=== PATIENT | male | born 1960 | race Caucasian/White ===

== ENCOUNTER 2016-07-25 11:41 | Emergency (ER) | payer SELFPAY ==
[~2016-07-25] VITALS: Ht 167.6 cm; Wt 59.0 kg
[~2016-07-25 11:41] MED LIST: DOXY100T PO; SULF-154 PO
[2016-07-25 11:43] VITALS: BP 149/82; PULSE 90; RESP 20; TEMP 97.6; O2SAT 98
== END 2016-07-25 12:20 | disposition left against medical advice (07) ==
LOC: NED 11:41
DX: R68.89 Other general symptoms and signs (principal)
CPT/HCPCS: 99281

== ENCOUNTER 2016-09-24 07:39 | Emergency (ER) | payer SELFPAY ==
[~2016-09-24] VITALS: Ht 170.2 cm; Wt 59.0 kg
[2016-09-24 07:41] VITALS: BP 160/96; PULSE 106; RESP 20; TEMP 98; O2SAT 98
--- NOTE | 2016-09-24 07:53 | PD ---
HPI . Left index finger infection and right index finger wound Chief Complaint: Skin Problem Time Seen by Provider: 07:53 Travel History International Travel<30 days: No Contact w/Intl Traveler<30days: No Traveled to known affect area: No History of Present Illness HPI 56-year-old male with no known medical history other than tobaccoism here with complaints of left index finger possible infection/spider bite as well as a right index finger possible spider bite that is normal wound healing. Patient says that he decided to come to the emergency department because he had a temperature of 99 last night. The area on the left index finger is full of blood and he didn't know what to do. He is not certain if he was bitten by an insect or if he sustained some sort of injury. He is up-to-date on his tetanus shot. He still has range of motion in both bilateral hands without any significant difficulty. PFSH Past Medical History Hx Anticoagulant Therapy: No Autoimmune Disease: No Cancer: No Cardiovascular Problems: No Chemotherapy: No COPD: Yes Cerebrovascular Accident: No Diabetes: No Diminished Hearing: No Endocrine: No Genitourinary: No Immune Disorder: No Musculoskeletal: Yes (Bursitis) Neurologic: No Psychiatric: No Reproductive: No Respiratory: No Thyroid Disease: No Past Surgical History Pacemaker: No Social History Alcohol Use: Yes (4 BEERS A DAY) Tobacco Use: Yes (1 PPD) Substance Use: No Allergies-Medications (Allergen,Severity, Reaction): Coded Allergies: *MDRO Multi-Drug Resistant Organism (Verified Allergy, Unknown, 07/25/16) MRSA Reported Meds & Prescriptions Reported Meds & Active Scripts Active Bactrim DS (Sulfamethoxazole-Trimethoprim) 800-160 Mg Tab 1 Tab PO BID Review of Systems General / Constitutional: No: Fever Eyes: No: Visual changes HENT: No: Headaches Cardiovascular: No: Chest Pain or Discomfort Respiratory: No: Shortness of Breath Gastrointestinal: No: Abdominal Pain Genitourinary: No: Dysuria Musculoskeletal: No: Pain Skin: Positive Other (left index finger hematoma/ right index finger healing wound), No Rash Neurologic: No: Weakness Psychiatric: No: Depression Endocrine: No: Polydipsia Hematologic/Lymphatic: No: Easy Bruising Physical Exam Narrative GENERAL: AAO x 3, no acute distress, Well-nourished, well-developed patient. SKIN: Warm and dry. No visible rashes or bruising. Right index finger with a 2 cm healing wound. There is no surrounding erythema, edema or purulence. Left index finger at the PIP joint with a 1.4 cm hematoma and surrounding erythema. HEAD: Normocephalic and atraumatic. EYES: No scleral icterus. No injection or drainage. EOM intact, PERRLA ENT: No nasal drainage noted. Mucous membranes pink. Airway patent. NECK: Supple, trachea midline. No JVD. CARDIOVASCULAR: Regular rate and rhythm without murmurs, gallops, or rubs. RESPIRATORY: Diminished breath sounds bilaterally No accessory muscle use. No rhonchi or rales. GASTROINTESTINAL: Visual inspection normal EXTREMITIES: No cyanosis or edema. Full range of motion bilateral hands. Digits move normally bilateral hands. BACK: Nontender without obvious deformity. No CVA tenderness. PSYCH: AAO x 3, normal affect. Data Data Last Documented VS Vital Signs Date Time Temp Pulse Resp B/P Pulse Ox O2 Delivery O2 Flow Rate FiO2 09/24/16 08:07 85 09/24/16 07:41 98.0 20 160/96 98 Room Air MDM Medical Decision Making Medical Screen Exam Complete: Yes Emergency Medical Condition: Yes Medical Record Reviewed: Yes Differential Diagnosis Left index trigger hematoma, left index finger cellulitis, right index finger wound, less likely paronychia, less likely abscess Narrative Course 56-year-old male here with a left index finger hematoma and a right index finger wound. He is not certain of the exact mechanism of injury. This left index finger does not look fractured. I discussed drainage of the hematoma and patient was in agreement. A large bore needle was used to make a small hole and blood was released from the hematoma. Patient tolerated without incident. There is some slight erythema of this finger as well, therefore I will go ahead and treat with Bactrim to cover MRSA. I've advised him to come in in 2 days for recheck. We discussed the signs of worsening infection and when to return earlier. In regards to the right index finger: it is not infected. this is a slow healing wound likely related to tobaccoism and the fact that the patient has not provided any care or protection to the area. I discussed this with him. He will try to keep area protected to allow proper healing. Patient verbalized understanding of instructions, questions were answered, and thanked me for their care. I advised them if their condition worsens, please return to the nearest emergency room for further care. Procedures Procedure Narrative hematoma drainage: left index finger PIP dorsum area cleaned with betadine 18 gauge needle used to make a small hole (patient: no lidocaine due to recurrent use of needles vs. one needle stick to drain) 0.5 cc blood drained from the hematoma. Instant relief for patient afterwards area cleaned and dressing applied Diagnosis Primary Impression: Traumatic hematoma of finger Qualified Code: S60.00XA - Traumatic hematoma of finger, initial encounter Additional Impression: Cellulitis Qualified Code: L03.012 - Cellulitis of finger of left hand Patient Instructions: General Instructions Additional Instructions: [place] for worsening signs of infection which include fever, increased redness , increased warmth, purulent drainage, increased swelling or streaking. If any of these develop, please go to the nearest emergency room. Please return to emergency department if your symptoms return or worsen. Follow up with your primary care provider. Take medications as prescribed. Return to the emergency department in 2 days for recheck of this left index finger. Try to clean your fingers with soap and water at least twice daily. Keep area clean and change dressings at least twice daily. Use topical Neosporin on both areas of each finger. Med/Other Pt SpecificInfo: Prescription(s) given Scripts Sulfamethoxazole-Trimethoprim (Bactrim DS)800-160 Mg Tab1 Tab PO BID #20 TAB Prov:Debbie Rodríguez DO 09/24/16 Disposition: 01 DISCHARGE HOME Condition: Stable Heather Marx September 24, 2016 07:53
[2016-09-24] MEDS ORDERED: BACT800T5 PO (08:05)
== END 2016-09-24 08:05 | disposition home or self-care (01) ==
LOC: NEPK 07:39
DX: S60.022A Contusion of left index finger without damage to nail, initial encounter (principal); L03.012 Cellulitis of left finger; X58.XXXA Exposure to other specified factors, initial encounter
CPT/HCPCS: 10140

== ENCOUNTER 2016-09-26 00:08 | Emergency (ER) | payer SELFPAY ==
[~2016-09-26] VITALS: Ht 170.2 cm; Wt 59.1 kg
[~2016-09-26 00:08] MED LIST changes: +BACT800T5 PO; -DOXY100T PO; -SULF-154 PO
[2016-09-26 00:10] VITALS: BP 127/86; PULSE 104; RESP 16; TEMP 98.6; O2SAT 98
== END 2016-09-26 02:22 | disposition left against medical advice (07) ==
LOC: NED 00:08
DX: R68.89 Other general symptoms and signs (principal)
CPT/HCPCS: 99281

== ENCOUNTER 2016-09-26 09:51 | Inpatient (IN) | payer OTHER ==
[~2016-09-26] VITALS: Ht 170.2 cm; Wt 60.0 kg
--- NOTE | 2016-09-26 10:53 | PD ---
HPI Chief Complaint: Laceration/Skin Injury Time Seen by Provider: 10:35 Travel History International Travel<30 days: No Contact w/Intl Traveler<30days: No Traveled to known affect area: No History of Present Illness HPI 56-year-old male with no past medical history presents to the emergency department for recheck of 2 abscesses on his left and right hand. He reports that he was possibly bitten by a spider while trimming bushes 2 days ago. He was seen and evaluated in the emergency department on 09/24/16 started on Bactrim and discharged home. He reports since then he has developed fever, chills, increased swelling and red streaking up the arm. PFSH Past Medical History Medical History: Denies Significant Hx Hx Anticoagulant Therapy: No Musculoskeletal: Yes (Bursitis) Respiratory: No Thyroid Disease: No Past Surgical History Pacemaker: No Other Surgery: No (FINGER) Social History Alcohol Use: Yes (every other day) Tobacco Use: Yes (1 PPD) Substance Use: No Allergies-Medications (Allergen,Severity, Reaction): Coded Allergies: *MDRO Multi-Drug Resistant Organism (Verified Adverse Reaction, Unknown, ) MRSA Reported Meds & Prescriptions Reported Meds & Active Scripts Active Bactrim DS (Sulfamethoxazole-Trimethoprim) 800-160 Mg Tab 1 Tab PO BID Review of Systems Except as stated in HPI: all other systems reviewed are Neg General / Constitutional: Positive: Fever, Chills Skin: Positive Other (abscess lL 2nd digit, abcess R thumd, Lymphangitis R arm) Physical Exam Narrative 56-year-old male presents to the emergency department for reevaluation of 2 abscesses on his left and right hand. He reports symptoms are worsening despite being on Bactrim for the last 2 days. Patient is transferred to medical pod. Data Data Last Documented VS Vital Signs Date Time Temp Pulse Resp B/P Pulse Ox O2 Delivery O2 Flow Rate FiO2 09/26/16 11:30 98.4 89 17 118/72 97 Room Air Orders Complete Blood Count With Diff (09/26/16 11:00) Basic Metabolic Panel (Bmp) (09/26/16 11:00) Blood Culture (09/26/16 11:00) Wound Culture And Gram Stain (09/26/16 11:00) Westergren Sedimentation Rate (09/26/16 11:08) C-Reactive Protein (Crp) (09/26/16 11:08) Vancomycin Inj (Vancomycin Inj) (09/26/16 11:15) Cefepime Inj (Maxipime Inj) (09/26/16 11:15) Finger ([id number]) (09/26/16 11:15) Finger ([id number]) (09/26/16 11:15) Admit Order (Ed Use Only) (09/26/16 12:18) Labs Laboratory Tests Test 09/26/16 11:10 White Blood Count 10.4 TH/MM3 Red Blood Count 4.59 MIL/MM3 Hemoglobin 15.0 GM/DL Hematocrit 44.0 % Mean Corpuscular Volume 95.9 FL Mean Corpuscular Hemoglobin 32.7 PG Mean Corpuscular Hemoglobin 34.1 % Concent Red Cell Distribution Width 13.9 % Platelet Count 278 TH/MM3 Mean Platelet Volume 8.0 FL Neutrophils (%) (Auto) 77.0 % Lymphocytes (%) (Auto) 9.7 % Monocytes (%) (Auto) 12.3 % Eosinophils (%) (Auto) 0.5 % Basophils (%) (Auto) 0.5 % Neutrophils # (Auto) 8.0 TH/MM3 Lymphocytes # (Auto) 1.0 TH/MM3 Monocytes # (Auto) 1.3 TH/MM3 Eosinophils # (Auto) 0.0 TH/MM3 Basophils # (Auto) 0.1 TH/MM3 CBC Comment DIFF FINAL Differential Comment Erythrocyte Sedimentation Rate 6 mm/hr Sodium Level 132 MEQ/L Potassium Level 3.7 MEQ/L Chloride Level 99 MEQ/L Carbon Dioxide Level 25.4 MEQ/L Anion Gap 8 MEQ/L Blood Urea Nitrogen 9 MG/DL Creatinine 0.78 MG/DL Estimat Glomerular Filtration 102 ML/MIN Rate Random Glucose 102 MG/DL Calcium Level 9.2 MG/DL C-Reactive Protein 7.04 MG/DL [facility] Medical Decision Making Medical Screen Exam Complete: Yes Emergency Medical Condition: Yes Medical Record Reviewed: Yes Differential Diagnosis Abscess, synovitis, infectious tenosynovitis Narrative Course 56-year-old male who presents to the emergency department for reevaluation of 2 abscesses on left and right hand. He reports worsening symptoms despite being on oral antibiotics for the last 2 days. He is moved to the [facility] at this time. Liz Morales September 26, 2016 10:53
--- NOTE | 2016-09-26 11:00 | PD ---
HPI Chief Complaint: Laceration/Skin Injury Travel History International Travel<30 days: No Contact w/Intl Traveler<30days: No Traveled to known affect area: No PFSH Past Medical History Medical History: Denies Significant Hx Hx Anticoagulant Therapy: No Musculoskeletal: Yes (Bursitis) Respiratory: No Thyroid Disease: No Past Surgical History Pacemaker: No Other Surgery: No (FINGER) Social History Alcohol Use: Yes (every other day) Tobacco Use: Yes (1 PPD) Substance Use: No Allergies-Medications (Allergen,Severity, Reaction): Coded Allergies: *MDRO Multi-Drug Resistant Organism (Verified Allergy, Unknown, 07/25/16) MRSA Reported Meds & Prescriptions Reported Meds & Active Scripts Active Bactrim DS (Sulfamethoxazole-Trimethoprim) 800-160 Mg Tab 1 Tab PO BID Physical Exam Narrative GENERAL: Well-nourished well-appearing white male SKIN: Focused assessment: Large fluctuant abscess over the dorsal aspect of the left second digit. Abscess to the palmar aspect of right thumb. Erythema spreading from the site thumb up the right forearm. HEAD: Atraumatic. Normocephalic. EYES: Pupils equal and round. No scleral icterus. No injection or drainage. ENT: No nasal bleeding or discharge. Mucous membranes pink and moist. NECK: Trachea midline. No JVD. CARDIOVASCULAR: Regular rate and rhythm. RESPIRATORY: No accessory muscle use. Clear to auscultation. Breath sounds equal bilaterally. GASTROINTESTINAL: Abdomen soft, non-tender, nondistended. Hepatic and splenic margins not palpable. MUSCULOSKELETAL:Left 2nd digit: Moderate amount of swelling and erythema. Area of fluctuance over the dorsal aspect, held in slight flexion, decreased range of motion due to pain. Right thumb: Area of fluctuance on the palmar aspect. NEUROLOGICAL: Awake and alert. No obvious cranial nerve deficits. Motor grossly within normal limits. Five out of 5 muscle strength in the arms and legs. Normal speech. PSYCHIATRIC: Appropriate mood and affect; insight and judgment normal. MDM Medical Decision Making Medical Screen Exam Complete: Yes Emergency Medical Condition: Yes Differential Diagnosis Abscess versus cellulitis versus lymphangitis versus infectious tenosynovitis Liz Morales September 26, 2016 10:59
[2016-09-26] MEDS ORDERED: VANCOMYCIN INJ 1,000 MG in SODIUM CHLOR 0.9% 250 ML INJ 250 ML IV ONE (11:15)
[2016-09-26] MEDS ORDERED: CEFEPIME INJ 2,000 MG in SODIUM CHLORIDE 0.9% INJ 100 ML IV STA (11:15)
--- NOTE | 2016-09-26 11:15 | PD ---
HPI Chief Complaint: Laceration/Skin Injury Time Seen by Provider: 11:10 Travel History International Travel<30 days: No Contact w/Intl Traveler<30days: No Traveled to known affect area: No History of Present Illness HPI 56-year-old male presents to the emergency department for evaluation of left hand second finger swelling and pain as well as swelling and pain in the right hand thumb. The patient was initially seen by fast track provider and then transferred to a medical pod where I accepted care of the patient. The patient states that 4 days ago he noticed he had some swelling and pain to the dorsal aspect of his left hand second finger and the volar aspect of his right hand first finger. 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 He states that he was seen in our emergency department 2 days ago and had a needle aspiration of the left hand second finger and was placed on Bactrim. States that he has been taking the Bactrim as prescribed over the last 2 days but has had worsening of his swelling, redness and pain. He states that he now has a red streak extending up his right arm. He says that he can move his fingers but only a small amount. Denies any fever, chills , nausea, vomiting, numbness or tingling, weakness. Denies any medical conditions. Last tetanus vaccination 2 years ago. No other complaints. PFSH Past Medical History Medical History: Denies Significant Hx Hx Anticoagulant Therapy: No Cardiovascular Problems: No COPD: Yes Diminished Hearing: No Musculoskeletal: Yes (Bursitis) Respiratory: Yes Thyroid Disease: No Tetanus Vaccination: < 5 Years Influenza Vaccination: Yes Past Surgical History Pacemaker: No Other Surgery: Yes (FINGER) Social History Alcohol Use: Yes (every other day) Tobacco Use: Yes (1 PPD) Substance Use: No Allergies-Medications (Allergen,Severity, Reaction): Coded Allergies: *MDRO Multi-Drug Resistant Organism (Verified Adverse Reaction, Unknown, ) MRSA Reported Meds & Prescriptions Reported Meds & Active Scripts Active Bactrim DS (Sulfamethoxazole-Trimethoprim) 800-160 Mg Tab 1 Tab PO BID Review of Systems Except as stated in HPI: all other systems reviewed are Neg Physical Exam Narrative GENERAL: Well-nourished and well-developed pleasant patient in no acute distress who is nontoxic appearing. SKIN: Warm and dry. HEAD: Normocephalic and atraumatic. EYES: No injection, drainage, or hyphema noted. PERRLA. EOMI. ENT: No nasal drainage noted. Oropharynx is clear. NECK: Supple and the trachea is midline. CARDIOVASCULAR: Regular rate and rhythm. RESPIRATORY: Breath sounds are equal bilaterally with no accessory muscle use, wheezing, rhonchi, or crackles. GASTROINTESTINAL: Abdomen is soft, non-tender, and nondistended. EXTREMITY: Right hand with mild swelling and erythema of the volar distal aspect with erythema and warmth extending in a red streak down the volar forearm. Range of motion of the right hand thumb is mostly intact, slightly decreased. There is an abscess overlying the left hand second finger PIP dorsal aspect with tenderness to palpation. There is no tenderness along the flexor tendon, he does have decreased range of motion in the PIP joint. Full range of motion in all other joints. Normal opposition of thumb. Distal extremity neurovascularly intact with intact two point discrimination. MUSCULOSKELETAL: No obvious deformities, swelling, cyanosis, or ecchymosis is present throughout the upper and lower extremities. Patient has full range of motion without any signs of neurovascular compromise. NEUROLOGICAL: Awake, alert, and oriented. Normal speech and gait. Cranial nerves are grossly intact. Data Data Last Documented VS Vital Signs Date Time Temp Pulse Resp B/P Pulse Ox O2 Delivery O2 Flow Rate FiO2 09/26/16 11:30 98.4 89 17 118/72 97 Room Air Orders Complete Blood Count With Diff (09/26/16 11:00) Basic Metabolic Panel (Bmp) (09/26/16 11:00) Blood Culture (09/26/16 11:00) Wound Culture And Gram Stain (09/26/16 11:00) Westergren Sedimentation Rate (09/26/16 11:08) C-Reactive Protein (Crp) (09/26/16 11:08) Vancomycin Inj (Vancomycin Inj) (09/26/16 11:15) Cefepime Inj (Maxipime Inj) (09/26/16 11:15) Finger ([id number]) (09/26/16 11:15) Finger ([id number]) (09/26/16 11:15) Admit Order (Ed Use Only) (09/26/16 12:18) Labs Laboratory Tests Test 09/26/16 11:10 White Blood Count 10.4 TH/MM3 Red Blood Count 4.59 MIL/MM3 Hemoglobin 15.0 GM/DL Hematocrit 44.0 % Mean Corpuscular Volume 95.9 FL Mean Corpuscular Hemoglobin 32.7 PG Mean Corpuscular Hemoglobin 34.1 % Concent Red Cell Distribution Width 13.9 % Platelet Count 278 TH/MM3 Mean Platelet Volume 8.0 FL Neutrophils (%) (Auto) 77.0 % Lymphocytes (%) (Auto) 9.7 % Monocytes (%) (Auto) 12.3 % Eosinophils (%) (Auto) 0.5 % Basophils (%) (Auto) 0.5 % Neutrophils # (Auto) 8.0 TH/MM3 Lymphocytes # (Auto) 1.0 TH/MM3 Monocytes # (Auto) 1.3 TH/MM3 Eosinophils # (Auto) 0.0 TH/MM3 Basophils # (Auto) 0.1 TH/MM3 CBC Comment DIFF FINAL Differential Comment Erythrocyte Sedimentation Rate 6 mm/hr Sodium Level 132 MEQ/L Potassium Level 3.7 MEQ/L Chloride Level 99 MEQ/L Carbon Dioxide Level 25.4 MEQ/L Anion Gap 8 MEQ/L Blood Urea Nitrogen 9 MG/DL Creatinine 0.78 MG/DL Estimat Glomerular Filtration 102 ML/MIN Rate Random Glucose 102 MG/DL Calcium Level 9.2 MG/DL C-Reactive Protein 7.04 MG/DL MDM Medical Decision Making Medical Screen Exam Complete: Yes Emergency Medical Condition: Yes Differential Diagnosis Abscess versus failed outpatient therapy versus cellulitis versus foreign body retention versus flexor tenosynovitis less likely Narrative Course 56-year-old male presents to the emergency department for evaluation of redness , pain and swelling of left hand second finger and right hand first finger for 4 days. He's been on antibiotics for the last 2 days with worsening of symptoms. He does have lymphangitis extending from the right hand thumb to the right forearm. He has an abscess over the left second finger. He had a needle aspiration 2 days ago however no wound culture was obtained at that time. We will aspirate again today and send wound culture. The patient does have failed outpatient therapy and will require admission for IV antibiotics and hand surgery consult. I discussed the case with my attending physician Dr. Pyle who also evaluated the patient and we agree that there is no evidence of flexor tenosynovitis and no emergent surgical intervention at this time therefore hand surgery consultation can be ordered routinely. Labs have been ordered and are pending, patient is administered IV vancomycin and cefepime. CBC is unremarkable. Sedimentation rate is unremarkable. BMP shows slightly decreased sodium of 132. CRP is elevated at 7.04. X-ray imaging of [id number] left hand second finger are unremarkable for any acute abnormalities. The patient will be admitted to the resident service for IV antibiotics for failed outpatient therapy. Procedures Procedure Narrative After the risks and benefits were discussed the following procedure was performed: INCISION AND DRAINAGE OF ABSCESS: The area was prepped and was sterilely draped. An 18-gauge needle was used to puncture the area of the abscess. Purulence was expelled. Cultures were obtained. The abscess was drained an irrigated with normal saline. Patient tolerated well. Physician Communication Physician Communication I spoke with Dr. Lo resident who agrees to admit the patient to their service. Diagnosis Primary Impression: Cellulitis with lymphangitis Additional Impression: Abscess of finger of left hand Admitting Information Admitting Physician Requests: Admit Shanna Pisano September 26, 2016 11:14
[2016-09-26 11:30] VITALS: BP 118/72; PULSE 89; RESP 17; TEMP 98.4; O2SAT 97
[2016-09-26 11:35] LABS: BASOPHIL # 0.1 TH/MM3 (0-0.2); BASOPHIL % 0.5 % (0.0-2.0); EOSINOPHIL % 0.5 % (0.0-4.0); HEMO FLAGS DIFF FINAL; LYMPH % 9.7 % (9.0-44.0); MEAN CELL VOLUME 95.9 FL (80.0-100.0); MEAN CORPUSCULAR HEMOGLOBIN 32.7 PG (27.0-34.0); MEAN CORPUSCULAR HGB CONC 34.1 % (32.0-36.0); MONO % 12.3 % (0.0-8.0); PLATELET COUNT 278 TH/MM3 (150-450); RED BLOOD COUNT 4.59 MIL/MM3 (4.50-5.90); RED CELL DISTRIBUTION WIDTH 13.9 % (11.6-17.2); WHITE BLOOD COUNT 10.4 TH/MM3 (4.0-11.0)
--- NOTE | 2016-09-26 11:44 | PD ---
Data Data Last Documented VS Vital Signs Date Time Temp Pulse Resp B/P Pulse Ox O2 Delivery O2 Flow Rate FiO2 09/26/16 11:30 98.4 89 17 118/72 97 Room Air Orders Complete Blood Count With Diff (09/26/16 11:00) Basic Metabolic Panel (Bmp) (09/26/16 11:00) Blood Culture (09/26/16 11:00) Wound Culture And Gram Stain (09/26/16 11:00) Westergren Sedimentation Rate (09/26/16 11:08) C-Reactive Protein (Crp) (09/26/16 11:08) Vancomycin Inj (Vancomycin Inj) (09/26/16 11:15) Cefepime Inj (Maxipime Inj) (09/26/16 11:15) Finger ([id number]) (09/26/16 11:15) Finger ([id number]) (09/26/16 11:15) Labs Laboratory Tests Test 09/26/16 11:10 White Blood Count 10.4 TH/MM3 Red Blood Count 4.59 MIL/MM3 Hemoglobin 15.0 GM/DL Hematocrit 44.0 % Mean Corpuscular Volume 95.9 FL Mean Corpuscular Hemoglobin 32.7 PG Mean Corpuscular Hemoglobin 34.1 % Concent Red Cell Distribution Width 13.9 % Platelet Count 278 TH/MM3 Mean Platelet Volume 8.0 FL Neutrophils (%) (Auto) 77.0 % Lymphocytes (%) (Auto) 9.7 % Monocytes (%) (Auto) 12.3 % Eosinophils (%) (Auto) 0.5 % Basophils (%) (Auto) 0.5 % Neutrophils # (Auto) 8.0 TH/MM3 Lymphocytes # (Auto) 1.0 TH/MM3 Monocytes # (Auto) 1.3 TH/MM3 Eosinophils # (Auto) 0.0 TH/MM3 Basophils # (Auto) 0.1 TH/MM3 CBC Comment DIFF FINAL Differential Comment MDM Supervised Visit with MYRIAM: Yes Narrative Course The history, exam, and medical decision-making in the associated mid-level provider note were completed with my assistance. I reviewed and agree with the findings presented. I attest that I had a [id number] encounter with the patient on the same day, and personally performed and documented my assessment and findings in the medical record. *My assessment and Findings: 56-year-old man, bilateral hand infections with some areas of abscess and drainage, and some streaking erythema up the right arm, status post several days of Bactrim now without any improvement, and actually worsening of the lymphangitis. He is a couple areas of fluctuant blisters but don't see anything that looks like it requires surgical drainage. I don't think that he has flexor tenosynovitis. He'll need admission for IV antibiotics. Rafael Pyle MD September 26, 2016 11:44
[2016-09-26 11:48] LABS: BICARBONATE 25.4 MEQ/L (21.0-32.0); POTASSIUM 3.7 MEQ/L (3.5-5.1)
--- NOTE | 2016-09-26 12:35 | RADRPT ---
EXAM DATE/TIME: 09/26/2016 11:48 [facility] COMPARISON: No previous studies available for comparison. INDICATIONS : Bruising and swelling to hand from insect bite. MEDICAL HISTORY : None. SURGICAL HISTORY : None. ENCOUNTER: Initial ACUITY: 4 - 6 days PAIN SCORE: 10/10 LOCATION: Left 2nd Digit FINDINGS: Examination of the first digit of the right hand demonstrates no evidence of fracture or dislocation. Mild degenerative changes are noted in the phalangeal joint and first metacarpal phalangeal joint wi th sclerosis and slight spurring. No radiopaque foreign bodies are seen. The soft tissues are intact . CONCLUSION: 1. No radiopaque foreign body. 2. Mild osteoarthritic change. Rehan Gary MD on September 26, 2016 at 12:33 Board Certified Radiologist. This report was verified electronically.
--- NOTE | 2016-09-26 12:35 | HHI.HP ---
HPI Service Family Medicine Primary Care Physician No Primary Care Physician Admission Diagnosis Right Thumb Cellulitis w/ Lymphangitis, Left 2nd Finger Abscess Diagnoses: International Travel<30 Days: No Contact w/Intl Traveler<30days: No Known Affected Area: No History of Present Illness This is a 56-year-old male with past medical history is significant for alcohol abuse and skin abscesses. He says that he was doing some yard work and trimming the hedges and only some weeds without his gloves when he noticed some irritation on his hands bilaterally. This was on Monday09/23/16 the next day on Monday he noticed some erythema of both his index finger on the left hand and thumb on the right hand. He went to the ED to be evaluated and was started on Bactrim. Even while on the Bactrim his hands continue to worsen and today 09/26/16 he decided to return to the ED to be further evaluated. He also reported worsening pain in his index finger and thumb, and the next finger was no longer bending appropriately. By time he was evaluated he was status post I& D and said that his index finger felt a lot better and he was able to bend it with less pain and further. Some pus was collected and sent for cultures. Of note 2 years ago he had similar symptoms in his right middle finger that required surgery by hand surgeons. He denies any history of MRSA Last tetanus vaccination 2 years ago. (Naga Lo MD R2) Review of Systems Constitutional: COMPLAINS OF: Fever, Chills, Change in appetite (decreased), DENIES: Fatigue, Weight gain, Weight loss Endocrine: DENIES: Polyuria Eyes: DENIES: Blurred vision, Vision loss, Double Vision Ears, nose, mouth, throat: DENIES: Nasal discharge, Throat pain, Hoarseness, Sinus Pain Respiratory: COMPLAINS OF: Cough (smokers cough), DENIES: Wheezing, Sputum production, Shortness of breath Cardiovascular: DENIES: Chest pain, Lower Extremity Edema Gastrointestinal: COMPLAINS OF: Nausea, Vomiting, DENIES: Abdominal pain, Bloody stools, Constipation, Diarrhea Genitourinary: DENIES: Urinary incontinence, Dysuria Musculoskeletal: COMPLAINS OF: Joint pain, Muscle aches, Stiffness, Joint Swelling, DENIES: Back pain, Neck pain Integumentary: COMPLAINS OF: Rash (cellulitis) Hematologic/lymphatic: DENIES: Bruising Immunologic/allergic: DENIES: Eczema Neurologic: DENIES: Abnormal gait, Headache, Seizures, Tremor, Poor Balance Psychiatric: DENIES: Anxiety, Depression (Naga Lo MD R2) Past Family Social History Past Medical History Cellulitis Sepsis Past Surgical History Surgery to finger due to infection in 2014 Reported Medications Reported Meds & Active Scripts Active Bactrim DS (Sulfamethoxazole-Trimethoprim) 800-160 Mg Tab 1 Tab PO BID (Naga Lo MD R2) Allergies: Coded Allergies: *MDRO Multi-Drug Resistant Organism (Verified Adverse Reaction, Unknown, ) MRSA Family History Parkinson Disease Social History Live in [place] in a house with his Girlfriend No Pets Peña and yard work Smoke a pack a day Drink 4 pack of beer every couple days, 20 went through Delirium tremens none since Denies illicit drugs (Naga Lo MD R2) Physical Exam Vital Signs Vital Signs Date Time Temp Pulse Resp B/P Pulse Ox O2 Delivery O2 Flow Rate FiO2 09/26/16 11:30 98.4 89 17 118/72 97 Room Air Physical Exam GENERAL: Well-nourished and well-developed pleasant patient in no apparent distress SKIN: Warm and dry. HEAD: Normocephalic and atraumatic. EYES: No injection, drainage, or hyphema noted. PERRLA. EOMI. ENT: No nasal drainage noted. Oropharynx is clear. NECK: Supple and the trachea is midline. CARDIOVASCULAR: Regular rate and rhythm. RESPIRATORY: Breath sounds are equal bilaterally with no accessory muscle use, wheezing, rhonchi, or crackles. GASTROINTESTINAL: Abdomen is soft, non-tender, and nondistended. EXTREMITY: Right hand with mild swelling and erythema of the volar distal aspect with erythema and warmth extending in a red streak down the volar forearm. Range of motion of the right hand thumb is mostly intact, slightly decreased. There is an abscess overlying the left hand second finger PIP dorsal aspect with tenderness to palpation. There is no tenderness along the flexor tendon, he does have decreased range of motion in the PIP joint. Full range of motion in all other joints. Normal opposition of thumb. Distal extremity neurovascularly intact with intact two point discrimination. MUSCULOSKELETAL: No obvious deformities, swelling, cyanosis, or ecchymosis is present throughout the upper and lower extremities. Patient has full range of motion without any signs of neurovascular compromise. NEUROLOGICAL: Awake, alert, and oriented. Normal speech and gait. Cranial nerves are grossly intact. Laboratory Laboratory Tests Test 09/26/16 11:10 White Blood Count 10.4 Red Blood Count 4.59 Hemoglobin 15.0 Hematocrit 44.0 Mean Corpuscular Volume 95.9 Mean Corpuscular Hemoglobin 32.7 Mean Corpuscular Hemoglobin 34.1 Concent Red Cell Distribution Width 13.9 Platelet Count 278 Mean Platelet Volume 8.0 Neutrophils (%) (Auto) 77.0 Lymphocytes (%) (Auto) 9.7 Monocytes (%) (Auto) 12.3 Eosinophils (%) (Auto) 0.5 Basophils (%) (Auto) 0.5 Neutrophils # (Auto) 8.0 Lymphocytes # (Auto) 1.0 Monocytes # (Auto) 1.3 Eosinophils # (Auto) 0.0 Basophils # (Auto) 0.1 CBC Comment DIFF FINAL Differential Comment Erythrocyte Sedimentation Rate 6 Sodium Level 132 Potassium Level 3.7 Chloride Level 99 Carbon Dioxide Level 25.4 Anion Gap 8 Blood Urea Nitrogen 9 Creatinine 0.78 Estimat Glomerular Filtration 102 Rate Random Glucose 102 Calcium Level 9.2 C-Reactive Protein 7.04 Date/Time Procedure Status Source Growth 09/26/16 11:15 Aerobic Blood Culture Received Blood Peripheral Pending 09/26/16 11:15 Anaerobic Blood Culture Received Blood Peripheral Pending (Naga Lo MD R2) Result Diagram: 09/26/16 1110 09/26/16 1110 Imaging Last Impressions Finger X-Ray 09/26/16 1115 Signed Impressions: Service Date/Time: Monday, September 26, 2016 11:48 - CONCLUSION: 1. No radiopaque foreign body. 2. Mild osteoarthritic change. Rehan Gary MD (Naga Lo MD R2) Assessment and Plan Assessment and Plan This is a 56-year-old male with past medical history is significant for alcohol abuse and skin abscesses. Being admitted for cellulitis that has failed outpatient treatment Code Status Full Code Discussed Condition With WDW: Dr. Min (Naga Lo MD R2) Attending Attestation THIS CASE WAS DISCUSSED WITH THE RESIDENT PHYSICIANS. I HAVE REVIEWED THE RECORD AND AGREE WITH THE ABOVE NOTE AND PLAN OF CARE WAS DISCUSSED. I HAVE AUTHORIZED THE ORDER FOR ADMISSION TO AN IN-PATIENT STATUS. (Warner Min MD) Problem List: (1) Abscess of finger of left hand Status: Acute Plan: Abscess of the left finger, cellulitis of the left index finger and right thumb. Status post I&D of the abscess of the index finger. White blood cell count is 10.4. Wound cultures obtained, blood cultures obtained. * Admitted to inpatient * Consulted hand surgery, recommendations appreciated * Regular diet nothing by mouth at midnight in case surgery * Vancomycin with pharmacy consult * [place] 5/325 by mouth every 4 hours when necessary pain scale 15 * [place] 10/325 by mouth every 4 hours when necessary pain scale 6-10 * CBC, BMP ordered for the a.m. * Blood cultures pending * Wound cultures pending (2) Cellulitis with lymphangitis Status: Acute Plan: See plan above (3) Chronic alcoholism Status: Chronic Plan: Patient reports drinking large amounts of alcohol quite frequently. Last time he had delirium tremens was when he was 20. * Placed on CIWA * By mouth rally pack (4) Nutrition, metabolism, and development symptoms Status: Acute Plan: Diet: Regular diet nothing by mouth after midnight in case of possible surgery Fluids taking in PO Vitals every [address] accordingly Out of bed ad tarik. DVT prophylaxis with heparin and SCDs CODE STATUS: Full code Disposition: Pending resolution of cellulitis and Hand surgery recommendations (Naga Lo MD R2) Physician Certification 2 Midnight Certification Type: Admission for Inpatient Services Order for Inpatient Services The services are ordered in accordance with Medicare regulations or non- Medicare payer requirements, as applicable. In the case of services not specified as inpatient-only, they are appropriately provided as inpatient services in accordance with the 2-midnight benchmark. Estimated LOS (days): 3 days is the estimated time the patient will need to remain in the hospital, assuming treatment plan goals are met and no additional complications. Post-Hospital Plan: Home (Naga Lo MD R2) Naga Lo MD R2 September 26, 2016 12:35 Warner Min MD September 27, 2016 17:53
[2016-09-26] MEDS ORDERED: ACETAMINOPHEN 500 MG CPLT PO PRN (13:00)
[2016-09-26] MEDS ORDERED: Vancomycin Consult Pharmacy 1 EA OTHER SCH (13:00)
[2016-09-26] MEDS ORDERED: ACETAMINOPHEN/HYDROcodone 325 MG/5 MG TAB PO PRN (13:00)
[2016-09-26] MEDS ORDERED: SODIUM CHLORIDE 0.9% FLUSH 10 ML FLUSH IV FLUSH PRN ×2 (13:00→14:15)
[2016-09-26] MEDS: ACETAMINOPHEN/HYDROcodone 325 MG/7.5 MG TAB PO PRN ×2 (13:48→20:53)
[2016-09-26 13:49] VITALS: BP 120/76; PULSE 77; RESP 17; TEMP 98.2; O2SAT 98
[2016-09-26] MEDS: HEPARIN SODIUM - SQ 10,000 UNITS/ML VIAL SQ SCH ×2 (13:49→20:52)
[2016-09-26] MEDS ORDERED: LORazepam 1 MG TAB PO PRN (14:15)
[2016-09-26] MEDS ORDERED: cloNIDine HCL 0.1 MG TAB PO PRN (14:15)
[2016-09-26] MEDS ORDERED: FLUMAZENIL 0.5 MG/5 ML VIAL IV PUSH PRN (14:15)
[2016-09-26] MEDS ORDERED: LIDOCAINE HCL 2% 20 ML VIAL INFIL ONE (14:15)
[2016-09-26] MEDS ORDERED: LORazepam 2 MG TAB PO PRN (14:15)
[2016-09-26] MEDS ORDERED: LORazepam 2 MG/ML VIAL IV PUSH PRN ×4 (14:15)
[2016-09-26] MEDS ORDERED: LIDOCAINE HCL 2% 50 ML VIAL ONE (14:18)
--- NOTE | 2016-09-26 15:02 | RADRPT ---
EXAM DATE/TIME: 09/26/2016 11:48 [facility] COMPARISON: No previous studies available for comparison. INDICATIONS : Bit by insects at PIP joint MEDICAL HISTORY : None. SURGICAL HISTORY : None. ENCOUNTER: Initial ACUITY: 4 - 6 days PAIN SCORE: 5/10 LOCATION: Left FINDINGS: AP, lateral and oblique views of the left second digit were obtained and demonstrate soft tissue swel ling over the proximal interphalangeal joint with no radiopaque foreign body. There are no underlying bony abnormalities. There is mild osteopenia. CONCLUSION: Soft tissue swelling with no radiopaque foreign body or bony abnormality. Rehan Gary MD on September 26, 2016 at 15:00 Board Certified Radiologist. This report was verified electronically.
--- NOTE | 2016-09-26 19:04 | MB ---
cc: ANA HOOKER MD DATE OF CONSULTATION 09/26/2016 REASON FOR CONSULTATION Multiple finger / thumb abscesses both hands. HISTORY OF THE PRESENT ILLNESS The patient is a 56-year-old right-hand dominant male presented to the ED with complaints of worsening pain, swelling involving the right thumb, the right middle finger, left thumb and left index finger. The patient had drainage of abscess from the dorsal aspect of the left index finger by the ER. Several ccs of purulent material was drained with a needle. Hand surgery was consulted for the same. The patient states 4-5 days ago he was working cleaning up yard and had insect bites involving to both hands. He noticed pain and swelling and redness in multiple fingers. He was seen in the ED and he was put on p.o. Bactrim. He presented to the ED with worsening symptoms and complaints of constant throbbing pain. He also complains of streaking redness proximally involving the right upper extremity. Denies any tingling or numbness. PAST MEDICAL AND SURGICAL HISTORY His past medical-surgical history was noted nonsignificant. PHYSICAL EXAMINATION GENERAL: The patient is alert, oriented x3. EXTREMITIES: Examination of right hand reveals an abscess over the radial aspect of the thumb pulp region. There is evidence of fluctuation. There is also evidence of surrounding swelling and erythema. Tenderness noted over the region. No evidence of compartment syndrome of the pulp noted. No purulent drainage noted. Range of motion of thumb is painful and limited. He also has a small abscess over the volar aspect of the middle phalanx region of the middle finger which measures a few mm in diameter. The thumb abscess measures about 1.5-2.0 cm in a longitudinal fashion. There is also evidence of streaking erythema extending proximally from the base of the thumb to the elbow region. He has intact sensation over the thumb pulp. He has full range of motion involving the fingers. 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 Examination of left hand reveals necrotic skin over the dorsal aspect of the PIP joint. There is evidence of accumulation of purulent material underneath the skin despite drainage with the needle. There is also a pustule-like lesion involving the thumb pulp on the radial aspect. The surrounding erythema extends from the DIP joint of the base of the index finger on the dorsal aspect. It also extends along the site of the PIP joint onto the volar aspect. No tenderness noted over the flexor tendon sheath. Range of motion of the index finger is painful and limited. He has intact sensation distally. IMAGING X-rays were reviewed shows evidence of soft tissue swelling around the left index finger PIP joint region. No evidence of radiopaque foreign body. LABORATORY DATA Lab work was reviewed. He has a white count of 10.7 and shift of 75%. ASSESSMENT A 56-year-old male with multiple finger abscesses worse involving the right thumb pulp and the left index dorsal aspect. PLAN The plan will be to do incision and drainage at the bedside. Incision and drainage of the right thumb pulp abscess and left index finger abscess on the dorsal aspect was carried out. This will be dictated in separate op note. A dry dressing was applied. The patient is getting admitted for IV antibiotics. We will keep the patient n.p.o. after breakfast and if there is no improvement in symptoms we will proceed for formal incision and drainage in a surgical setting. We will continue with IV antibiotics. Ana Hooker MD SE/MAHAD /3:27 PM /6:44 PM JOHN
[2016-09-26 20:00] VITALS: BP 119/69; PULSE 79; RESP 18; TEMP 100.7; O2SAT 98
[2016-09-26] MEDS: SODIUM CHLORIDE 0.9% FLUSH 10 ML FLUSH IV FLUSH SCH (20:50)
[2016-09-26] MEDS: REMOVE OLD PATCH T-DERMAL SCH (20:50)
[2016-09-26] MEDS ORDERED: SODIUM CHLORIDE 0.9% FLUSH 10 ML FLUSH IV FLUSH SCH (21:00)
[2016-09-26] MEDS: VANCOMYCIN INJ 1,000 MG in SODIUM CHLOR 0.9% 250 ML INJ 250 ML IV SCH (23:01)
[2016-09-27] VITALS: BP 117/68; PULSE 79; RESP 18; TEMP 99; O2SAT 96
[2016-09-27] MEDS ORDERED: POVIDONE IODINE 5% (ANTISEPSIS KIT) 4 APPLICATIONS EACH NARE PRN (02:00)
[2016-09-27] MEDS ORDERED: LACTATED RINGER'S 1000 ML IV PRN (02:00)
[2016-09-27] MEDS ORDERED: SODIUM CHLORID 0.9% 500 ML IV PRN (02:00)
[2016-09-27] MEDS ORDERED: METOPROLOL TARTRATE 25 MG TAB PO PRN (02:00)
[2016-09-27] MEDS ORDERED: CHLORHEXIDINE GLUCONATE 2 % 1 PACK (2 CLOTHS) TOPICAL PRN (02:00)
[2016-09-27] MEDS: ACETAMINOPHEN/HYDROcodone 325 MG/7.5 MG TAB PO PRN ×4 (04:49→20:36)
[2016-09-27] MEDS: HEPARIN SODIUM - SQ 10,000 UNITS/ML VIAL SQ SCH ×3 (04:52→20:34)
[2016-09-27 06:57] LABS: AUTOMATED NEUTROPHIL # 6.4 TH/MM3 (1.8-7.7); BASOPHIL % 0.3 % (0.0-2.0); EOSINOPHIL % 0.6 % (0.0-4.0); HEMATOCRIT 39.4 % (39.0-51.0); HEMO FLAGS DIFF FINAL; LYMPH % 12.6 % (9.0-44.0); LYMPHOCYTE # 1.1 TH/MM3 (1.0-4.8); MEAN CELL VOLUME 97.4 FL (80.0-100.0); MEAN CORPUSCULAR HEMOGLOBIN 32.1 PG (27.0-34.0); MONO % 14.5 % (0.0-8.0); PLATELET COUNT 235 TH/MM3 (150-450); RED BLOOD COUNT 4.05 MIL/MM3 (4.50-5.90); RED CELL DISTRIBUTION WIDTH 13.7 % (11.6-17.2); WHITE BLOOD COUNT 8.8 TH/MM3 (4.0-11.0)
[2016-09-27 07:44] LABS: BICARBONATE 25.2 MEQ/L (21.0-32.0); POTASSIUM 4.1 MEQ/L (3.5-5.1)
[2016-09-27 08:00] VITALS: BP 109/65; PULSE 77; RESP 17; TEMP 97.6; O2SAT 97
[2016-09-27] MEDS: MULTIVITAMINS/MINERALS THERAPEUTIC TAB PO SCH (08:27)
[2016-09-27] MEDS: FOLIC ACID 1 MG TAB PO SCH (08:27)
[2016-09-27] MEDS: SODIUM CHLORIDE 0.9% FLUSH 10 ML FLUSH IV FLUSH SCH ×2 (08:27→20:33)
[2016-09-27] MEDS: THIAMINE HCL 100 MG TAB PO SCH (08:27)
[2016-09-27] MEDS: NICOTINE 21 MG/24 HR PATCH T-DERMAL SCH (08:27)
--- NOTE | 2016-09-27 09:13 | HHI.FPPN ---
Subjective Remarks FM Attending Note: Patient seen and examined. S: Chart and all resident physician notes reviewed. In summary this is a 56 year old male who was admitted with an admission diagnosis of Right Thumb Cellulitis W/Lymphangitis,L/2ND Finger. This patient was working in his yard last week and sustained some minor irritation of his hands/fungers. Her developed pain and redness for which he was seen in the ER for outpatient treatment. Symptoms worsened with increased redness and lymphangitis. He has been admitted for IV antibiotics. He has been seen by hand surgery with bed- side I&D performed abscess. This AM notes that the pain is much less. No further lymphangitis. Objective Vitals Vital Signs Date Time Temp Pulse Resp B/P Pulse Ox O2 Delivery O2 Flow Rate FiO2 09/27/16 08:00 97.6 77 17 109/65 97 09/27/16 00:00 99.0 79 18 117/68 96 09/26/16 20:00 100.7 79 18 119/69 98 09/26/16 15:00 18 09/26/16 13:49 98.2 77 17 120/76 98 Room Air 09/26/16 11:30 98.4 89 17 118/72 97 Room Air I/O 09/26/16 09/26/16 09/26/16 09/27/16 09/27/16 09/27/16 06:59 14:59 22:59 06:59 14:59 22:59 Intake Total 480 ml Balance 480 ml Intake Oral 480 ml # Voids 2 3 Result Diagram: 09/27/16 0529 09/27/16 0529 Other Results Item Value Date Time C-Reactive Protein 7.04 MG/DL H 09/26/16 1110 Imaging Last 48 hours Impressions Finger X-Ray 09/26/16 1115 Signed Impressions: Service Date/Time: Monday, September 26, 2016 11:48 - CONCLUSION: 1. No radiopaque foreign body. 2. Mild osteoarthritic change. Rehan Gary MD Finger X-Ray 09/26/16 1115 Signed Impressions: Service Date/Time: Monday, September 26, 2016 11:48 - CONCLUSION: Soft tissue swelling with no radiopaque foreign body or bony abnormality. Rehan Gary MD Objective Remarks O. CONSTITUTIONAL/GEN: normally nourished, in NAD. EYES: conjunctiva normal, PERRLA, EOMI. ENT: Mouth and pharynx normal. LUNGS: clear A-P, respiratory effort is normal. CARDIOVASCULAR: RR without murmur or gallop. No significant edema. GI/ABD: soft without masses, without organomegaly. NEURO: No focal deficits. SKIN: color normal, no rashes noted. Wounds on both hands are bandaged this AM. No lymphangitis apparent. HEME/LYMPH: no bruising, petechia or significant adenopathy MUSC: back is normal in appearance. Extremities are normal in appearance. PSYCH/MENTAL STATUS: Alert and oriented x 3. A/P Assessment and Plan This is a 56-year-old male with past medical history is significant for alcohol abuse and skin abscesses. Being admitted for cellulitis that has failed outpatient treatment Problem List: (1) Abscess of finger of left hand Status: Acute Plan: Abscess of the left finger, cellulitis of the left index finger and right thumb. Status post I&D of the abscess of the index finger. White blood cell count is 10.4. Wound cultures obtained, blood cultures obtained. * Admitted to inpatient * Consulted hand surgery, recommendations appreciated * Regular diet nothing by mouth at midnight in case surgery * Vancomycin with pharmacy consult * [place] 5/325 by mouth every 4 hours when necessary pain scale 15 * [place] 10/325 by mouth every 4 hours when necessary pain scale 6-10 * CBC, BMP ordered for the a.m. * Blood cultures pending * Wound cultures pending 09/27/16 Awaiting re-evaluation by hand surgery regarding need for further treatment. Continue antibiotics. (2) Cellulitis with lymphangitis Status: Acute Plan: See plan above (3) Chronic alcoholism Status: Chronic Plan: Patient reports drinking large amounts of alcohol quite frequently. Last time he had delirium tremens was when he was 20. * Placed on CIWA * By mouth rally pack (4) Nutrition, metabolism, and development symptoms Status: Acute Plan: Diet: Regular diet nothing by mouth after midnight in case of possible surgery Fluids taking in PO Vitals every [address] accordingly Out of bed ad tarik. DVT prophylaxis with heparin and SCDs CODE STATUS: Full code Disposition: Pending resolution of cellulitis and Hand surgery recommendations Warner Min MD September 27, 2016 09:13
[2016-09-27] MEDS ORDERED: PHARMACY ORDERED LAB ONE (10:45)
[2016-09-27] MEDS: VANCOMYCIN INJ 1,000 MG in SODIUM CHLOR 0.9% 250 ML INJ 250 ML IV SCH (11:08)
--- NOTE | 2016-09-27 11:28 | MR ---
cc: ANA HOOKER MD DATE 09/26/2016 PREOPERATIVE DIAGNOSIS Abscess right thumb and abscess left index finger dorsum POSTOPERATIVE DIAGNOSIS Abscess right thumb pulp region and pustules involving the right middle finger and left thumb and abscess over the dorsal aspect of the left index finger. PROCEDURE Incision and drainage multiple abscesses both hands. SURGEON Dr. Hooker NOTE This was a bedside procedure. ANESTHESIA About 5 cc of local anesthesia containing 2% lidocaine as a digital block. INDICATIONS The patient is a 56-year-old male who presented to the ED with complaints of multiple finger abscess. He had drainage of the abscess over the left index finger with a syringe and a needle. The patient was started on p.o. antibiotics last week. He presented to the ED today with worsening symptoms. On examination, he had a fluctuant mass over the radial aspect of the pulp of the right thumb and reaccumulation of purulent material over the dorsal aspect of the left index finger. The patient also had multiple pustules one over the right middle finger, one over the left thumb region. The patient was consented for incision and drainage. She was explained the risks and benefits of the procedure. PROCEDURE The right hand was thoroughly prepped and draped. About 5 cc of local anesthesia containing 2% lidocaine was injected as a digital block. Incision was carried out over the radial aspect of the pulp of the thumb measuring about 1 cm. Drainage of purulent material was carried out. The patient already had culture sensitivity done from the left index finger, hence no cultures were sent. A thorough wash was given with normal saline mixed with hydrogen peroxide. The necrotic skin was debrided and bacitracin dressing was applied. The pustule over the right middle finger middle phalanx region on the volar aspect was also opened up and a bead of pus was drained. Attention was then directed to the left hand. The left hand was thoroughly prepped and draped. Incision was made over the dorsal aspect of the index finger PIP joint. Necrotic skin was excised. Purulent material was drained from the region. A thorough wash was given using normal saline with hydrogen peroxide. A dry dressing was applied. There was a pustule over the left thumb region which was drained and a bead of pus was drained. The patient tolerated the procedure well. We will follow her up tomorrow after IV antibiotics and we will continue IV antibiotics and admission. MD IVAN Guillaume /3:32 PM /11:21 AM [facility]
[2016-09-27 12:00] VITALS: BP 114/65; PULSE 68; RESP 18; TEMP 97.4; O2SAT 97
[2016-09-27] MEDS ORDERED: PROPOFOL 200 MG/20 ML AMP IV ONE (12:00)
[2016-09-27] MEDS ORDERED: ceFAZolin 2 GM/50 ML BAG IV ONE (12:00)
[2016-09-27] MEDS ORDERED: NEOMYCIN/POLYMYXIN 1 ML G.U. IRRIGANT IRRIGATION ONE (12:00)
[2016-09-27] MEDS ORDERED: ONDANSETRON HCL 4 MG/2 ML VIAL IV PUSH ONE (12:00)
[2016-09-27] MEDS ORDERED: PHENYLEPH/NS 1000 MCG/10 ML SYR IV ONE (12:00)
[2016-09-27] MEDS ORDERED: BUPIVACAINE HCL PF 0.5% 30 ML VIAL ONE (15:26)
[2016-09-27] MEDS ORDERED: LIDOCAINE HCL 2% 50 ML VIAL ONE (15:26)
[2016-09-27] MEDS ORDERED: MUPIROCIN 2% OINT 22 GM TUBE ONE (15:27)
[2016-09-27 16:00] VITALS: BP 128/63; PULSE 80; RESP 18; TEMP 96.8; O2SAT 99
[2016-09-27] MEDS ORDERED: RESP: ALBUTEROL 2.5 MG/3 ML NEB (PRN) ONE (17:17)
--- NOTE | 2016-09-27 17:25 | PD.OP ---
Operative Report Preoperative Diagnosis: (1) Abscess of right thumb (2) Abscess of left index finger Postoperative Diagnosis: (1) Abscess of right thumb (2) Abscess of left index finger Procedure: incision and drainage right thumb excisional debridement left index finger Anesthesia: general Surgeon: Randal Rodriguez Weaving Machine Operator(s): minerva Operation and Findings: abscess right thumb necrotic skin and subcutaneous tissue left index finger Randal Rodriguez MD September 27, 2016 17:25
[2016-09-27] MEDS ORDERED: *RESP: ALBUTEROL 2.5 MG/3 ML NEB (PRN) PERIprocedural Use ONLY NEB ONE (17:30)
[2016-09-27] MEDS ORDERED: MIDAZOLAM HCL 2 MG/2 ML VIAL ONE (17:39)
[2016-09-27] MEDS ORDERED: DO NOT ADM ANY ANTICOAGULANT DRUGS PRN (19:00)
[2016-09-27 20:00] VITALS: BP 99/57; PULSE 82; RESP 16; TEMP 96.3; O2SAT 97
[2016-09-27] MEDS: REMOVE OLD PATCH T-DERMAL SCH (20:34)
[2016-09-27 20:35] VITALS: O2SAT 96
--- NOTE | 2016-09-27 22:02 | MP ---
cc: ANA HOOKER DATE OF SURGERY September 27, 2016 PREOPERATIVE DIAGNOSIS Abscess right thumb and abscess left index finger. POSTOPERATIVE DIAGNOSIS Abscess right thumb and necrotic skin and subcutaneous tissue left index finger. PROCEDURE Incision and drainage right thumb abscess and excisional debridement of skin and subcutaneous tissue left index finger. SURGEON Dr. Asad Hooker ANESTHESIA General ESTIMATED BLOOD LOSS Minimal TOURNIQUET TIME On the right side was 10 minutes. No tourniquet was used on the left side. SPECIMEN Swab for culture sensitivity from the right thumb and tissue from the left index finger for pathology. The patient was sent to recovery in stable condition. INDICATIONS The patient is a 56-year-old male who presented to the ED with complaint of multiple finger abscesses. He underwent incision and drainage of right thumb abscess and left index finger. Yesterday he was noticed to have worsening symptoms with increased erythema and swelling around today and was consented for incision and drainage of right thumb and left index finger. The patient was explained risk and benefits of the procedure. The patient was brought to the operating room under general anesthesia. The right and left upper extremity were thoroughly prepped and draped. Intraoperative findings on the right thumb included erythema and swelling over the pulp region with separation of the skin from the subcutaneous tissue with abscess within the region, swelling and redness of the pulp region. After limb elevation, tourniquet was inflated to 250 mmHg. The incision was opened up on the radial aspect of the thumb pulp. The pulp was exposed and no evidence of purulent material was noted except for serosanguineous fluid within the pulp. The skin and subcutaneous tissue were debrided. Incision was then made from the pulp region extending across the IP joint to the proximal phalanx region. Purulence was encountered. Swab was sent for culture sensitivity. Debridement of necrotic skin was debrided. Thorough wash was given with normal saline mixed with hydrogen peroxide and irrigant. Tourniquet was deflated. Total tourniquet time was 10 minutes on the right side. He had good distal circulation of the pulp. Xeroform, bacitracin and dry dressing was applied. Attention was then directed to the left hand. Index finger had an incision with necrotic skin and subcutaneous tissues. Intraoperative findings included necrotic tissue over the dorsal aspect of the PIP joint extending both proximally and distally over the middle and proximal phalanx region with surrounding swelling and erythema. Excisional debridement of the skin was carried out using a curette. Soft tissue was curetted. The necrotic tissue material was sent for pathology. My other differential diagnosis based on the intraoperative findings include pyoderma gangrenosum. Thorough wash was given with normal saline mixed with irrigant. Xeroform bacitracin dressing applied and dry dressing was applied. No tourniquet was used on the left side. He had good distal circulation at the end of the procedure. The patient was reconsulted, sent to recovery room in stable condition. We will continue with IV antibiotics and follow up cultures. As discussed in my intraoperative notes, my other differential diagnosis was pyoderma gangrenosum and if there is worsening of symptoms we will start the patient on steroids. Ana Hooker MD SE/ /5:29 PM /9:51 PM JOHN
[2016-09-28] VITALS: BP 103/61; PULSE 80; RESP 17; TEMP 96.8; O2SAT 97
[2016-09-28] MEDS: ACETAMINOPHEN/HYDROcodone 325 MG/7.5 MG TAB PO PRN ×4 (00:01→21:28)
[2016-09-28] MEDS: VANCOMYCIN INJ 1,250 MG in SODIUM CHLOR 0.9% 250 ML INJ 250 ML IV SCH ×3 (00:01→23:26)
[2016-09-28 05:25] LABS: HEMATOCRIT 37.4 % (39.0-51.0); MEAN CELL VOLUME 97.3 FL (80.0-100.0); MEAN CORPUSCULAR HEMOGLOBIN 32.8 PG (27.0-34.0); MEAN CORPUSCULAR HGB CONC 33.7 % (32.0-36.0); PLATELET COUNT 260 TH/MM3 (150-450); RED BLOOD COUNT 3.84 MIL/MM3 (4.50-5.90); RED CELL DISTRIBUTION WIDTH 13.5 % (11.6-17.2); REVIEW FLAG FINAL; WHITE BLOOD COUNT 8.7 TH/MM3 (4.0-11.0)
[2016-09-28 05:56] LABS: BICARBONATE 30.9 MEQ/L (21.0-32.0); POTASSIUM 4.6 MEQ/L (3.5-5.1)
[2016-09-28] MEDS: HEPARIN SODIUM - SQ 10,000 UNITS/ML VIAL SQ SCH ×3 (06:00→21:30)
[2016-09-28 08:00] VITALS: BP 107/71; PULSE 66; RESP 14; TEMP 96.1; O2SAT 96
[2016-09-28] MEDS: NICOTINE 21 MG/24 HR PATCH T-DERMAL SCH ×2 (08:29→09:00)
[2016-09-28] MEDS: THIAMINE HCL 100 MG TAB PO SCH (08:29)
[2016-09-28] MEDS: FOLIC ACID 1 MG TAB PO SCH (08:29)
[2016-09-28] MEDS: SODIUM CHLORIDE 0.9% FLUSH 10 ML FLUSH IV FLUSH SCH ×2 (08:29→21:00)
[2016-09-28] MEDS: MULTIVITAMINS/MINERALS THERAPEUTIC TAB PO SCH (08:29)
--- NOTE | 2016-09-28 08:31 | HHI.FPPN ---
Subjective Remarks Patient seen and examined this morning. Afebrile vital signs stable. Patient understands that he is waiting for final recommendations from hand surgery. He reports that his finger and thumb both are feeling great. He said he slept through the night without any pain. He thinks he can move them better today however they're still wrapped and he hasn't been able to test this. Bandages are clean dry and intact, they are new symptoms did not remove waiting for surgery to do so. Patient reports that the lymphangitis has improved is no longer noticing any on his arm. He says he is doing well without smoking and he hasn't been using his nicotine patch. He is hopeful that he may be able to quit smoking when he leaves. Endorses: Mild stiffness of index finger left hand and thumb on right Denies: Fever, chills, nausea, vomiting, shortness of breath, chest pain, headache, abdominal pain, calf pain (Naga Lo MD R2) Objective Vitals Vital Signs Date Time Temp Pulse Resp B/P Pulse Ox O2 Delivery O2 Flow Rate FiO2 09/28/16 08:00 96.1 66 14 107/71 96 09/28/16 00:00 96.8 80 17 103/61 97 09/27/16 20:35 96 21 09/27/16 20:00 96.3 82 16 99/57 97 09/27/16 18:15 97.6 70 14 120/59 100 Nasal Cannula 2 09/27/16 18:00 77 14 115/58 100 Nasal Cannula 2 09/27/16 17:45 75 14 129/70 100 Nasal Cannula 2 09/27/16 17:30 97.6 76 14 123/74 98 Nasal Cannula 4 09/27/16 16:00 96.8 80 18 128/63 99 09/27/16 12:00 97.4 68 18 114/65 97 I/O 09/27/16 09/27/16 09/27/16 09/28/16 09/28/16 09/28/16 07:00 15:00 23:00 07:00 15:00 23:00 Intake Total 193 ml 800 ml 480 ml 0 ml Output Total 5 ml Balance 193 ml 795 ml 480 ml 0 ml Intake Oral 0 ml 450 ml 480 ml IV Total 193 ml 0 ml Other 350 ml Output Estimated Blood Loss 5 ml # Voids 3 3 2 2 # Bowel Movements 0 (Naga Lo MD R2) Result Diagram: 09/28/16 0434 09/28/16 0434 Imaging Last Impressions Finger X-Ray 09/26/16 1115 Signed Impressions: Service Date/Time: Monday, September 26, 2016 11:48 - CONCLUSION: 1. No radiopaque foreign body. 2. Mild osteoarthritic change. Rehan Gary MD Objective Remarks O. CONSTITUTIONAL/GEN: normally nourished, in NAD. EYES: conjunctiva normal, PERRLA, EOMI. ENT: Mouth and pharynx normal. LUNGS: clear A-P, respiratory effort is normal. CARDIOVASCULAR: RR without murmur or gallop. No significant edema. GI/ABD: soft without masses, without organomegaly. NEURO: No focal deficits. SKIN: color normal, no rashes noted. Wounds on both hands are bandaged this AM. No lymphangitis apparent. HEME/LYMPH: no bruising, petechia or significant adenopathy MUSC: back is normal in appearance. Extremities are normal in appearance. PSYCH/MENTAL STATUS: Alert and oriented x 3. Procedures Status post I&D on both index finger and thumb by hand surgery on 09/27/16 Medications and IVs Current Medications Medications (Trade) Dose Ordered Sig/Brent Route Start Time Stop Time Status Last Admin (NS Flush) 2 ml BID IV FLUSH 09/26/16 21:00 09/27/16 20:33 Sodium Chloride 2 ml 2 ml UNSCH PRN IV FLUSH 09/26/16 13:00 09/28/16 00:02 (Vancomycin Consult Pharmacy) 0 ml @ 0 mls/hr UNSCH OTHER 09/26/16 13:00 (Tylenol) 500 mg Q4H PRN PO 09/26/16 13:00 ([place] 5-325 Mg) 1 tab Q4H PRN PO 09/26/16 13:00 ([place] 7.5-325 Mg) 1 tab Q4H PRN PO 09/26/16 13:00 09/28/16 00:01 (Heparin Inj) 5,000 units Q8HR SQ 09/26/16 14:00 09/26/16 13:49 (Habitrol 21 Mg Patch.24 Hr) 1 patch DAILY T-DERMAL 09/27/16 09:00 Miscellaneous Information 1 HS T-DERMAL 09/26/16 21:00 (Folate) 1 mg DAILY PO 09/27/16 09:00 10/02/16 08:59 09/27/16 08:27 (Vitamin B1) 100 mg DAILY PO 09/27/16 09:00 09/27/16 08:27 (Theragran M Tab) 1 tab DAILY PO 09/27/16 09:00 10/02/16 08:59 09/27/16 08:27 (Catapres) 0.1 mg Q6H PRN PO 09/26/16 14:15 (Romazicon Inj) 0.2 mg Q1M PRN IV PUSH 09/26/16 14:15 (Ativan) 1 mg Q4H PRN PO 09/26/16 14:15 (Ativan Inj) 1 mg Q4H PRN IV PUSH 09/26/16 14:15 (Ativan) 2 mg Q2H PRN PO 09/26/16 14:15 (Ativan Inj) 2 mg Q2H PRN IV PUSH 09/26/16 14:15 (Ativan Inj) 2 mg Q1H PRN IV PUSH 09/26/16 14:15 Lorazepam 2 mg 2 mg Q15M PRN IV PUSH 09/26/16 14:15 Lactated Ringer's 1,000 ml @ 30 mls/hr Q24H PRN IV 09/27/16 02:00 09/30/16 01:59 Sodium Chloride 500 ml @ 30 mls/hr [id number] PRN IV 09/27/16 02:00 09/30/16 01:59 (Vancomycin Inj/ NS 250 ml Inj) 262.5 ml @ 250 mls/hr Q12H IV 09/27/16 23:00 09/28/16 00:01 Miscellaneous Information SPECIFIC LAB TO BE DRAWN:VANCOMYCIN TROUGH DATE TO... ONCE ONCE .XX 09/29/16 10:45 09/29/16 10:46 Miscellaneous Information ALL NURSING DEPARTME... UNSCH PRN .XX 09/27/16 19:00 09/28/16 18:59 (Naga Lo MD R2) A/P Assessment and Plan This is a 56-year-old male with past medical history is significant for alcohol abuse and skin abscesses. Being admitted for cellulitis, abscess, and lymphangitis that has failed outpatient treatment wdw: Dr. Min Discharge Planning Pending recommendations from hand surgery (Naga Lo MD R2) Attending Attestation Case reviewed and discussed with the resident team. Agree with plan of care as discussed with me and documented in the resident note. (Warner Min MD) Problem List: (1) Abscess of finger of left hand Status: Acute Plan: Status post I&D by hand surgery on 09/27/16 for both index finger and thumb. White blood cell count is 8.7. Wound cultures obtained, blood cultures obtained. * Admitted to inpatient * Consulted hand surgery, recommendations appreciated * Vancomycin with pharmacy consult * [place] 5/325 by mouth every 4 hours when necessary pain scale 15 * [place] 10/325 by mouth every 4 hours when necessary pain scale 6-10 * CBC, BMP ordered for the a.m. * Blood cultures no growth to date 1 * Wound cultures group A beta strep (2) Cellulitis with lymphangitis Status: Acute Plan: See plan above (3) Chronic alcoholism Status: Chronic Plan: Patient reports drinking large amounts of alcohol quite frequently. Last time he had delirium tremens was when he was 20. * Placed on CIWA * By mouth rally pack (4) Nutrition, metabolism, and development symptoms Status: Acute Plan: Diet: Regular diet Fluids taking in PO Vitals every [address] accordingly Out of bed ad tarik. DVT prophylaxis with heparin and SCDs CODE STATUS: Full code Disposition: Pending Hand surgery recommendations (Naga Lo MD R2) Naga Lo MD R2 September 28, 2016 08:31 Warner Min MD September 28, 2016 15:02
[2016-09-28 12:00] VITALS: BP 113/59; PULSE 62; RESP 16; TEMP 96.4; O2SAT 99
[2016-09-28 14:02] VITALS: O2SAT 98
[2016-09-28 16:00] VITALS: BP 136/62; PULSE 71; RESP 14; TEMP 96.7; O2SAT 97
--- NOTE | 2016-09-28 17:13 | HHI.PR ---
Subjective Remarks complains of mild pain no fever no numbness Objective Vital Signs Date Time Temp Pulse Resp B/P Pulse Ox O2 Delivery O2 Flow Rate FiO2 09/28/16 16:00 96.7 71 14 136/62 97 09/28/16 14:02 98 21 09/28/16 13:25 09/28/16 12:00 96.4 62 16 113/59 99 09/28/16 09:40 09/28/16 08:00 96.1 66 14 107/71 96 09/28/16 00:00 96.8 80 17 103/61 97 09/27/16 20:35 96 21 09/27/16 20:00 96.3 82 16 99/57 97 09/27/16 18:15 97.6 70 14 120/59 100 Nasal Cannula 2 09/27/16 18:00 77 14 115/58 100 Nasal Cannula 2 09/27/16 17:45 75 14 129/70 100 Nasal Cannula 2 09/27/16 17:30 97.6 76 14 123/74 98 Nasal Cannula 4 I/O 09/27/16 09/27/16 09/27/16 09/28/16 09/28/16 09/28/16 07:00 15:00 23:00 07:00 15:00 23:00 Intake Total 193 ml 800 ml 480 ml 1000 ml Output Total 5 ml Balance 193 ml 795 ml 480 ml 1000 ml Intake Oral 0 ml 450 ml 480 ml 1000 ml IV Total 193 ml 0 ml Other 350 ml Output Estimated Blood Loss 5 ml # Voids 3 3 2 2 4 # Bowel Movements 0 1 right thumb: wound over the radial aspect of the thumb mild surrounding erythema looks healthy no streaking lymphangitis left index finger: wound over the PIP joint region necrotic tissue noted over the region no drainage range of motion is limited and painful cultures; group B strep Result Diagram: 09/28/16 0434 09/28/16 0434 Assessment and Plan Assessment and Plan 56 year old male s/p incision/drainage and debridement right thumb and left index finger Plan: packing removed and dressing changed has necrotic tissue over the PIP joint left index finger, may need additional debridement, will plan regarding the same after clinical reassessment tomorrow. continue with antibiotics based on cultures range of motion exercises hand surgery will follow. Randal Rodriguez MD September 28, 2016 17:13
[2016-09-28 20:00] VITALS: BP 113/61; PULSE 68; RESP 17; TEMP 96.8; O2SAT 97
[2016-09-28] MEDS: REMOVE OLD PATCH T-DERMAL SCH (21:00)
[2016-09-29] VITALS: BP 141/78; PULSE 67; RESP 17; TEMP 96.2; O2SAT 96
[2016-09-29 05:54] LABS: HEMATOCRIT 37.5 % (39.0-51.0); MEAN CELL VOLUME 97.7 FL (80.0-100.0); MEAN CORPUSCULAR HEMOGLOBIN 32.5 PG (27.0-34.0); MEAN CORPUSCULAR HGB CONC 33.2 % (32.0-36.0); PLATELET COUNT 267 TH/MM3 (150-450); RED BLOOD COUNT 3.84 MIL/MM3 (4.50-5.90); RED CELL DISTRIBUTION WIDTH 13.9 % (11.6-17.2); REVIEW FLAG FINAL; WHITE BLOOD COUNT 7.4 TH/MM3 (4.0-11.0)
[2016-09-29] MEDS: HEPARIN SODIUM - SQ 10,000 UNITS/ML VIAL SQ SCH ×2 (06:00→14:00)
[2016-09-29 06:06] LABS: BICARBONATE 29.3 MEQ/L (21.0-32.0); POTASSIUM 4.1 MEQ/L (3.5-5.1)
[2016-09-29] MEDS: FOLIC ACID 1 MG TAB PO SCH (07:50)
[2016-09-29] MEDS: THIAMINE HCL 100 MG TAB PO SCH (07:50)
[2016-09-29] MEDS: SODIUM CHLORIDE 0.9% FLUSH 10 ML FLUSH IV FLUSH SCH ×2 (07:50→21:00)
[2016-09-29] MEDS: MULTIVITAMINS/MINERALS THERAPEUTIC TAB PO SCH (07:50)
[2016-09-29] MEDS: NICOTINE 21 MG/24 HR PATCH T-DERMAL SCH (07:51)
[2016-09-29 08:00] VITALS: BP 137/75; PULSE 64; RESP 16; TEMP 95.9; O2SAT 97
--- NOTE | 2016-09-29 08:30 | HHI.FPPN ---
Subjective Remarks Patient was sitting up in bed this morning, very cheerful. He denied any major complaints, no chest pain, shortness of breath, nausea, vomiting, diarrhea. He does not have pain in his fingers. The only thing he mentioned that he is that he feels constipated and would like something to help him go. She would like to go home but he was told by the hand surgeon that he needs further debridement on his fingers which will be performed tomorrow. (EkoStacia MD R1) Objective Vitals Vital Signs Date Time Temp Pulse Resp B/P Pulse Ox O2 Delivery O2 Flow Rate FiO2 09/29/16 08:00 95.9 64 16 137/75 97 09/29/16 00:00 96.2 67 17 141/78 96 09/28/16 20:00 96.8 68 17 113/61 97 09/28/16 18:30 21 09/28/16 17:14 09/28/16 16:00 96.7 71 14 136/62 97 09/28/16 14:02 98 21 09/28/16 13:25 09/28/16 12:00 96.4 62 16 113/59 99 09/28/16 09:40 I/O 09/28/16 09/28/16 09/28/16 09/29/16 09/29/16 09/29/16 07:00 15:00 23:00 07:00 15:00 23:00 Intake Total 480 ml 1000 ml 480 ml 730 ml Balance 480 ml 1000 ml 480 ml 730 ml Intake Oral 480 ml 1000 ml 480 ml 480 ml IV Total 0 ml 0 ml 250 ml # Voids 2 4 3 2 # Bowel Movements 1 (Stacia Taylor MD R1) Result Diagram: 09/29/161 09/29/16 0441 Objective Remarks O. CONSTITUTIONAL/GEN: normally nourished, in NAD. EYES: conjunctiva normal, PERRLA, EOMI. ENT: Mouth and pharynx normal. LUNGS: clear A-P, respiratory effort is normal. CARDIOVASCULAR: RR without murmur or gallop. No significant edema. GI/ABD: Tight but without masses, without organomegaly. NEURO: No focal deficits. SKIN: color normal, no rashes noted. Wounds on both hands are bandaged this AM. No lymphangitis apparent. HEME/LYMPH: no bruising, petechia or significant adenopathy MUSC: back is normal in appearance. Extremities are normal in appearance. PSYCH/MENTAL STATUS: Alert and oriented x 3. Procedures Status post I&D on both index finger and thumb by hand surgery on 09/27/16 (Stacia Taylor MD R1) A/P Assessment and Plan This is a 56-year-old male with past medical history is significant for alcohol abuse and skin abscesses. He was admitted for cellulitis, abscess, and lymphangitis that failed outpatient treatment. Surgery was consulted and managed the patient with bedside and debridement in the OR. He is currently being treated with vancomycin IV. Wound culture collected on 09/26 grew group A beta strep, sensitivities pending. wdw: Dr. Min Discharge Planning Pending recommendations from hand surgery (Stacia Taylor MD R1) Attending Attestation Case reviewed and discussed with the resident team. Agree with plan of care as discussed with me and documented in the resident note. (Warner Min MD) Problem List: (1) Abscess of finger of left hand Status: Acute Plan: Status post I&D by hand surgery on 09/27/16 for both index finger and thumb. White blood cell count is 8.7. Wound cultures obtained, blood cultures obtained. * Admitted to inpatient * Hand surgery on board * Vancomycin with pharmacy consult * [place] 5/325 by mouth every 4 hours when necessary pain scale 15 * [place] 10/325 by mouth every 4 hours when necessary pain scale 6-10 * Miracle-Colace and milk of magnesia when necessary constipation * Blood cultures no growth to date 2 * Wound cultures group A beta strep, sensitivities pending (2) Cellulitis with lymphangitis Status: Acute Plan: See plan above (3) Chronic alcoholism Status: Chronic Plan: Patient reports drinking large amounts of alcohol quite frequently. Last time he had delirium tremens was when he was 20. * Placed on CIWA - discontinued, patient did not require any Ativan during this admission * By mouth rally pack (4) Nutrition, metabolism, and development symptoms Status: Acute Plan: Diet: Regular diet Fluids taking in PO Vitals every [address] accordingly Out of bed ad tarik. DVT prophylaxis with heparin and SCDs CODE STATUS: Full code Disposition: Pending Hand surgery recommendations (Stacia Taylor MD R1) Stacia Taylor MD R1 September 29, 2016 08:30 Warner Min MD September 29, 2016 14:09
[2016-09-29] MEDS: DOCUSATE SODIUM 50 MG/SENNA 8.6 MG TAB PO SCH ×2 (09:45→21:00)
[2016-09-29] MEDS ORDERED: MAGNESIUM HYDROXIDE SUSP 30 ML CUP PO PRN (09:45)
[2016-09-29 09:50] VITALS: O2SAT 97
[2016-09-29] MEDS: VANCOMYCIN INJ 1,250 MG in SODIUM CHLOR 0.9% 250 ML INJ 250 ML IV SCH ×2 (10:31→22:55)
[2016-09-29] MEDS ORDERED: PHARMACY ORDERED LAB ONE (10:45)
[2016-09-29 12:00] VITALS: BP 144/84; PULSE 79; RESP 18; TEMP 97.3; O2SAT 96
--- NOTE | 2016-09-29 15:40 | HHI.PR ---
Subjective Remarks complains of no pain no fever no numbness Objective Vital Signs Date Time Temp Pulse Resp B/P Pulse Ox O2 Delivery O2 Flow Rate FiO2 09/29/16 12:00 97.3 79 18 144/84 96 09/29/16 09:50 97 21 09/29/16 08:00 95.9 64 16 137/75 97 09/29/16 00:00 96.2 67 17 141/78 96 09/28/16 20:00 96.8 68 17 113/61 97 09/28/16 18:30 21 09/28/16 17:14 09/28/16 16:00 96.7 71 14 136/62 97 I/O 09/28/16 09/28/16 09/28/16 09/29/16 09/29/16 09/29/16 07:00 15:00 23:00 07:00 15:00 23:00 Intake Total 480 ml 1000 ml 480 ml 730 ml 255 ml Balance 480 ml 1000 ml 480 ml 730 ml 255 ml Intake Oral 480 ml 1000 ml 480 ml 480 ml IV Total 0 ml 0 ml 250 ml 255 ml # Voids 2 4 3 2 # Bowel Movements 1 left index finger: necrotic tissue over the PIP joint region range of motion of PIP joint is limited and painful no drainage right thumb: wound granulating well no signs of infection Result Diagram: 09/29/16 0441 09/29/16 044 Assessment and Plan Assessment and Plan 56 year old male s/p incision/drainage and debridement right thumb and left index finger Plan: Dressing changed has necrotic tissue over the PIP joint left index finger will need additional debridement, will plan on excisional debridement left index finger on 09/30/16 npo from midnight tonight continue with antibiotics based on cultures range of motion exercises Randal Rodriguez MD September 29, 2016 15:40
[2016-09-29 16:00] VITALS: BP 128/76; PULSE 68; RESP 14; TEMP 97.8; O2SAT 98
[2016-09-29 20:00] VITALS: BP 158/81; PULSE 81; RESP 17; TEMP 96.9; O2SAT 98
[2016-09-29] MEDS: REMOVE OLD PATCH T-DERMAL SCH (21:00)
[2016-09-29] MEDS ORDERED: POVIDONE IODINE 5% (ANTISEPSIS KIT) 4 APPLICATIONS EACH NARE PRN (22:00)
[2016-09-29] MEDS ORDERED: CHLORHEXIDINE GLUCONATE 2 % 1 PACK (2 CLOTHS) TOPICAL PRN (22:00)
[2016-09-29] MEDS ORDERED: SODIUM CHLORID 0.9% 500 ML IV PRN (22:00)
[2016-09-29] MEDS ORDERED: LACTATED RINGER'S 1000 ML IV PRN (22:00)
[2016-09-30] VITALS: BP 137/78; PULSE 72; RESP 17; TEMP 96.6; O2SAT 96
[2016-09-30 04:47] LABS: HEMATOCRIT 41.3 % (39.0-51.0); MEAN CELL VOLUME 97.1 FL (80.0-100.0); MEAN CORPUSCULAR HEMOGLOBIN 32.1 PG (27.0-34.0); MEAN CORPUSCULAR HGB CONC 33.1 % (32.0-36.0); PLATELET COUNT 334 TH/MM3 (150-450); RED BLOOD COUNT 4.25 MIL/MM3 (4.50-5.90); RED CELL DISTRIBUTION WIDTH 13.8 % (11.6-17.2); REVIEW FLAG FINAL; WHITE BLOOD COUNT 7.9 TH/MM3 (4.0-11.0)
[2016-09-30 05:07] LABS: BICARBONATE 33.1 MEQ/L (21.0-32.0); POTASSIUM 4.7 MEQ/L (3.5-5.1)
--- NOTE | 2016-09-30 07:23 | HHI.FPPN ---
Subjective Remarks Patient was awake and sitting up in bed this morning. He denied any complaints. He had a bowel movement yesterday and no longer has abdominal discomfort. Patient has no chest pain or shortness of breath, no nausea/vomiting/diarrhea/ abdominal pain. He is looking forward to the procedure this morning. He has been walking up and down the halls (Stacia Taylor MD R1) Objective Vitals Vital Signs Date Time Temp Pulse Resp B/P Pulse Ox O2 Delivery O2 Flow Rate FiO2 09/30/16 00:00 96.6 72 17 137/78 96 09/29/16 20:00 96.9 81 17 158/81 98 09/29/16 16:00 97.8 68 14 128/76 98 09/29/16 12:00 97.3 79 18 144/84 96 09/29/16 09:50 97 21 09/29/16 08:00 95.9 64 16 137/75 97 I/O 09/29/16 09/29/16 09/29/16 09/30/16 09/30/16 09/30/16 07:00 15:00 23:00 07:00 15:00 23:00 Intake Total 730 ml 1055 ml 480 ml 0 ml Balance 730 ml 1055 ml 480 ml 0 ml Intake Oral 480 ml 800 ml 480 ml 0 ml IV Total 250 ml 255 ml # Voids 2 4 5 2 # Bowel Movements 1 (Stacia Taylor MD R1) Result Diagram: 09/30/1643209/30/16 043 Objective Remarks O. CONSTITUTIONAL/GEN: normally nourished, in NAD, pleasant EYES: conjunctiva normal, PERRLA, EOMI. ENT: Mouth and pharynx normal LUNGS: Clear to auscultation bilaterally, no increased work of breathing CARDIOVASCULAR: RR without murmur or gallop. No significant edema. GI/ABD: Soft, nondistended, nontender NEURO: No focal deficits. SKIN: color normal, no rashes noted. Wounds on both hands are bandaged this AM. No lymphangitis apparent. Sensation intact. Able to wiggle all fingers of both hands HEME/LYMPH: no bruising, petechia or significant adenopathy MUSC: back is normal in appearance. Extremities are normal in appearance. PSYCH/MENTAL STATUS: Alert and oriented x 3. Procedures Status post I&D on both index finger and thumb by hand surgery on 09/27/16 (Stacia Taylor MD R1) A/P Assessment and Plan This is a 56-year-old male with past medical history significant for alcohol abuse and skin abscesses. He was admitted for cellulitis, abscess, and lymphangitis that failed outpatient treatment. Surgery was consulted and managed the patient with both bedside and OR debridement. He is currently being treated with vancomycin IV. Wound culture collected on 09/26 grew group A beta strep, sensitivities pending. wdw: Dr. Min Discharge Planning Pending recommendations from hand surgery, hopefully in the next 1-2 days (Stacia Taylor MD R1) Attending Attestation Case reviewed and discussed with the resident team. Agree with plan of care as discussed with me and documented in the resident note. (Warner Min MD) Problem List: (1) Abscess of finger of left hand Status: Acute Plan: Status post I&D by hand surgery on 09/27/16 for both index finger and thumb. * Hand surgery on board - plan for further debridement in the OR today 09/30 * Vancomycin with pharmacy consult * [place] 5/325 by mouth every 4 hours when necessary pain scale 15 * [place] 10/325 by mouth every 4 hours when necessary pain scale 6-10 * Miracle-Colace and milk of magnesia when necessary constipation * Blood cultures no growth to date 3 * Wound cultures group A beta strep, sensitivities pending (2) Cellulitis with lymphangitis Status: Acute Plan: See plan above (3) Chronic alcoholism Status: Chronic Plan: Patient reports drinking large amounts of alcohol quite frequently. Last time he had delirium tremens was when he was 20. * Placed on CIWA - discontinued, patient did not require any Ativan during this admission * By mouth rally pack (4) Nutrition, metabolism, and development symptoms Status: Acute Plan: Diet: Regular diet Oral fluids only Vitals every [address] accordingly Out of bed ad tarik. DVT prophylaxis with heparin and SCDs CODE STATUS: Full code Disposition: Pending Hand surgery recommendations. Hopefully in the next 1-2 days (Stacia Taylor MD R1) Stacia Taylor MD September 30, 2016 07:23 Warner Min MD September 30, 2016 10:09
[2016-09-30 08:00] VITALS: BP 150/85; PULSE 73; RESP 20; TEMP 97.6; O2SAT 98
[2016-09-30] MEDS: DOCUSATE SODIUM 50 MG/SENNA 8.6 MG TAB PO SCH ×2 (09:00→20:56)
[2016-09-30] MEDS: FOLIC ACID 1 MG TAB PO SCH (09:00)
[2016-09-30] MEDS: NICOTINE 21 MG/24 HR PATCH T-DERMAL SCH (09:00)
[2016-09-30] MEDS: MULTIVITAMINS/MINERALS THERAPEUTIC TAB PO SCH (09:00)
[2016-09-30] MEDS: THIAMINE HCL 100 MG TAB PO SCH (09:00)
[2016-09-30] MEDS: SODIUM CHLORIDE 0.9% FLUSH 10 ML FLUSH IV FLUSH SCH ×2 (09:42→20:56)
[2016-09-30 12:00] VITALS: BP 147/91; PULSE 83; RESP 19; TEMP 96.9; O2SAT 97
[2016-09-30] MEDS ORDERED: PROPOFOL 200 MG/20 ML AMP IV ONE (12:00)
[2016-09-30] MEDS ORDERED: NEOMYCIN/POLYMYXIN 1 ML G.U. IRRIGANT IRRIGATION ONE (12:00)
[2016-09-30] MEDS: VANCOMYCIN INJ 1,250 MG in SODIUM CHLOR 0.9% 250 ML INJ 250 ML IV SCH ×2 (12:00→22:58)
[2016-09-30] MEDS ORDERED: ONDANSETRON HCL 4 MG/2 ML VIAL IV PUSH ONE (12:00)
[2016-09-30] MEDS ORDERED: BUPIVACAINE HCL PF 0.5% 30 ML VIAL ONE (13:53)
[2016-09-30] MEDS ORDERED: LIDOCAINE HCL 2% 50 ML VIAL ONE (13:54)
[2016-09-30] MEDS ORDERED: BACITRACIN TOP OINT 15 GM TUBE ONE (14:29)
[2016-09-30] MEDS ORDERED: DO NOT ADM ANY ANTICOAGULANT DRUGS PRN (14:48)
--- NOTE | 2016-09-30 14:50 | PD.OP ---
Operative Report Preoperative Diagnosis: (1) Abscess of left index finger Postoperative Diagnosis: (1) Abscess of left index finger Procedure: excisional debridement left index finger Anesthesia: general Surgeon: Randal Rodriguez Gear Lapping Machine Operator(s): minerva Operation and Findings: necrotic skin and subcutaneous tissue over the PIP joint left index finger Randal Rodriguez MD September 30, 2016 14:50
--- NOTE | 2016-09-30 15:11 | MP ---
cc: RANDAL HOOKER MD DATE OF SURGERY: 09/30/2016. PREOPERATIVE DIAGNOSIS: Abscess / infection left index finger. POSTOPERATIVE DIAGNOSIS: Abscess / infection left index finger. OPERATIVE PROCEDURE PERFORMED: Excisional debridement, skin and subcutaneous tissue, left index finger. SURGEON: Randal Hooker M.D. ANESTHESIA: General. ESTIMATED BLOOD LOSS: Minimal. TOURNIQUET TIME: No tourniquet was used. SPECIMEN: Discarded. DISPOSITION: To post-anesthesia care unit stable. INDICATIONS FOR THE PROCEDURE: The patient is a 56-year-old male admitted with abscess over the left index finger, right thumb and multiple fingers. The patient underwent incision and drainage and excisional debridement for the same. He was brought in today for necrotic tissue over the PIP joint region for excisional debridement. The patient was explained the risks and benefits of the procedure. DESCRIPTION OF THE PROCEDURE IN DETAIL: The patient was brought to the operating room. Under general anesthesia, the left upper extremity was thoroughly prepped and draped. Intraoperative findings included necrotic tissue over the dorsolateral aspect of the PIP joint involving the skin and the subcutaneous tissue, mainly the dermis and subcutaneous tissue. He also has the devitalized tissue over the dorsal aspect of middle phalanx and proximal phalanx region. Excisional debridement of the necrotic tissue and devitalized tissue was carried out using sharp and blunt dissection. Thorough wash was given using normal saline mixed with irrigant and hydrogen peroxide. After excisional debridement, the wound bed looked healthy. About 5 mL of local anesthesia was injected as a digital block containing a mixture of 2% lidocaine and 0.5 % Marcaine. Xeroform and bacitracin dressing applied. Finger dressing was applied which was held in place by a Edwige. The patient had good distal circulation at the end of the procedure. He was recovered and sent to the recovery room in stable condition. We will change the dressing tomorrow and plan for discharge on p.o. antibiotics. Randal Hooker MD SE/SAMMY /2:55 PM /3:00 PM [facility]
[2016-09-30 16:00] VITALS: BP 141/78; PULSE 74; RESP 20; TEMP 96.9; O2SAT 97
[2016-09-30 20:00] VITALS: BP 123/74; PULSE 81; RESP 17; TEMP 96.3; O2SAT 98
[2016-09-30] MEDS: REMOVE OLD PATCH T-DERMAL SCH (20:56)
[2016-10-01] VITALS: BP 112/55; PULSE 76; RESP 17; TEMP 97.2; O2SAT 98
[2016-10-01 03:00] VITALS: O2SAT 98
[2016-10-01 05:26] LABS: HEMATOCRIT 38.5 % (39.0-51.0); MEAN CELL VOLUME 96.2 FL (80.0-100.0); MEAN CORPUSCULAR HEMOGLOBIN 33.2 PG (27.0-34.0); MEAN CORPUSCULAR HGB CONC 34.5 % (32.0-36.0); PLATELET COUNT 376 TH/MM3 (150-450); RED CELL DISTRIBUTION WIDTH 13.5 % (11.6-17.2); REVIEW FLAG FINAL; WHITE BLOOD COUNT 6.8 TH/MM3 (4.0-11.0)
[2016-10-01 05:40] LABS: BICARBONATE 30.5 MEQ/L (21.0-32.0)
--- NOTE | 2016-10-01 06:12 | HHI.DCPOC ---
Discharge Care Plan Diagnosis: (1) Cellulitis with lymphangitis (2) Abscess of right thumb (3) Abscess of left index finger (4) Traumatic hematoma of finger Goals to Promote Your Health * To prevent worsening of your condition and complications * To maintain your health at the optimal level Directions to Meet Your Goals Take your medications as prescribed Follow your dietary instruction Follow activity as directed Keep your appointments as scheduled Take your immunizations and boosters as scheduled If your symptoms worsen call your PCP, if no PCP go to Urgent Care Center or Emergency Room Smoking is Dangerous to Your Health. Avoid second hand smoke Call the 24-hour hour crisis hotline for domestic abuse at Stacia Taylor MD R1 October 01, 2016 06:12
--- NOTE | 2016-10-01 07:51 | HHI.FPPN ---
Subjective Remarks Patient is doing well this morning. He denies any complaints. He does not have any pain in his fingers and is able to move them normally. He denies chest pain or shortness of breath, N/C/D, abdominal pain. He is looking forward to going home today. (Stacia Taylor MD R1) Objective Vitals Vital Signs Date Time Temp Pulse Resp B/P Pulse Ox O2 Delivery O2 Flow Rate FiO2 10/01/16 03:00 98 21 10/01/16 00:00 97.2 76 17 112/55 98 09/30/16 20:00 96.3 81 17 123/74 98 09/30/16 16:00 96.9 74 20 141/78 97 09/30/16 15:15 98.0 79 16 129/80 98 Room Air 09/30/16 15:00 79 16 125/73 98 Room Air 09/30/16 14:48 98.0 71 16 111/64 99 Nasal Cannula 2 09/30/16 12:00 96.9 83 19 147/91 97 09/30/16 08:00 97.6 73 20 150/85 98 I/O 09/30/16 09/30/16 09/30/16 10/01/16 10/01/16 10/01/16 07:00 15:00 23:00 07:00 15:00 23:00 Intake Total 0 ml 928 ml 440 ml 240 ml Output Total 355 ml Balance 0 ml 573 ml 440 ml 240 ml Intake Oral 0 ml 0 ml 240 ml 240 ml IV Total 228 ml 200 ml Other 700 ml Output Urine Total 350 ml Estimated Blood Loss 5 ml # Voids 2 2 3 # Bowel Movements 0 (Stacia Taylor MD R1) Result Diagram: 10/01/168 10/01/16437 Objective Remarks O. CONSTITUTIONAL/GEN: normally nourished, in NAD, very pleasant EYES: conjunctiva normal, PERRLA, EOMI. ENT: Mouth and pharynx normal LUNGS: Clear to auscultation bilaterally, no increased work of breathing CARDIOVASCULAR: RR without murmur or gallop. No significant edema. GI/ABD: Soft, nondistended, nontender NEURO: No focal deficits. SKIN: color normal, no rashes noted. Wounds on both hands are bandaged this AM. No lymphangitis apparent. Sensation intact. Able to wiggle all fingers of both hands, normal sensation HEME/LYMPH: no bruising, petechia or significant adenopathy MUSC: back is normal in appearance. Extremities are normal in appearance. PSYCH/MENTAL STATUS: Alert and oriented x 3. Procedures Status post I&D on both index finger and thumb by hand surgery on 09/27/16 (Stacia Taylor MD R1) A/P Assessment and Plan This is a 56-year-old male with past medical history significant for alcohol abuse and skin abscesses. He was admitted for cellulitis, abscess, and lymphangitis that failed outpatient treatment. Surgery was consulted and managed the patient with both bedside and OR debridement. He was treated with vancomycin IV. Wound culture collected on 09/26 grew group A beta strep sensitive to Bactrim and Augmentin. He will be discharged home to continue a 7- day course of Bactrim. Discussed with Dr. Min Discharge Planning Pending recommendations from hand surgery, most likely today (Stacia Taylor MD R1) Attending Attestation Case reviewed and discussed with the resident team. Agree with plan of care as discussed with me and documented in the resident note. (Warner Min MD) Problem List: (1) Abscess of finger of left hand Status: Acute Plan: Status post I&D by hand surgery on 09/27/16 for both index finger and thumb. * Hand surgery on board - S/P debridement in the OR on 09/30 * Senior Vancomycin IV with pharmacy consult * [place] 5/325 by mouth every 4 hours when necessary pain scale 15 * [place] 10/325 by mouth every 4 hours when necessary pain scale 6-10 * Miracle-Colace and milk of magnesia when necessary constipation * Blood cultures no growth to date in final report * Wound cultures group A beta strep sensitive to Bactrim and Augmentin * Plan is to discharge home on Bactrim - patient confirmed that he has 16 tablets of Bactrim remaining at home. Considering that he has been treated with vancomycin IV and multiple debridements have been performed, we consider it safe to discharge him with Bactrim now that the source of infection has been physically removed. (2) Cellulitis with lymphangitis Status: Acute Plan: See plan above (3) Nutrition, metabolism, and development symptoms Status: Acute Plan: Diet: Regular diet Oral fluids only Vitals every [address] accordingly Out of bed ad tarik. DVT prophylaxis with heparin and SCDs (Stacia Taylor MD R1) Stacia Taylor MD R1 October 01, 2016 07:51 Warner Min MD October 01, 2016 14:14
[2016-10-01 08:00] VITALS: BP 100/59; PULSE 71; RESP 17; TEMP 96.5; O2SAT 95
[2016-10-01] MEDS: NICOTINE 21 MG/24 HR PATCH T-DERMAL SCH (09:00)
[2016-10-01] MEDS: FOLIC ACID 1 MG TAB PO SCH (09:43)
[2016-10-01] MEDS: MULTIVITAMINS/MINERALS THERAPEUTIC TAB PO SCH (09:43)
[2016-10-01] MEDS: THIAMINE HCL 100 MG TAB PO SCH (09:43)
[2016-10-01] MEDS: DOCUSATE SODIUM 50 MG/SENNA 8.6 MG TAB PO SCH (09:43)
[2016-10-01] MEDS: SODIUM CHLORIDE 0.9% FLUSH 10 ML FLUSH IV FLUSH SCH (09:44)
[2016-10-01] MEDS: VANCOMYCIN INJ 1,250 MG in SODIUM CHLOR 0.9% 250 ML INJ 250 ML IV SCH (11:13)
[2016-10-01 12:00] VITALS: BP 132/73; PULSE 70; RESP 17; TEMP 96.3; O2SAT 98
--- NOTE | 2016-10-01 12:50 | HHI.PR ---
Subjective Remarks complains of no pain no fever no numbness s/p multiple debridements Objective Vital Signs Date Time Temp Pulse Resp B/P Pulse Ox O2 Delivery O2 Flow Rate FiO2 10/01/16 12:00 96.3 70 17 132/73 98 10/01/16 08:00 96.5 71 17 100/59 95 10/01/16 03:00 98 21 10/01/16 00:00 97.2 76 17 112/55 98 09/30/16 20:00 96.3 81 17 123/74 98 09/30/16 16:00 96.9 74 20 141/78 97 09/30/16 15:15 98.0 79 16 129/80 98 Room Air 09/30/16 15:00 79 16 125/73 98 Room Air 09/30/16 14:48 98.0 71 16 111/64 99 Nasal Cannula 2 I/O 09/30/16 09/30/16 09/30/16 10/01/16 10/01/16 10/01/16 07:00 15:00 23:00 07:00 15:00 23:00 Intake Total 0 ml 928 ml 440 ml 240 ml Output Total 355 ml Balance 0 ml 573 ml 440 ml 240 ml Intake Oral 0 ml 0 ml 240 ml 240 ml IV Total 228 ml 200 ml Other 700 ml Output Urine Total 350 ml Estimated Blood Loss 5 ml # Voids 2 2 3 # Bowel Movements 0 left index finger: healthy granulation limited range of motion no signs of infection right thumb: healthy granulation tissue range of motion is full and painless Result Diagram: 10/01/16 0438 10/01/16 0438 Assessment and Plan Assessment and Plan 56 year old male s/p incision/drainage and debridement right thumb and left index finger Plan: Dressing changed with bacitracin and adaptic cleared for discharge from hand surgery with po antibiotics follow up in office in one week time. Randal Rodriguez MD October 01, 2016 12:50
--- NOTE | 2016-10-01 12:59 | HHI.DS ---
Discharge Summary Admission Date September 26, 2016 at 12:21 Discharge Date: October 01, 2016 Admitting Diagnosis Right Thumb Cellulitis w/ Lymphangitis, Left 2nd Finger Abscess (1) Abscess of finger of left hand Diagnosis: Principal (2) Cellulitis with lymphangitis Diagnosis: [facility] Hand surgery - Dr. Rodriguez Procedures Status post I&D on both index finger and thumb by hand surgery on 09/27/16 Brief History This is a 56-year-old male with past medical history is significant for alcohol abuse and skin abscesses. He says that he was doing some yard work and trimming the hedges and only some weeds without his gloves when he noticed some irritation on his hands bilaterally. This was on Monday09/23/16 the next day on Monday he noticed some erythema of both his index finger on the left hand and thumb on the right hand. He went to the ED to be evaluated and was started on Bactrim. Even while on the Bactrim his hands continue to worsen and today 09/26/16 he decided to return to the ED to be further evaluated. He also reported worsening pain in his index finger and thumb, and the next finger was no longer bending appropriately. By time he was evaluated he was status post I& D and said that his index finger felt a lot better and he was able to bend it with less pain and further. Some pus was collected and sent for cultures. Of note 2 years ago he had similar symptoms in his right middle finger that required surgery by hand surgeons. He denies any history of MRSA Last tetanus vaccination 2 years ago. CBC/BMP: 10/01/16 0438 10/01/16 0438 Significant Findings Laboratory Tests Test 09/29/16 09/29/16 09/30/16 10/01/16 04:41 10:20 04:33 04:38 Red Blood Count 3.84 MIL/MM3 4.25 MIL/MM3 4.00 MIL/MM3 (4.50-5.90) (4.50-5.90) (4.50-5.90) Hemoglobin 12.5 GM/DL (13.0-17.0) Hematocrit 37.5 % 38.5 % (39.0-51.0) (39.0-51.0) Vancomycin Level Trough 13.5 MCG/ML (5.0-10.0) Carbon Dioxide Level 33.1 MEQ/L (21.0-32.0) Calcium Level 8.4 MG/DL (8.5-10.1) PE at Discharge O. CONSTITUTIONAL/GEN: normally nourished, in NAD, very pleasant EYES: conjunctiva normal, PERRLA, EOMI. ENT: Mouth and pharynx normal LUNGS: Clear to auscultation bilaterally, no increased work of breathing CARDIOVASCULAR: RR without murmur or gallop. No significant edema. GI/ABD: Soft, nondistended, nontender NEURO: No focal deficits. SKIN: color normal, no rashes noted. Wounds on both hands are bandaged this AM. No lymphangitis apparent. Sensation intact. Able to wiggle all fingers of both hands, normal sensation HEME/LYMPH: no bruising, petechia or significant adenopathy MUSC: back is normal in appearance. Extremities are normal in appearance. PSYCH/MENTAL STATUS: Alert and oriented x 3. Hospital Course 56-year-old male with past medical history significant for alcohol abuse and skin abscesses. He was admitted for cellulitis, abscess, and lymphangitis that failed outpatient treatment. Surgery was consulted and managed the patient with both bedside and OR debridement. He was treated with vancomycin IV. Wound culture collected on 09/26 grew group A beta strep sensitive to Bactrim and Augmentin. He was discharged home and will continue a 7 -day course of Bactrim. Patient has 16 tablets remaining at home Pt Condition on Discharge: Stable Discharge Disposition: Discharge Home Discharge Instructions DIET: Follow Instructions for: As Tolerated, No Restrictions Activities you can perform: Regular-No Restrictions, Weight Bearing as Mila Follow up Referrals: Hand Surgery with Randal Rodriguez MD PCP Follow-up - 1 Week Continued Medications: Sulfamethoxazole-Trimethoprim (Bactrim DS) 800-160 Mg Tab 1 TAB PO BID Infection #20 TAB Stacia Taylor MD R1 October 01, 2016 12:59
== END 2016-10-01 14:01 | disposition home or self-care (01) | DRG 581 ==
LOC: NEPD 09:51 → NEDA 12:21 → N07B 15:05
PROVIDERS: ADMIT Family Medicine; ATTEND Family Medicine
PROC: 0H9GXZX Drainage of Left Hand Skin, External Approach, Diagnostic (ICD-10-PCS; 2016-09-26)
PROC: 0H9GXZX Drainage of Left Hand Skin, External Approach, Diagnostic (ICD-10-PCS; 2016-09-26)
PROC: 0H9FXZX Drainage of Right Hand Skin, External Approach, Diagnostic (ICD-10-PCS; 2016-09-26)
PROC: 0JBJ0ZZ Excision of Right Hand Subcutaneous Tissue and Fascia, Open Approach (ICD-10-PCS; 2016-09-27)
PROC: 0JBK0ZZ Excision of Left Hand Subcutaneous Tissue and Fascia, Open Approach (ICD-10-PCS; principal; 2016-09-27 16:25)
PROC: 0JBK0ZZ Excision of Left Hand Subcutaneous Tissue and Fascia, Open Approach (ICD-10-PCS; 2016-09-30)
DX: L02.512 Cutaneous abscess of left hand (principal); J44.9 Chronic obstructive pulmonary disease, unspecified; F17.210 Nicotine dependence, cigarettes, uncomplicated; L03.011 Cellulitis of right finger; F10.20 Alcohol dependence, uncomplicated; K59.00 Constipation, unspecified
CPT/HCPCS: 10060; 10080; 73140; 80048; 80202; 82948; 85025; 85027; 85652; 86140; 87015; 87040; 87070; 87102; 87116; 87205; 87206; 88305; 96365; 96368; 96372; J0690; J0692; J1644; J2250; J2370; J2405; J3010; J3370; J7050; J7613

== ENCOUNTER 2016-10-27 07:55 | Emergency (ER) | payer OTHER ==
[~2016-10-27] VITALS: Ht 170.2 cm; Wt 62.0 kg
[2016-10-27 07:57] VITALS: BP 141/90; PULSE 91; RESP 14; TEMP 97.6; O2SAT 99
--- NOTE | 2016-10-27 08:20 | PD ---
HPI Chief Complaint: Skin Problem Time Seen by Provider: 08:09 Travel History International Travel<30 days: No Contact w/Intl Traveler<30days: No Traveled to known affect area: No History of Present Illness HPI PER PT NO REGULAR DOC VISITS, LAST TIME HE SAW A DOCTOR WAS FOR HAND REPAIR ABOUT 3 WEEKS AGO....RETURNS TODAY C/O 2 MONTH HISTORY OF RIGHT SIDED NECK LUMP WHICH OVER LAST 2 WEEKS HAS BEEN INCREASING IN SIZE, PAINLESS, NO REDNESS, PFSH Past Medical History Hx Anticoagulant Therapy: No Autoimmune Disease: No Cancer: No Cardiovascular Problems: No Chemotherapy: No COPD: Yes Diminished Hearing: No Endocrine: No Gastrointestinal Disorders: No Genitourinary: No Immune Disorder: No Implanted Vascular Access Dvce: No Musculoskeletal: No Neurologic: No Psychiatric: No Reproductive: No Respiratory: No (SOB at times) Radiation Therapy: No Thyroid Disease: No Past Surgical History Pacemaker: No Other Surgery: Yes (left 2nd finger sx) Social History Alcohol Use: Yes (every other day) Tobacco Use: Yes (1 PPD) Substance Use: Yes (marijuana 1 month ago) Allergies-Medications (Allergen,Severity, Reaction): Coded Allergies: *MDRO Multi-Drug Resistant Organism (Verified Adverse Reaction, Unknown, ) MRSA Reported Meds & Prescriptions Reported Meds & Active Scripts Active Review of Systems Except as stated in HPI: all other systems reviewed are Neg HENT: Positive: Masses (RT SIDED NECK MASS) Physical Exam Narrative GENERAL: SKIN: Warm and dry. HEAD: Atraumatic. Normocephalic. EYES: Pupils equal and round. No scleral icterus. No injection or drainage. ENT: No nasal bleeding or discharge. Mucous membranes pink and moist. HAS A 6X3CM OVAL FIRM, NONERYTHEMATOUS, NONTENDER, NO STREAKING MASS, NONFLUCTUANT NECK: Trachea midline. No JVD. CARDIOVASCULAR: Regular rate and rhythm. RESPIRATORY: No accessory muscle use. Clear to auscultation. Breath sounds equal bilaterally. GASTROINTESTINAL: Abdomen soft, non-tender, nondistended. Hepatic and splenic margins not palpable. MUSCULOSKELETAL: Extremities without clubbing, cyanosis, or edema. No obvious deformities. NEUROLOGICAL: Awake and alert. No obvious cranial nerve deficits. Motor grossly within normal limits. Five out of 5 muscle strength in the arms and legs. Normal speech. PSYCHIATRIC: Appropriate mood and affect; insight and judgment normal. Data Data Last Documented VS Vital Signs Date Time Temp Pulse Resp B/P Pulse Ox O2 Delivery O2 Flow Rate FiO2 10/27/16 11:39 79 16 133/80 100 10/27/16 07:57 97.6 Orders Complete Blood Count With Diff (10/27/16 08:13) Comprehensive Metabolic Panel (10/27/16 08:13) Prothrombin Time / Inr (Pt) (10/27/16 08:13) Act Partial Throm Time (Ptt) (10/27/16 08:13) Ct Soft Tiss Neck W Iv Cont (10/27/16 ) Iohexol 350 Inj (Omnipaque 350 Inj) (10/27/16 10:05) Case Management Consult (10/27/16 ) Invasive Rad Dept Consult (10/27/16 ) Chest, Pa & Lat (10/27/16 ) Place In Observation (10/27/16 ) Vital Signs (Adult) Q4H (10/27/16 10:58) Activity Oob With Assistance (10/27/16 10:58) Bedside Glucose ANTONINA.AC&HS (10/27/16 10:58) Drain Tile Press Operator / Telemetry .CONTINUOUS (10/27/16 10:58) Intake + Output ANTONINA.QSHIFT (10/27/16 10:58) Diet Npo (10/27/16 Lunch) Sodium Chlor 0.9% 1000 Ml Inj (Ns 1000 M (10/27/16 10:58) Sodium Chloride 0.9% Flush (Ns Flush) (10/27/16 11:00) Sodium Chloride 0.9% Flush (Ns Flush) (10/27/16 21:00) Acetaminophen (Tylenol) (10/27/16 11:00) Ondansetron Inj (Zofran Inj) (10/27/16 11:00) Basic Metabolic Panel (Bmp) (10/28/16 06:00) Resp Oxygen Koby C Titrat 1-4 L (10/27/16 ) Case Management Consult (10/27/16 10:58) Scd Bilateral/Knee High ANTONINA.BID (10/27/16 10:58) Acetaminophen (Tylenol) (10/27/16 11:00) Acetamin-Hydrocod 325-5 Mg ([place] 5-325 (10/27/16 11:00) Acetamin-Hydrocod 325-7.5 Mg ([place] 7.5 (10/27/16 11:00) Morphine Inj (Morphine Inj) (10/27/16 11:00) Naloxone Inj (Narcan Inj) (10/27/16 11:00) Docusate Sodium-Senna (Miracle-Colace) (10/27/16 21:00) Magnesium Hydroxide Liq (Milk Of Magnesi (10/27/16 11:00) Lactulose Liq (Lactulose Liq) (10/27/16 11:00) Neuro Checks Q4H (10/27/16 10:58) Alcohol Withdrawal Asmt-Ciwa Q4HX18 (10/27/16 10:58) ^ Seizure Precautions (10/27/16 10:58) Folic Acid (Folate) (10/28/16 09:00) Thiamine (Vit B1) (Vitamin B1) (10/28/16 09:00) Multivitamins-Minerals Therap (Theragran (10/28/16 09:00) Flumazenil Inj (Romazicon Inj) (10/27/16 11:00) Lorazepam (Ativan) (10/27/16 11:00) Lorazepam Inj (Ativan Inj) (10/27/16 11:00) Lorazepam (Ativan) (10/27/16 11:00) Lorazepam Inj (Ativan Inj) (10/27/16 11:00) Lorazepam Inj (Ativan Inj) (10/27/16 11:00) Lorazepam Inj (Ativan Inj) (10/27/16 11:00) Haloperidol Inj (Haldol Inj) (10/27/16 11:00) Nicotine 21 Mg Patch.24 Hr (Habitrol 21 (10/27/16 11:00) Remove Old Patch (10/27/16 11:00) Albuterol Neb (Albuterol Neb) (10/27/16 11:45) Us Guided Lymph Node Biopsy (10/27/16 ) Instruction (10/27/16 12:15) Labs Laboratory Tests Test 10/27/16 08:10 White Blood Count 7.8 TH/MM3 Red Blood Count 4.40 MIL/MM3 Hemoglobin 14.5 GM/DL Hematocrit 42.3 % Mean Corpuscular Volume 96.3 FL Mean Corpuscular Hemoglobin 32.9 PG Mean Corpuscular Hemoglobin 34.2 % Concent Red Cell Distribution Width 14.0 % Platelet Count 222 TH/MM3 Mean Platelet Volume 7.7 FL Neutrophils (%) (Auto) 65.9 % Lymphocytes (%) (Auto) 22.3 % Monocytes (%) (Auto) 8.5 % Eosinophils (%) (Auto) 2.8 % Basophils (%) (Auto) 0.5 % Neutrophils # (Auto) 5.2 TH/MM3 Lymphocytes # (Auto) 1.8 TH/MM3 Monocytes # (Auto) 0.7 TH/MM3 Eosinophils # (Auto) 0.2 TH/MM3 Basophils # (Auto) 0.0 TH/MM3 CBC Comment DIFF FINAL Differential Comment Prothrombin Time 10.4 SEC Prothromb Time International 0.9 RATIO Ratio Activated Partial 28.0 SEC Thromboplast Time Sodium Level 138 MEQ/L Potassium Level 3.8 MEQ/L Chloride Level 104 MEQ/L Carbon Dioxide Level 28.7 MEQ/L Anion Gap 5 MEQ/L Blood Urea Nitrogen 11 MG/DL Creatinine 0.69 MG/DL Estimat Glomerular Filtration 118 ML/MIN Rate Random Glucose 78 MG/DL Calcium Level 9.2 MG/DL Total Bilirubin 0.7 MG/DL Aspartate Amino Transf 23 U/L (AST/SGOT) Alanine Aminotransferase 22 U/L (ALT/SGPT) Alkaline Phosphatase 70 U/L Total Protein 7.6 GM/DL Albumin 3.5 GM/DL [facility] Medical Decision Making Medical Screen Exam Complete: Yes Emergency Medical Condition: Yes Medical Record Reviewed: Yes Differential Diagnosis LAD VS TUMOR VS ABSCESS Narrative Course HIGHLY SUSPICIOUS OF MALIGNANCY WILL PERFORM NECK CT WITH CONTRAST FOR FURTHER CHARACTERIZATION, WILL OBTAIN ROUTINE LABS WELL. Physician Communication Physician Communication D/W DR ONEIL WHO DECLINED ADMISSION BUT ALONG WITH CASE MANAGEMENT ARRANGED FOR OUTPT BIOPSY TO OCCUR, RESULTS TO [facility]...DELAY IN TIMING WAS DUE TO CASE MANAGEMENT COORDINATING WITH DR ONEIL, RADIOLOGIST, FOOD PROCESSING CHEMIST AND UNFORTUNATELY MISSCOMMUNICATION WITH NURSE...CASE IS NOW SETTLED AND PATIENT MADE APPOINTMENT IN ED PRIOR TO LEAVING Diagnosis Primary Impression: Mass of right side of neck Disposition: DISCHARGE HOME Condition: Stable Jacob Monahan MD Oct 27, 2016 08:20
[2016-10-27 09:01] LABS: AUTOMATED NEUTROPHIL # 5.2 TH/MM3 (1.8-7.7); BASOPHIL % 0.5 % (0.0-2.0); EOSINOPHIL # 0.2 TH/MM3 (0-0.4); EOSINOPHIL % 2.8 % (0.0-4.0); HEMATOCRIT 42.3 % (39.0-51.0); HEMO FLAGS DIFF FINAL; LYMPH % 22.3 % (9.0-44.0); LYMPHOCYTE # 1.8 TH/MM3 (1.0-4.8); MEAN CELL VOLUME 96.3 FL (80.0-100.0); MEAN CORPUSCULAR HEMOGLOBIN 32.9 PG (27.0-34.0); MEAN CORPUSCULAR HGB CONC 34.2 % (32.0-36.0); MONO % 8.5 % (0.0-8.0); NEUT % 65.9 % (16.0-70.0); PLATELET COUNT 222 TH/MM3 (150-450); WHITE BLOOD COUNT 7.8 TH/MM3 (4.0-11.0)
[2016-10-27 09:10] LABS: INTERNATIONAL NORMALIZED RATIO 0.9 RATIO; PROTHROMBIN TIME - PATIENT 10.4 SEC (9.8-11.6)
[2016-10-27 09:28] LABS: ALKALINE PHOSPHATASE 70 U/L (45-117); TOTAL BILIRUBIN ADULT 0.7 MG/DL (0.2-1.0)
[2016-10-27 09:38] LABS: ALT (GPT) 22 U/L (12-78); ANION GAP 5 MEQ/L (5-15); AST (GOT) 23 U/L (15-37); BICARBONATE 28.7 MEQ/L (21.0-32.0); BLOOD UREA NITROGEN 11 MG/DL (7-18); CHLORIDE 104 MEQ/L (98-107); GLOMERULAR FILTRATION RATE 118 ML/MIN (>89); POTASSIUM 3.8 MEQ/L (3.5-5.1); SODIUM (NA) 138 MEQ/L (136-145)
[2016-10-27] MEDS ORDERED: IOHEXOL 350 MG/ML 10 ML VIAL (for RAD DIAG) IV ONE (10:05)
--- NOTE | 2016-10-27 10:30 | RADRPT ---
EXAM DATE/TIME: 10/27/2016 09:51 [facility] COMPARISON: No previous studies available for comparison. INDICATIONS : Hard lump on the right side of neck for two months. IV CONTRAST: 70 cc Omnipaque 350 (iohexol) IV RADIATION DOSE: 13.55 CTDIvol (mGy) MEDICAL HISTORY : Chronic obstructive pulmonary disease. SURGICAL HISTORY : None. ENCOUNTER: Initial ACUITY: 2 months PAIN SCALE: 0/10 LOCATION: Right neck TECHNIQUE: Volumetric scanning of the neck was performed. Using automated exposure control and adjustment of th e mA and/or kV according to patient size, radiation dose was kept as low as reasonably achievable to obtain optimal diagnostic quality images. FINDINGS: The palpable lump on the right side correlates with a 2.6 x 1.5 cm soft tissue mass in the side of th e right sternocleidomastoid muscle at the level of the 3-4 with a central low attenuation area, proba kandice a necrotic lymph node. This would be amenable to ultrasound-guided or CT-guided biopsy. There is an additional smaller necrotic appearing lymph node in the right retromandibular region at the level of C2-3 measuring about 1.2 cm. Questionable mucosal thickening in the right posterior oropharynx. Di rect visualization recommended. There is a densely calcified plaque on the medial aspect of the right carotid bifurcation resulting i n a suspected approximately 40% stenosis. Minimal plaque at the left carotid bifurcation. No adenopathy in the left neck. No acute bony abnormalities. Visualized paranasal sinuses are clear. Lung apices demonstrate emphysema with biapical parenchymal and pleural opacity that probably represe nts scarring. CONCLUSION: 1. Palpable abnormality on the right correlates with a 2.6 x 1.5 cm soft tissue mass in the deep side of the right sternocleidomastoid muscle at the level of C3-4 suspicious for necrotic lymph node, pos sibly a elaine metastasis. There is also a 1.2 cm necrotic appearing lymph node on the right in the re tromandibular region at C2-3 level. Questionable mucosal thickening right posterior oropharynx. Large mass would be be amenable to ultrasound-guided or CT-guided biopsy. Kenneth Carrillo MD on October 27, 2016 at 10:15 Board Certified Radiologist. This report was verified electronically.
[2016-10-27] MEDS ORDERED: SODIUM CHLOR 0.9% 1000 ML INJ 1,000 ML IV SCH (10:58)
[2016-10-27] MEDS ORDERED: ACETAMINOPHEN/HYDROcodone 325 MG/7.5 MG TAB PO PRN (11:00)
[2016-10-27] MEDS ORDERED: MAGNESIUM HYDROXIDE SUSP 30 ML CUP PO PRN (11:00)
[2016-10-27] MEDS ORDERED: ACETAMINOPHEN 325 MG TAB PO PRN ×2 (11:00)
[2016-10-27] MEDS ORDERED: MORPHINE SULFATE 4 MG/ML INJ IV PRN (11:00)
[2016-10-27] MEDS ORDERED: LORazepam 2 MG TAB PO PRN (11:00)
[2016-10-27] MEDS ORDERED: HALOPERIDOL LACTATE 5 MG/ML AMP IM PRN (11:00)
[2016-10-27] MEDS ORDERED: NALOXONE HCL 0.4 MG/ML AMP IV PRN (11:00)
[2016-10-27] MEDS ORDERED: LACTULOSE SYRUP 20 GM/30 ML CUP PO PRN (11:00)
[2016-10-27] MEDS ORDERED: LORazepam 1 MG TAB PO PRN (11:00)
[2016-10-27] MEDS ORDERED: LORazepam 2 MG/ML VIAL IV PUSH PRN ×4 (11:00)
[2016-10-27] MEDS ORDERED: ACETAMINOPHEN/HYDROcodone 325 MG/5 MG TAB PO PRN (11:00)
[2016-10-27] MEDS ORDERED: REMOVE OLD PATCH T-DERMAL SCH (11:00)
[2016-10-27] MEDS ORDERED: SODIUM CHLORIDE 0.9% FLUSH 10 ML FLUSH IV FLUSH PRN (11:00)
[2016-10-27] MEDS ORDERED: FLUMAZENIL 0.5 MG/5 ML VIAL IV PUSH PRN (11:00)
[2016-10-27] MEDS ORDERED: ONDANSETRON HCL 4 MG/2 ML VIAL IVP PRN (11:00)
[2016-10-27] MEDS ORDERED: NICOTINE 21 MG/24 HR PATCH T-DERMAL SCH (11:00)
--- NOTE | 2016-10-27 11:36 | RADRPT ---
EXAM DATE/TIME: 10/27/2016 11:24 [facility] COMPARISON: No previous studies available for comparison. INDICATIONS : Chest discomfort; lump on neck for 2 1/2 months. MEDICAL HISTORY : Chronic obstructive pulmonary disease. Smoker. SURGICAL HISTORY : None. ENCOUNTER: Initial ACUITY: 1 day PAIN SCORE: 0/10 LOCATION: Bilateral chest FINDINGS: PA and lateral views of the chest demonstrate the lungs to be symmetrically aerated without evidence of mass, infiltrate or effusion. Apical lung scarring. Emphysema. The cardiomediastinal contours are unremarkable. Osseous structures are intact. CONCLUSION: 1. Mild hyperinflation. No focal consolidation. Apical lung scarring. Underlying emphysema. Kenneth Carrillo MD on October 27, 2016 at 11:32 Board Certified Radiologist. This report was verified electronically.
[2016-10-27 11:39] VITALS: BP 133/80; PULSE 79; RESP 16; O2SAT 100
[2016-10-27] MEDS ORDERED: RESP: ALBUTEROL 2.5 MG/3 ML NEB (PRN) NEB (11:45)
[2016-10-27 13:58] VITALS: BP 135/72
[2016-10-27] MEDS ORDERED: SODIUM CHLORIDE 0.9% FLUSH 10 ML FLUSH IV FLUSH SCH (21:00)
[2016-10-27] MEDS ORDERED: DOCUSATE SODIUM 50 MG/SENNA 8.6 MG TAB PO SCH (21:00)
[2016-10-28] MEDS ORDERED: THIAMINE HCL 100 MG TAB PO SCH (09:00)
[2016-10-28] MEDS ORDERED: FOLIC ACID 1 MG TAB PO SCH (09:00)
[2016-10-28] MEDS ORDERED: MULTIVITAMINS/MINERALS THERAPEUTIC TAB PO SCH (09:00)
== END 2016-10-27 14:01 | disposition home or self-care (01) ==
LOC: NEPC 07:55
DX: R22.1 Localized swelling, mass and lump, neck (principal); J44.9 Chronic obstructive pulmonary disease, unspecified; F17.210 Nicotine dependence, cigarettes, uncomplicated
CPT/HCPCS: 70491; 71020; 80053; 85025; 85610; 85730; 99285; J7030; Q9967

== ENCOUNTER → 2016-11-10 | Day surgery (SDC) | payer OTHER | END | disposition home or self-care (01) | LOC: HRAD 12:48 → HRIP 12:52 | PROVIDERS: ATTEND Internal Medicine | DX: R59.9 Enlarged lymph nodes, unspecified (principal) ==

== ENCOUNTER 2016-11-14 09:45 | Day surgery (SDC) | payer OTHER ==
[2016-11-14 10:30] VITALS: BP 150/93; PULSE 103; RESP 16; TEMP 97; O2SAT 99
[2016-11-14 11:05] VITALS: BP 156/98; PULSE 96; RESP 16; TEMP 97; O2SAT 99
[2016-11-14 11:20] VITALS: BP 161/98; PULSE 95; RESP 16; TEMP 97; O2SAT 97
[2016-11-14] MEDS ORDERED: LIDOCAINE HCL 1% PF 30 ML VIAL ONE (11:21)
--- NOTE | 2016-11-14 12:51 | RADRPT ---
EXAM DATE/TIME: 11/14/2016 09:49 [facility] COMPARISON: No previous studies available for comparison. INDICATIONS : Enlarged right neck lymph node. MEDICAL HISTORY : Chronic obstructive pulmonary disease. Methicillin-resistant Staphylococcus aureus. Enlarged right n naren lymph node. ETOH use. SURGICAL HISTORY : Left finger surgery. ENCOUNTER: Initial ACUITY: 1 week PAIN SCORE: 10 LOCATION: Right neck ORGAN: Right lymph node SPECIMENS: Three core specimen(s) submitted for pathologic evaluation. DEVICE: 18 gauge Temno needle Post procedure scanning reveals no hematoma or other complication. The possibility does exist that the tissue obtained will be non-diagnostic. If the sample is non-alex gnostic a repeat biopsy or surgical biopsy may need to be performed. TECHNIQUE: 1. Ultrasound guidance for needle biopsy. 2. Needle biopsy. The risks, benefits, and alternatives to ultrasound guided needle biopsy were explained to the patien t in detail including the risk of bleeding and infection. Written and verbal informed consent was ob tained. With the patient on the ultrasound table, images were obtained. Overlying skin was prepped and drape d in the usual sterile fashion and Lidocaine was utilized as a local anesthetic. 22 gauge needle was advanced into the target. The fluid in the central aspect of the lesion was aspir ated. Approximately 4 cc returned. This was left in the syringe and sent for culture and sensitivity. A total of 3 18 gauge core needle biopsies were performed. Samples were placed in both RPR and formal in. A second fluid collection within the lesion was identified. Approximately 2 cc was aspirated from thi s. This was sent for cytology. The patient tolerated the procedure well and left the ultrasound suite in stable condition. CONCLUSION: Uncomplicated ultrasound guided needle biopsy. Jean-Pierre Martin MD on November 14, 2016 at 12:48 Board Certified Radiologist. This report was verified electronically.
== END 2016-11-14 14:42 | disposition home or self-care (01) ==
LOC: HRAD 09:45 → HRIP 09:50 → HRAD 14:42
PROVIDERS: ATTEND Internal Medicine
DX: R59.0 Localized enlarged lymph nodes (principal)
CPT/HCPCS: 38505; 76942; 87070; 87205; 88305; 88341; 88342

== ENCOUNTER 2017-02-16 15:37 | Emergency (ER) | payer OTHER ==
[~2017-02-16] VITALS: Ht 170.2 cm; Wt 56.0 kg
[2017-02-16 15:41] VITALS: BP 114/86; PULSE 98; RESP 17; TEMP 98.4; O2SAT 97
--- NOTE | 2017-02-16 15:51 | PD ---
Physical Exam Time Seen by Provider: 15:49 Narrative 56-year-old male presents to the emergency department complaint of a lump to the right side of his neck times one week. Symptoms started 4 months ago when he was seen 2-1/2 months ago and was told it was a cyst and it was biopsied. He does not know the biopsy results. In the past week the lump has protruded. Denies fever, vomiting. Patient seen in triage. Vital signs reviewed. Patient awaiting bed placement. Data Data Last Documented VS Vital Signs Date Time Temp Pulse Resp B/P (MAP) Pulse Ox O2 Delivery O2 Flow Rate FiO2 02/16/17 15:41 98.4 98 17 114/86 (95) 97 Room Air [facility] Supervised Visit with MYRIAM: Shanna Rees Feb 16, 2017 15:51
[2017-02-16] MEDS ORDERED: BACT800T5 PO (17:57)
--- NOTE | 2017-02-16 18:11 | PD ---
HPI Chief Complaint: Skin Problem Time Seen by Provider: 17:16 Travel History International Travel<30 days: No Contact w/Intl Traveler<30days: No Traveled to known affect area: No History of Present Illness HPI 56-year-old male presents to the emergency room for evaluation of right neck lump that started 2 weeks ago. Patient states he first noticed it several months ago and had it biopsied by Dr. Winston. He never heard the results of the biopsy and assumed no news is good news. States between the biopsy and 1 week ago that was in its normal state but it significantly increased in size and pain and began to spontaneously drain yesterday. Patient denies fever, chills, nausea, vomiting. PFSH Past Medical History Hx Anticoagulant Therapy: No Autoimmune Disease: No Cancer: No Cardiovascular Problems: No Chemotherapy: No COPD: Yes Diminished Hearing: No Endocrine: No Gastrointestinal Disorders: No Genitourinary: No Immune Disorder: No Implanted Vascular Access Dvce: No Musculoskeletal: No Neurologic: No Psychiatric: No Reproductive: No Respiratory: Yes (SOB at times) Radiation Therapy: No Thyroid Disease: No Past Surgical History Pacemaker: No Other Surgery: Yes (left 2nd finger sx) Social History Alcohol Use: Yes (every other day) Tobacco Use: Yes (1 PPD) Substance Use: Yes (marijuana 1 month ago) Allergies-Medications (Allergen,Severity, Reaction): Coded Allergies: *MDRO Multi-Drug Resistant Organism (Verified Adverse Reaction, Unknown, 02/16/17) MRSA Reported Meds & Prescriptions Reported Meds & Active Scripts Active Bactrim DS (Sulfamethoxazole-Trimethoprim) 800-160 Mg Tab 1 Tab PO BID Review of Systems Except as stated in HPI: all other systems reviewed are Neg Physical Exam Narrative GENERAL: Well-nourished, well-developed male in no acute distress. Afebrile. Ambulatory. SKIN: Focused skin assessment warm/dry. There is a 2 cm, circular, fluctuant mass to the right lateral neck that is protruding about 2 cm. There is surrounding erythema but no significant induration. Moderate tenderness to palpation. Cyst is draining honey-colored, serosanguineous fluid. There is a zone of inflammation around it but no lymphangitis. HEAD: Normocephalic. EYES: No scleral icterus. No injection or drainage. NECK: Supple, trachea midline. No JVD or lymphadenopathy. CARDIOVASCULAR: Regular rate and rhythm without murmurs, gallops, or rubs. RESPIRATORY: Breath sounds equal bilaterally. No accessory muscle use. PSYCHIATRIC: No delusional thought processes. No hallucinations. Data Data Last Documented VS Vital Signs Date Time Temp Pulse Resp B/P (MAP) Pulse Ox O2 Delivery O2 Flow Rate FiO2 02/16/17 15:41 98.4 98 17 114/86 (95) 97 Room Air MDM Medical Decision Making Medical Screen Exam Complete: Yes Emergency Medical Condition: Yes Medical Record Reviewed: Yes Differential Diagnosis Abscess, cyst, cellulitis, folliculitis Narrative Course 56-year-old male presents to the emergency room for evaluation of a mass to the right lateral neck that started about 1.5 weeks ago. Patient states he had a mass there previously that was biopsied but never heard the results of biopsy. According to EMR, biopsy was inconclusive for malignancy. No systemic signs of infection; vital signs stable. Physical exam reveals a 2 cm cyst to the right lateral neck with surrounding erythema and that is tender to palpation. No lymphangitis. It is spontaneously draining honey-colored serousanguinous fluid. Bedside ultrasound shows superficial, fluid-filled cyst without any pulsations. The cyst was aspirated and cultures were sent. Patient will be treated empirically for MRSA with Bactrim as he has history of MRSA. He was discharged with wound care instructions and told to follow up with a primary care physician or return for worsening symptoms. He understands and agrees to plan. Diagnosis Primary Impression: Cyst of neck Referrals: Primary Care Physician Additional Instructions: Rest and drink plenty of fluids. Take Bactrim as directed, until gone. Follow up with a primary care physician. Return to emergency room for worsening symptoms, as discussed. Med/Other Pt SpecificInfo: Prescription(s) given Scripts Sulfamethoxazole-Trimethoprim (Bactrim DS) 800-160 Mg Tab 1 TAB PO BID for Infection, #20 TAB 0 Refills Prov: Jacob Monahan MD 02/16/17 Disposition: 01 DISCHARGE HOME Condition: Stable Maria Luz Dillard Feb 16, 2017 18:11
== END 2017-02-16 18:37 | disposition home or self-care (01) ==
LOC: NEPD 15:37
DX: L72.8 Other follicular cysts of the skin and subcutaneous tissue (principal); J44.9 Chronic obstructive pulmonary disease, unspecified; F17.200 Nicotine dependence, unspecified, uncomplicated
CPT/HCPCS: 87070; 87205; 99283

== ENCOUNTER 2017-08-01 09:16 | Emergency (ER) | payer SELFPAY ==
[~2017-08-01] VITALS: Ht 170.2 cm; Wt 60.0 kg
[2017-08-01 09:26] VITALS: BP 136/69; PULSE 101; RESP 16; TEMP 98.6; O2SAT 100
[2017-08-01] MEDS ORDERED: BACT800T5 PO (10:04)
--- NOTE | 2017-08-01 10:13 | PD ---
HPI Chief Complaint: Skin Problem Time Seen by Provider: 09:42 Travel History International Travel<30 days: No Contact w/Intl Traveler<30days: No Traveled to known affect area: No History of Present Illness HPI 57-year-old male presents to the emergency room for evaluation of right lateral neck lump for the past year. Patient came in last November for the same and had an outpatient biopsy performed. States he never heard the results. He never followed up. He came back 3 months after biopsy when the area appeared to become infected and was treated with antibiotics. He was told that the studies were inconclusive for malignancy. Patient states since biopsy bump has been draining consistently. Over the past several days and increased in pain and became more red. He denies any fevers, chills, nausea, vomiting. PFSH Past Medical History Hx Anticoagulant Therapy: No Autoimmune Disease: No Cancer: No Cardiovascular Problems: No Chemotherapy: No COPD: Yes Diminished Hearing: No Endocrine: No Gastrointestinal Disorders: No Genitourinary: No Immune Disorder: No Implanted Vascular Access Dvce: No Musculoskeletal: No Neurologic: No Psychiatric: No Reproductive: No Respiratory: Yes (SOB at times) Radiation Therapy: No Thyroid Disease: No Past Surgical History Pacemaker: No Other Surgery: Yes (left 2nd finger sx) Social History Alcohol Use: Yes (every other day) Tobacco Use: Yes (1 PPD) Substance Use: Yes (marijuana 1 month ago) Allergies-Medications (Allergen,Severity, Reaction): Coded Allergies: *MDRO Multi-Drug Resistant Organism (Verified Adverse Reaction, Unknown, ) MRSA Reported Meds & Prescriptions Reported Meds & Active Scripts Active Bactrim DS (Sulfamethoxazole-Trimethoprim) 800-160 Mg Tab 1 Tab PO BID Review of Systems Except as stated in HPI: all other systems reviewed are Neg Physical Exam Narrative GENERAL: Well-nourished, well-developed male in no acute distress. Afebrile. Ambulatory. SKIN: Focused skin assessment warm/dry. There is a large lipoma-like lump on the right lateral neck that appears to be localized to the sternocleidomastoid. Patient has no mastoid tenderness. No ear pain. The sternocleidomastoid muscle is moderately tender to just above the clavicle. Airway patent. Patient has no increased work of breathing. There is no anterior or posterior neck involvement. The lipoma is draining significant purulent and bloody discharge. There is no lymphangitis. HEAD: Normocephalic. EYES: No scleral icterus. No injection or drainage. NECK: Supple, trachea midline. No JVD or lymphadenopathy. Full range of motion. CARDIOVASCULAR: Regular rate and rhythm without murmurs, gallops, or rubs. RESPIRATORY: Breath sounds equal bilaterally. No accessory muscle use. PSYCHIATRIC: No delusional thought processes. No hallucinations. Data Data Last Documented VS Vital Signs Date Time Temp Pulse Resp B/P (MAP) Pulse Ox O2 Delivery O2 Flow Rate FiO2 08/01/17 09:26 98.6 101 16 136/69 (91) 100 Orders Orders Mandatory Outpatient Referral (08/01/17 10:13) Ed Discharge Order (08/01/17 10:15) [facility] Medical Decision Making Medical Screen Exam Complete: Yes Emergency Medical Condition: Yes Medical Record Reviewed: Yes Differential Diagnosis Abscess, cellulitis, lymph node, lipoma Narrative Course 57-year-old male presents to the emergency room for evaluation of a chronic, draining mass to his right lateral neck that has been present for the past year. Patient states it is been draining for the past several months after having a biopsy. Biopsy was inconclusive for malignancy. Patient denies any fevers, chills, nausea, vomiting, or weight loss. He is well-appearing in the emergency room. Vital signs stable. There is a large lipoma-like lump on the right lateral neck that appears to be localized to the sternocleidomastoid. Patient has no mastoid tenderness. No ear pain. The sternocleidomastoid muscle is moderately tender to just above the clavicle. Airway patent. Patient has no increased work of breathing. There is no anterior or posterior neck involvement. The lipoma is draining significant purulent and bloody discharge. There is no lymphangitis. There is a 1 cm lipoma just medial to the mass on the neck. I suspect the mass on the neck is also a lipoma that needs to be removed surgically. Patient was told to follow-up as an outpatient for resolution. Mandatory outpatient referral to see general surgery was placed. Patient was encouraged to establish insurance for this chronic condition. He was discharged with prescription for Bactrim in case of worsening infection. He understands and agrees to plan. Diagnosis Primary Impression: Abscess of right thumb Referrals: Hank De La Paz MD Primary Care Physician Additional Instructions: Rest and drink plenty of fluids. Take Bactrim as directed, until gone. Follow up with a primary care physician. Establish insurance. Return to emergency room for worsening symptoms, as discussed. Med/Other Pt SpecificInfo: Prescription(s) given Scripts Sulfamethoxazole-Trimethoprim (Bactrim DS) 800-160 Mg Tab 1 TAB PO BID for Infection, #20 TAB 0 Refills Prov: Jairo Mireles MD 08/01/17 Disposition: 01 DISCHARGE HOME Condition: Stable Maria Luz Dillard Aug 01, 2017 10:13
== END 2017-08-01 10:25 | disposition home or self-care (01) ==
LOC: NEPD 09:16 → NEPK 10:25
DX: L02.511 Cutaneous abscess of right hand (principal); J44.9 Chronic obstructive pulmonary disease, unspecified; F17.200 Nicotine dependence, unspecified, uncomplicated
CPT/HCPCS: 99283

== ENCOUNTER 2017-10-23 10:12 | Emergency (ER) | payer SELFPAY ==
[~2017-10-23] VITALS: Ht 170.2 cm; Wt 60.0 kg
[2017-10-23 10:18] VITALS: BP 127/76; PULSE 91; RESP 16; TEMP 98.5; O2SAT 98
--- NOTE | 2017-10-23 11:18 | PD ---
HPI Chief Complaint: Lump, Cyst, Hernia Time Seen by Provider: 10:45 Travel History International Travel<30 days: No Contact w/Intl Traveler<30days: No Traveled to known affect area: No History of Present Illness HPI 57-year-old male presents to the emergency room for evaluation of chronic right neck mass. Patient has been seen in the emergency room multiple times for the same. He has never followed up as an outpatient because he does not have a primary care physician or insurance. The area was biopsied previously and not found to be cancerous. States the mass drains chronically ruining his pillows and his clothes. Reports occasional pain that messes with his ability to sleep. Pain is worsened when he pushes on the area. He has not done anything or taken anything for pain. He denies difficulty breathing, swallowing, fever, chills, nausea, vomiting. PFSH Past Medical History Hx Anticoagulant Therapy: No Autoimmune Disease: No Cancer: No Cardiovascular Problems: No Chemotherapy: No COPD: Yes Diminished Hearing: No Endocrine: No Gastrointestinal Disorders: No Genitourinary: No Immune Disorder: No Implanted Vascular Access Dvce: No Musculoskeletal: No Neurologic: No Psychiatric: No Reproductive: No Respiratory: Yes (SOB at times) Radiation Therapy: No Thyroid Disease: No Past Surgical History Pacemaker: No Other Surgery: Yes (left 2nd finger sx) Social History Alcohol Use: Yes (every other day) Tobacco Use: Yes (1 PPD) Substance Use: Yes (marijuana 1 month ago) Allergies-Medications (Allergen,Severity, Reaction): Coded Allergies: *MDRO Multi-Drug Resistant Organism (Verified Adverse Reaction, Unknown, ) MRSA Reported Meds & Prescriptions Reported Meds & Active Scripts Active Bactrim DS (Sulfamethoxazole-Trimethoprim) 800-160 Mg Tab 1 Tab PO BID Review of Systems Except as stated in HPI: all other systems reviewed are Neg Physical Exam Narrative GENERAL: Well-nourished, well-developed male no acute distress. Afebrile. Ambulatory. SKIN: Focused skin assessment warm/dry. There is a mass to the right lateral neck with moderate serosanguineous drainage. It is about 5 cm in diameter. No fluctuance, erythema, increased warmth, or lymphangitis. Extremely tender to palpation. HEAD: Normocephalic. EYES: No scleral icterus. No injection or drainage. NECK: Supple, trachea midline. No JVD or lymphadenopathy. ENT: Mucosa pink and moist. No erythema or exudates. No uvular edema. No uvular , palatal, or tonsillar deviation. Airway patent. No difficulty speaking. CARDIOVASCULAR: Regular rate and rhythm without murmurs, gallops, or rubs. RESPIRATORY: Breath sounds equal bilaterally. No accessory muscle use. Data Data Last Documented VS Vital Signs Date Time Temp Pulse Resp B/P (MAP) Pulse Ox O2 Delivery O2 Flow Rate FiO2 10/23/17 10:18 98.5 91 16 127/76 (93) 98 Orders Orders Mandatory Outpatient Referral (10/23/17 11:08) [facility] Medical Decision Making Medical Screen Exam Complete: Yes Emergency Medical Condition: Yes Medical Record Reviewed: Yes Differential Diagnosis Abscess, chronic mass, cellulitis, lipoma Narrative Course 57-year-old male presents to the emergency room for evaluation of chronically draining right neck mass. He has been seen multiple times for the same complaint. The past 2 previous times he has been seen here, cultures were obtained which did not grow out any infection. There is no evidence of infection today. No erythema, increased warmth, purulent drainage, or systemic signs of infection. Rather than causing resistance, I will obtain a wound culture. Patient should be given antibiotics if culture grows any bacteria. Mandatory outpatient referral placed once again for patient to follow-up as an outpatient for this chronic condition. Also given the name of the [facility]. Told to apply warm compresses and keep area clean. Told to take Tylenol Motrin for pain. He understands and agrees to plan. Diagnosis Primary Impression: Mass of right side of neck Referrals: [facility] Additional Instructions: Mandatory outpatient referral placed. Case management should call you soon. Wound culture obtained. If it grows infection, antibiotics will be called in. Follow-up with the [facility] for outpatient management of chronic condition. Return as needed for worsening symptoms. Disposition: 01 DISCHARGE HOME Condition: Stable Maria Luz Dillard Oct 23, 2017 11:17
[2017-10-23] MEDS ORDERED: IBUPROFEN 600 MG TAB PO ONE (11:30)
== END 2017-10-23 11:46 | disposition home or self-care (01) ==
LOC: NEPK 10:12
DX: R22.1 Localized swelling, mass and lump, neck (principal); B95.61 Methicillin susceptible Staphylococcus aureus infection as the cause of diseases classified elsewhere; J44.9 Chronic obstructive pulmonary disease, unspecified; F17.210 Nicotine dependence, cigarettes, uncomplicated; F12.90 Cannabis use, unspecified, uncomplicated
CPT/HCPCS: 86403; 87070; 87186; 87205; 99283

== ENCOUNTER 2018-02-05 12:00 | Observation (INO) ==
[2018-02-05] MEDS ORDERED: Sod Chloride 0.9% Inj 1,000 ML IV.SIG ONE (12:18)
--- NOTE | 2018-02-05 12:47 | ED ---
HPI General Chief Complaint: Syncope Stated Complaint: Syncope Time Seen by Provider: 02/05/18 12:04 Source: patient and EMS Mode of arrival: EMS Limitations: no limitations History of Present Illness HPI narrative: Patient is a 57-year-old male that presents for the evaluation of a syncopal episode. Patient states that this morning he had pain in his neck from a chronic right sided wound he has. The patient states that he took his prescribed opioid medication this morning at 4am, 5:50am, and 7am to help control his pain. The patient states that before he "blacked-out" the patient felt dizzy and his vision turned black. Patient states that he fell to the floor. Patient states that he feels that he lost consciousness briefly but remembers everything prior to and after the syncopal episode. Patient states that he currently has no neck pain but when he does feel pain he rates it a 10/ 10 on a pain scale. He states that the pain in his neck has increased over the past 5 days. The patient states that he is scheduled for a skin graft procedure on February 14. Upon review of symptoms the patient reports fever, chills, night sweats, and loss of appetite accompanied by weight loss. The patient states that he has been in so much pain that he does not want to eat. He denies any chest pain or shortness of breath. He does state that he feels dizzy and had an episode of nausea and vomiting on Monday. He denies any current nausea. The patient also reports feeling very fatigued and upon evaluation he appears drowsy. The patient states that he has not been able to sleep the last 4 days due to his neck pain. 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 There is a gapping wound on the right side of the neck. The wound is approximately 2inches in length and 1in wide. Wound edges are slightly erythematous. HEAD: Atraumatic. Normocephalic. EYES: Pupils equal and round. No scleral icterus. No injection or drainage. ENT: No nasal bleeding or discharge. Mucous membranes pink and moist. NECK: Trachea midline. No JVD. CARDIOVASCULAR: Regular rate and rhythm. RESPIRATORY: No accessory muscle use. Clear to auscultation. Breath sounds equal bilaterally. GASTROINTESTINAL: Abdomen soft, non-tender, nondistended. Hepatic and splenic margins not palpable. MUSCULOSKELETAL: Extremities without clubbing, cyanosis, or edema. No obvious deformities. NEUROLOGICAL: Awake and alert. No obvious cranial nerve deficits. Motor grossly within normal limits. Five out of 5 muscle strength in the arms and legs. Normal speech. PSYCHIATRIC: Appropriate mood and affect; insight and judgment normal. Course Initial Documented Vital Signs Temperature 97.6 F 02/05/18 12:11 Pulse Rate 88 02/05/18 12:11 Respiratory Rate 20 02/05/18 12:11 Blood Pressure 108/65 02/05/18 12:11 Pulse Oximetry 98 02/05/18 12:11 Last Documented Vital Signs Temperature 97.6 F 02/05/18 12:11 Pulse Rate 88 02/05/18 13:00 Respiratory Rate 20 02/05/18 13:00 Blood Pressure 125/81 02/05/18 13:00 Pulse Oximetry 96 02/05/18 13:00 Medical Decision Making MYRIAM Attestation MYRIAM supervised visit: Yes Attestation: I, Dr. Plummer, have reviewed the advance practice practitioner's documentation and am in agreement, met with the patient face to face, made the diagnosis, and the medical decision making was done by me. *My assessment and Findings: Patient seen and evaluated with PA, please see PA notes for further details.Here because of a syncopal episode, initial EKG shows sinus rhythm with marked sinus arrhythmia, rate 70 bpm. No signs of acute elevations or depressions of the STs. Lab work was fairly unremarkable. His lactate level was elevated, and perhaps he may beSlightly dehydrated. Blood pressure is on the low side in the ER. He has a very impressive right neck chronic wound which has been seen here in the past as well, he is supposed to get a skin graft next week. MDM Narrative Medical decision making narrative: 57-year-old male the presents to the ED for evaluation of syncope via EVAC. Patient was properly examined and was found to have signs and symptoms concerning for syncope. Unclear etiology. Could be related to patient's opiate medications as well as alcohol. Patient has never had a syncopal episode before. Patient was standing when he had a syncopal episode. No chest pain preloading or after the symptoms. He does have a significant wound to his right neck that appears to be chronic and has been going on for almost a year now. Labs and imaging were ordered. Labs and imaging were positive for lactic acid elevation as well as what appears to be a chronic wound. No sign of active infection at this time. Patient did come positive for opiates as well as alcohol. Alcohol level of 50. Orthostatics were within normal limits. Because of the patient's chronic wounds as well as syncopal episode the recommend admission for further workup of syncope. Patient has never had a workup for syncope in the past. Cannot completely rule out other causes of syncope. Patient agrees with this. Patient was given IV fluids here. TIMO was paged and Dr Ortega agrees to obs admission Medical Screen Exam Complete: Yes Emergency Medical Condition: Yes Differential Diagnosis Differential Diagnosis: Syncope versus ACS versus presyncope versus overdose versus cellulitis versus the hydration Medical Records Medical records reviewed: Yes I reviewed the patient's medical records. Lab Data Lab results reviewed: Yes I reviewed the patient's lab results. Lab results narrative: Troponin negative. CK-MB negative. Lactic acid elevated. Urine drug screen positive for opiates. Alcohol slightly elevated as well. Result diagrams: 02/05/18 12:45 02/05/18 12:45 Lab Results 02/05/18 02/05/18 02/05/18 Range/Units 12:45 12:45 12:45 WBC 8.7 (4.0-11.0) th/mm3 RBC 3.93 L (4.50-5.90) mil/mm3 Hgb 12.9 L (13.0-17.0) gm/dL Hct 38.9 L (39.0-51.0) % MCV 98.9 (80.0-100.0) fL MCH 32.9 (27.0-34.0) pg MCHC 33.2 (32.0-36.0) % RDW 15.4 (11.6-17.2) % Plt Count 280 (150-450) th/mm3 MPV 6.9 L (7.0-11.0) fL Neut % (Auto) 83.4 H (16.0-70.0) % Lymph % (Auto) 6.6 L (9.0-44.0) % [place]oval % (Auto) 6.9 (0.0-8.0) % Eos % (Auto) 2.7 (0.0-4.0) % Baso % (Auto) 0.4 (0.0-2.0) % Neut # (Auto) 7.3 (1.8-7.7) th/mm3 Lymph # (Auto) 0.6 L (1.0-4.8) th/mm3 [place] # (Auto) 0.6 (0.0-0.9) th/mm3 Eos # (Auto) 0.2 (0.0-0.4) th/mm3 Baso # (Auto) 0.0 (0.0-0.2) th/mm3 WBC Differential . Differential Comment Auto diff final PT 10.3 (9.8-11.6) sec INR 1.0 Ratio APTT 26.6 (24.3-30.1) sec Sodium 136 (136-145) meq/L Potassium 3.6 (3.5-5.1) meq/L Chloride 100 (98-107) meq/L Carbon Dioxide 26.6 (21.0-32.0) meq/L Anion Gap 9 (5-15) meq/L BUN 7 (7-18) mg/dL Creatinine 0.68 (0.60-1.30) mg/dL Estimated GFR Greater than 89 (>89) mL/min Random Glucose 92 (74-106) mg/dL Lactic Acid (0.4-2.0) mmol/L Calcium 8.3 L (8.5-10.1) mg/dL Magnesium 1.7 (1.5-2.5) mg/dL Total Bilirubin 0.3 (0.2-1.0) mg/dL AST 15 (15-37) U/L ALT 12 (12-78) U/L Alkaline Phosphatase 85 (45-117) U/L Troponin I Less than 0.02 L (0.02-0.05) ng/mL Total Protein 6.6 (6.4-8.2) g/dL Albumin 2.7 L (3.4-5.0) g/dL Urine Color (Yellw/Straw) Urine Clarity (Clear) Urine pH (5.0-8.5) Ur Specific [place] (1.002-1.035) Urine Protein (Neg-Trace) mg/dL Urine Glucose (UA) (Negative) mg/dL Urine Ketones (Negative) mg/dL Urine Occult Blood (Negative) Urine Nitrate (Negative) Urine Bilirubin (Negative) Urine Urobilinogen (Less than 2) mg/dL Ur Leukocyte Esterase (Negative) Urine RBC (0-3) /hpf Urine WBC (0-5) /hpf Hyaline Casts (0-3) /lpf Urine Mucus (Occasional) /lpf Micro UA Comment Ur Microscopic Review Urine Culture Comments Urine Opiates Screen (Neg) Acetaminophen (10.0-30.0) mcg/mL Ur Barbiturates Screen (Neg) Ur Amphetamines Screen (Neg) U Benzodiazepines Scrn (Neg) Urine Cocaine Screen (Neg) U Cannabinoids Screen (Neg) Serum Alcohol 58 H (0-5) mg/dL 02/05/18 02/05/18 02/05/18 Range/Units 12:45 12:46 13:35 WBC (4.0-11.0) th/mm3 RBC (4.50-5.90) mil/mm3 Hgb (13.0-17.0) gm/dL Hct (39.0-51.0) % MCV (80.0-100.0) fL MCH (27.0-34.0) pg MCHC (32.0-36.0) % RDW (11.6-17.2) % Plt Count (150-450) th/mm3 MPV (7.0-11.0) fL Neut % (Auto) (16.0-70.0) % Lymph % (Auto) (9.0-44.0) % Sandoval % (Auto) (0.0-8.0) % Eos % (Auto) (0.0-4.0) % Baso % (Auto) (0.0-2.0) % Neut # (Auto) (1.8-7.7) th/mm3 Lymph # (Auto) (1.0-4.8) th/mm3 [place] # (Auto) (0.0-0.9) th/mm3 Eos # (Auto) (0.0-0.4) th/mm3 Baso # (Auto) (0.0-0.2) th/mm3 WBC Differential Differential Comment PT (9.8-11.6) sec INR Ratio APTT (24.3-30.1) sec Sodium (136-145) meq/L Potassium (3.5-5.1) meq/L Chloride (98-107) meq/L Carbon Dioxide (21.0-32.0) meq/L Anion Gap (5-15) meq/L BUN (7-18) mg/dL Creatinine (0.60-1.30) mg/dL Estimated GFR (>89) mL/min Random Glucose (74-106) mg/dL Lactic Acid 2.3 H (0.4-2.0) mmol/L Calcium (8.5-10.1) mg/dL Magnesium (1.5-2.5) mg/dL Total Bilirubin (0.2-1.0) mg/dL AST (15-37) U/L ALT (12-78) U/L Alkaline Phosphatase (45-117) U/L Troponin I (0.02-0.05) ng/mL Total Protein (6.4-8.2) g/dL Albumin (3.4-5.0) g/dL Urine Color (Yellw/Straw) Urine Clarity (Clear) Urine pH (5.0-8.5) Ur Specific [place] (1.002-1.035) Urine Protein (Neg-Trace) mg/dL Urine Glucose (UA) (Negative) mg/dL Urine Ketones (Negative) mg/dL Urine Occult Blood (Negative) Urine Nitrate (Negative) Urine Bilirubin (Negative) Urine Urobilinogen (Less than 2) mg/dL Ur Leukocyte Esterase (Negative) Urine RBC (0-3) /hpf Urine WBC (0-5) /hpf Hyaline Casts (0-3) /lpf Urine Mucus (Occasional) /lpf Micro UA Comment Ur Microscopic Review Urine Culture Comments Urine Opiates Screen Pos H (Neg) Acetaminophen Less than 2.0 L (10.0-30.0) mcg/mL Ur Barbiturates Screen Neg (Neg) Ur Amphetamines Screen Neg (Neg) U Benzodiazepines Scrn Neg (Neg) Urine Cocaine Screen Neg (Neg) U Cannabinoids Screen Neg (Neg) Serum Alcohol (0-5) mg/dL 02/05/18 02/05/18 Range/Units 13:35 15:31 WBC (4.0-11.0) th/mm3 RBC (4.50-5.90) mil/mm3 Hgb (13.0-17.0) gm/dL Hct (39.0-51.0) % MCV (80.0-100.0) fL MCH (27.0-34.0) pg MCHC (32.0-36.0) % RDW (11.6-17.2) % Plt Count (150-450) th/mm3 MPV (7.0-11.0) fL Neut % (Auto) (16.0-70.0) % Lymph % (Auto) (9.0-44.0) % Sand[place] % (Auto) (0.0-8.0) % Eos % (Auto) (0.0-4.0) % Baso % (Auto) (0.0-2.0) % Neut # (Auto) (1.8-7.7) th/mm3 Lymph # (Auto) (1.0-4.8) th/mm3 [place] # (Auto) (0.0-0.9) th/mm3 Eos # (Auto) (0.0-0.4) th/mm3 Baso # (Auto) (0.0-0.2) th/mm3 WBC Differential Differential Comment PT (9.8-11.6) sec INR Ratio APTT (24.3-30.1) sec Sodium (136-145) meq/L Potassium (3.5-5.1) meq/L Chloride (98-107) meq/L Carbon Dioxide (21.0-32.0) meq/L Anion Gap (5-15) meq/L BUN (7-18) mg/dL Creatinine (0.60-1.30) mg/dL Estimated GFR (>89) mL/min Random Glucose (74-106) mg/dL Lactic Acid 1.2 (0.4-2.0) mmol/L Calcium (8.5-10.1) mg/dL Magnesium (1.5-2.5) mg/dL Total Bilirubin (0.2-1.0) mg/dL AST (15-37) U/L ALT (12-78) U/L Alkaline Phosphatase (45-117) U/L Troponin I (0.02-0.05) ng/mL Total Protein (6.4-8.2) g/dL Albumin (3.4-5.0) g/dL Urine Color Yellow (Yellw/Straw) Urine Clarity Clear (Clear) Urine pH 6.0 (5.0-8.5) Ur Specific [place] 1.004 (1.002-1.035) Urine Protein Negative (Neg-Trace) mg/dL Urine Glucose (UA) Negative (Negative) mg/dL Urine Ketones Negative (Negative) mg/dL Urine Occult Blood Negative (Negative) Urine Nitrate Negative (Negative) Urine Bilirubin Negative (Negative) Urine Urobilinogen Less than 2 (Less than 2) mg/dL Ur Leukocyte Esterase Negative (Negative) Urine RBC Less than 1 (0-3) /hpf Urine WBC Less than 1 (0-5) /hpf Hyaline Casts 1 (0-3) /lpf Urine Mucus Few H (Occasional) /lpf Micro UA Comment Culture not ind Ur Microscopic Review Not Reportable Urine Culture Comments Culture not ind Urine Opiates Screen (Neg) Acetaminophen (10.0-30.0) mcg/mL Ur Barbiturates Screen (Neg) Ur Amphetamines Screen (Neg) U Benzodiazepines Scrn (Neg) Urine Cocaine Screen (Neg) U Cannabinoids Screen (Neg) Serum Alcohol (0-5) mg/dL Imaging Data Attestation: I personally reviewed and interpreted this imaging study as follows : Radiologist's impression: Head CT 02/05/18 12:18 CONCLUSION: 1. Mild periventricular and subcortical white matter small vessel ischemic changes bilaterally. 2. No acute infarct, acute hemorrhage, midline shift or extra-axial fluid collections. 3. Small fluid levels within the maxillary sinuses bilaterally. . Soft Tissue Neck CT 02/05/18 13:05 CONCLUSION: 1. Unchanged large necrotic mass involving the right neck. No drainable fluid collection is seen. 2. Unchanged density involving the supraclavicular region on the left as detailed above. I cannot completely exclude a foreign body. ECG Data EKG Prior to Arrival: No Attestation: I personally reviewed and interpreted this ECG as follows: Interpretation: EKG shows sinus rhythm with no sign of acute ischemia or arrhythmia. Read by me and attending. Ventricular rate of 70 bpm, NM interval of 190 ms. Discharge Plan Discharge Disposition Patient Disposition: 30 Still Patient Discharge Details Diagnosis: Syncope, Acute dehydration Physicians Team ED Provider: Edil Plummer ED Midlevel Provider: Juan Gonzalez Primary Care Provider: Primary Care Bernice Nieves Attending Provider: Isaac Ortega Status ED Status: Admitted Observation Patient
[2018-02-05 12:58] VITALS: PULSE 88; RESP 20; TEMP 97.6
[2018-02-05 12:59] LABS: Baso % (Auto) 0.4 % (0.0-2.0); Eos # (Auto) 0.2 th/mm3 (0.0-0.4); Eos % (Auto) 2.7 % (0.0-4.0); Hematocrit 38.9 % (39.0-51.0); Hemoglobin 12.9 gm/dL (13.0-17.0); Lymph # (Auto) 0.6 th/mm3 (1.0-4.8); Lymph % (Auto) 6.6 % (9.0-44.0); Mean Corpuscular HGB Conc 33.2 % (32.0-36.0); Mean Corpuscular Hemoglobin 32.9 pg (27.0-34.0); Mean Corpuscular Volume 98.9 fL (80.0-100.0); Mean Platelet Volume 6.9 fL (7.0-11.0); Mono # (Auto) 0.6 th/mm3 (0.0-0.9); Mono % (Auto) 6.9 % (0.0-8.0); Neut # (Auto) 7.3 th/mm3 (1.8-7.7); Neut % (Auto) 83.4 % (16.0-70.0); Platelet Count 280 th/mm3 (150-450); Red Blood Count 3.93 mil/mm3 (4.50-5.90); Red Cell Distribution Width 15.4 % (11.6-17.2); White Blood Count 8.7 th/mm3 (4.0-11.0)
[2018-02-05 13:09] LABS: Activated Partial Thrombo Time 26.6 sec (24.3-30.1); Prothrombin Time 10.3 sec (9.8-11.6)
[2018-02-05 13:15] LABS: Albumin 2.7 g/dL (3.4-5.0); Anion Gap 9 meq/L (5-15); Aspartate Aminotransferase 15 U/L (15-37); Blood Urea Nitrogen 7 mg/dL (7-18); Calcium 8.3 mg/dL (8.5-10.1); Carbon Dioxide 26.6 meq/L (21.0-32.0); Chloride 100 meq/L (98-107); Glomerular Filtration Rate Greater Than 89 mL/min (>89); Glucose,Random 92 mg/dL (74-106); Magnesium 1.7 mg/dL (1.5-2.5); Potassium 3.6 meq/L (3.5-5.1); Sodium 136 meq/L (136-145)
[2018-02-05 13:16] LABS: Alanine Aminotransferase 12 U/L (12-78)
[2018-02-05 13:19] LABS: Alcohol 58 mg/dL (0-5); Alkaline Phosphatase 85 U/L (45-117); Total Protein 6.6 g/dL (6.4-8.2)
--- NOTE | 2018-02-05 13:26 | CT ---
EXAM DATE: 02/05/2018 1:01 PM EDT AGE/SEX: 57 years / Male INDICATIONS: Syncopal episode today. CLINICAL DATA: This is the patient's initial encounter. Patient reports that signs and symptoms have been present for 1 day and indicates a pain score of 0/10. MEDICAL/SURGICAL HISTORY: None. None. RADIATION DOSE: 46.93 CTDI (mGy) COMPARISON: No prior exams available for comparison. TECHNIQUE: CT of the head without contrast. Using automated exposure control and adjustment of the mA and/or kV according to patient size, radiation dose was kept as low as reasonably achievable to ob tain optimal diagnostic quality images. DICOM format image data is available electronically for revi ew and comparison. FINDINGS: Cerebrum: The ventricles are normal for age. Mild periventricular and subcortical white matter smal l vessel ischemic changes are noted bilaterally. No evidence of midline shift, mass lesion, hemorrhag e or acute infarction. No extraaxial fluid collections are seen. Posterior Fossa: The cerebellum and brainstem are intact. The 4th ventricle is midline. The cerebe llopontine angle is unremarkable. Extracranial: The visualized portion of the orbits is intact. Small fluid levels are noted within th e maxillary sinuses bilaterally. Skull: The calvaria is intact. No evidence of skull fracture. CONCLUSION: 1. Mild periventricular and subcortical white matter small vessel ischemic changes bilaterally. 2. No acute infarct, acute hemorrhage, midline shift or extra-axial fluid collections. 3. Small fluid levels within the maxillary sinuses bilaterally. . Electronically signed by: Emre Hussein MD 02/05/2018 1:25 PM EDT
[2018-02-05 13:43] VITALS: BP 125/81; O2SAT 96
[2018-02-05 14:03] LABS: Amphetamine Screen,Urine Neg (Neg); Barbiturate Screen,Urine Neg (Neg); Cannabinoid Screen,Urine Neg (Neg); Cocaine Screen,Urine Neg (Neg)
[2018-02-05 14:04] LABS: Opiate Screen,Urine Pos (Neg)
[2018-02-05 14:07] LABS: Bilirubin,Urine Negative (Negative); Clarity,Urine Clear (Clear); Color,Urine Yellow (Yellw/Straw); Glucose,Urine (UA) Negative (Negative); Hyaline Casts,Urine 1 /lpf (0-3); Leukocyte Esterase,Urine Negative (Negative); Mucus,Urine Few /lpf (Occasional); Nitrite,Urine Negative (Negative); Specific Gravity,Urine 1.004 (1.002-1.035)
--- NOTE | 2018-02-05 14:57 | CT ---
EXAM DATE: 02/05/2018 1:33 PM EDT AGE/SEX: 57 years / Male INDICATIONS: Draining wound in right neck. CLINICAL DATA: This is the patient's initial encounter. Patient reports that signs and symptoms have been present for 1 day and indicates a pain score of 7/10. MEDICAL/SURGICAL HISTORY: None. None. RADIATION DOSE: 25.24 CTDI (mGy) COMPARISON: [facility] – [place], [place], CT SOFT TISSUE NECK W CONTRAST, 12/30/2017. . TECHNIQUE: Helical acquisition was performed using a multirow detector CT scanner during the adminis tration of 68 ml Omnipaque 350 (iohexol) nonionic water-soluble contrast as a single exam dose. Usi ng automated exposure control and adjustment of the mA and/or kV according to patient size, radiation dose was kept as low as reasonably achievable to obtain optimal diagnostic quality images. DICOM fo rmat image data is available electronically for review and comparison. FINDINGS: Again seen is a large necrotic mass involving the right neck. Epicenter is superficial to the sternoc leidomastoid muscle at the level of the angle of the mandible. There is a large resulting soft tissue defect overlying the necrotic mass. The mass measures 8.4 x 5.5 x 3.2 cm. The deepest portion of the mass does approach the carotid sheath along its lateral margin at the level of the bifurcation. The mass is unchanged from the prior exam. A right submandibular lymph node is 16 x 7 mm in size and unch anged from the exam. Bulky adenopathy not appreciated. Thyroid gland is unremarkable. Pansinus diseas e with air-fluid levels involving the maxillary sinuses. A degenerative cervical spine noted. Emphyse matous changes within the visualized apices. A heterogeneous stippled density is seen within the supr aclavicular region on the left. This is unchanged from the prior examination. CONCLUSION: 1. Unchanged large necrotic mass involving the right neck. No drainable fluid collection is seen. 2. Unchanged density involving the supraclavicular region on the left as detailed above. I cannot co mpletely exclude a foreign body. Electronically signed by: Chele Velazquez MD 02/05/2018 2:55 PM EDT
[2018-02-05] MEDS ORDERED: Sod Chloride 0.9% Inj 1,000 ML IV.CONT SCH (17:00)
[2018-02-05] MEDS ORDERED: Bisacodyl 10 MG Supp RECTAL PRN (17:00)
--- NOTE | 2018-02-06 17:42 | ECG ---
Date Performed: 02/05/2018 Time Performed: 13:09:12 PTAGE: 57 years EKG: Sinus rhythm WITH MARKED SINUS ARRHYTHMIA INCOMPLETE RIGHT BUNDLE BRANCH BLOCK Compared to previous tracing, sinu s arrhythmia has replaced ectopic atrial rhythm BORDERLINE ECG PREVIOUS TRACING : 04/11/2013 14.16 DOCTOR: Naga Mcclendon Interpretating Date/Time 02/06/2018 17:40:49
== END 2018-02-05 18:48 | disposition left against medical advice (07) ==
LOC: NEPC 12:00 → NEDA 12:00
PROVIDERS: ADMIT Family Medicine; ATTEND Family Medicine

== ENCOUNTER 2018-04-22 22:21 | Inpatient (IN) ==
--- NOTE | 2018-04-22 22:30 | ED ---
HPI General Chief complaint: Medical Clearance Stated complaint: Failure to Thrive Time Seen by Provider: 04/22/18 22:29 Source: patient and EMS Mode of arrival: EMS Limitations: no limitations History of Present Illness HPI narrative: The patient is a 57 year old male who presents to the [facility] emergency department with a history of reportedly being diagnosed with cancer 3 months ago. He reports that a neck mass was removed, however he is unsure of the exact type of cancer he has. He reports that he is followed by an oncologist and is going to be started on chemotherapy and radiation therapy, however it has not been started yet. He has difficulty recalling the name of his oncologist. The patient reports that recently he has not been able to swallow any liquids or solids. He reports that he feels like it is getting stuck when it tries to go down and then he brings it back up. He reports that he is trying to drink Ensure shakes, however he has had a progressive weight loss. On ambulance services arrival, the patient was noted to be hypotensive with a blood pressure 48/18. The patient was however awake and alert. The patient initially did not want to be transported, however he finally did agree. The patient resides with a roommate. The patient in route to this facility was given 900 mL of normal saline for his hypotension and arrives with a systolic blood pressure of 147. The patient in route to this facility had an O2 saturation on room air scattered rhonchi noted. The patient was intermittently tachycardic ranging from 90-110 for his pulse. The patient's review of systems is limited as the patient has generalized weakness and frequently is hesitant or unwilling to answer questions. Related Data Home Medications Medication Instructions Recorded Confirmed No Known Home Medications 04/22/18 04/22/18 Allergies Allergy/AdvReac Type Severity Reaction Status Date / Time *MDRO Multi-Drug Resistant AdvReac Unknown Abdominal Uncoded 12/30/17 21:23 Organism Pain Review of Systems ROS Unobtainable ROS Unobtainable: other (Review of systems is limited due to his current state of health.) [facility] Social History Social History Substance History: Past History Second Hand Smoke Exposure: Yes Smoking Status: Current every day smoker Tobacco Type: Cigarettes How Often Do You Have a Drink Containing Alcohol: Monthly or less Exam Const General: cooperative and frail appearing Nutritional Appearance: cachectic Orientation: alert, awake and oriented x3 [facility] Head: normocephalic and atraumatic Nose: no nasal discharge and no epistaxis Mouth: moist mucous membranes Throat: other (The patient has white patches noted in the posterior oropharynx and in the mucosa consistent with thrush.) Eyes Sclera: normal sclerae Pupils: PERRL EOM: EOM intact bilaterally Neck Neck: no meningeal signs, trachea midline, no JVD and other (The patient has a large scar in place along the right side of the neck from his recent neck mass resection.) Resp Effort & Inspection: no use of accessory muscles Auscultation: rhonchi (Scattered rhonchi bilaterally that clear with coughing. No wheezes or crackles.) Cardio Rate: tachycardic (Sinus tachycardia in the low 100s, no pulse deficits to the extremities on simultaneous auscultation and palpation of his radial artery.) Rhythm: regular rhythm Heart Sounds: no gallops, no murmurs and no rubs GI Inspection: non-distended Palpation: soft, no hepatosplenomegaly, no guarding, not rigid and nontender Auscultation: normal bowel sounds Back/Spine/Pelvis Back: no CVA tenderness Skin General: dry skin (warm) Neuro General: alert, awake, oriented x3 and other (The patient is grossly nonfocal. The patient has generalized weakness.) Speech: speech normal Motor: no movement abnormalities noted Extrem General: normal to inspection (2+ pulses in all 4 extremities), calf tenderness , no clubbing, no cyanosis and no edema Psych Mood: congruent mood Affect: normal affect Judgment: judgment good Course Initial Documented Vital Signs Temperature 96.1 F L 04/22/18 23:15 Pulse Rate 101 H 04/22/18 23:15 Respiratory Rate 26 H 04/22/18 23:15 Blood Pressure 147/98 H 04/22/18 23:15 Pulse Oximetry 95 04/22/18 23:15 Last Documented Vital Signs Temperature 97.8 F 04/23/18 15:15 Pulse Rate 82 04/23/18 15:15 Respiratory Rate 16 04/23/18 15:15 Blood Pressure 188/84 H 04/23/18 15:15 Pulse Oximetry 99 04/23/18 15:15 Critical Care Time Critical Care Time: Yes Total Critical Care Time: 34 Attestation: Aggregate critical care time was 34 minutes. Time to perform other separately billable procedures was not included in the critical care time. My time did not include minutes spent treating any other patients simultaneously or on activities that did not directly contribute to the patient's treatment. The services I provided to this patient were to treat and/or prevent clinically significant deterioration that could result in: Cardiovascular collapse from sepsis, versus respiratory failure from crystalloid resuscitation, versus respiratory failure from respiratory distress I provided critical care services requiring my management, as noted below: Chart data review, documentation time, medication orders and management, vital sign assessments/reviewing monitor data, ordering and reviewing lab tests, ordering and interpreting/reviewing x-rays and diagnostic studies, care of the patient and discussion of the patient with the admitting physicians. Medical Decision Making MDM Narrative Medical decision making narrative: During the course of the patient's emergency department visit, the patient's history, examination, and differential diagnosis were reviewed with the patient. The patient was placed on a telemetry monitor with oximetry and frequent blood pressure monitoring. The patient had IV access obtained and blood work sent for analysis. A diagnostic evaluation was started regarding the patient's cachectic state, obvious dehydration. The patient was initially provided normal saline of 500 mL bolus x1. The patient was given nystatin orally which will be assessed for his ability to swallow. The patient's diagnostic studies are remarkable for a white count of 15.6, hemoglobin 13.8, platelets 365 with 93.1 neutrophils consistent with a left shift. The patient was started on broad-spectrum antibiotic coverage with suspected respiratory source. PT is 11.8, PTT 21.8, chemistry is remarkable for a BUN of 25, glucose 115, albumin 2.7, lipase within normal limits, cardiac enzymes within normal limits, a chest x-ray shows no acute cardiopulmonary disease. The patient's lactic acid is elevated at 2.8. The patient's chest x- ray showed no acute cardiopulmonary disease, CTA to rule out PE reveals a study that is negative for pulmonary embolism, however interval development of multiple opacities in the right lung, the largest measuring 1.6 cm with irregular margins and the others measure less than 5 mm are noted. This is suggestive of a hematogenous process, malignant versus infectious. Nonconsolidated patchy areas of infiltrate in the lower lateral left lung are also noted. These are similar in appearance to those identified on April 10, 2018. The patient will be continued on broad-spectrum antibiotic and admitted to the hospital for continued evaluation and treatment. The patient's case including history, pertinent physical examination findings, and laboratory studies were discussed with . It was agreed that the patient would be admitted to the hospitalist service. The patient's results were discussed with the patient, including the plan of care. I explained that further testing and/ or monitoring is indicated based on the patient's history, examination, and/ or laboratory findings. Therefore, I recommended admission for additional evaluation. The patient expressed understanding and was agreeable with this plan. The patient was admitted to the hospital in guarded condition and sent to a bed under the care of the [facility] service. Medical Screen Exam Complete: Yes Emergency Medical Condition: Yes Differential Diagnosis Differential Diagnosis: Dehydration, versus electrolyte derangements, versus acute kidney injury, versus aspiration pneumonia Medical Records Medical records reviewed: Yes I reviewed the patient's medical records. Lab Data Lab results reviewed: Yes I reviewed the patient's lab results. Result diagrams: 04/22/18 22:38 04/22/18 22:38 Lab Results 04/22/18 04/22/18 04/22/18 Range/Units 22:28 22:35 22:38 WBC (4.0-11.0) th/mm3 RBC (4.50-5.90) mil/mm3 Hgb (13.0-17.0) gm/dL Hct (39.0-51.0) % MCV (80.0-100.0) fL MCH (27.0-34.0) pg MCHC (32.0-36.0) % RDW (11.6-17.2) % Plt Count (150-450) th/mm3 MPV (7.0-11.0) fL Prelim Diff (Auto) Neut % (Auto) (16.0-70.0) % Lymph % (Auto) (9.0-44.0) % Crook % (Auto) (0.0-8.0) % Eos % (Auto) (0.0-4.0) % Baso % (Auto) (0.0-2.0) % Neut # (Auto) (1.8-7.7) th/mm3 Lymph # (Auto) (1.0-4.8) th/mm3 Crook # (Auto) (0.0-0.9) th/mm3 Eos # (Auto) (0.0-0.4) th/mm3 Baso # (Auto) (0.0-0.2) th/mm3 WBC Differential Diff Scan Differential Comment Platelet Estimate (Normal) Platelet Morphology (Normal) PT 11.8 H (9.8-11.6) sec INR 1.2 Ratio APTT 21.8 L (23.4-31.7) sec Sodium (136-145) meq/L Potassium (3.5-5.1) meq/L Chloride (98-107) meq/L Carbon Dioxide (21.0-32.0) meq/L Anion Gap (5-15) meq/L BUN (7-18) mg/dL Creatinine (0.60-1.30) mg/dL Estimated GFR (>89) mL/min POC Glucose 108 (68-110) mg/dl Random Glucose (74-106) mg/dL Lactic Acid 2.8 H (0.4-2.0) mmol/L Calcium (8.5-10.1) mg/dL Magnesium (1.5-2.5) mg/dL Total Bilirubin (0.2-1.0) mg/dL AST (15-37) U/L ALT (12-78) U/L Alkaline Phosphatase (45-117) U/L Total Creatine Kinase (39-308) U/L Troponin I (0.02-0.05) ng/mL Total Protein (6.4-8.2) g/dL Albumin (3.4-5.0) g/dL Lipase (73-393) U/L 04/22/18 04/22/18 04/22/18 Range/Units 22:38 22:38 22:38 WBC 15.6 H (4.0-11.0) th/mm3 RBC 4.75 (4.50-5.90) mil/mm3 Hgb 13.8 (13.0-17.0) gm/dL Hct 42.1 (39.0-51.0) % MCV 88.6 (80.0-100.0) fL MCH 29.1 (27.0-34.0) pg MCHC 32.8 (32.0-36.0) % RDW 14.9 (11.6-17.2) % Plt Count 365 (150-450) th/mm3 MPV 8.1 (7.0-11.0) fL Prelim Diff (Auto) Slide review pending Neut % (Auto) 93.1 H (16.0-70.0) % Lymph % (Auto) 3.9 L (9.0-44.0) % Crook % (Auto) 2.8 (0.0-8.0) % Eos % (Auto) 0.1 (0.0-4.0) % Baso % (Auto) 0.1 (0.0-2.0) % Neut # (Auto) 14.5 H (1.8-7.7) th/mm3 Lymph # (Auto) 0.6 L (1.0-4.8) th/mm3 Crook # (Auto) 0.4 (0.0-0.9) th/mm3 Eos # (Auto) 0.0 (0.0-0.4) th/mm3 Baso # (Auto) 0.0 (0.0-0.2) th/mm3 WBC Differential . Diff Scan Auto diff confirmed Differential Comment . Platelet Estimate Normal (Normal) Platelet Morphology Normal (Normal) PT (9.8-11.6) sec INR Ratio APTT (23.4-31.7) sec Sodium 139 (136-145) meq/L Potassium 3.9 (3.5-5.1) meq/L Chloride 100 (98-107) meq/L Carbon Dioxide 27.5 (21.0-32.0) meq/L Anion Gap 12 (5-15) meq/L BUN 25 H (7-18) mg/dL Creatinine 0.83 (0.60-1.30) mg/dL Estimated GFR Greater than 89 (>89) mL/min POC Glucose (68-110) mg/dl Random Glucose 115 H (74-106) mg/dL Lactic Acid (0.4-2.0) mmol/L Calcium 8.5 (8.5-10.1) mg/dL Magnesium 2.1 (1.5-2.5) mg/dL Total Bilirubin 0.6 (0.2-1.0) mg/dL AST 24 (15-37) U/L ALT 14 (12-78) U/L Alkaline Phosphatase 79 (45-117) U/L Total Creatine Kinase 87 (39-308) U/L Troponin I Less than 0.02 L (0.02-0.05) ng/mL Total Protein 7.2 (6.4-8.2) g/dL Albumin 2.7 L (3.4-5.0) g/dL Lipase 70 L (73-393) U/L 04/23/18 04/23/18 Range/Units 03:10 08:54 WBC (4.0-11.0) th/mm3 RBC (4.50-5.90) mil/mm3 Hgb (13.0-17.0) gm/dL Hct (39.0-51.0) % MCV (80.0-100.0) fL MCH (27.0-34.0) pg MCHC (32.0-36.0) % RDW (11.6-17.2) % Plt Count (150-450) th/mm3 MPV (7.0-11.0) fL Prelim Diff (Auto) Neut % (Auto) (16.0-70.0) % Lymph % (Auto) (9.0-44.0) % Crook % (Auto) (0.0-8.0) % Eos % (Auto) (0.0-4.0) % Baso % (Auto) (0.0-2.0) % Neut # (Auto) (1.8-7.7) th/mm3 Lymph # (Auto) (1.0-4.8) th/mm3 Crook # (Auto) (0.0-0.9) th/mm3 Eos # (Auto) (0.0-0.4) th/mm3 Baso # (Auto) (0.0-0.2) th/mm3 WBC Differential Diff Scan Differential Comment Platelet Estimate (Normal) Platelet Morphology (Normal) PT (9.8-11.6) sec INR Ratio APTT (23.4-31.7) sec Sodium (136-145) meq/L Potassium (3.5-5.1) meq/L Chloride (98-107) meq/L Carbon Dioxide (21.0-32.0) meq/L Anion Gap (5-15) meq/L BUN (7-18) mg/dL Creatinine (0.60-1.30) mg/dL Estimated GFR (>89) mL/min POC Glucose 86 (68-110) mg/dl Random Glucose (74-106) mg/dL Lactic Acid 1.3 (0.4-2.0) mmol/L Calcium (8.5-10.1) mg/dL Magnesium (1.5-2.5) mg/dL Total Bilirubin (0.2-1.0) mg/dL AST (15-37) U/L ALT (12-78) U/L Alkaline Phosphatase (45-117) U/L Total Creatine Kinase (39-308) U/L Troponin I (0.02-0.05) ng/mL Total Protein (6.4-8.2) g/dL Albumin (3.4-5.0) g/dL Lipase (73-393) U/L Imaging Data Radiologist's impression: Chest X-Ray 04/22/18 22:32 CONCLUSION: No acute cardiopulmonary disease. Chest CTA 04/23/18 00:15 CONCLUSION: 1. Study is negative for pulmonary embolism. 2. Interval development of multiple opacities in the right lung, the largest measures 1.6 cm with irregular margins and the others measure less than 5 mm. This suggests a hematogenous process, malignant versus infectious.. 3. Nonconsolidative patchy areas of infiltrate in the lower lateral left lung stable in appearance. ECG Data Attestation: I personally reviewed and interpreted this ECG as follows: Interpretation: The patient had an EKG done on arrival. The patient's EKG reveals a sinus rhythm heart rate of 92, QRS duration is 88 ms, QTC [address] segment elevation. Amplitude of the QRS segment and lead I is diminished Discharge Plan Discharge Disposition Patient Disposition: ED Admit(ED Internal Use Only) Discharge Order Discharge Orders: ED Use Only Admit Order (Routine); Ordered 04/23/18 Ordered By: Lissa Caicedo Discharge Details Diagnosis: Pneumonia, Dysphagia, Sepsis, Dehydration Physicians Team ED Provider: Lissa Caicedo Primary Care Provider: UNKNOWN, Attending Provider: Emre Pisano Other Providers: Rehan Kim ; Canelo Lay ; Niranjan Ramey ; David Crouch ; Barak Figueroa Status ED Status: Left Department Discharge Information Discharge Date/Time: 04/23/18 04:24
[2018-04-22] MEDS ORDERED: Sodium Chlor 0.9% Inj 500 ML IV.SIG ONE (22:31)
[2018-04-22] MEDS ORDERED: Nystatin Liq 500,000 UNIT/5 ML UDC SWISH-SWAL ONE (22:34)
--- NOTE | 2018-04-22 22:49 | XR ---
EXAM DATE: 04/22/2018 10:46 PM EST AGE/SEX: 57 years / Male INDICATIONS: Fever, shortness of breath, and cough. CLINICAL DATA: This is the patient's initial encounter. Patient reports that signs and symptoms have been present for 1 week and indicates a pain score of 0/10. MEDICAL/SURGICAL HISTORY: . Chronic obstructive pulmonary disease. Methicillin-resistant Staphy lococcus aureus. Enlarged right neck lymph node. ETOH use. . Left finger surgery. COMPARISON: [facility] [place], CHEST PA & LAT, 10/27/2016. . FINDINGS: The lungs are clear without infiltrate, nodule, or mass. There is no appreciable pleural effusion for technique. Heart and mediastinum are unremarkable. There is scarring and pleural thick ening in the apices bilaterally. COPD changes are seen. CONCLUSION: No acute cardiopulmonary disease. Electronically signed by: Cheryl Cao MD Board Certified Radiologist 04/22/2018 10:47 PM EST
[2018-04-22 22:57] LABS: Baso % (Auto) 0.1 % (0.0-2.0); Eos % (Auto) 0.1 % (0.0-4.0); Hematocrit 42.1 % (39.0-51.0); Hemoglobin 13.8 gm/dL (13.0-17.0); Lymph # (Auto) 0.6 th/mm3 (1.0-4.8); Lymph % (Auto) 3.9 % (9.0-44.0); Mean Corpuscular HGB Conc 32.8 % (32.0-36.0); Mean Corpuscular Hemoglobin 29.1 pg (27.0-34.0); Mean Corpuscular Volume 88.6 fL (80.0-100.0); Mean Platelet Volume 8.1 fL (7.0-11.0); Mono # (Auto) 0.4 th/mm3 (0.0-0.9); Mono % (Auto) 2.8 % (0.0-8.0); Neut # (Auto) 14.5 th/mm3 (1.8-7.7); Neut % (Auto) 93.1 % (16.0-70.0); Platelet Count 365 th/mm3 (150-450); Red Blood Count 4.75 mil/mm3 (4.50-5.90); Red Cell Distribution Width 14.9 % (11.6-17.2); White Blood Count 15.6 th/mm3 (4.0-11.0)
[2018-04-22 23:01] LABS: Activated Partial Thrombo Time 21.8 sec (23.4-31.7); INR 1.2 Ratio; Prothrombin Time 11.8 sec (9.8-11.6)
[2018-04-22 23:05] LABS: Lipase 70 U/L (73-393)
[2018-04-22] MEDS ORDERED: Piperacil/Tazo 4.5 GM Premix 4.5 GM/100 ML BAG IV.SIG STA (23:06)
[2018-04-22] MEDS ORDERED: Azithromycin Inj 500 MG in Sodium Chlor 0.9% Inj 250 ML IV.SIG STA (23:06)
[2018-04-22] MEDS ORDERED: Vancomycin Inj 1,000 MG in Sodium Chlor 0.9% Inj 250 ML IV.SIG STA (23:06)
[2018-04-22 23:08] LABS: Creatine Kinase 87 U/L (39-308)
[2018-04-22 23:41] LABS: Alkaline Phosphatase 79 U/L (45-117); Total Protein 7.2 g/dL (6.4-8.2)
[2018-04-22 23:44] LABS: Alanine Aminotransferase 14 U/L (12-78); Albumin 2.7 g/dL (3.4-5.0); Anion Gap 12 meq/L (5-15); Aspartate Aminotransferase 24 U/L (15-37); Blood Urea Nitrogen 25 mg/dL (7-18); Calcium 8.5 mg/dL (8.5-10.1); Carbon Dioxide 27.5 meq/L (21.0-32.0); Chloride 100 meq/L (98-107); Glomerular Filtration Rate Greater Than 89 mL/min (>89); Glucose,Random 115 mg/dL (74-106); Magnesium 2.1 mg/dL (1.5-2.5); Potassium 3.9 meq/L (3.5-5.1); Sodium 139 meq/L (136-145)
[2018-04-23 00:10] LABS: Platelet Estimate Normal (Normal); Platelet Morphology Normal (Normal)
--- NOTE | 2018-04-23 01:30 | CT ---
EXAM DATE: 04/23/2018 1:02 AM EST AGE/SEX: 57 years / Male INDICATIONS: Failure to thrive; rule out pulmonary embolus. CLINICAL DATA: This is the patient's initial encounter. Patient reports that signs and symptoms have been present for 1 day and indicates a pain score of 0/10. MEDICAL/SURGICAL HISTORY: . Unable to obtain . Unable to obtain RADIATION DOSE: 3.43 CTDI (mGy) COMPARISON: [facility] [place], CT CHEST W CONTRAST, 04/10/2018. . TECHNIQUE: Volumetric scanning was performed using a multi-row detector CT scanner during bolus infu ca of 50 ml Omnipaque 350 (iohexol) nonionic water-soluble contrast as a single exam dose. The junie a was post processed with a variety of visualization algorithms including full volume maximum intensi ty projection and sliding thin slab reformation. Using automated exposure control and adjustment of t he mA and/or kV according to patient size, radiation dose was kept as low as reasonably achievable to obtain optimal diagnostic quality images. DICOM format image data is available electronically for r eview and comparison. FINDINGS: The patient is cachectic, very similar to prior examination on 04/10/2018. Pulmonary Arteries: No filling defects are seen in the pulmonary arteries out to the subsegmental ve ssels. The left and right pulmonary arteries are normal in diameter. Lung: Patchy nonconsolidative infiltrates in the lower lateral left lung are unchanged in appearance when compared to 04/10/2018. There are several new nodular densities present in the right lung, the l argest has irregular margins, measures up to 1.6 cm, and is best seen on axial image #69. The other n odular densities measuring less than 4 mm in size and are seen on images #101, 106, 109, and 73. Effusion: None. Mediastinum: No evidence of mediastinal or hilar adenopathy.Coronary artery calcifications. Other: The axilla is unremarkable. Old healed left rib fractures CONCLUSION: 1. Study is negative for pulmonary embolism. 2. Interval development of multiple opacities in the right lung, the largest measures 1.6 cm with ir regular margins and the others measure less than 5 mm. This suggests a hematogenous process, malignan t versus infectious.. 3. Nonconsolidative patchy areas of infiltrate in the lower lateral left lung stable in appearance. Electronically signed by: Chele Walsh MD Board Certified Radiologist 04/23/2018 1:29 AM EST
[2018-04-23] MEDS ORDERED: Vancomycin Consult Pharmacy OTHER PRN (02:08)
[2018-04-23] MEDS ORDERED: Acetaminophen 325 MG Tablet PO PRN (02:10)
[2018-04-23] MEDS ORDERED: Bisacodyl 10 MG Supp RECTAL PRN (02:10)
--- NOTE | 2018-04-23 03:32 | P.HPIM ---
History of Present Illness Primary Care Physician: UNKNOWN History of Present Illness: This is a 57-year-old male with PMH of Malignant Neck Mass who presents to the ER with complaints of dysphagia, progressive over the last several months. States he follows w/ Dr. Ambrocio at for right neck mass, s/p excision in the past, but he is unsure which type of cancer he has, notes upcoming appt w/ Dr. Ambrocio on May 11 w/ possible plans to start chemo/radiation. Recently seen in ER on 04/10/18 for similar complaints, CT Neck w/ interval surgical excision of large necrotic right neck mass, 5x5.3cm mass extending towards right posterior oropharynx w/ mass effect on right tongue and deviation of oropharynx to the left, no airway compromise, Dr. Hines w/ ENT consulted at that time and plan was for outpatient follow up w/ pt's Oncologist, Dr. Ambrocio , d/c'd on Z-pack for findings of possible infiltrate on CT Chest. Returns now w/ progressive dysphagia, states able to swallow liquids but no fluids. On exam , pt severely cachectic. BP 147/98, HR 101, O2 sat 95% on RA, Temp 96.1. WBC 15.6. INR 1.2. Chemistry unremarkable. Lactic Acid 2.8. Troponin negative. CXR with no acute findings. CTA Chest negative for PE, interval development of multiple opacities in the right lung suggests malignant versus infectious process, non-consolidative patchy infiltrates left lower lung. S/p Vanc/Zosyn in ER. - Diagnosis (1) FTT (failure to thrive) in adult (2) Sepsis (3) PNA (pneumonia) (4) Neck mass (5) Dysphagia Inpatient Certification: I certify that the inpatient services were ordered in accordance with Medicare regulations governing the order. This includes certification that hospital inpatient services are reasonable and necessary and in the case of services not specified as inpatient-only under 42 CFR 419.22(n), that they are appropriately provided as inpatient services in accordance to with the 2-midnight benchmark under 43 CFR 412.3(e) Estimated Total Length of Stay (Days): 2 Plans for Post Hospital Care: Not yet determined Review of Systems PAST FAMILY HISTORY: Reviewed. No h/o DM or CAD All other systems reviewed negative except as stated in HPI PMFSH - History History Provided By: Patient - Medical History Medical History: Medical History (Last Updated 04/10/18 @ 18:53 by Maria Luz Hutchins RN) Abscess Cancer - Surgical History Surgical History: Surgical History (Last Updated 04/22/18 @ 22:38 by Lissa Caicedo MD) H/O neck surgery - Tobacco History Second Hand Smoke Exposure: Yes Tobacco Use In Past 30 Days: Yes Smoking Status: Current every day smoker Tobacco Type: Cigarettes - Alcohol History How Often Do You Have a Drink Containing Alcohol: Monthly or less - Substance Use History Substance History: No History of Abuse - Immunization History Tetanus Immunization: Unsure Medications and Allergies Active Medications: Active Medications Acetaminophen (Tylenol) 650 mg PO Q4H PRN PRN Reason: Temp > 100.4 Al Hydroxide/Mg Hydroxide (Milk Of Magnesia Liq) 30 ml PO Q12H PRN PRN Reason: Mild Constipation Albuterol (Duoneb Neb (Prn)) 1 ampul NEB Q4HR NEB PRN PRN Reason: SOB/WHEEZING Bisacodyl (Dulcolax Supp) 10 mg RECTAL DAILY PRN PRN Reason: SEVERE CONSITIPATION Sodium Chloride (Ns Inj) 1,000 mls @ 100 mls/hr IV.CONT .Q10H MICHEAL Piperacillin/Tazobactam/Dextrose (Zosyn 4.5 Gm Premix) 4.5 gm in 100 mls @ 200 mls/hr IV.SIG Q6H MICHEAL Lactulose (Lactulose Liq) 30 ml PO DAILY PRN PRN Reason: SEVERE CONSITIPATION Morphine Sulfate (Morphine Inj) 2 mg IV.PUSH Q4H PRN PRN Reason: PAIN 6-10 Ondansetron HCl (Zofran Inj) 4 mg IV.PUSH Q6H PRN PRN Reason: NAUSEA OR VOMITING Pharmacy Profile Note (Vancomycin Consult Pharmacy) 1 each OTHER UNSCH PRN PRN Reason: Pharmacy to dose Senna/Docusate Sodium (Miracle-Colace) 1 tab PO BID MICHEAL Sennosides (Senokot) 17.2 mg PO Q12H PRN PRN Reason: Moderate Constipation Sodium Chloride (Ns Flush) 2 ml IV.FLUSH BID MICHEAL Sodium Chloride (Ns Flush) 2 ml IV.FLUSH PRN PRN PRN Reason: FLUSH AFTER USING IV ACCESS Allergies Allergy/AdvReac Type Severity Reaction Status Date / Time *MDRO Multi-Drug Resistant AdvReac Unknown Abdominal Uncoded 12/30/17 21:23 Organism Pain Home Medications Medication Instructions Recorded Confirmed Type No Known Home Medications 04/22/18 04/22/18 History Exam Vital signs: Vital Signs 04/22/18 23:15 04/22/18 23:30 Temperature 96.1 F L Pulse Rate 101 H Respiratory Rate 26 H Blood Pressure 147/98 H Pulse Oximetry 95 95 Intake & Output 04/22/18 04/22/18 04/23/18 06:59 18:59 06:59 Intake Total 600 / 600 Balance 600 / 600 Weight 36.287 kg Intake: IV 600 / 600 Zosyn 4.5 GM Premix 4.5 gm In 100 / 100 100 ml @ 200 mls/hr IV.SIG STAT STA Rx#:[id number] NS Inj 500 ML @ Wide Open IV. 500 / 500 SIG BOLUS ONE Rx#:[id number] Narrative: PE: GENERAL: Extremely cachectic middle-aged white male in some distress due to dysphagia, sipping water and Gatorade without difficulty, no airway compromise. SKIN: Focused skin assessment warm and dry. HEENT: PERRLA, EOMI. No scleral icterus or conjunctival pallor. No lid lag or facial droop. Right neck surgical scar CARDIOVASCULAR: Regular rate and rhythm. No obvious murmurs to auscultation. No chest tenderness to palpation. RESPIRATORY: No obvious rhonchi or wheezing. Clear to auscultation. Breath sounds equal bilaterally. GASTROINTESTINAL: Abdomen soft, non-tender, nondistended. BS normal. MUSCULOSKELETAL: Extremities without clubbing, cyanosis, or edema. No obvious deformities. NEUROLOGICAL: Awake, alert and oriented x4. No focal neurologic deficits. Moving both upper and lower extremities spontaneously. PSYCHIATRIC: Appropriate mood and affect. Insight and judgment normal. Results - Labs CBC & Chem 7: 04/22/18 22:38 04/22/18 22:38 Labs: Short CBC 04/22/18 Range/Units 22:38 WBC 15.6 H (4.0-11.0) th/mm3 Hgb 13.8 (13.0-17.0) gm/dL Hct 42.1 (39.0-51.0) % Plt Count 365 (150-450) th/mm3 BMP 04/22/18 22:38 Sodium 139 Potassium 3.9 Chloride 100 Carbon Dioxide 27.5 BUN 25 H Creatinine 0.83 Calcium 8.5 Cardiac Enzymes 04/22/18 Range/Units 22:38 Total Creatine Kinase 87 (39-308) U/L Troponin I Less than 0.02 L (0.02-0.05) ng/mL Liver Function 04/22/18 Range/Units 22:38 Total Bilirubin 0.6 (0.2-1.0) mg/dL AST 24 (15-37) U/L ALT 14 (12-78) U/L Alkaline Phosphatase 79 (45-117) U/L Albumin 2.7 L (3.4-5.0) g/dL - Imaging Impressions Chest X-Ray 04/22/18 22:32 CONCLUSION: No acute cardiopulmonary disease. Chest CTA 04/23/18 00:15 CONCLUSION: 1. Study is negative for pulmonary embolism. 2. Interval development of multiple opacities in the right lung, the largest measures 1.6 cm with irregular margins and the others measure less than 5 mm. This suggests a hematogenous process, malignant versus infectious.. 3. Nonconsolidative patchy areas of infiltrate in the lower lateral left lung stable in appearance. Caprini VTE Risk Assessment Caprini VTE Risk Assessment: No/Low Risk (score <= 1) Caprini Risk Assessment Model: Point Value = 1 Point Value = 2 Point Value = 3 Point Value = 5 Age 41-60 Minor surgery BMI > 25 kg/m2 Swollen legs Varicose veins or History of unexplained or recurrent spontaneous Oral contraceptives or hormone replacement Sepsis (< 1 month) Serious lung disease, including pneumonia (< 1 month) Abnormal pulmonary function Acute myocardial infarction Congestive heart failure (< 1 month) History of inflammatory bowel disease Medical patient at bed rest Age 61-74 Arthroscopic surgery Major open surgery (> 45 min) Laparoscopic surgery (> 45 min) Malignancy Confined to bed (> 72 hours) Immobilizing plaster cast Central venous access Age >= 75 History of VTE Family history of VTE Factor V Leiden Prothrombin [id number] Lupus anticoagulant Anticardiolipin antibodies Elevated serum homocysteine Heparin-induced thrombocytopenia Other congenital or acquired thrombophilia Stroke (< 1 month) Elective arthroplasty Hip, pelvis, or leg fracture Acute spinal cord injury (< 1 month) Prophylaxis Regimen: Total Risk Factor Score Risk Level Prophylaxis Regimen 0-1 Low Early ambulation 2 Moderate Order ONE of the following: *Sequential Compression Device (SCD) *Heparin 5000 units SQ BID 3-4 Higher Order ONE of the following medications: *Heparin 5000 units SQ TID *Enoxaparin/Lovenox 40 mg SQ daily (WT < 150 kg, CrCl > 30 mL/min) *Enoxaparin/Lovenox 30 mg SQ daily (WT < 150 kg, CrCl > 10-29 mL/min) *Enoxaparin/Lovenox 30 mg SQ BID (WT < 150 kg, CrCl > 30 mL/min) AND/OR *Sequential Compression Device (SCD) 5 or more Highest Order ONE of the following medications: *Heparin 5000 units SQ TID (Preferred with Epidurals) *Enoxaparin/Lovenox 40 mg SQ daily (WT < 150 kg, CrCl > 30 mL/min) *Enoxaparin/Lovenox 30 mg SQ daily (WT < 150 kg, CrCl > 10-29 mL/min) *Enoxaparin/Lovenox 30 mg SQ BID (WT < 150 kg, CrCl > 30 mL/min) AND *Sequential Compression Device (SCD) Assessment and Plan - Assessment (1) FTT (failure to thrive) in adult Code(s): R62.7 - Adult failure to thrive Status: Acute (2) Sepsis Code(s): A41.9 - Sepsis, unspecified organism Status: Acute (3) PNA (pneumonia) Code(s): J18.9 - Pneumonia, unspecified organism Status: Acute (4) Neck mass Code(s): R22.1 - Localized swelling, mass and lump, neck Status: Acute (5) Dysphagia Code(s): R13.10 - Dysphagia, unspecified Status: Acute - Plan A/P: 1. FTT: +cachectic on exam secondary to decreased PO intake from dysphagia related to neck mass, consult Float Remover for further recommendations, discussed the likelihood of feeding tube placement for nutrition, pt agreeable. 2. Sepsis: Temp 96, HR 101, WBC 15, Source-PNA, s/p Vanc/Zosyn, follow up cultures, continue IV Abx, IVF for hydration. 3. PNA: CTA Chest negative for PE, +infiltrate LLL and multiple lung opacities , infectious vs malignant. Continue w/ antibiotics as above, DuoNeb prn. 4. Right Neck Mass: Malignant, unclear type, previous neck biopsy here on 11/14 w/ pathology suspicious for malignancy, has since been following w/ Dr. Ambrocio, s/p recent excision of right neck mass, upcoming appt w/ Dr. Ambrocio on May 11, unfortunately seems to have progression of disease, now w/ possible lung mets. 5. Dysphagia: Progressive, secondary to neck mass, CT Neck 04/10/18 w/ 5x5.3cm soft tissue mass extending centrally towards right oropharynx w/ mass effect on right tongue and deviation of oropharynx to the left, no airway compromise, findings evaluated w/ ENT at that time, thought to be chronic. Able to swallow liquids, no solids. Consult Dietary as above. Discussed likelihood of needing feeding tube placement, pt agreeable to this. 6. Code Status: discussed code status w/ patient at length, he wishes to have resuscitation. Full Code Status at this time. 7. DVT Prophylaxis: SCD/Teds 8. Social work for d/c planning as needed. 9. Case discussed w/ ER physician at length, labs/records/imaging reviewed by me.
[2018-04-23] MEDS: Sod Chloride 0.9% Inj 1,000 ML IV.CONT SCH ×2 (04:37→11:55)
[2018-04-23] MEDS: Morphine Inj 4 MG/ML Vial IV.PUSH PRN ×2 (04:43→15:30)
[2018-04-23] MEDS: Piperacil/Tazo 4.5 GM Premix 4.5 GM/100 ML BAG IV.SIG SCH ×3 (05:43→17:05)
[2018-04-23] MEDS: Senna/Docusate Sodium 8.6/50 MG Tablet PO SCH ×2 (08:46→23:16)
--- NOTE | 2018-04-23 12:20 | ECG ---
Date Performed: 04/22/2018 Time Performed: 22:33:18 PTAGE: 57 years EKG: Sinus rhythm POSSIBLE RIGHT ATRIAL ENLARGEMENT POSSIBLE RIGHT VENTRICULAR CONDUCTION DELAY NONSPECIFIC ST & T-WAV E ABNORMALITY BORDERLINE ECG Since the PREVIOUS TRACING , no significant change noted PREVIOUS TRACIN02/05/18 DOCTOR: Naga Mcclendon Interpretating Date/Time 04/23/2018 12:18:12
--- NOTE | 2018-04-23 12:41 | P.CONPAL ---
Consult Service: Palliative Care Requesting Physician: Emre Pisano Reason for Consult: a. To assist with evaluation and management of symptoms including: Dysphasia, weakness, pain b. To assist medical decision maker(s) with: better understanding of current medical conditions; weighing benefits/burdens of medical treatment options; making medical treatment decisions. Primary Care Provider: UNKNOWN History of Present Illness History of Present Illness: This is a 57-year-old male with a past medical history of tobaccoism, MRSA infections on the hands and right-sided neck mass who was initially seen at [place] 10/27/2016 for the neck mass presents 04/22 with complaints of dysphasia. He has no insurance and had not been following with a primary care provider. He underwent ultrasound-guided needle biopsy of the right side of his neck mass in November 2016 showing a nondiagnostic biopsy with atypical cells, suspicious for squamous cell malignancy. The mass spontaneously ruptured in February 2017 and continued to drain until he was seen by Dr. Ambrocio at [facility] in [place] and underwent excision. Patient is uncertain what type of cancer he has but has an upcoming appointment with Dr. Ambrocio on May 11, 2018 with possible referral for chemo/radiation initiation. He has had multiple ED visits for this and was seen 04/10 for a similar complaint and underwent CT of the neck showing interval surgical excision of a large necrotic right neck mass 5 x 5.3 cm extending toward right posterior oropharynx with mass -effect on right tongue and deviation of oropharynx to the left without airway compromise. At that time he was seen by ENT, Dr. Hines, and was discharged on [facility] teens of a possible infiltrate on CT of the chest with plans to follow-up with Dr. Ambrocio. He presents severely cachectic with progressive dysphasia stating he was able to swallow liquids but no solids. Diagnostic data on admission: * Chest x-ray shows no acute cardiopulmonary disease. * Chest CTA is negative for pulmonary embolism with interval development of multiple opacities in the right lung, largest measuring 1.6 cm with irregular margins and the others measuring less than 5 mm. Suggestive of a hematogenous process malignant versus infective. None consolidative patchy areas of infiltrate in the lower lateral left lung, stable in appearance. * WBC 15.6, Hgb 13.8, HCT 42.1, PLT 365, sodium 139, potassium 3.9, BUN 25, creatinine 0.83, troponin less than 0.02, TCK 87, lactic acid 2.8, PT 11.8, INR 1.2, APTT 21.8, lipase 70, 7.2, albumin 2.7 * Electrocardiogram shows possible right atrial enlargement, possible right ventricular conduction delay, nonspecific ST and T wave abnormality. This is a cachectic, weak, ill appearing male seen in the ED, lethargic, arousable, appearing oriented. He complains of sharp stabbing pain in the lower abdomen and points to the left lower quadrant. He describes these as intermittent, 10/10, worsening after the ingestion of coffee or soda but present without ingestion of either. He notes severe weakness, inability to swallow solids, limited ability to swallow liquids. He states that he would like to have a feeding tube placed nourishment him get strong enough to undergo chemotherapy and radiation. He has not yet seen an oncologist and was under the impression that Dr. Ambrocio would be giving him chemotherapy and radiation. At this time he appears too weak to undergo any aggressive treatment. This was discussed with Dr. Pisano who has requested CT of the abdomen and pelvis without IV contrast preliminary workup. He has been seen by gastroenterology who ordered a barium swallow evaluation. Those studies are pending. 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 EtOH use several times a week Occasional marijuana Family history Grandfather: Parkinson's disease, mother at 61 of alcoholic liver disease, father unknown. . 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 Now cachectic and debilitated, he lives on the second floor and has been having difficulty navigating the stairs, requiring that he scoot up in a seated position from stair to stair. His presenting weight in December 2017 was 110 pounds. His presenting weight at this evaluation is 79 pounds with a BMI of 12. His highest weight in 2013 was 140 pounds. Severe muscle wasting is noted. . Review of Systems Constitutional: Reports weakness, Reports weight loss (Cachexia) Ears, Nose, Mouth, and Throat: Reports difficulty swallowing, Reports neck lump , Reports pain with swallowing Cardiovascular: Reports shortness of breath with activity PMFSH - History History Provided By: Patient - Medical History Medical History: Medical History (Last Reviewed 04/26/18 @ 14:41 by Stacy Moore Network Operations Manager, SEO EXECUTIVE) Abscess Cancer - Surgical History Surgical History: Surgical History (Last Reviewed 04/25/18 @ 08:02 by [employer]) H/O neck surgery - Tobacco History Second Hand Smoke Exposure: Yes Tobacco Use In Past 30 Days: Yes Smoking Status: Current every day smoker Tobacco Type: Cigarettes - Alcohol History How Often Do You Have a Drink Containing Alcohol: Monthly or less - Substance Use History Substance History: Past History - Immunization History Tetanus Immunization: Unsure Medications and Allergies Active Medications: Active Medications Acetaminophen (Tylenol) 650 mg PO Q4H PRN PRN Reason: Temp > 100.4 Al Hydroxide/Mg Hydroxide (Milk Of Magnesia Liq) 30 ml PO Q12H PRN PRN Reason: Mild Constipation Albuterol (Duoneb Neb (Prn)) 1 ampul NEB Q4HR NEB PRN PRN Reason: SOB/WHEEZING Bisacodyl (Dulcolax Supp) 10 mg RECTAL DAILY PRN PRN Reason: SEVERE CONSITIPATION Sodium Chloride (Ns Inj) 1,000 mls @ 100 mls/hr IV.CONT .Q10H MICHEAL Last Admin: 04/23/18 04:37 Dose: 100 mls/hr Piperacillin/Tazobactam/Dextrose (Zosyn 4.5 Gm Premix) 4.5 gm in 100 mls @ 200 mls/hr IV.SIG Q6H MICHEAL Last Infusion: 04/23/18 06:18 Dose: Infused Vancomycin HCl 500 mg/ Sodium (Chloride) 100 mls @ 200 mls/hr IV.SIG Q18H MICHEAL Lactulose (Lactulose Liq) 30 ml PO DAILY PRN PRN Reason: SEVERE CONSITIPATION Miscellaneous Information ([facility] Ordered Lab Info) 0 each OTHER ONCE ONE Stop: 04/25/18 08:46 Morphine Sulfate (Morphine Inj) 2 mg IV.PUSH Q4H PRN PRN Reason: PAIN 6-10 Last Admin: 04/23/18 04:43 Dose: 2 mg Ondansetron HCl (Zofran Inj) 4 mg IV.PUSH Q6H PRN PRN Reason: NAUSEA OR VOMITING Pharmacy Profile Note (Vancomycin Consult Pharmacy) 1 each OTHER UNSCH PRN PRN Reason: Pharmacy to dose Senna/Docusate Sodium (Miracle-Colace) 1 tab PO BID [facility] Last Admin: 04/23/18 08:46 Dose: 1 tab Sennosides (Senokot) 17.2 mg PO Q12H PRN PRN Reason: Moderate Constipation Sodium Chloride (Ns Flush) 2 ml IV.FLUSH BID [facility] Last Admin: 04/23/18 08:46 Dose: Not Given Sodium Chloride (Ns Flush) 2 ml IV.FLUSH PRN PRN PRN Reason: FLUSH AFTER USING IV ACCESS Allergies Allergy/AdvReac Type Severity Reaction Status Date / Time *MDRO Multi-Drug Resistant AdvReac Unknown Abdominal Uncoded 12/30/17 21:23 Organism Pain Home Medications Medication Instructions Recorded Confirmed Type No Known Home Medications 04/22/18 04/22/18 History Advance Directives Living Will: No Healthcare Surrogate: Yes Health Care Surrogate Name and Number: Aunt: Jody Estrada Power of Roll Changer: No Physical Exam Vital Signs: Vital Signs - 24 hr 04/22/18 23:15 04/22/18 23:30 04/23/18 03:00 Temperature 96.1 F L Pulse Rate 101 H 92 H Respiratory Rate 26 H 19 Blood Pressure 147/98 H 144/94 H Pulse Oximetry 95 95 97 04/23/18 04:00 04/23/18 06:09 04/23/18 07:49 Temperature 97.1 F L 96.2 F L Pulse Rate 98 H 83 108 H Respiratory Rate 18 20 Blood Pressure 109/70 143/91 H Pulse Oximetry 96 94 L 04/23/18 08:00 04/23/18 08:45 04/23/18 11:11 Temperature Pulse Rate 84 Respiratory Rate Blood Pressure Pulse Oximetry 94 L 96 04/23/18 11:29 Temperature 97.9 F Pulse Rate 87 Respiratory Rate 16 Blood Pressure 118/77 Pulse Oximetry 98 I&O: Intake & Output 04/21/18 04/22/18 04/23/18 04/24/18 06:59 06:59 06:59 06:59 Intake Total 1400 / 1400 Output Total 300 / 300 Balance 1400 / 1400 -300 / -300 Weight 79 lb 12.917 oz Physical Exam: CONSTITUTIONAL/GENERAL: This is an extremely cachectic, ill-appearing, lethargic male lying in bed in no acute distress. TUBES/LINES/DRAINS: PIV SKIN: No jaundice, rashes, or lesions. Ecchymoses on upper extremities. Multiple scars on neck and thorax. Skin temperature appropriate. Not diaphoretic. HEAD: Atraumatic. Normocephalic. EYES: Pupils equal and round and reactive. Extraocular motions intact. No scleral icterus. No injection or drainage. Fundi not examined. ENT: Hearing grossly normal. Nose without bleeding or purulent drainage. Throat without visible erythema, exudates, masses, or lesions. NECK: Trachea deviated to the left, no JVD, status post right neck mass excision. CARDIOVASCULAR: Regular rate and rhythm without murmurs, gallops, or rubs. No JVD. Peripheral pulses symmetric. RESPIRATORY/CHEST: Symmetric, unlabored respirations. Clear, diminished to auscultation. Breath sounds equal bilaterally. No wheezes, rales, or rhonchi. GASTROINTESTINAL: Abdomen soft, non-tender, nondistended. No hepato-splenomegaly , or palpable masses. No guarding. Bowel sounds present. GENITOURINARY: Without palpable bladder distension. MUSCULOSKELETAL: Extremities without clubbing, cyanosis, or edema. No joint tenderness or effusion noted. No calf tenderness. No mottling or clubbing. LYMPHATICS: Palpable mass in right parotid area. NEUROLOGICAL: Lethargic, dozes off during conversation. Oriented x4. Motor and sensory grossly within normal limits. Follows commands. Moves all extremities. PSYCHIATRIC: Flat affect, lethargic. . Diagnostic Tests Laboratory: Laboratory Results - last 72 hr 04/22/18 04/22/18 04/22/18 22:28 22:35 22:38 WBC RBC Hgb Hct MCV MCH MCHC RDW Plt Count MPV Prelim Diff (Auto) Neut % (Auto) Lymph % (Auto) [place] % (Auto) Eos % (Auto) Baso % (Auto) Neut # (Auto) Lymph # (Auto) [place] # (Auto) Eos # (Auto) Baso # (Auto) WBC Differential Diff Scan Differential Comment Platelet Estimate Platelet Morphology PT 11.8 H INR 1.2 APTT 21.8 L Sodium Potassium Chloride Carbon Dioxide Anion Gap BUN Creatinine Estimated GFR POC Glucose 108 Random Glucose Lactic Acid 2.8 H Calcium Magnesium Total Bilirubin AST ALT Alkaline Phosphatase Total Creatine Kinase Troponin I Total Protein Albumin Lipase 04/22/18 04/22/18 04/22/18 22:38 22:38 22:38 WBC 15.6 H RBC 4.75 Hgb 13.8 Hct 42.1 MCV 88.6 MCH 29.1 MCHC 32.8 RDW 14.9 Plt Count 365 MPV 8.1 Prelim Diff (Auto) Slide review pending Neut % (Auto) 93.1 H Lymph % (Auto) 3.9 L [place] % (Auto) 2.8 Eos % (Auto) 0.1 Baso % (Auto) 0.1 Neut # (Auto) 14.5 H Lymph # (Auto) 0.6 L [place] # (Auto) 0.4 Eos # (Auto) 0.0 Baso # (Auto) 0.0 WBC Differential . Diff Scan Auto diff confirmed Differential Comment . Platelet Estimate Normal Platelet Morphology Normal PT INR APTT Sodium 139 Potassium 3.9 Chloride 100 Carbon Dioxide 27.5 Anion Gap 12 BUN 25 H Creatinine 0.83 Estimated GFR Greater than 89 POC Glucose Random Glucose 115 H Lactic Acid Calcium 8.5 Magnesium 2.1 Total Bilirubin 0.6 AST 24 ALT 14 Alkaline Phosphatase 79 Total Creatine Kinase 87 Troponin I Less than 0.02 L Total Protein 7.2 Albumin 2.7 L Lipase 70 L 04/23/18 04/23/18 03:10 08:54 WBC RBC Hgb Hct MCV MCH MCHC RDW Plt Count MPV Prelim Diff (Auto) Neut % (Auto) Lymph % (Auto) [place] % (Auto) Eos % (Auto) Baso % (Auto) Neut # (Auto) Lymph # (Auto) [place] # (Auto) Eos # (Auto) Baso # (Auto) WBC Differential Diff Scan Differential Comment Platelet Estimate Platelet Morphology PT INR APTT Sodium Potassium Chloride Carbon Dioxide Anion Gap BUN Creatinine Estimated GFR POC Glucose 86 Random Glucose Lactic Acid 1.3 Calcium Magnesium Total Bilirubin AST ALT Alkaline Phosphatase Total Creatine Kinase Troponin I Total Protein Albumin Lipase Result Diagrams: 04/29/18 10:20 04/30/18 19:49 Microbiology: Microbiology 04/22/18 22:38 Aerobic Blood Culture - Preliminary Blood - Peripheral No growth in 1 day Anaerobic Blood Culture - Preliminary No growth in 1 day 04/22/18 22:38 Aerobic Blood Culture - Preliminary Blood - Peripheral No growth in 1 day Anaerobic Blood Culture - Preliminary No growth in 1 day Imaging: ITS Impressions Chest X-Ray 04/22/18 22:32 CONCLUSION: No acute cardiopulmonary disease. Chest CTA 04/23/18 00:15 CONCLUSION: 1. Study is negative for pulmonary embolism. 2. Interval development of multiple opacities in the right lung, the largest measures 1.6 cm with irregular margins and the others measure less than 5 mm. This suggests a hematogenous process, malignant versus infectious.. 3. Nonconsolidative patchy areas of infiltrate in the lower lateral left lung stable in appearance. . Patient/Family Conference Present at Family Conference: Spoke with patient at bedside. Reviewed advanced directives. He has requested that his aunt, Jody Vazquez, be his healthcare decision maker. In conversation with her, she was agreeable to perform those duties. She did request updates for any changes in his clinical condition. Reviewed clinical course, interventions attempted, patient's current clinical status, past medical, social , family, psychosocial history. Reviewed palliative care purpose and focus as well as the below listed items. Provided palliative care contact information. All questions answered to the best of my ability. . Family Conference Location: Telephone Issues Discussed: * Palliative care role, purpose, approach * Additional medical, psychosocial, and spiritual history * Patients general health, functional status, and cognitive changes in the months leading up to the current hospitalization * Patient/family understanding of the current medical problems * Patient/family understanding of prognosis * Patients goals of care as best understood from advance directives and/or conversations and/or values * Current medical treatment options and benefits/burdens of those options * Likely scenarios comparing ongoing aggressive care with a transition to comfort measures only * Questions answered to the best of my ability * Palliative care contact information provided Assessment and Plan Pertinent Non-Medical Issues: Psychosocial: Born in [place], 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 He was for 10 years but is now and has no children. 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 Legal: No advance directives completed. Ethical issues impacting care: None noted. Important Contacts: HCS/aunt: Jody Vazquez Significant other: Ruth Mobley . Prognosis: His prognosis appears poor. His neck mass was first noted October 2016 but he underwent no treatment until January 2018. He continues to smoke. He is extremely cachectic and has lost nearly half of his body weight since 2013. He had a neck resection done in January 2018 which he states his cancer does not know what type. CTA of the thorax shows multiple opacities the largest of which is 1.6 cm with irregular margins, malignant versus infectious. He is far too debilitated at this time to undergo chemotherapy or radiation. He is too weak to safely transfer of shower without assistance. He ambulates by holding onto furniture. PT evaluation recommended PT at rehab versus hospice. Patient' s goals at this time remain aggressive. Pending further information from Dr. Ambrocio's office regarding neck resection and pathology. He is being evaluated by GI for PEG tube placement, but will likely involve IR if he is considered a candidate due to anatomical disruption secondary to his surgery. Barium swallow is pending. . Code Status: Full Code Plan: PLAN: Legal decision maker: At this time he is capacitated for decision-making, however has designated his aunt Jody Vazquez as his healthcare surrogate in the case of his incapacitation. Per [place] statutes, as he has no , children nor living siblings, both parents are , she would be the proxy decision- maker. Goals: Aggressive. CODE STATUS: full CODE SYMPTOMS: * Pain: He develops intermittent stabbing pains in the left lower quadrant 10/10 , exacerbated by coffee and soda, occurring without ingestion of either. He had previously been given pain medication however had a syncopal episode after taking a pill. It is uncertain whether this pain is related to his malnutrition , unknown etiology or possibly a metastasis. He has morphine 2 mg IV every 4 hours available as needed. He has taken 2 doses so far today. * Weakness: He is extremely weak and debilitated with muscle wasting secondary to his inability to eat. He is very cachectic. Physical therapy is evaluating and is recommending either PT at rehab versus hospice. Patient is considering insertion of a PEG tube for nutritional recovery. GI evaluating. Pending barium swallow results. * Dysphasia: Multifactorial to include right neck mass resection with residual tumor growth. Visually, trachea is deviated to the left. He states causes him burning and pain to swallow. He is unable to swallow solid foods and has difficulty swallowing liquids. He is requesting a feeding tube to improve nutritional status prior to pursuing further cancer therapy. Pending GI workup. Palliative care will continue to follow the patient during hospital course as condition evolves, to assist patient/decision-maker with understanding of their medical conditions, weighing benefits/burdens of treatment options, for clarification of goals of treatment. Additionally will assist with any symptoms of palliative concern. . Appreciation Thank you for the opportunity to participate in the care of Sukh Vásquez. Attestation Attestation: To help prompt me to consider important information that might be impacting today's encounter and assessment, information from prior notes written by myself or my colleagues may have been "brought forward" into today's note. My signature on this note, however, is an attestation that I personally performed the exam, history, and/or decision-making noted today, and, unless otherwise indicated, the interactions with patient, family, and staff as well as the review of records all occurred today. I also attest that the listed assessment and stated plan reflect my best clinical judgment today based on the combination of historical information, prior notes, and today's exam/ interactions. When time spent is documented, it refers only to time spent today by the signer, or if indicated, combined time spent today by collaborating physician/nurse practitioner. .
--- NOTE | 2018-04-23 13:06 | P.PNIM ---
Subjective Interval history: I had the opportunity to meet with Mr. Vásquez this morning and evaluate him at the bedside. Mr. Vásquez is a very fatigued man who presents to the emergency department with difficulty swallowing and after reviewing the EMR appears to have recently been evaluated 2 weeks ago for similar complaints and was seen by ENT with imaging studies obtained of the neck. I was very open with Mr. Vásquez about his current condition and my concerns regarding his long-term health. Patient also expressed to me that he is concerned as well and that he has not been able to follow-up with his oncologist outpatient for some time. The plan as per patient was to consider chemo or radiation therapy. Patient does endorse that he feels significant weakness and is not sure about whether or not he has the energy to undergo such therapy. I concurred. At this moment patient without other complaints at this chest pain, shortness of breath, palpitations, nausea, vomiting, or diarrhea. Patient does endorse dysphagia and denies odynophagia. Patient reports that he has dysphagia to solids but not to liquids. Patient does not endorse any difficulty with his breathing at all whatsoever. Physical Exam Vital signs: Last Vital Signs Temp 97.9 F 04/23/18 11:29 Pulse 83 04/23/18 12:12 Resp 16 04/23/18 11:29 BP 118/77 04/23/18 11:29 Pulse Ox 98 04/23/18 11:29 Intake & Output 04/21/18 04/22/18 04/23/18 04/24/18 06:59 06:59 06:59 06:59 Intake Total 1400 / 1400 1100 / 1100 Output Total 300 / 300 Balance 1400 / 1400 800 / 800 Weight 36.2 kg General: No acute distress, severely cachectic HEENT: EOMI, PERRLA. Postsurgical scar noted. Appears clean dry and intact. Palpable mass noted Cardiovascular: S1/S2 Respiratory: Clear to auscultation Gastrointestinal: Soft, nontender. Decreased bowel sounds Extremity: No edema Results Labs CBC & Chem 7: 04/22/18 22:38 04/22/18 22:38 Labs: Microbiology 04/22/18 22:38 Blood - Peripheral Aerobic Blood Culture - Preliminary No growth in 1 day 04/22/18 22:38 Blood - Peripheral Anaerobic Blood Culture - Preliminary No growth in 1 day 04/22/18 22:38 Blood - Peripheral Aerobic Blood Culture - Preliminary No growth in 1 day 04/22/18 22:38 Blood - Peripheral Anaerobic Blood Culture - Preliminary No growth in 1 day Imaging Imaging: Impressions Chest X-Ray 04/22/18 22:32 CONCLUSION: No acute cardiopulmonary disease. Chest CTA 04/23/18 00:15 CONCLUSION: 1. Study is negative for pulmonary embolism. 2. Interval development of multiple opacities in the right lung, the largest measures 1.6 cm with irregular margins and the others measure less than 5 mm. This suggests a hematogenous process, malignant versus infectious.. 3. Nonconsolidative patchy areas of infiltrate in the lower lateral left lung stable in appearance. Assessment and Plan (1) FTT (failure to thrive) in adult: Code(s): R62.7 - Adult failure to thrive Status: Acute (2) Sepsis: Code(s): A41.9 - Sepsis, unspecified organism Status: Acute (3) PNA (pneumonia): Code(s): J18.9 - Pneumonia, unspecified organism Status: Acute (4) Neck mass: Code(s): R22.1 - Localized swelling, mass and lump, neck Status: Acute (5) Dysphagia: Code(s): R13.10 - Dysphagia, unspecified Status: Acute Plan Patient is a 57-year-old male with known neck mass (subtype unknown) resenting with complaints of dysphagia to liquids admitted to medicine for further workup. Oncology: Neck mass We will attempt to obtain outpatient records regarding care to this point. At this moment patient does not appear to be a good candidate for chemo/radiation therapy as his functional status is poor at best Discussed with patient opportunity to involve palliative care in his management. Patient is open to the these discussions. Consultation to be placed for palliative care evaluation Given patient neck mass at this time will closely monitor for airway compromise. Will obtain ENT evaluation for any additional recommendations at this time but there may not be much they can offer. N.p.o. diet and will initiate patient on D5 one half normal saline for now Until goals of care clarified with the patient at this time will defer placement of a PEG tube. Physical therapy evaluation Occupational Therapy evaluation - In November 2016 he had a biopsy performed which was inconclusive for malignancy. Infectious disease: Aspiration pneumonia versus aspiration pneumonitis CTA with evidence of patchy areas which could represent an aspiration event given known history of dysphagia. We will continue with broad-spectrum antibiotics and monitor fever curve Follow-up blood cultures Pro-calcitonin level DVT prophylaxis Lovenox given malignancy risk CODE STATUS: Full code Disposition: Medical surgery unit Diet: Currently n.p.o. Progress Note: Quality VTE Deep Vein Thrombosis/Pulmonary Embolism Present on Admission: No _ (1) Sepsis Qualifiers: Sepsis type: (2) PNA (pneumonia) Qualifiers: Pneumonia type: Aspiration pneumonia type: Laterality: Lung location: (3) Dysphagia Qualifiers: Dysphagia type:
[2018-04-23] MEDS: Dextrose 5%/NaCl 0.45% Inj 1,000 ML IV.CONT SCH (15:31)
--- NOTE | 2018-04-23 16:28 | P.DIET ---
Nutritional Evaluation Type of nutrition evaluation: initial Nutrition consult regarding: Diet Evaluation Nutrition screening: Weight Loss > 10 lbs, MDC (malnutrition) Screening comments: 04/23 WLS, MDC for malnutrition Objective - Diagnosis pneumonia, sepsis, FTT, neck mass - Objective Body Mass Index: 12.5 % IBW: 54 (IBW 148lb) Body Weight Used for Calculations: IBW (for protein needs), Actual (for energy needs) Energy Needs - Lower Range (kCal/kg): 40 Energy Needs - Upper Range (kCal/kg): 45 Lower Limit kCal/kg (kCals): 1,452 Upper Limit kCal/kg (kCals): 1,634 Lower Limit Protein Factor (Grams per Kg): 1.1 Upper Limit Protein Factor (Grams per Kg): 1.3 Lower Protein Needs (Protein): 74 Upper Protein Needs (Protein): 87 Dietitian Reviewed in Medical Record: Curent medications, Intake & Output, Labs , Medical history Diet Order: NPO Objective Comments: PMH: abscess, neck CA LBM 04/21, UOP 300mL Assessment Assessment: Pt currently at nutritional risk r/t reported unplanned wt loss and low BMI ( 12.5). ST recs reviewed, pt to remain NPO d/t symptoms of aspiration w/ cough responses during PO trials. MD note mentioned pt reported having dysphagia w/ solids but not liquids. Also per MD note, pt was spoken to for possible PEG tube , pt was agreeable for this. If pt receives PEG tube, RD recommend Vital 1.5 @ 45mL/hr to provide 1620kcal, 73g of protein, and 825mL of free water to best meet assessed needs. Pt is at risk for refeeding syndrome d/t being cachetic and low BMI. Monitor K, PO4, Mg electrolytes daily and for 2 days after goal rate is achieved, correct low lab values prior to initiating EN. Initiate EN at Vital 1.5 @ 20mL/hr for day 1, if tolerated on day two, increase TF to 30mL. If pt continues to tolerate TF w/o GI complications increase TF to goal rate on day 3. Labs reviewed, dietitian following. Recommendations: 1. ST recs reviewed, pt to remain NPO d/t symptoms of aspiration w/ cough responses during PO trials 2. If pt receives PEG tube, RD recommend Vital 1.5 @ 45mL/hr to best meet assessed needs 3. Pt is at risk for refeeding syndrome d/t being cachetic and low BMI 4. Monitor K, PO4, Mg electrolytes daily and for 2 days after goal rate is achieved, correct low lab values prior to initiating EN 5. Initiate EN at Vital 1.5 @ 20mL/hr for day 1, if tolerated on day two, increase TF to 30mL. If pt continues to tolerate TF w/o GI complications increase TF to goal rate on day 3 6. Dietitian following Dietitian to Monitor: Lab values, Intake & Output, Tube feeding tolerance, Weight change, Medical course
--- NOTE | 2018-04-23 16:31 | P.CONGI ---
History of Present Illness Consult date: 04/23/18 Consult reason: Evaluation for PEG tube placement Chief complaint: pneumonia, sepsis, FTT, neck mass History of Present Illness: This patient is a 57-year-old male with past medical history significant for malignant neck mass. Patient presented to the ER at [facility] with complaint of progressing dysphagia over the last 2-3 weeks. Patient states he has had recent excision of mass. States he is unsure of what type of cancer he was diagnosed with. He endorses upcoming appointment with Dr. Ambrocio to determine plan of care for chemo and radiation. On 04/10/2018 CT of the neck revealed interval excision of large necrotic neck mass 5 x 5.3 cm mass extending towards right posterior oropharynx with mass-effect on right tongue and deviation of the oropharynx to the left. Upon consultation, patient reports no difficulty swallowing liquids but endorses great difficulty with solid foods. Patient states he has been experiencing ends increasing episodes of coughing with such and pain. Patient denies ever having had an EGD or colonoscopy in the past. He endorses 50 pound weight loss within the last 6-8 weeks. Our service has been consulted to evaluate patient for PEG tube placement <Yaritza Tatum - Last Filed: 04/23/18 16:04> Review of Systems All other systems reviewed negative except as stated in HPI <Yaritza Tatum - Last Filed: 04/23/18 16:04> PMFSH - History History Provided By: Patient - Medical History Medical History: Medical History (Last Reviewed 04/23/18 @ 14:52 by Juan M Sutton) Abscess Cancer - Surgical History Surgical History: Surgical History (Last Reviewed 04/23/18 @ 14:52 by Juan M Sutton) H/O neck surgery - Tobacco History Second Hand Smoke Exposure: Yes Tobacco Use In Past 30 Days: Yes Smoking Status: Current every day smoker Tobacco Type: Cigarettes - Alcohol History How Often Do You Have a Drink Containing Alcohol: Monthly or less - Substance Use History Substance History: Past History - Immunization History Tetanus Immunization: Unsure <Yaritza Tatum - Last Filed: 04/23/18 16:04> - Medical History Medical History: Medical History (Last Reviewed 04/23/18 @ 14:52 by Juan M Sutton) Abscess Cancer - Surgical History Surgical History: Surgical History (Last Reviewed 04/23/18 @ 14:52 by Juan M Sutton) H/O neck surgery <David Crouch - Last Filed: 04/24/18 09:00> Medications and Allergies Active Medications: Active Medications Acetaminophen (Tylenol) 650 mg PO Q4H PRN PRN Reason: Temp > 100.4 Al Hydroxide/Mg Hydroxide (Milk Of Magnesia Liq) 30 ml PO Q12H PRN PRN Reason: Mild Constipation Albuterol (Duoneb Neb (Prn)) 1 ampul NEB Q4HR NEB PRN PRN Reason: SOB/WHEEZING Bisacodyl (Dulcolax Supp) 10 mg RECTAL DAILY PRN PRN Reason: SEVERE CONSITIPATION Piperacillin/Tazobactam/Dextrose (Zosyn 4.5 Gm Premix) 4.5 gm in 100 mls @ 200 mls/hr IV.SIG Q6H [facility] Last Infusion: 04/23/18 12:41 Dose: Infused Vancomycin HCl 500 mg/ Sodium (Chloride) 100 mls @ 200 mls/hr IV.SIG Q18H [facility] Dextrose/Sodium Chloride (D5w/1/2 Ns Inj) 1,000 mls @ 84 mls/hr IV.CONT .[id number] [facility] Last Admin: 04/23/18 15:31 Dose: 84 mls/hr Lactulose (Lactulose Liq) 30 ml PO DAILY PRN PRN Reason: SEVERE CONSITIPATION Miscellaneous Information ([facility] Ordered Lab Info) 0 each OTHER ONCE ONE Stop: 04/25/18 08:46 Morphine Sulfate (Morphine Inj) 2 mg IV.PUSH Q4H PRN PRN Reason: PAIN 6-10 Last Admin: 04/23/18 15:30 Dose: 2 mg Ondansetron HCl (Zofran Inj) 4 mg IV.PUSH Q6H PRN PRN Reason: NAUSEA OR VOMITING Pharmacy Profile Note (Vancomycin Consult Pharmacy) 1 each OTHER UNSCH PRN PRN Reason: Pharmacy to dose Senna/Docusate Sodium (Miracle-Colace) 1 tab PO BID [facility] Last Admin: 04/23/18 08:46 Dose: 1 tab Sennosides (Senokot) 17.2 mg PO Q12H PRN PRN Reason: Moderate Constipation Sodium Chloride (Ns Flush) 2 ml IV.FLUSH BID [facility] Last Admin: 04/23/18 08:46 Dose: Not Given Sodium Chloride (Ns Flush) 2 ml IV.FLUSH PRN PRN PRN Reason: FLUSH AFTER USING IV ACCESS <Yaritza Tatum - Last Filed: 04/23/18 16:04> Active Medications: Active Medications Acetaminophen (Tylenol) 650 mg PO Q4H PRN PRN Reason: Temp > 100.4 Al Hydroxide/Mg Hydroxide (Milk Of Magnesia Liq) 30 ml PO Q12H PRN PRN Reason: Mild Constipation Albuterol (Duoneb Neb (Prn)) 1 ampul NEB Q4HR NEB PRN PRN Reason: SOB/WHEEZING Bisacodyl (Dulcolax Supp) 10 mg RECTAL DAILY PRN PRN Reason: SEVERE CONSITIPATION Piperacillin/Tazobactam/Dextrose (Zosyn 4.5 Gm Premix) 4.5 gm in 100 mls @ 200 mls/hr IV.SIG Q6H [facility] Last Infusion: 04/24/18 06:58 Dose: Infused Vancomycin HCl 500 mg/ Sodium (Chloride) 100 mls @ 200 mls/hr IV.SIG Q18H [facility] Last Infusion: 04/23/18 23:30 Dose: Infused Dextrose/Sodium Chloride (D5w/1/2 Ns Inj) 1,000 mls @ 84 mls/hr IV.CONT .[id number] [facility] Last Admin: 04/24/18 05:29 Dose: 84 mls/hr Potassium Chloride (Kcl 20 Meq Premix Inj) 20 meq in 100 mls @ 50 mls/hr IV.SIG Q2H [facility] Stop: 04/24/18 11:14 Last Admin: 04/24/18 08:11 Dose: 25 mls/hr Lactulose (Lactulose Liq) 30 ml PO DAILY PRN PRN Reason: SEVERE CONSITIPATION Miscellaneous Information ([facility] Ordered Lab Info) 0 each OTHER ONCE ONE Stop: 04/25/18 08:46 Morphine Sulfate (Morphine Inj) 2 mg IV.PUSH Q4H PRN PRN Reason: PAIN 6-10 Last Admin: 04/24/18 05:38 Dose: 2 mg Ondansetron HCl (Zofran Inj) 4 mg IV.PUSH Q6H PRN PRN Reason: NAUSEA OR VOMITING Last Admin: 04/24/18 01:01 Dose: 4 mg Pharmacy Profile Note (Vancomycin Consult Pharmacy) 1 each OTHER UNSCH PRN PRN Reason: Pharmacy to dose Senna/Docusate Sodium (Miracle-Colace) 1 tab PO BID [facility] Last Admin: 04/24/18 08:11 Dose: Not Given Sennosides (Senokot) 17.2 mg PO Q12H PRN PRN Reason: Moderate Constipation Sodium Chloride (Ns Flush) 2 ml IV.FLUSH BID [facility] Last Admin: 04/24/18 08:11 Dose: Not Given Sodium Chloride (Ns Flush) 2 ml IV.FLUSH PRN PRN PRN Reason: FLUSH AFTER USING IV ACCESS <David Crouch - Last Filed: 04/24/18 09:00> Allergies Allergy/AdvReac Type Severity Reaction Status Date / Time *MDRO Multi-Drug Resistant AdvReac Unknown Abdominal Uncoded 12/30/17 21:23 Organism Pain Home Medications Medication Instructions Recorded Confirmed Type No Known Home Medications 04/22/18 04/22/18 History Exam Vital signs: Vital Signs 04/22/18 23:15 04/22/18 23:30 04/23/18 03:00 Temperature 96.1 F L Pulse Rate 101 H 92 H Respiratory Rate 26 H 19 Blood Pressure 147/98 H 144/94 H Pulse Oximetry 95 95 97 04/23/18 04:00 04/23/18 06:09 04/23/18 07:49 Temperature 97.1 F L 96.2 F L Pulse Rate 98 H 83 108 H Respiratory Rate 18 20 Blood Pressure 109/70 143/91 H Pulse Oximetry 96 94 L 04/23/18 08:00 04/23/18 08:45 04/23/18 11:11 Temperature Pulse Rate 84 Respiratory Rate Blood Pressure Pulse Oximetry 94 L 96 04/23/18 11:29 04/23/18 12:12 04/23/18 15:15 Temperature 97.9 F 97.8 F Pulse Rate 87 83 82 Respiratory Rate 16 16 Blood Pressure 118/77 188/84 H Pulse Oximetry 98 99 Intake & Output 04/22/18 04/23/18 04/23/18 18:59 06:59 18:59 Intake Total 1400 / 1400 1450 / 1450 Output Total 300 / 300 Balance 1400 / 1400 1150 / 1150 Weight 36.2 kg Intake: IV 1200 / 1200 1450 / 1450 NS Inj 1,000 ML @ 100 mls/hr IV 1350 / 1350 .CONT .Q10H [facility] Rx#:[id number] Azithromycin Inj 500 MG In NS 250 / 250 Inj 250 ML @ 250 mls/hr IV.SIG STAT STA Rx#:[id number] Zosyn 4.5 GM Premix 4.5 gm In 200 / 200 100 / 100 100 ml @ 200 mls/hr IV.SIG Q6H [facility] Rx#:[id number] NS Inj 500 ML @ Wide Open IV. 500 / 500 SIG BOLUS ONE Rx#:[id number] Vancomycin Inj 1,000 MG In NS 250 / 250 Inj 250 ML @ 250 mls/hr IV.SIG STAT STA Rx#:[id number] Oral 200 / 200 Output: Urine 300 / 300 Other: # Voids 0 Date of Last Bowel Movement 04/21/18 - Constitutional no acute distress, thin, cachectic, chronically ill appearing, cooperative - Routine HEENT Exam ENT: Present: mucous membranes dry - Routine Respiratory Exam Present: decreased breath sounds, CTA bilaterally. Absent: accessory muscle use - Routine Cardiovascular Exam Present: RRR, S1, S2 - Routine Abdominal Exam Present: soft, normoactive bowel sounds. Absent: tenderness, distended, guarding, firm, rigid - Routine Extremities Exam Present: pulses intact. Absent: edema - Routine Skin Exam Present: dry, pallor, warm, scars Comments: Surgical scars right upper chest wall - Routine Neurological Exam Present: alert, oriented X3, normal speech <Tatum,Yaritza - Last Filed: 04/23/18 16:04> Vital signs: Vital Signs 04/23/18 11:11 04/23/18 11:29 04/23/18 12:12 Temperature 97.9 F Pulse Rate 84 87 83 Respiratory Rate 16 Blood Pressure 118/77 Pulse Oximetry 98 04/23/18 15:15 04/23/18 20:00 04/23/18 23:10 Temperature 97.8 F 97.8 F Pulse Rate 82 58 L 68 Respiratory Rate 16 12 Blood Pressure 188/84 H Pulse Oximetry 99 98 04/24/18 00:00 04/24/18 04:00 04/24/18 08:00 Temperature 98.0 F 97.8 F 98.8 F Pulse Rate 80 78 53 L Respiratory Rate 12 12 12 Blood Pressure 114/60 129/56 L 91/60 L Pulse Oximetry 99 97 99 Intake & Output 04/23/18 04/24/18 04/24/18 18:59 06:59 18:59 Intake Total 1550 / 1550 1300 / 1300 Output Total 900 / 900 150 / 150 Balance 650 / 650 1150 / 1150 Intake: IV 1550 / 1550 1300 / 1300 D5W/1/2 NS Inj 1,000 ML @ 84 1000 / 1000 mls/hr IV.CONT .[id number] [facility] Rx# :[id number] NS Inj 1,000 ML @ 100 mls/hr IV 1350 / 1350 .CONT .Q10H [facility] Rx#:[id number] Zosyn 4.5 GM Premix 4.5 gm In 200 / 200 200 / 200 100 ml @ 200 mls/hr IV.SIG Q6H [facility] Rx#:[id number] Vancomycin Inj 500 MG In NS Inj 100 / 100 100 ML @ 200 mls/hr IV.SIG Q18H [facility] Rx#:[id number] Output: Urine 900 / 900 150 / 150 Other: Date of Last Bowel Movement 04/21/18 04/22/18 <David Crouch - Last Filed: 04/24/18 09:00> Results - Labs CBC & Chem 7: 04/22/18 22:38 04/22/18 22:38 Labs: Laboratory Results - last 24 hr 04/22/18 04/22/18 04/22/18 22:28 22:35 22:38 WBC RBC Hgb Hct MCV MCH MCHC RDW Plt Count MPV Prelim Diff (Auto) Neut % (Auto) Lymph % (Auto) [place] % (Auto) Eos % (Auto) Baso % (Auto) Neut # (Auto) Lymph # (Auto) [place] # (Auto) Eos # (Auto) Baso # (Auto) WBC Differential Diff Scan Differential Comment Platelet Estimate Platelet Morphology PT 11.8 H INR 1.2 APTT 21.8 L Sodium Potassium Chloride Carbon Dioxide Anion Gap BUN Creatinine Estimated GFR POC Glucose 108 Random Glucose Lactic Acid 2.8 H Calcium Magnesium Total Bilirubin AST ALT Alkaline Phosphatase Total Creatine Kinase Troponin I Total Protein Albumin Lipase 04/22/18 04/22/18 04/22/18 22:38 22:38 22:38 WBC 15.6 H RBC 4.75 Hgb 13.8 Hct 42.1 MCV 88.6 MCH 29.1 MCHC 32.8 RDW 14.9 Plt Count 365 MPV 8.1 Prelim Diff (Auto) Slide review pending Neut % (Auto) 93.1 H Lymph % (Auto) 3.[address] [place] % (Auto) 2.8 Eos % (Auto) 0.1 Baso % (Auto) 0.1 Neut # (Auto) 14.5 H Lymph # (Auto) 0.[address] [place] # (Auto) 0.4 Eos # (Auto) 0.0 Baso # (Auto) 0.0 WBC Differential . Diff Scan Auto diff confirmed Differential Comment . Platelet Estimate Normal Platelet Morphology Normal PT INR APTT Sodium 139 Potassium 3.9 Chloride 100 Carbon Dioxide 27.5 Anion Gap 12 BUN 25 H Creatinine 0.83 Estimated GFR Greater than 89 POC Glucose Random Glucose 115 H Lactic Acid Calcium 8.5 Magnesium 2.1 Total Bilirubin 0.6 AST 24 ALT 14 Alkaline Phosphatase 79 Total Creatine Kinase 87 Troponin I Less than 0.02 L Total Protein 7.2 Albumin 2.7 L Lipase 70 L 04/23/18 04/23/18 03:10 08:54 WBC RBC Hgb Hct MCV MCH MCHC RDW Plt Count MPV Prelim Diff (Auto) Neut % (Auto) Lymph % (Auto) [place] % (Auto) Eos % (Auto) Baso % (Auto) Neut # (Auto) Lymph # (Auto) [place] # (Auto) Eos # (Auto) Baso # (Auto) WBC Differential Diff Scan Differential Comment Platelet Estimate Platelet Morphology PT INR APTT Sodium Potassium Chloride Carbon Dioxide Anion Gap BUN Creatinine Estimated GFR POC Glucose 86 Random Glucose Lactic Acid 1.3 Calcium Magnesium Total Bilirubin AST ALT Alkaline Phosphatase Total Creatine Kinase Troponin I Total Protein Albumin Lipase - Imaging Impressions Chest X-Ray 04/22/18 22:32 CONCLUSION: No acute cardiopulmonary disease. Chest CTA 04/23/18 00:15 CONCLUSION: 1. Study is negative for pulmonary embolism. 2. Interval development of multiple opacities in the right lung, the largest measures 1.6 cm with irregular margins and the others measure less than 5 mm. This suggests a hematogenous process, malignant versus infectious.. 3. Nonconsolidative patchy areas of infiltrate in the lower lateral left lung stable in appearance. <Yaritza Tatum - Last Filed: 04/23/18 16:04> - Labs CBC & Chem 7: 04/24/18 04:53 04/24/18 04:52 Labs: Laboratory Results - last 24 hr 04/23/18 04/24/18 04/24/18 18:10 04:52 04:52 WBC RBC Hgb Hct MCV MCH MCHC RDW Plt Count MPV Neut % (Auto) Lymph % (Auto) [place] % (Auto) Eos % (Auto) Baso % (Auto) Neut # (Auto) Lymph # (Auto) [place] # (Auto) Eos # (Auto) Baso # (Auto) WBC Differential Differential Comment PT 11.4 INR 1.1 Sodium 137 Potassium 2.8 L* D Chloride 102 Carbon Dioxide 28.1 Anion Gap 7 BUN 15 Creatinine 0.66 Estimated GFR Greater than 89 Random Glucose 114 H Calcium 8.3 L Magnesium 1.9 Total Bilirubin 0.4 AST 20 ALT 11 L Alkaline Phosphatase 72 Total Protein 6.7 Albumin 2.3 L Urine Color Angela Urine Clarity Hazy H Urine pH 5.0 Ur Specific [place] Greater than 1.060 H Urine Protein 30 H Urine Glucose (UA) Negative Urine Ketones Trace H Urine Occult Blood Negative Urine Nitrate Negative Urine Bilirubin Negative Urine Urobilinogen Less than 2 Ur Leukocyte Esterase Negative Urine RBC 3 Urine WBC 2 Micro UA Comment Culture not ind Ur Microscopic Review Not Reportable Urine Culture Comments Culture not ind 04/24/18 04:53 WBC 13.5 H RBC 4.54 Hgb 13.2 Hct 41.1 MCV 90.5 MCH 29.1 MCHC 32.2 RDW 14.8 Plt Count 325 MPV 7.6 Neut % (Auto) 92.7 H Lymph % (Auto) 3.[address] [place] % (Auto) 3.6 Eos % (Auto) 0.4 Baso % (Auto) 0.1 Neut # (Auto) 12.5 H Lymph # (Auto) 0.[address] [place] # (Auto) 0.5 Eos # (Auto) 0.1 Baso # (Auto) 0.0 WBC Differential . Differential Comment Auto diff final PT INR Sodium Potassium Chloride Carbon Dioxide Anion Gap BUN Creatinine Estimated GFR Random Glucose Calcium Magnesium Total Bilirubin AST ALT Alkaline Phosphatase Total Protein Albumin Urine Color Urine Clarity Urine pH Ur Specific [place] Urine Protein Urine Glucose (UA) Urine Ketones Urine Occult Blood Urine Nitrate Urine Bilirubin Urine Urobilinogen Ur Leukocyte Esterase Urine RBC Urine WBC Micro UA Comment Ur Microscopic Review Urine Culture Comments - Imaging Impressions Abdomen/Pelvis CT 04/23/18 00:00 CONCLUSION: 1. Moderate amount of ascites. 2. Left para-aortic retroperitoneal lymphadenopathy which is nonspecific. PET/ CT scan may be helpful for further evaluation of this finding if clinically indicated. 3. Scattered ground-glass densities within the visualized lung bases. 4. High density material layering within the gallbladder consistent with sludge or vicarious excretion of contrast. <David Crouch - Last Filed: 04/24/18 09:00> Assessment and Plan (1) Dysphagia Status: Acute Code(s): R13.10 - Dysphagia, unspecified - Plan This patient is a 57-year-old male with past medical history significant for malignant neck mass. Patient presented to the ER at [facility] with complaint of progressing dysphagia over the last 2-3 weeks. Patient states he has had recent excision of mass. States he is unsure of what type of cancer he was diagnosed with. He endorses upcoming appointment with Dr. Ambrocio to determine plan of care for chemo and radiation. On 04/10/2018 CT of the neck revealed interval excision of large necrotic neck mass 5 x 5.3 cm mass extending towards right posterior oropharynx with mass-effect on right tongue and deviation of the oropharynx to the left. Upon consultation, patient reports no difficulty swallowing liquids but endorses great difficulty with solid foods. Patient states he has been experiencing ends increasing episodes of coughing with such and pain. Patient denies ever having had an EGD or colonoscopy in the past. He endorses 50 pound weight loss within the last 6-8 weeks. Our service has been consulted to evaluate patient for PEG tube placement Progressing dysphagia 87-year-old male with history of malignant neck mass. Patient endorses generalized weakness and fatigue. Recent excision of malignant neck mass. 04/10/[address] revealed the following-- 1. Apparent interval surgical excision of large necrotic right neck mass. 2. There is a 5.0 x 5.3 cm ill-defined soft tissue mass extending centrally now towards the right posterior oropharynx with mass effect on the right tongue base and deviation of the oropharynx to the left. Airway does not appear significantly compromised at this time. 04/23/2018 CTA of the chest- 1. Study is negative for pulmonary embolism. 2. Interval development of multiple opacities in the right lung, the largest measures 1.6 cm with irregular margins and the others measure less than 5 mm. This suggests a hematogenous process, malignant versus infectious.. 3. Nonconsolidative patchy areas of infiltrate in the lower lateral left lung stable in appearance. Plan Barium swallow-speech therapy Aspiration precautions IV hydration Analgesia and antiemetics as per attending Supportive care Further recommendations to follow This patient has been seen by myself and Dr. Crouch and this note is written on his behalf - Attending Attestation <Yaritza Tatum - Last Filed: 04/23/18 16:04> (1) Dysphagia Status: Acute Code(s): R13.10 - Dysphagia, unspecified - Attending Attestation The patient was seen and examined. Agree with above. <David Crouch - Last Filed: 04/24/18 09:00> <David Crouch - Last Filed: 04/24/18 09:00> (1) Dysphagia Qualifiers: Dysphagia type: unspecified Qualified Code(s): R13.10 - Dysphagia, unspecified
[2018-04-23 18:48] LABS: Bilirubin,Urine Negative (Negative); Clarity,Urine Hazy (Clear); Color,Urine Amber (Yellw/Straw); Glucose,Urine (UA) Negative (Negative); Leukocyte Esterase,Urine Negative (Negative); Nitrite,Urine Negative (Negative)
--- NOTE | 2018-04-23 20:59 | CT ---
EXAM DATE: 04/23/2018 8:48 PM EST AGE/SEX: 57 years / Male INDICATIONS: Diffuse abdomen pain. CLINICAL DATA: This is the patient's initial encounter. Patient reports that signs and symptoms have been present for 1 day and indicates a pain score of 3/10. MEDICAL/SURGICAL HISTORY: . neck cancer . surgery for neck cancer RADIATION DOSE: 6.64 CTDI (mGy) COMPARISON: [facility], CTA PULMONARY W CONTRAST W 3D, 04/23/2018. . TECHNIQUE: Multiple contiguous axial images were obtained through the abdomen. Images were obtained using multiple row detector helical technique. Using automated exposure control and adjustment of the mA and/or kV according to patient size, radiation dose was kept as low as reasonably achievable to o btain optimal diagnostic quality images. DICOM format image data is available electronically for rev iew and comparison. FINDINGS: Lower Lungs: Scattered ground-glass densities are noted within the visualized lung bases and are nons pecific. Liver: The liver has a homogeneous density without space-occupying lesion. There is no dilation of th e biliary tree. High density material layers within the gallbladder consistent with sludge or gianna us excretion of contrast. Spleen: Homogeneous density without enlargement. Pancreas: Unremarkable without mass or calcification. Kidneys: Normal in size and shape. No evidence of mass or hydronephrosis. Adrenal Glands: Unremarkable. Aorta: The aorta and proximal iliac vessels are grossly unremarkable without aneurysmal dilation. Bowel/Mesentery: Moderate amount of ascites is noted. The bowel loops are grossly unremarkable. The c ecum and sigmoid colon have a normal configuration. Abdominal Wall: Intact. Retroperitoneum: Left para-aortic retroperitoneal lymphadenopathy is noted with the largest lymph no de measuring 4.7 cm in size. Bladder: Contours are smooth. Reproductive Organs: No abnormal masses or calcifications seen. Inguinal: The inguinal region is unremarkable without evidence of adenopathy. Bony Structures: Unremarkable. CONCLUSION: 1. Moderate amount of ascites. 2. Left para-aortic retroperitoneal lymphadenopathy which is nonspecific. PET/CT scan may be helpful for further evaluation of this finding if clinically indicated. 3. Scattered ground-glass densities within the visualized lung bases. 4. High density material layering within the gallbladder consistent with sludge or vicarious excreti on of contrast. Electronically signed by: Emre Hussein MD Board Certified Radiologist 04/23/2018 8:57 PM EST
[2018-04-23] MEDS: Vancomycin Inj 500 MG in Sodium Chlor 0.9% Inj 100 ML IV.SIG SCH (22:23)
[2018-04-24] MEDS: Piperacil/Tazo 4.5 GM Premix 4.5 GM/100 ML BAG IV.SIG SCH ×5 (01:13→23:03)
[2018-04-24] MEDS: Dextrose 5%/NaCl 0.45% Inj 1,000 ML IV.CONT SCH ×2 (05:29→17:33)
[2018-04-24] MEDS: Morphine Inj 4 MG/ML Vial IV.PUSH PRN ×6 (05:38→23:03)
[2018-04-24 06:00] LABS: Baso % (Auto) 0.1 % (0.0-2.0); Eos # (Auto) 0.1 th/mm3 (0.0-0.4); Eos % (Auto) 0.4 % (0.0-4.0); Hematocrit 41.1 % (39.0-51.0); Hemoglobin 13.2 gm/dL (13.0-17.0); Lymph # (Auto) 0.4 th/mm3 (1.0-4.8); Lymph % (Auto) 3.2 % (9.0-44.0); Mean Corpuscular HGB Conc 32.2 % (32.0-36.0); Mean Corpuscular Hemoglobin 29.1 pg (27.0-34.0); Mean Corpuscular Volume 90.5 fL (80.0-100.0); Mean Platelet Volume 7.6 fL (7.0-11.0); Mono # (Auto) 0.5 th/mm3 (0.0-0.9); Mono % (Auto) 3.6 % (0.0-8.0); Neut # (Auto) 12.5 th/mm3 (1.8-7.7); Neut % (Auto) 92.7 % (16.0-70.0); Platelet Count 325 th/mm3 (150-450); Red Blood Count 4.54 mil/mm3 (4.50-5.90); Red Cell Distribution Width 14.8 % (11.6-17.2); White Blood Count 13.5 th/mm3 (4.0-11.0)
[2018-04-24 06:04] LABS: INR 1.1 Ratio; Prothrombin Time 11.4 sec (9.8-11.6)
[2018-04-24 06:41] LABS: Alanine Aminotransferase 11 U/L (12-78); Albumin 2.3 g/dL (3.4-5.0); Alkaline Phosphatase 72 U/L (45-117); Anion Gap 7 meq/L (5-15); Aspartate Aminotransferase 20 U/L (15-37); Blood Urea Nitrogen 15 mg/dL (7-18); Calcium 8.3 mg/dL (8.5-10.1); Carbon Dioxide 28.1 meq/L (21.0-32.0); Chloride 102 meq/L (98-107); Glomerular Filtration Rate Greater Than 89 mL/min (>89); Glucose,Random 114 mg/dL (74-106); Magnesium 1.9 mg/dL (1.5-2.5); Sodium 137 meq/L (136-145); Total Protein 6.7 g/dL (6.4-8.2)
[2018-04-24 06:44] LABS: Potassium 2.8 meq/L (3.5-5.1)
--- NOTE | 2018-04-24 07:19 | MB ---
cc: Barak Figueroa MD DATE: 04/23/2018 ATTENDING REASON FOR CONSULTATION: Oncology concern. The patient with head and neck cancer. HISTORY OF PRESENT ILLNESS: The patient is a 57-year-old male who presented to the emergency room with complaint of increased dysphagia, failure to thrive, and weakness. The patient is currently very weak. He states that he is too tired to talk. He is not able to provide significant details of his medical history. Apparently, he was noted to have a right neck mass earlier this year. The mass is progressively getting bigger. He went to see Dr. Amrbocio, ENT doctor at [facility] and underwent excision around 02/2018. Reportedly, it was cancer. The patient has been to the emergency room multiple times with similar complaint. He was just here about 2 weeks ago. He was evaluated by ENT and he was sent home with antibiotics, to follow up with Dr. Ambrocio. He was supposed to be treated with radiation and chemotherapy, but due to his weakness he has not been able to follow up with his physician. The patient stated that he has lost about 50 pounds since the onset of symptoms. He is able to drink some fluids, but not able to eat solids. He was able to walk around the house, but now he is too weak to even get out of bed. He denies any fever or chills. He denies any headache or visual changes. He has no nausea or vomiting. Denies any diarrhea. Denies any melena or hematochezia. He had midepigastric pain about 2 weeks ago, but that seems to have resolved. He also has dysphonia. He denies change in urinary habits. PAST MEDICAL HISTORY: 1. Head and neck cancer. 2. Neck abscess. 3. MRSA infection of the hands. 4. Cellulitis. PAST SURGICAL HISTORY: 1. Excision of right neck mass. 2. I and D of a hand abscess. FAMILY HISTORY: Parkinson disease. He has no siblings or children. SOCIAL HISTORY: Smoked a pack a day for many years. He has recently quit. He also quit alcohol. He smoked marijuana. Lives with his girlfriend. ALLERGIES: NO KNOWN DRUG ALLERGIES. CURRENT MEDICATIONS: 1. Zosyn. 2. Miracle-Colace. 3. Vancomycin. REVIEW OF SYSTEMS: HEENT: As above. CARDIOVASCULAR: Negative. RESPIRATORY: Negative. GASTROINTESTINAL: As above. GENITOURINARY: Negative. MUSCULOSKELETAL: Negative. HEMATOLOGIC: Negative. ENDOCRINE: Negative. DERMATOLOGY: Negative. PSYCHIATRIC: Negative. NEUROLOGIC: As above. PHYSICAL EXAMINATION: VITAL SIGNS: Temperature 97.8, blood pressure 180/84, O2 saturation 99%. GENERAL: He is sleeping but easily arousable. He is very weak and cachectic. HEENT: Atraumatic, normocephalic. Pupils are equal, round, reactive to light. Oropharynx: Dry mucosa. There is an apparent mass in the right posterior oropharynx. NECK: There is a palpable mass around the right submandibular area. LYMPHATIC: No palpable clavicular, axillary or inguinal. CARDIOVASCULAR: Regular S1, S2. No murmur. LUNGS: Clear to auscultation bilaterally. ABDOMEN: Scaphoid, soft. Could not palpate liver, spleen. Nontender. EXTREMITIES: No cyanosis, clubbing, edema. SKIN: No rash or petechiae. NEUROLOGIC: Generalized weakness, but no focal deficit. LABORATORY DATA: I reviewed his lab work drawn during his hospital stay. ASSESSMENT: 1. 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 He stated that he had first noted the right neck mass earlier this year, which progressively is getting bigger. He went to see Dr. Ambrocio in [place] and had the lesion excised around 02/2018. 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 He has been very weak and not able to see his physician to start chemotherapy and radiation. He is supposed to see Dr. Ambrocio again in May for followup. He has presented to the hospital emergency room multiple times with dysphagia and weakness. He had a CT of the neck on 04/10/2018 which showed an interval surgical excision of large necrotic right neck mass, but there is a 5 x 5.3 cm soft tissue mass extending centrally toward the right posterior oropharynx with mass effect on the right tongue base and deviation of the oropharynx to the left. On exam, there appears to be a large mass in the right posterior oropharynx. There is also a palpable firm mass in the right submandibular area. A CT of the chest showed nonspecific nodular density, which could be inflammatory process and not necessarily mass or disease. Ideally, the patient is going to need have an outpatient PET scan for further staging. If he has localized disease, treatment will be concurrent chemotherapy and radiation; however, the patient is cachectic and his performance status is at least 3. I do not think he is able to tolerate concurrent chemotherapy and radiation until his performance status and nutritional status improve. The patient stated that he is too weak to have any treatment. He would like to wait until he is stronger before he will consider any aggressive treatment. 2. Nutrition. The patient is cachectic. He has significant dysphagia. He is only able to drink some fluid, but not able to eat solid food. I talked to him about feeding tube placement, which he agrees. I am going to consult gastroenterology for PEG tube placement. 3. Leukocytosis, likely reactive. CT of the chest showed multiple nodular opacities in the right lung, largest measured 1.6 cm with irregular margin. This could be inflammatory process. He had another CT of the chest about 2 weeks ago which did not show clear evidence of metastatic disease. He has been started on antibiotics. 4. Generalized weakness, likely a combination of cancer, malnutrition, and possible infection/pneumonia. He is quite dehydrated and has been started on IV fluids. RECOMMENDATIONS: 1. We will need to get records from Dr. Ambrocio's office. 2. Consult gastroenterology to consider PEG tube placement. 3. Consider concurrent chemotherapy and radiation once his performance status and nutrition status improves. Thank you for asking me to see this patient. MD ABHINAV Jacques/bret , 04:16 PM , 04:39 PM JOHN
[2018-04-24] MEDS: Potassium Chlor 20 mEq Premix 20 MEQ/100 ML PIGGYBACK IV.SIG SCH ×2 (08:11→14:46)
[2018-04-24] MEDS: Senna/Docusate Sodium 8.6/50 MG Tablet PO SCH ×2 (08:11→20:02)
--- NOTE | 2018-04-24 08:30 | P.PNONC ---
Subjective Interval history: Patient still very weak but feeling a little better this morning with antibiotics and hydration. He denies significant pain. He has no chest pressure or palpitation. He has mild shortness of breath. He has no significant cough. He denies nausea vomiting. Denies any abdominal pain. Objective Vital Signs/Intake & Output: Vital Signs 04/23/18 08:45 04/23/18 11:11 04/23/18 11:29 Temperature 97.9 F Pulse Rate 84 87 Respiratory Rate 16 Blood Pressure 118/77 Pulse Oximetry 96 98 04/23/18 12:12 04/23/18 15:15 04/23/18 20:00 Temperature 97.8 F 97.8 F Pulse Rate 83 82 58 L Respiratory Rate 16 12 Blood Pressure 188/84 H Pulse Oximetry 99 98 04/23/18 23:10 04/24/18 00:00 04/24/18 04:00 Temperature 98.0 F 97.8 F Pulse Rate 68 80 78 Respiratory Rate 12 12 Blood Pressure 114/60 129/56 L Pulse Oximetry 99 97 04/24/18 08:00 Temperature 98.8 F Pulse Rate 53 L Respiratory Rate 12 Blood Pressure 91/60 L Pulse Oximetry 99 Intake & Output 04/23/18 04/24/18 04/24/18 18:59 06:59 18:59 Intake Total 1550 / 1550 1300 / 1300 Output Total 900 / 900 150 / 150 Balance 650 / 650 1150 / 1150 Intake: IV 1550 / 1550 1300 / 1300 D5W/1/2 NS Inj 1,000 ML @ 84 1000 / 1000 mls/hr IV.CONT .[id number] MICHEAL Rx# :[id number] NS Inj 1,000 ML @ 100 mls/hr IV 1350 / 1350 .CONT .Q10H MICHEAL Rx#:[id number] Zosyn 4.5 GM Premix 4.5 gm In 200 / 200 200 / 200 100 ml @ 200 mls/hr IV.SIG Q6H MICHEAL Rx#:[id number] Vancomycin Inj 500 MG In NS Inj 100 / 100 100 ML @ 200 mls/hr IV.SIG Q18H MICHEAL Rx#:[id number] Output: Urine 900 / 900 150 / 150 Other: Date of Last Bowel Movement 04/21/18 04/22/18 Result Diagrams: 04/24/18 04:53 04/24/18 04:52 Laboratory Results: Laboratory Results - last 24 hr 04/23/18 04/23/18 04/24/18 08:54 18:10 04:52 WBC RBC Hgb Hct MCV MCH MCHC RDW Plt Count MPV Neut % (Auto) Lymph % (Auto) [place] % (Auto) Eos % (Auto) Baso % (Auto) Neut # (Auto) Lymph # (Auto) [place] # (Auto) Eos # (Auto) Baso # (Auto) WBC Differential Differential Comment PT INR Sodium 137 Potassium 2.8 L* D Chloride 102 Carbon Dioxide 28.1 Anion Gap 7 BUN 15 Creatinine 0.66 Estimated GFR Greater than 89 POC Glucose 86 Random Glucose 114 H Calcium 8.3 L Magnesium 1.9 Total Bilirubin 0.4 AST 20 ALT 11 L Alkaline Phosphatase 72 Total Protein 6.7 Albumin 2.3 L Urine Color Angela Urine Clarity Hazy H Urine pH 5.0 Ur Specific [place] Greater than 1.060 H Urine Protein 30 H Urine Glucose (UA) Negative Urine Ketones Trace H Urine Occult Blood Negative Urine Nitrate Negative Urine Bilirubin Negative Urine Urobilinogen Less than 2 Ur Leukocyte Esterase Negative Urine RBC 3 Urine WBC 2 Micro UA Comment Culture not ind Ur Microscopic Review Not Reportable Urine Culture Comments Culture not ind 04/24/18 04/24/18 04:52 04:53 WBC 13.5 H RBC 4.54 Hgb 13.2 Hct 41.1 MCV 90.5 MCH 29.1 MCHC 32.2 RDW 14.8 Plt Count 325 MPV 7.6 Neut % (Auto) 92.7 H Lymph % (Auto) 3.2 L [place] % (Auto) 3.6 Eos % (Auto) 0.4 Baso % (Auto) 0.1 Neut # (Auto) 12.5 H Lymph # (Auto) 0.4 L [place] # (Auto) 0.5 Eos # (Auto) 0.1 Baso # (Auto) 0.0 WBC Differential . Differential Comment Auto diff final PT 11.4 INR 1.1 Sodium Potassium Chloride Carbon Dioxide Anion Gap BUN Creatinine Estimated GFR POC Glucose Random Glucose Calcium Magnesium Total Bilirubin AST ALT Alkaline Phosphatase Total Protein Albumin Urine Color Urine Clarity Urine pH Ur Specific [place] Urine Protein Urine Glucose (UA) Urine Ketones Urine Occult Blood Urine Nitrate Urine Bilirubin Urine Urobilinogen Ur Leukocyte Esterase Urine RBC Urine WBC Micro UA Comment Ur Microscopic Review Urine Culture Comments Culture Results: Microbiology 12/16/18 22:38 Aerobic Blood Culture - Preliminary Blood - Peripheral No growth in 1 day Anaerobic Blood Culture - Preliminary No growth in 1 day 04/22/18 22:38 Aerobic Blood Culture - Preliminary Blood - Peripheral No growth in 1 day Anaerobic Blood Culture - Preliminary No growth in 1 day Imaging Studies: Impressions Abdomen/Pelvis CT 04/23/18 00:00 CONCLUSION: 1. Moderate amount of ascites. 2. Left para-aortic retroperitoneal lymphadenopathy which is nonspecific. PET/ CT scan may be helpful for further evaluation of this finding if clinically indicated. 3. Scattered ground-glass densities within the visualized lung bases. 4. High density material layering within the gallbladder consistent with sludge or vicarious excretion of contrast. Medications: Active Medications Generic Name Dose Route Start Last Admin Trade Name Freq PRN Reason Stop Dose Admin Piperacillin/Tazobactam/Dextrose 4.5 gm in 100 mls @ 200 mls/hr 04/23/18 06: 00 04/24/18 06:58 Zosyn 4.5 Gm Premix IV.SIG Infused Q6H MICHEAL Infusion Vancomycin HCl 500 mg/ Sodium 100 mls @ 200 mls/hr 04/23/18 21:00 04/23/18 23 :30 Chloride IV.SIG Infused Q18H MICHEAL Infusion Dextrose/Sodium Chloride 1,000 mls @ 84 mls/hr 04/23/18 14:00 04/24/18 05:29 D5w/1/2 Ns Inj IV.CONT 84 mls/hr .[id number] MICHEAL Administration Potassium Chloride 20 meq in 100 mls @ 50 mls/hr 04/24/18 07:15 04/24/18 08: 11 Kcl 20 Meq Premix Inj IV.SIG 04/24/18 11:14 25 mls/hr Q2H MICHEAL Administration Morphine Sulfate 2 mg 04/23/18 02:09 04/24/18 05:38 Morphine Inj IV.PUSH 2 mg Q4H PRN Administration PAIN 6-10 Ondansetron HCl 4 mg 04/23/18 02:10 04/24/18 01:01 Zofran Inj IV.PUSH 4 mg Q6H PRN Administration NAUSEA OR VOMITING Senna/Docusate Sodium 1 tab 04/23/18 09:00 04/24/18 08:11 Miracle-Colace PO Not Given BID MICHEAL Sodium Chloride 2 ml 04/23/18 09:00 04/24/18 08:11 Ns Flush IV.FLUSH Not Given BID MICHEAL Objective Remarks: GENERAL: Cachectic and very weak. SKIN: Warm and dry. HEAD: Normocephalic. EYES: No scleral icterus. No injection or drainage. NECK: Supple, trachea midline. Palpable firm mass right neck. Mass in the right posterior oropharynx. LYMPHATIC: No clavicular or axillary lymph node. CARDIOVASCULAR: Regular rate and rhythm without murmurs. RESPIRATORY: Breath sounds equal bilaterally. No accessory muscle use. GASTROINTESTINAL: Abdomen soft, non-tender, nondistended. EXTREMITIES: No cyanosis, or edema. MUSCULOSKELETAL: Adequate muscle tone. NEUROLOGICAL: No obvious focal deficit. Awake, alert, and oriented x3. PSYCHIATRIC: Appropriate mood and affect; insight and judgment normal. Assessment/Plan (1) Pneumonia Code(s): J18.9 - Pneumonia, unspecified organism Status: Acute (2) Dysphagia Code(s): R13.10 - Dysphagia, unspecified Status: Acute (3) Dehydration Code(s): E86.0 - Dehydration Status: Acute (4) FTT (failure to thrive) in adult Code(s): R62.7 - Adult failure to thrive Status: Acute (5) Neck mass Code(s): R22.1 - Localized swelling, mass and lump, neck Status: Acute - Plan 1. Head and neck cancer. I review his record from Dr. Ambrocio office. Patient developed a right neck mass about a year ago. He went to see Dr. Linares In December and was referred to Dr. Ambrocio for resection. ENT exam did not show any Other primary other than right neck mass. He underwent radical right neck dissection With pectoralis flap February 14, 2018. 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 The tumor invaded the skeletal muscle and extend to the deep margin. The tumor measured 9.8 x 3.7 x 3.4 cm. His case was presented to the tumor board and he was recommended to receive adjuvant chemotherapy and radiation. Patient however was not able to follow-up. His disease appears to be aggressive. He now has developed in the right neck mass and there is a visible mass in the right posterior oropharynx. He is supposed to see Dr. Ambrocio again in May for followup. He has presented to the hospital emergency room multiple times with dysphagia and weakness. He had a CT of the neck on 04/10/2018 which showed an interval surgical excision of large necrotic right neck mass, but there is a 5 x 5.3 cm soft tissue mass extending centrally toward the right posterior oropharynx with mass effect on the right tongue base and deviation of the oropharynx to the left. On exam, there appears to be a large mass in the right posterior oropharynx. There is also a palpable firm mass in the right submandibular area. A CT of the chest showed nonspecific nodular density, which could be inflammatory process and not necessarily metastatic disease. Ideally, the patient is going to need an outpatient PET scan for further staging. If he has localized disease, treatment will be concurrent chemotherapy and radiation; however, the patient is cachectic and his performance status is at least 3. I do not think he is able to tolerate concurrent chemotherapy and radiation until his performance status and nutritional status improve. However I will consult radiation oncology In case patient needs emergent radiation his airway is compromised. 2. Nutrition. The patient is cachectic. He has significant dysphagia. He is only able to drink some fluid, but not able to eat solid food. He has been evaluated by gastroenterology and awaiting PEG tube placement. 3. Leukocytosis, likely reactive due to pneumonia/sepsis. CT of the chest showed multiple nodular opacities in the right lung, largest measured 1.6 cm with irregular margin. This could be inflammatory process. He had another CT of the chest about 2 weeks ago which did not show clear evidence of metastatic disease. He has been started on antibiotics. WBC has trended down. 4. Generalized weakness, likely a combination of cancer, malnutrition, and infection/pneumonia. He is feeling better with hydration and antibiotic. RECOMMENDATIONS: 1. I have reviewed records from Dr. Ambrocio's office. 2. Await PEG tube placement. 3. Consider concurrent chemotherapy and radiation once his performance status and nutrition status improves. 4. Consult radiation oncology. (1) Pneumonia Qualifiers: Pneumonia type: due to unspecified organism Laterality: unspecified laterality Lung location: unspecified part of lung Qualified Code(s): J18.9 - Pneumonia, unspecified organism (2) Dysphagia Qualifiers: Dysphagia type: unspecified Qualified Code(s): R13.10 - Dysphagia, unspecified
--- NOTE | 2018-04-24 10:30 | FL ---
EXAM DATE: 04/24/2018 10:05 AM EST AGE/SEX: 57 years / Male INDICATIONS: Dysphagia. Choking and coughing with everything he eats and drinks by mouth. CLINICAL DATA: This is the patient's subsequent encounter. Patient reports that signs and symptoms h ave been present for 3 days and indicates a pain score of 0/10. MEDICAL/SURGICAL HISTORY: . Large necrotic neck mass. H/O cancer right lateral neck with resect ion. . Surgery to right neck and right chest due to a cancer in neck. COMPARISON: No prior exams available for comparison. FLUORO TIME: 0.9 IMAGE COUNT: 0 RADIATION DOSE: 142.2 ?Gym? FINDINGS: A modified barium swallow was performed with speech pathology. Patient was given a variety of liquids to swallow. The patient was given nectar-thick and puree-thick barium but aspirated with both substances. Extensi ve pooling within the paired valleculae and piriform sinuses occurred with both substances also. The examination was discontinued after aspiration of the puree-thick barium. For a full detailed report, see report by the speech pathologist. CONCLUSION: Familia aspiration with nectar-thick and puree-thick barium as well as extensive pooling within the julita red valleculae and piriform sinuses with both substances. Electronically signed by: Emre Hussein MD Board Certified Radiologist 04/24/2018 10:29 AM EST
--- NOTE | 2018-04-24 13:08 | P.PNIM ---
Subjective Interval history: Follow-up neck cancer, dysphagia Patient seen status post modified barium swallow. He reports right sided upper quadrant rib cage pain. He is requesting pain medications. Patient denies any nausea or vomiting. Physical Exam Vital signs: Last Vital Signs Temp 96.4 F L 04/24/18 12:00 Pulse 86 04/24/18 12:00 Resp 20 04/24/18 12:00 BP 95/56 L 04/24/18 12:00 Pulse Ox 95 04/24/18 12:00 Intake & Output 04/22/18 04/23/18 04/24/18 04/25/18 06:59 06:59 06:59 06:59 Intake Total 1400 / 1400 2850 / 2850 Output Total 1050 / 1050 Balance 1400 / 1400 1800 / 1800 Weight 36.2 kg Narrative: PE: GENERAL: extremely cachectic middle-aged white male in some distress due to dysphagia and right sided rib cage pain SKIN: Focused skin assessment warm and dry. HEENT: PERRLA, EOMI. No scleral icterus or conjunctival pallor. No lid lag or facial droop. Right neck surgical scar CARDIOVASCULAR: Regular rate and rhythm. No obvious murmurs to auscultation. No chest tenderness to palpation. RESPIRATORY: No obvious rhonchi or wheezing. Clear to auscultation. Breath sounds equal bilaterally. GASTROINTESTINAL: Abdomen soft, non-tender, nondistended. BS normal. MUSCULOSKELETAL: Extremities without clubbing, cyanosis, or edema. No obvious deformities. NEUROLOGICAL: Awake, alert and oriented x4. No focal neurologic deficits. Moving both upper and lower extremities spontaneously. PSYCHIATRIC: Appropriate mood and affect. Insight and judgment normal. Results Labs CBC & Chem 7: 04/24/18 04:53 04/24/18 04:52 Labs: Microbiology 04/22/18 22:38 Blood - Peripheral Aerobic Blood Culture - Preliminary No growth in 2 days 04/22/18 22:38 Blood - Peripheral Anaerobic Blood Culture - Preliminary No growth in 2 days 04/22/18 22:38 Blood - Peripheral Aerobic Blood Culture - Preliminary No growth in 2 days 04/22/18 22:38 Blood - Peripheral Anaerobic Blood Culture - Preliminary No growth in 2 days Imaging Imaging: Impressions Abdomen/Pelvis CT 04/23/18 00:00 CONCLUSION: 1. Moderate amount of ascites. 2. Left para-aortic retroperitoneal lymphadenopathy which is nonspecific. PET/ CT scan may be helpful for further evaluation of this finding if clinically indicated. 3. Scattered ground-glass densities within the visualized lung bases. 4. High density material layering within the gallbladder consistent with sludge or vicarious excretion of contrast. Videofluoroscopic Swallow 04/24/18 15:37 CONCLUSION: Familia aspiration with nectar-thick and puree-thick barium as well as extensive pooling within the paired valleculae and piriform sinuses with both substances. Assessment and Plan (1) Pneumonia: Code(s): J18.9 - Pneumonia, unspecified organism Status: Acute (2) Dysphagia: Code(s): R13.10 - Dysphagia, unspecified Status: Acute (3) Dehydration: Code(s): E86.0 - Dehydration Status: Acute (4) FTT (failure to thrive) in adult: Code(s): R62.7 - Adult failure to thrive Status: Acute (5) Neck mass: Code(s): R22.1 - Localized swelling, mass and lump, neck Status: Acute Plan Patient is a 57-year-old male with known neck mass (subtype unknown) resenting with complaints of dysphagia to liquids admitted to medicine for further workup. Neck mass -hx of neck mass with surgical excision of large necrotic right neck mass -CT neck/soft tissues 04/10/18 -> There is a 5.0 x 5.3 cm ill-defined soft tissue mass extending centrally now towards the right posterior oropharynx with mass effect on the right tongue base and deviation of the oropharynx to the left. No airway compromise. -monitor for airway compromise -Oncology consulted and following -Radiation Oncology consulted -palliative care consult Dysphagia, 2/2 above -NPO -modified barium swallow completed today showing severe pharyngeal dysphagia with recurrent aspiration with different consistencies. Rec continuing NPO status, possible PEG tube placement. -continue current IV fluids -GI consulted and following Aspiration pneumonia vs pneumonitis -afebrile -continue Vanc and Zosyn -procalcitonin level Hypokalemia -replete with IV KCL -repeat K level this afternoon Leukocytosis, likely secondary to pneumonia -monitor MDM: self Code: Full GI ppx: PPI DVT ppx: SCD's Discussed Condition With: RN, patient Progress Note: Quality VTE Deep Vein Thrombosis/Pulmonary Embolism Present on Admission: No _ (1) Dysphagia Qualifiers: Dysphagia type: unspecified Qualified Code(s): R13.10 - Dysphagia, unspecified (2) Pneumonia Qualifiers: Aspiration pneumonia type: Laterality: unspecified laterality Lung location : unspecified part of lung Pneumonia type: due to unspecified organism Qualified Code(s): J18.9 - Pneumonia, unspecified organism
[2018-04-24] MEDS: Pantoprazole Inj 40 MG Vial IV.PUSH SCH (14:27)
[2018-04-24] MEDS ORDERED: Potassium Chlor 20 mEq Premix 20 MEQ/100 ML PIGGYBACK IV.SIG ONE (17:00)
--- NOTE | 2018-04-24 17:24 | P.PNPAL ---
Reason for Visit Reason for visit: a. To assist with evaluation and management of symptoms including: Dysphasia, weakness b. To assist medical decision maker(s) with: better understanding of current medical conditions; weighing benefits/burdens of medical treatment options; making medical treatment decisions. Subjective Subjective/Interval History: This is a 57-year-old male with a past medical history of tobaccoism, MRSA infections on the hands and right-sided neck mass who was initially seen at [facility] 10/27/2016 for the neck mass presents 04/22 with complaints of dysphasia. He has no insurance and had not been following with a primary care provider. He underwent ultrasound-guided needle biopsy of the right side of his neck mass in November 2016 showing a nondiagnostic biopsy with atypical cells, suspicious for squamous cell malignancy. The mass spontaneously ruptured in February 2017 and continued to drain until he was seen by Dr. Ambrocio at [facility] in [place] and underwent excision. Patient is uncertain what type of cancer he has but has an upcoming appointment with Dr. Ambrocio on May 11, 2018 with possible referral for chemo/radiation initiation. He has had multiple ED visits for this and was seen 04/10 for a similar complaint and underwent CT of the neck showing interval surgical excision of a large necrotic right neck mass 5 x 5.3 cm extending toward right posterior oropharynx with mass -effect on right tongue and deviation of oropharynx to the left without airway compromise. At that time he was seen by ENT, Dr. Hines, and was discharged on [facility] teens of a possible infiltrate on CT of the chest with plans to follow-up with Dr. Ambrocio. He presents severely cachectic with progressive dysphasia stating he was able to swallow liquids but no solids. Patient seen today for evaluation of symptom management of dysphagia and weakness and goals of care. Patient remains extremely weak, lethargic, unable to maintain extended conversation. He has difficulty lifting his legs off the bed due to weakness. His arms have 2-3/5 strength. This may become a factor when considering treatment for his cancer He underwent barium swallow which he failed with all thicknesses. He has continued n.p.o. status. This was discussed with Dr. Crouch for GI and it was determined to place a radiology consultation for IR placement of a PEG tube due to patient's anatomical changes status post right neck mass resection. CT of the neck on 04/10/2018 showed a residual 5 x 5.3 cm soft tissue mass extending centrally toward the right posterior oropharynx with mass-effect on the right tongue base and deviation of the oropharynx to the left. There also appears to be a large mass in the right posterior oropharynx and a palpable firm mass in the right submandibular area. He has been seen by oncology who has reviewed the records from Dr. 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 The report indicated that the tumor measured 9.8 x 3.7 x 3.4 cm and had invaded the skeletal muscle and extended to the deep margin. While chemotherapy and radiation were recommended, the patient's poor performance status may limit his ability to receive therapy. . Family/Friend Interactions: No family at bedside. . Advance Directives Health Care Surrogate Name and Number: Aunt: Jody Estrada Objective Vital Signs: Vital Signs 04/23/18 20:00 04/23/18 23:10 04/24/18 00:00 Temperature 97.8 F 98.0 F Pulse Rate 58 L 68 80 Respiratory Rate 12 12 Blood Pressure 114/60 Pulse Oximetry 98 99 04/24/18 04:00 04/24/18 08:00 04/24/18 12:00 Temperature 97.8 F 98.8 F 96.4 F L Pulse Rate 78 53 L 86 Respiratory Rate 12 12 20 Blood Pressure 129/56 L 91/60 L 95/56 L Pulse Oximetry 97 95 95 04/24/18 16:33 Temperature 97.9 F Pulse Rate 97 H Respiratory Rate 20 Blood Pressure 97/56 L Pulse Oximetry 95 Intake & Output 04/23/18 04/24/18 04/24/18 18:59 06:59 18:59 Intake Total 1550 / 1550 1300 / 1300 200 / 200 Output Total 900 / 900 150 / 150 Balance 650 / 650 1150 / 1150 200 / 200 Intake: IV 1550 / 1550 1300 / 1300 200 / 200 D5W/1/2 NS Inj 1,000 ML @ 84 1000 / 1000 mls/hr IV.CONT .[id number] MICHEAL Rx# :[id number] NS Inj 1,000 ML @ 100 mls/hr IV 1350 / 1350 .CONT .Q10H MICHEAL Rx#:[id number] Zosyn 4.5 GM Premix 4.5 gm In 200 / 200 200 / 200 100 / 100 100 ml @ 200 mls/hr IV.SIG Q6H MICHEAL Rx#:[id number] KCl 20 mEq Premix Inj 20 meq In 100 / 100 100 ml @ 50 mls/hr IV.SIG Q2H MICHEAL Rx#:[id number] Vancomycin Inj 500 MG In NS Inj 100 / 100 100 ML @ 200 mls/hr IV.SIG Q18H MICHEAL Rx#:[id number] Output: Urine 900 / 900 150 / 150 Other: Date of Last Bowel Movement 04/21/18 04/22/18 Physical Exam: CONSTITUTIONAL/GENERAL: This is an extremely cachectic, ill-appearing, lethargic male lying in bed in no acute distress. TUBES/LINES/DRAINS: PIV CARDIOVASCULAR: Regular rate and rhythm without murmurs, gallops, or rubs. No JVD. Peripheral pulses symmetric. RESPIRATORY/CHEST: Symmetric, unlabored respirations. Clear, diminished to auscultation. Breath sounds equal bilaterally. No wheezes, rales, or rhonchi. GASTROINTESTINAL: Abdomen soft, non-tender, nondistended. No hepato-splenomegaly , or palpable masses. No guarding. Bowel sounds present. GENITOURINARY: Without palpable bladder distension. MUSCULOSKELETAL: Extremities without clubbing, cyanosis, or edema. No joint tenderness or effusion noted. No calf tenderness. No mottling or clubbing. LYMPHATICS: Palpable mass in right submandibular area. NEUROLOGICAL: Lethargic, dozes off during conversation. Oriented x4. Motor and sensory grossly within normal limits. Follows commands. Moves all extremities. PSYCHIATRIC: Flat affect, lethargic. . Diagnostic Tests Laboratory: Laboratory Results - last 72 hr 04/22/18 04/22/18 04/22/18 22:28 22:35 22:38 WBC RBC Hgb Hct MCV MCH MCHC RDW Plt Count MPV Prelim Diff (Auto) Neut % (Auto) Lymph % (Auto) Travis % (Auto) Eos % (Auto) Baso % (Auto) Neut # (Auto) Lymph # (Auto) Travis # (Auto) Eos # (Auto) Baso # (Auto) WBC Differential Diff Scan Differential Comment Platelet Estimate Platelet Morphology PT 11.8 H INR 1.2 APTT 21.8 L Sodium Potassium Chloride Carbon Dioxide Anion Gap BUN Creatinine Estimated GFR POC Glucose 108 Random Glucose Lactic Acid 2.8 H Calcium Magnesium Total Bilirubin AST ALT Alkaline Phosphatase Total Creatine Kinase Troponin I Total Protein Albumin Lipase Procalcitonin Urine Color Urine Clarity Urine pH Ur Specific [place] Urine Protein Urine Glucose (UA) Urine Ketones Urine Occult Blood Urine Nitrate Urine Bilirubin Urine Urobilinogen Ur Leukocyte Esterase Urine RBC Urine WBC Micro UA Comment Ur Microscopic Review Urine Culture Comments 04/22/18 04/22/18 04/22/18 22:38 22:38 22:38 WBC 15.6 H RBC 4.75 Hgb 13.8 Hct 42.1 MCV 88.6 MCH 29.1 MCHC 32.8 RDW 14.9 Plt Count 365 MPV 8.1 Prelim Diff (Auto) Slide review pending Neut % (Auto) 93.1 H Lymph % (Auto) 3.9 L Travis % (Auto) 2.8 Eos % (Auto) 0.1 Baso % (Auto) 0.1 Neut # (Auto) 14.5 H Lymph # (Auto) 0.6 L Travis # (Auto) 0.4 Eos # (Auto) 0.0 Baso # (Auto) 0.0 WBC Differential . Diff Scan Auto diff confirmed Differential Comment . Platelet Estimate Normal Platelet Morphology Normal PT INR APTT Sodium 139 Potassium 3.9 Chloride 100 Carbon Dioxide 27.5 Anion Gap 12 BUN 25 H Creatinine 0.83 Estimated GFR Greater than 89 POC Glucose Random Glucose 115 H Lactic Acid Calcium 8.5 Magnesium 2.1 Total Bilirubin 0.6 AST 24 ALT 14 Alkaline Phosphatase 79 Total Creatine Kinase 87 Troponin I Less than 0.02 L Total Protein 7.2 Albumin 2.7 L Lipase 70 L Procalcitonin Urine Color Urine Clarity Urine pH Ur Specific [place] Urine Protein Urine Glucose (UA) Urine Ketones Urine Occult Blood Urine Nitrate Urine Bilirubin Urine Urobilinogen Ur Leukocyte Esterase Urine RBC Urine WBC Micro UA Comment Ur Microscopic Review Urine Culture Comments 04/23/18 04/23/18 04/23/18 03:10 08:54 18:10 WBC RBC Hgb Hct MCV MCH MCHC RDW Plt Count MPV Prelim Diff (Auto) Neut % (Auto) Lymph % (Auto) Travis % (Auto) Eos % (Auto) Baso % (Auto) Neut # (Auto) Lymph # (Auto) Travis # (Auto) Eos # (Auto) Baso # (Auto) WBC Differential Diff Scan Differential Comment Platelet Estimate Platelet Morphology PT INR APTT Sodium Potassium Chloride Carbon Dioxide Anion Gap BUN Creatinine Estimated GFR POC Glucose 86 Random Glucose Lactic Acid 1.3 Calcium Magnesium Total Bilirubin AST ALT Alkaline Phosphatase Total Creatine Kinase Troponin I Total Protein Albumin Lipase Procalcitonin Urine Color Angela Urine Clarity Hazy H Urine pH 5.0 Ur Specific [place] Greater than 1.060 H Urine Protein 30 H Urine Glucose (UA) Negative Urine Ketones Trace H Urine Occult Blood Negative Urine Nitrate Negative Urine Bilirubin Negative Urine Urobilinogen Less than 2 Ur Leukocyte Esterase Negative Urine RBC 3 Urine WBC 2 Micro UA Comment Culture not ind Ur Microscopic Review Not Reportable Urine Culture Comments Culture not ind 04/24/18 04/24/18 04/24/18 04:52 04:52 04:52 WBC RBC Hgb Hct MCV MCH MCHC RDW Plt Count MPV Prelim Diff (Auto) Neut % (Auto) Lymph % (Auto) Travis % (Auto) Eos % (Auto) Baso % (Auto) Neut # (Auto) Lymph # (Auto) Travis # (Auto) Eos # (Auto) Baso # (Auto) WBC Differential Diff Scan Differential Comment Platelet Estimate Platelet Morphology PT 11.4 INR 1.1 APTT Sodium 137 Potassium 2.8 L* D Chloride 102 Carbon Dioxide 28.1 Anion Gap 7 BUN 15 Creatinine 0.66 Estimated GFR Greater than 89 POC Glucose Random Glucose 114 H Lactic Acid Calcium 8.3 L Magnesium 1.9 Total Bilirubin 0.4 AST 20 ALT 11 L Alkaline Phosphatase 72 Total Creatine Kinase Troponin I Total Protein 6.7 Albumin 2.3 L Lipase Procalcitonin 0.13 H Urine Color Urine Clarity Urine pH Ur Specific [place] Urine Protein Urine Glucose (UA) Urine Ketones Urine Occult Blood Urine Nitrate Urine Bilirubin Urine Urobilinogen Ur Leukocyte Esterase Urine RBC Urine WBC Micro UA Comment Ur Microscopic Review Urine Culture Comments 04/24/18 04/24/18 04:53 15:27 WBC 13.5 H RBC 4.54 Hgb 13.2 Hct 41.1 MCV 90.5 MCH 29.1 MCHC 32.2 RDW 14.8 Plt Count 325 MPV 7.6 Prelim Diff (Auto) Neut % (Auto) 92.7 H Lymph % (Auto) 3.2 L Travis % (Auto) 3.6 Eos % (Auto) 0.4 Baso % (Auto) 0.1 Neut # (Auto) 12.5 H Lymph # (Auto) 0.4 L Travis # (Auto) 0.5 Eos # (Auto) 0.1 Baso # (Auto) 0.0 WBC Differential . Diff Scan Differential Comment Auto diff final Platelet Estimate Platelet Morphology PT INR APTT Sodium Potassium 3.3 L Chloride Carbon Dioxide Anion Gap BUN Creatinine Estimated GFR POC Glucose Random Glucose Lactic Acid Calcium Magnesium Total Bilirubin AST ALT Alkaline Phosphatase Total Creatine Kinase Troponin I Total Protein Albumin Lipase Procalcitonin Urine Color Urine Clarity Urine pH Ur Specific [place] Urine Protein Urine Glucose (UA) Urine Ketones Urine Occult Blood Urine Nitrate Urine Bilirubin Urine Urobilinogen Ur Leukocyte Esterase Urine RBC Urine WBC Micro UA Comment Ur Microscopic Review Urine Culture Comments Result Diagrams: 04/29/18 10:20 04/30/18 19:49 Microbiology: Microbiology 04/22/18 22:38 Aerobic Blood Culture - Preliminary Blood - Peripheral No growth in 2 days Anaerobic Blood Culture - Preliminary No growth in 2 days 04/22/18 22:38 Aerobic Blood Culture - Preliminary Blood - Peripheral No growth in 2 days Anaerobic Blood Culture - Preliminary No growth in 2 days Imaging: ITS Impressions Chest X-Ray 04/22/18 22:32 CONCLUSION: No acute cardiopulmonary disease. Abdomen/Pelvis CT 04/23/18 00:00 CONCLUSION: 1. Moderate amount of ascites. 2. Left para-aortic retroperitoneal lymphadenopathy which is nonspecific. PET/ CT scan may be helpful for further evaluation of this finding if clinically indicated. 3. Scattered ground-glass densities within the visualized lung bases. 4. High density material layering within the gallbladder consistent with sludge or vicarious excretion of contrast. Chest CTA 04/23/18 00:15 CONCLUSION: 1. Study is negative for pulmonary embolism. 2. Interval development of multiple opacities in the right lung, the largest measures 1.6 cm with irregular margins and the others measure less than 5 mm. This suggests a hematogenous process, malignant versus infectious.. 3. Nonconsolidative patchy areas of infiltrate in the lower lateral left lung stable in appearance. Videofluoroscopic Swallow 04/24/18 15:37 CONCLUSION: Familia aspiration with nectar-thick and puree-thick barium as well as extensive pooling within the paired valleculae and piriform sinuses with both substances. 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 He was for 10 years but is now and has no children. 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 Legal: No advance directives completed. Ethical issues impacting care: None noted. Important Contacts: HCS/aunt: Jody Vazquez Significant other: Ruth Mobley . Prognosis: His prognosis appears poor. His neck mass was first noted October 2016 but he underwent no treatment until January 2018. He continues to smoke. He is extremely cachectic and has lost nearly half of his body weight since 2012. He had a neck resection done in January 2018. 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 CTA of the thorax shows multiple opacities the largest of which is 1.6 cm with irregular margins, malignant versus infectious. He is far too debilitated at this time to undergo chemotherapy or radiation. He is too weak to safely transfer of shower without assistance. He ambulates by holding onto furniture. PT evaluation recommended PT at rehab versus hospice. Patient's goals at this time remain aggressive. Pending further information from Dr. Ambrocio's office regarding neck resection and pathology. He is being evaluated by GI for PEG tube placement, but will likely involve IR if he is considered a candidate due to anatomical disruption secondary to his surgery. Barium swallow is pending. . Code Status: Full Code Plan: PLAN: Legal decision maker: At this time he is capacitated for decision-making, however has designated his aunt Jody Vazquez as his healthcare surrogate in the case of his incapacitation. Per [place] statutes, as he has no , children nor living siblings, both parents are , she would be the proxy decision- maker. Goals: Aggressive. CODE STATUS: full CODE SYMPTOMS: * Dysphasia: He failed the barium swallow and will need a if he is to have any chance of survival. As he wishes to pursue treatment, GI has consulted interventional radiology for placement of a PEG tube, due to his anatomic abnormality status post neck resection. Consult pending * Weakness: He is extremely weak and debilitated with muscle wasting secondary to his inability to eat. He is very cachectic. Physical therapy is evaluating and is recommending either PT at rehab versus hospice. Patient is pending insertion of a PEG tube for nutritional recovery. GI consulting IR placement of PEG. Palliative care will continue to follow the patient during hospital course as condition evolves, to assist patient/decision-maker with understanding of their medical conditions, weighing benefits/burdens of treatment options, for clarification of goals of treatment. Additionally will assist with any symptoms of palliative concern. . Attestation Attestation: To help prompt me to consider important information that might be impacting today's encounter and assessment, information from prior notes written by myself or my colleagues may have been "brought forward" into today's note. My signature on this note, however, is an attestation that I personally performed the exam, history, and/or decision-making noted today, and, unless otherwise indicated, the interactions with patient, family, and staff as well as the review of records all occurred today. I also attest that the listed assessment and stated plan reflect my best clinical judgment today based on the combination of historical information, prior notes, and today's exam/ interactions. When time spent is documented, it refers only to time spent today by the signer, or if indicated, combined time spent today by collaborating physician/nurse practitioner. .
[2018-04-24] MEDS: Vancomycin Inj 500 MG in Sodium Chlor 0.9% Inj 100 ML IV.SIG SCH (17:31)
--- NOTE | 2018-04-24 17:31 | P.CON ---
History of Present Illness Service: radiation oncology Primary Care Provider: UNKNOWN History of Present Illness: prior resected head and cancer. [facility] - History History Provided By: Patient - Medical History Medical History: Medical History (Last Reviewed 04/24/18 @ 08:04 by Stacy Moore System Dispatcher, [employer]) Abscess Cancer - Surgical History Surgical History: Surgical History (Last Reviewed 04/23/18 @ 14:52 by Juan M Sutton) H/O neck surgery - Tobacco History Second Hand Smoke Exposure: Yes Tobacco Use In Past 30 Days: Yes Smoking Status: Current every day smoker Tobacco Type: Cigarettes - Alcohol History How Often Do You Have a Drink Containing Alcohol: Monthly or less - Substance Use History Substance History: Past History - Immunization History Tetanus Immunization: Unsure Medications and Allergies Active Medications: Active Medications Acetaminophen (Tylenol) 650 mg PO Q4H PRN PRN Reason: Temp > 100.4 Al Hydroxide/Mg Hydroxide (Milk Of Magnesia Liq) 30 ml PO Q12H PRN PRN Reason: Mild Constipation Albuterol (Duoneb Neb (Prn)) 1 ampul NEB Q4HR NEB PRN PRN Reason: SOB/WHEEZING Bisacodyl (Dulcolax Supp) 10 mg RECTAL DAILY PRN PRN Reason: SEVERE CONSITIPATION Piperacillin/Tazobactam/Dextrose (Zosyn 4.5 Gm Premix) 4.5 gm in 100 mls @ 200 mls/hr IV.SIG Q6H [facility] Last Infusion: 04/24/18 13:50 Dose: Infused Vancomycin HCl 500 mg/ Sodium (Chloride) 100 mls @ 200 mls/hr IV.SIG Q18H [facility] Last Infusion: 04/23/18 23:30 Dose: Infused Dextrose/Sodium Chloride (D5w/1/2 Ns Inj) 1,000 mls @ 84 mls/hr IV.CONT .[id number] MICHEAL Last Admin: 04/24/18 05:29 Dose: 84 mls/hr Potassium Chloride (Kcl 20 Meq Premix Inj) 20 meq in 100 mls @ 50 mls/hr IV.SIG ONCE ONE Stop: 04/24/18 18:59 Lactulose (Lactulose Liq) 30 ml PO DAILY PRN PRN Reason: SEVERE CONSITIPATION Miscellaneous Information ([facility] Ordered Lab Info) 0 each OTHER ONCE ONE Stop: 04/25/18 08:46 Morphine Sulfate (Morphine Inj) 2 mg IV.PUSH Q3H PRN PRN Reason: PAIN 6-10 Last Admin: 04/24/18 16:23 Dose: 2 mg Ondansetron HCl (Zofran Inj) 4 mg IV.PUSH Q6H PRN PRN Reason: NAUSEA OR VOMITING Last Admin: 04/24/18 01:01 Dose: 4 mg Pantoprazole Sodium (Protonix Inj) 40 mg IV.PUSH Q24H [facility] Last Admin: 04/24/18 14:27 Dose: 40 mg Pharmacy Profile Note (Vancomycin Consult Pharmacy) 1 each OTHER UNSCH PRN PRN Reason: Pharmacy to dose Senna/Docusate Sodium (Miracle-Colace) 1 tab PO BID [facility] Last Admin: 04/24/18 08:11 Dose: Not Given Sennosides (Senokot) 17.2 mg PO Q12H PRN PRN Reason: Moderate Constipation Sodium Chloride (Ns Flush) 2 ml IV.FLUSH BID [facility] Last Admin: 04/24/18 08:11 Dose: Not Given Sodium Chloride (Ns Flush) 2 ml IV.FLUSH PRN PRN PRN Reason: FLUSH AFTER USING IV ACCESS Allergies Allergy/AdvReac Type Severity Reaction Status Date / Time *MDRO Multi-Drug Resistant AdvReac Unknown Abdominal Uncoded 12/30/17 21:23 Organism Pain Home Medications Medication Instructions Recorded Confirmed Type No Known Home Medications 04/22/18 04/22/18 History Physical Exam Vital signs: Vital Signs 04/23/18 20:00 04/23/18 23:10 04/24/18 00:00 Temperature 97.8 F 98.0 F Pulse Rate 58 L 68 80 Respiratory Rate 12 12 Blood Pressure 114/60 Pulse Oximetry 98 99 04/24/18 04:00 04/24/18 08:00 04/24/18 12:00 Temperature 97.8 F 98.8 F 96.4 F L Pulse Rate 78 53 L 86 Respiratory Rate 12 12 20 Blood Pressure 129/56 L 91/60 L 95/56 L Pulse Oximetry 97 95 95 04/24/18 16:33 Temperature 97.9 F Pulse Rate 97 H Respiratory Rate 20 Blood Pressure 97/56 L Pulse Oximetry 95 Intake & Output 04/23/18 04/24/18 04/24/18 18:59 06:59 18:59 Intake Total 1550 / 1550 1300 / 1300 200 / 200 Output Total 900 / 900 150 / 150 Balance 650 / 650 1150 / 1150 200 / 200 Intake: IV 1550 / 1550 1300 / 1300 200 / 200 D5W/1/2 NS Inj 1,000 ML @ 84 1000 / 1000 mls/hr IV.CONT .[id number] [facility] Rx# :[id number] NS Inj 1,000 ML @ 100 mls/hr IV 1350 / 1350 .CONT .Q10H [facility] Rx#:[id number] Zosyn 4.5 GM Premix 4.5 gm In 200 / 200 200 / 200 100 / 100 100 ml @ 200 mls/hr IV.SIG Q6H [facility] Rx#:[id number] KCl 20 mEq Premix Inj 20 meq In 100 / 100 100 ml @ 50 mls/hr IV.SIG Q2H [facility] Rx#:[id number] Vancomycin Inj 500 MG In NS Inj 100 / 100 100 ML @ 200 mls/hr IV.SIG Q18H [facility] Rx#:[id number] Output: Urine 900 / 900 150 / 150 Other: Date of Last Bowel Movement 04/21/18 04/22/18 Results - Labs CBC & Chem 7: 04/24/18 04:53 04/24/18 15:27 Labs: Laboratory Results - last 24 hr 04/23/18 04/24/18 04/24/18 18:10 04:52 04:52 WBC RBC Hgb Hct MCV MCH MCHC RDW Plt Count MPV Neut % (Auto) Lymph % (Auto) Chase % (Auto) Eos % (Auto) Baso % (Auto) Neut # (Auto) Lymph # (Auto) Chase # (Auto) Eos # (Auto) Baso # (Auto) WBC Differential Differential Comment PT 11.4 INR 1.1 Sodium 137 Potassium 2.8 L* D Chloride 102 Carbon Dioxide 28.1 Anion Gap 7 BUN 15 Creatinine 0.66 Estimated GFR Greater than 89 Random Glucose 114 H Calcium 8.3 L Magnesium 1.9 Total Bilirubin 0.4 AST 20 ALT 11 L Alkaline Phosphatase 72 Total Protein 6.7 Albumin 2.3 L Procalcitonin Urine Color Angela Urine Clarity Hazy H Urine pH 5.0 Ur Specific [place] Greater than 1.060 H Urine Protein 30 H Urine Glucose (UA) Negative Urine Ketones Trace H Urine Occult Blood Negative Urine Nitrate Negative Urine Bilirubin Negative Urine Urobilinogen Less than 2 Ur Leukocyte Esterase Negative Urine RBC 3 Urine WBC 2 Micro UA Comment Culture not ind Ur Microscopic Review Not Reportable Urine Culture Comments Culture not ind 04/24/18 04/24/18 04/24/18 04:52 04:53 15:27 WBC 13.5 H RBC 4.54 Hgb 13.2 Hct 41.1 MCV 90.5 MCH 29.1 MCHC 32.2 RDW 14.8 Plt Count 325 MPV 7.6 Neut % (Auto) 92.7 H Lymph % (Auto) 3.2 L Chase % (Auto) 3.6 Eos % (Auto) 0.4 Baso % (Auto) 0.1 Neut # (Auto) 12.5 H Lymph # (Auto) 0.4 L Chase # (Auto) 0.5 Eos # (Auto) 0.1 Baso # (Auto) 0.0 WBC Differential . Differential Comment Auto diff final PT INR Sodium Potassium 3.3 L Chloride Carbon Dioxide Anion Gap BUN Creatinine Estimated GFR Random Glucose Calcium Magnesium Total Bilirubin AST ALT Alkaline Phosphatase Total Protein Albumin Procalcitonin 0.13 H Urine Color Urine Clarity Urine pH Ur Specific [place] Urine Protein Urine Glucose (UA) Urine Ketones Urine Occult Blood Urine Nitrate Urine Bilirubin Urine Urobilinogen Ur Leukocyte Esterase Urine RBC Urine WBC Micro UA Comment Ur Microscopic Review Urine Culture Comments - Imaging Impressions Abdomen/Pelvis CT 04/23/18 00:00 CONCLUSION: 1. Moderate amount of ascites. 2. Left para-aortic retroperitoneal lymphadenopathy which is nonspecific. PET/ CT scan may be helpful for further evaluation of this finding if clinically indicated. 3. Scattered ground-glass densities within the visualized lung bases. 4. High density material layering within the gallbladder consistent with sludge or vicarious excretion of contrast. Videofluoroscopic Swallow 04/24/18 15:37 CONCLUSION: Familia aspiration with nectar-thick and puree-thick barium as well as extensive pooling within the paired valleculae and piriform sinuses with both substances. Assessment and Plan - Plan p follow up as inpatient or outpatient. will discuss further.
--- NOTE | 2018-04-24 17:55 | P.PNGI ---
Subjective Interval history: Patient lying supine in bed Post barium swallow IR consulted for PEG tube placement <Yaritza Tatum - Last Filed: 04/24/18 17:51> Physical Exam Vital signs: Vital Signs 04/23/18 20:00 04/23/18 23:10 04/24/18 00:00 Temperature 97.8 F 98.0 F Pulse Rate 58 L 68 80 Respiratory Rate 12 12 Blood Pressure 114/60 Pulse Oximetry 98 99 04/24/18 04:00 04/24/18 08:00 04/24/18 12:00 Temperature 97.8 F 98.8 F 96.4 F L Pulse Rate 78 53 L 86 Respiratory Rate 12 12 20 Blood Pressure 129/56 L 91/60 L 95/56 L Pulse Oximetry 97 95 95 04/24/18 16:33 Temperature 97.9 F Pulse Rate 97 H Respiratory Rate 20 Blood Pressure 97/56 L Pulse Oximetry 95 Intake & Output 04/23/18 04/24/18 04/24/18 18:59 06:59 18:59 Intake Total 1550 / 1550 1300 / 1300 500 / 500 Output Total 900 / 900 150 / 150 Balance 650 / 650 1150 / 1150 500 / 500 Intake: IV 1550 / 1550 1300 / 1300 500 / 500 D5W/1/2 NS Inj 1,000 ML @ 84 1000 / 1000 300 / 300 mls/hr IV.CONT .[id number] [facility] Rx# :[id number] NS Inj 1,000 ML @ 100 mls/hr IV 1350 / 1350 .CONT .Q10H [facility] Rx#:[id number] Zosyn 4.5 GM Premix 4.5 gm In 200 / 200 200 / 200 100 / 100 100 ml @ 200 mls/hr IV.SIG Q6H [facility] Rx#:[id number] KCl 20 mEq Premix Inj 20 meq In 100 / 100 100 ml @ 50 mls/hr IV.SIG Q2H [facility] Rx#:[id number] Vancomycin Inj 500 MG In NS Inj 100 / 100 100 ML @ 200 mls/hr IV.SIG Q18H [facility] Rx#:[id number] Output: Urine 900 / 900 150 / 150 Other: Date of Last Bowel Movement 04/21/18 04/22/18 - Constitutional thin, cachectic, chronically ill appearing - Routine HEENT Exam Head: Present: normocephalic - Routine Respiratory Exam Present: CTA bilaterally - Routine Cardiovascular Exam Present: RRR - Routine Abdominal Exam Present: soft, normoactive bowel sounds. Absent: tenderness, distended, guarding, firm - Routine Extremities Exam Absent: edema - Routine Skin Exam Present: dry, warm Comments: Surgical scars right chest wall and neck - Routine Neurological Exam Present: alert <Tatum,Yaritza - Last Filed: 04/24/18 17:51> Vital signs: Vital Signs 04/24/18 12:00 04/24/18 16:33 04/24/18 20:00 Temperature 96.4 F L 97.9 F 97.3 F L Pulse Rate 86 97 H 97 H Respiratory Rate 20 20 18 Blood Pressure 95/56 L 97/56 L 109/63 Pulse Oximetry 95 95 93 L 04/24/18 23:48 04/25/18 00:36 04/25/18 04:00 Temperature 97.8 F 97.8 F Pulse Rate 95 H 89 92 H Respiratory Rate 18 18 Blood Pressure 99/59 L 94/55 L Pulse Oximetry 97 97 04/25/18 08:00 04/25/18 08:18 04/25/18 08:21 Temperature 97.7 F Pulse Rate 91 H 68 94 H Respiratory Rate 18 18 Blood Pressure 96/56 L Pulse Oximetry 98 95 Intake & Output 04/24/18 04/25/18 04/25/18 18:59 06:59 18:59 Intake Total 600 / 600 900 / 900 Output Total 250 / 250 Balance 600 / 600 650 / 650 Weight 36.2 kg Intake: IV 600 / 600 900 / 900 D5W/1/2 NS Inj 1,000 ML @ 84 300 / 300 400 / 400 mls/hr IV.CONT .[id number] [facility] Rx# :[id number] Zosyn 4.5 GM Premix 4.5 gm In 100 / 100 300 / 300 100 ml @ 200 mls/hr IV.SIG Q6H [facility] Rx#:[id number] KCl 20 mEq Premix Inj 20 meq In 100 / 100 200 / 200 100 ml @ 50 mls/hr IV.SIG ONCE ONE Rx#:[id number] Vancomycin Inj 500 MG In NS Inj 100 / 100 100 ML @ 200 mls/hr IV.SIG Q18H [facility] Rx#:[id number] Oral 0 / 0 Output: Urine 250 / 250 Other: Date of Last Bowel Movement 04/24/18 <David Crouch - Last Filed: 04/25/18 09:07> Results - Labs CBC & Chem 7: 04/24/18 04:53 04/24/18 15:27 Laboratory Results - last 24 hr 04/23/18 04/24/18 04/24/18 18:10 04:52 04:52 WBC RBC Hgb Hct MCV MCH MCHC RDW Plt Count MPV Neut % (Auto) Lymph % (Auto) [place] % (Auto) Eos % (Auto) Baso % (Auto) Neut # (Auto) Lymph # (Auto) [place] # (Auto) Eos # (Auto) Baso # (Auto) WBC Differential Differential Comment PT 11.4 INR 1.1 Sodium 137 Potassium 2.8 L* D Chloride 102 Carbon Dioxide 28.1 Anion Gap 7 BUN 15 Creatinine 0.66 Estimated GFR Greater than 89 Random Glucose 114 H Calcium 8.3 L Magnesium 1.9 Total Bilirubin 0.4 AST 20 ALT 11 L Alkaline Phosphatase 72 Total Protein 6.7 Albumin 2.3 L Procalcitonin Urine Color Angela Urine Clarity Hazy H Urine pH 5.0 Ur Specific [place] Greater than 1.060 H Urine Protein 30 H Urine Glucose (UA) Negative Urine Ketones Trace H Urine Occult Blood Negative Urine Nitrate Negative Urine Bilirubin Negative Urine Urobilinogen Less than 2 Ur Leukocyte Esterase Negative Urine RBC 3 Urine WBC 2 Micro UA Comment Culture not ind Ur Microscopic Review Not Reportable Urine Culture Comments Culture not ind 04/24/18 04/24/18 04/24/18 04:52 04:53 15:27 WBC 13.5 H RBC 4.54 Hgb 13.2 Hct 41.1 MCV 90.5 MCH 29.1 MCHC 32.2 RDW 14.8 Plt Count 325 MPV 7.6 Neut % (Auto) 92.7 H Lymph % (Auto) 3.2 L [place] % (Auto) 3.6 Eos % (Auto) 0.4 Baso % (Auto) 0.1 Neut # (Auto) 12.5 H Lymph # (Auto) 0.4 L [place] # (Auto) 0.5 Eos # (Auto) 0.1 Baso # (Auto) 0.0 WBC Differential . Differential Comment Auto diff final PT INR Sodium Potassium 3.3 L Chloride Carbon Dioxide Anion Gap BUN Creatinine Estimated GFR Random Glucose Calcium Magnesium Total Bilirubin AST ALT Alkaline Phosphatase Total Protein Albumin Procalcitonin 0.13 H Urine Color Urine Clarity Urine pH Ur Specific [place] Urine Protein Urine Glucose (UA) Urine Ketones Urine Occult Blood Urine Nitrate Urine Bilirubin Urine Urobilinogen Ur Leukocyte Esterase Urine RBC Urine WBC Micro UA Comment Ur Microscopic Review Urine Culture Comments Microbiology 04/22/18 22:38 Blood - Peripheral Aerobic Blood Culture - Preliminary No growth in 2 days 04/22/18 22:38 Blood - Peripheral Anaerobic Blood Culture - Preliminary No growth in 2 days 04/22/18 22:38 Blood - Peripheral Aerobic Blood Culture - Preliminary No growth in 2 days 04/22/18 22:38 Blood - Peripheral Anaerobic Blood Culture - Preliminary No growth in 2 days - Imaging Impressions Abdomen/Pelvis CT 04/23/18 00:00 CONCLUSION: 1. Moderate amount of ascites. 2. Left para-aortic retroperitoneal lymphadenopathy which is nonspecific. PET/ CT scan may be helpful for further evaluation of this finding if clinically indicated. 3. Scattered ground-glass densities within the visualized lung bases. 4. High density material layering within the gallbladder consistent with sludge or vicarious excretion of contrast. Videofluoroscopic Swallow 04/24/18 15:37 CONCLUSION: Familia aspiration with nectar-thick and puree-thick barium as well as extensive pooling within the paired valleculae and piriform sinuses with both substances. <Yaritza Tatum - Last Filed: 04/24/18 17:51> - Labs CBC & Chem 7: 04/24/18 04:53 04/25/18 04:35 Laboratory Results - last 24 hr 04/24/18 04/24/18 04/25/18 04:52 15:27 04:35 Sodium 139 Potassium 3.3 L 3.4 L Chloride 104 Carbon Dioxide 28.6 Anion Gap 6 BUN 12 Creatinine 0.52 L Estimated GFR Greater than 89 Random Glucose 128 H Calcium 7.7 L Procalcitonin 0.13 H Microbiology 04/22/18 22:38 Blood - Peripheral Aerobic Blood Culture - Preliminary No growth in 2 days 04/22/18 22:38 Blood - Peripheral Anaerobic Blood Culture - Preliminary No growth in 2 days 04/22/18 22:38 Blood - Peripheral Aerobic Blood Culture - Preliminary No growth in 2 days 04/22/18 22:38 Blood - Peripheral Anaerobic Blood Culture - Preliminary No growth in 2 days - Imaging Impressions Videofluoroscopic Swallow 04/24/18 15:37 CONCLUSION: Familia aspiration with nectar-thick and puree-thick barium as well as extensive pooling within the paired valleculae and piriform sinuses with both substances. <David Crouch - Last Filed: 04/25/18 09:07> Assessment and Plan (1) Dysphagia Status: Acute Code(s): R13.10 - Dysphagia, unspecified - Plan This patient is a 57-year-old male with past medical history significant for malignant neck mass. Patient presented to the ER at [facility] with complaint of progressing dysphagia over the last 2-3 weeks. Patient states he has had recent excision of mass. States he is unsure of what type of cancer he was diagnosed with. He endorses upcoming appointment with Dr. Ambrocio to determine plan of care for chemo and radiation. On 04/10/2018 CT of the neck revealed interval excision of large necrotic neck mass 5 x 5.3 cm mass extending towards right posterior oropharynx with mass-effect on right tongue and deviation of the oropharynx to the left. Upon consultation, patient reports no difficulty swallowing liquids but endorses great difficulty with solid foods. Patient states he has been experiencing ends increasing episodes of coughing with such and pain. Patient denies ever having had an EGD or colonoscopy in the past. He endorses 50 pound weight loss within the last 6-8 weeks. Our service has been consulted to evaluate patient for PEG tube placement Progressing dysphagia 87-year-old male with history of malignant neck mass. Patient endorses generalized weakness and fatigue. Recent excision of malignant neck mass. 04/10/[address] revealed the following-- 1. Apparent interval surgical excision of large necrotic right neck mass. 2. There is a 5.0 x 5.3 cm ill-defined soft tissue mass extending centrally now towards the right posterior oropharynx with mass effect on the right tongue base and deviation of the oropharynx to the left. Airway does not appear significantly compromised at this time. 04/23/2018 CTA of the chest- 1. Study is negative for pulmonary embolism. 2. Interval development of multiple opacities in the right lung, the largest measures 1.6 cm with irregular margins and the others measure less than 5 mm. This suggests a hematogenous process, malignant versus infectious.. 3. Nonconsolidative patchy areas of infiltrate in the lower lateral left lung stable in appearance. 04/24/2018 Patient awake and alert Discussed plan for interventional radiology to evaluate patient for PEG tube placement Patient verbalized understanding and agreement 04/24/2018 videofluoroscopic swallow--Familia aspiration with nectar-thick and puree-thick barium as well as extensive pooling within the paired valleculae and piriform sinuses with both substances. N.p.o. status maintain WBC 13.5 hemoglobin 13.2 hematocrit 41.1 Plan N.p.o. Dietary consult for tube feed recommendations IR consult for tube feed placement Aspiration precautions IV hydration Analgesia and antiemetics as per attending Supportive care GI will sign off at this time, please notify for any further assistance This patient has been seen by myself and Dr. Crouch and this note is written on his behalf - Attending Attestation Dr. Crouch <Yaritza Tatum - Last Filed: 04/24/18 17:51> (1) Dysphagia Status: Acute Code(s): R13.10 - Dysphagia, unspecified - Attending Attestation I have seen and examined the patient. I agree with the above note and recommendations. <David Crouch - Last Filed: 04/25/18 09:07> <Yaritza Tatum - Last Filed: 04/24/18 17:51> (1) Dysphagia Qualifiers: Dysphagia type: unspecified Qualified Code(s): R13.10 - Dysphagia, unspecified <David Crouch - Last Filed: 04/25/18 09:07> (1) Dysphagia Qualifiers: Dysphagia type: unspecified Qualified Code(s): R13.10 - Dysphagia, unspecified
[2018-04-25] MEDS: Dextrose 5%/NaCl 0.45% Inj 1,000 ML IV.CONT SCH ×3 (01:11→17:43)
[2018-04-25] MEDS: Morphine Inj 4 MG/ML Vial IV.PUSH PRN ×5 (04:24→21:21)
[2018-04-25] MEDS: Piperacil/Tazo 4.5 GM Premix 4.5 GM/100 ML BAG IV.SIG SCH ×3 (05:02→17:43)
[2018-04-25 05:32] LABS: Anion Gap 6 meq/L (5-15); Blood Urea Nitrogen 12 mg/dL (7-18); Calcium 7.7 mg/dL (8.5-10.1); Carbon Dioxide 28.6 meq/L (21.0-32.0); Chloride 104 meq/L (98-107); Glomerular Filtration Rate Greater Than 89 mL/min (>89); Glucose,Random 128 mg/dL (74-106); Potassium 3.4 meq/L (3.5-5.1); Sodium 139 meq/L (136-145)
[2018-04-25] MEDS: Vancomycin Inj 500 MG in Sodium Chlor 0.9% Inj 100 ML IV.SIG SCH (08:32)
[2018-04-25] MEDS: Senna/Docusate Sodium 8.6/50 MG Tablet PO SCH ×2 (08:32→21:25)
[2018-04-25] MEDS ORDERED: Pharmacy Ordered Lab Info OTHER ONE (08:45)
--- NOTE | 2018-04-25 11:28 | P.PNONC ---
Subjective Interval history: Patient sitting up in chair, about to brushes teeth. He is awaiting feeding tube placement. He has no complaints at this time. Objective Vital Signs/Intake & Output: Vital Signs 04/24/18 12:00 04/24/18 16:33 04/24/18 20:00 Temperature 96.4 F L 97.9 F 97.3 F L Pulse Rate 86 97 H 97 H Respiratory Rate 20 20 18 Blood Pressure 95/56 L 97/56 L 109/63 Pulse Oximetry 95 95 93 L 04/24/18 23:48 04/25/18 00:36 04/25/18 04:00 Temperature 97.8 F 97.8 F Pulse Rate 95 H 89 92 H Respiratory Rate 18 18 Blood Pressure 99/59 L 94/55 L Pulse Oximetry 97 97 04/25/18 08:00 04/25/18 08:18 04/25/18 08:21 Temperature 97.7 F Pulse Rate 91 H 68 94 H Respiratory Rate 18 18 Blood Pressure 96/56 L Pulse Oximetry 98 95 04/25/18 09:30 Temperature Pulse Rate Respiratory Rate 16 Blood Pressure Pulse Oximetry Intake & Output 04/24/18 04/25/18 04/25/18 18:59 06:59 18:59 Intake Total 600 / 600 900 / 900 100 / 100 Output Total 250 / 250 Balance 600 / 600 650 / 650 100 / 100 Weight 36.2 kg Intake: IV 600 / 600 900 / 900 100 / 100 D5W/1/2 NS Inj 1,000 ML @ 84 300 / 300 400 / 400 mls/hr IV.CONT .[id number] [facility] Rx# :[id number] Zosyn 4.5 GM Premix 4.5 gm In 100 / 100 300 / 300 100 ml @ 200 mls/hr IV.SIG Q6H [facility] Rx#:[id number] KCl 20 mEq Premix Inj 20 meq In 100 / 100 200 / 200 100 ml @ 50 mls/hr IV.SIG ONCE ONE Rx#:[id number] Vancomycin Inj 500 MG In NS Inj 100 / 100 100 / 100 100 ML @ 200 mls/hr IV.SIG Q18H [facility] Rx#:[id number] Oral 0 / 0 Output: Urine 250 / 250 Other: Date of Last Bowel Movement 04/24/18 04/24/18 Result Diagrams: 04/24/18 04:53 04/25/18 04:35 Laboratory Results: Laboratory Results - last 24 hr 04/24/18 04/24/18 04/25/18 04:52 15:27 04:35 Sodium 139 Potassium 3.3 L 3.4 L Chloride 104 Carbon Dioxide 28.6 Anion Gap 6 BUN 12 Creatinine 0.52 L Estimated GFR Greater than 89 Random Glucose 128 H Calcium 7.7 L Procalcitonin 0.13 H Culture Results: Microbiology 04/22/18 22:38 Aerobic Blood Culture - Preliminary Blood - Peripheral No growth in 3 days Anaerobic Blood Culture - Preliminary No growth in 3 days 04/22/18 22:38 Aerobic Blood Culture - Preliminary Blood - Peripheral No growth in 3 days Anaerobic Blood Culture - Preliminary No growth in 3 days Medications: Active Medications Generic Name Dose Route Start Last Admin Trade Name Freq PRN Reason Stop Dose Admin Albuterol 1 ampul 04/23/18 02:10 04/25/18 08:15 Duoneb Neb (Prn) NEB 1 ampul Q4HR NEB PRN Administration SOB/WHEEZING Piperacillin/Tazobactam/Dextrose 4.5 gm in 100 mls @ 200 mls/hr 04/23/18 06: 00 04/25/18 05:11 Zosyn 4.5 Gm Premix IV.SIG Infused Q6H [facility] Infusion Vancomycin HCl 500 mg/ Sodium 100 mls @ 200 mls/hr 04/23/18 21:00 04/25/18 09 :30 Chloride IV.SIG Infused Q18H [facility] Infusion Dextrose/Sodium Chloride 1,000 mls @ 84 mls/hr 04/23/18 14:00 04/25/18 01:11 D5w/1/2 Ns Inj IV.CONT 84 mls/hr .[id number] [facility] Administration Morphine Sulfate 2 mg 04/24/18 12:54 04/25/18 08:31 Morphine Inj IV.PUSH 2 mg Q3H PRN Administration PAIN 6-10 Ondansetron HCl 4 mg 04/23/18 02:10 04/24/18 01:01 Zofran Inj IV.PUSH 4 mg Q6H PRN Administration NAUSEA OR VOMITING Pantoprazole Sodium 40 mg 04/24/18 14:00 04/24/18 14:27 Protonix Inj IV.PUSH 40 mg Q24H [facility] Administration Senna/Docusate Sodium 1 tab 04/23/18 09:00 04/25/18 08:32 Miracle-Colace PO Not Given BID [facility] Sodium Chloride 2 ml 04/23/18 09:00 04/25/18 08:32 Ns Flush IV.FLUSH 2 ml BID [facility] Administration Objective Remarks: GENERAL: Severely cachectic male patient, in no acute distress. SKIN: Warm and dry. HEAD: Normocephalic. EYES: No scleral icterus. No injection or drainage. NECK: Supple, trachea midline. Mass to right neck and posterior oropharynx. CARDIOVASCULAR: Regular rate and rhythm without murmurs. RESPIRATORY: Breath sounds equal bilaterally. No accessory muscle use. GASTROINTESTINAL: Abdomen sunken, non-tender, nondistended. EXTREMITIES: No cyanosis, or edema. MUSCULOSKELETAL: Decreased muscle tone. NEUROLOGICAL: No obvious focal deficit. Awake, alert, and oriented x3. PSYCHIATRIC: Appropriate mood and affect; insight and judgment normal. Assessment/Plan (1) Pneumonia Code(s): J18.9 - Pneumonia, unspecified organism Status: Acute (2) Dysphagia Code(s): R13.10 - Dysphagia, unspecified Status: Acute (3) Dehydration Code(s): E86.0 - Dehydration Status: Acute (4) FTT (failure to thrive) in adult Code(s): R62.7 - Adult failure to thrive Status: Acute (5) Neck mass Code(s): R22.1 - Localized swelling, mass and lump, neck Status: Acute - Plan Mr. Vásquez is a 57-year-old male patient with head and neck cancer. He presented to the hospital with dysphasia and weakness. He is severely cachectic. Currently being treated for pneumonia as well. Plan: 1. Poor nutritional status, patient unable to eat or drink. Pending PEG tube placement, likely today. 2. Once peg tube is placed, hopefully can improve his nutritional status. 3. Rad Onc is following. 4. Pneumonia, on vancomycin and Zosyn. Management per attending. 5. Continue supportive care. (1) Pneumonia Qualifiers: Pneumonia type: due to unspecified organism Laterality: unspecified laterality Lung location: unspecified part of lung Qualified Code(s): J18.9 - Pneumonia, unspecified organism (2) Dysphagia Qualifiers: Dysphagia type: unspecified Qualified Code(s): R13.10 - Dysphagia, unspecified
--- NOTE | 2018-04-25 12:00 | P.DIET ---
Nutritional Evaluation Type of nutrition evaluation: follow-up Nutrition consult regarding: Tube Feeding, Diet Evaluation Nutrition screening: Weight Loss > 10 lbs, [facility] [place] (malnutrition) Screening comments: 04/24/18 [facility] [place] TF'ing 04/23 [facility], [facility] [place] for malnutrition Subjective Barriers to Nutrition: Swallowing problem Subjective Comments: Pt reports a 50-lb wt loss with last 6-8 weeks Objective - Diagnosis pneumonia, sepsis, FTT, neck mass - Indications of Malnutrition Classification: Starvation-related Malnutrition Severity: Severe Characteristics: Weight loss, Insufficient energy intake, Fat loss, Muscle loss , Diminshed functional status - Objective % IBW: 54 (IBW 148lb) Body Weight Used for Calculations: Actual (36.2 kg) Energy Needs - Lower Range (kCal/kg): 44 Energy Needs - Upper Range (kCal/kg): 49 Lower Limit kCal/kg (kCals): 1,593 Upper Limit kCal/kg (kCals): 1,774 Lower Limit Protein Factor (Grams per Kg): 1.7 Upper Limit Protein Factor (Grams per Kg): 2.0 Lower Protein Needs (Protein): 62 Upper Protein Needs (Protein): 72 Fluid Factor (ml/kg): 44 Estimated Fluid Needs (ml): 1,593 Dietitian Reviewed in Medical Record: Curent medications, Intake & Output, Labs , Medical history Diet Order: NPO Speech Therapy Recommendations: Yes (NPO) Objective Comments: PMH: abscess, neck CA Videofluoroscopic Swallow 04/24/18 15:37 CONCLUSION: Familia aspiration with nectar-thick and puree-thick barium as well as extensive pooling within the paired valleculae and piriform sinuses with both substances. LBM 04/24, +UOP 1050ml Assessment Assessment: Pt at high nutritional risk r/t dysphagia w/a reported 50-lb wt loss within last 6-8 weeks and current BMI 12.5. Pt is planned for PEG placement by IR. Pt is at high risk for Re-Feeding Syndrome. For TF'ing Rec Vital 1.5 @ goal rate 45mL/hr to offer [id number], 73g of protein, and 825mL. Rec initiation and progression of TF'ing as follows: Day#1-2 w/Vital 1.5 @ 20ml/hr; Day#2-3 w/ Vital 1.5 @ 30ml/hr; Day#4 w/advanced TF'ing 10ml, as tolerated, to goal rate 45ml/hr. Rec Thiamine 100mg daily prior to initiating TF'ing and continue until TF'ing is tolerated at goal rate. TF'ing at goal rate will provide for 100% of RDI's. Monitor glucose/electrolytes closely after initiating TF'ing, and replace as needed. Additional Recs to follow r/t Clinical Course. Recommendations: 1. High risk for Re-Feeding Syndrome 2. For TF'ing Rec Vital 1.5 @ goal rate 45mL/hr 3. Rec initiation and progression of TF'ing as follows: Day#1-2 w/Vital 1.5 @ 20ml/hr; Day#2-3 w/Vital 1.5 @ 30ml/hr; Day#4 w/advanced TF'ing 10ml, as tolerated, to goal rate 45ml/hr 4. Rec Thiamine 100mg daily prior to initiating TF'ing and continue until TF' ing is tolerated at goal rate 5. TF'ing at goal rate will provide for 100% of RDI's 6. Monitor glucose/electrolytes closely after initiating TF'ing, and replace as needed 7. Additional Recs to follow r/t Clinical Course Dietitian to Monitor: Lab values, Electrolytes, Renal labs, Liver enzymes, Glucose level, Intake & Output, Tube feeding tolerance, Weight change, Swallow recommendations, Medical course
[2018-04-25] MEDS ORDERED: fentaNYL Citrate Inj 250 MCG/5 ML Ampul ONE (13:13)
[2018-04-25] MEDS ORDERED: Lidocaine PF 1% Inj 30 ML Vial ONE (13:45)
--- NOTE | 2018-04-25 14:11 | P.RAD ---
Post Procedure Progress Note - Procedure Information Procedure Date: 04/25/18 Supervising Radiologist: AR Lechuga Assisting Physician: Daquan Rivas Estimated blood loss (mL): 1 Anesthesia: Local, Conscious Sedation - Plan of Activity Patient to Unit: Nursing Unit Patient Condition: Good Additional Comments: An 18 Fr G-tube was successfully placed without any complications or difficulties. Patient tolerated the procedure well. See PACS Report for procedural detail/treatment.
[2018-04-25] MEDS ORDERED: Iohexol 350 MG/ML 50 ML Vial (for Rad Diag) G-TUBE ONE (14:17)
[2018-04-25] MEDS: Pantoprazole Inj 40 MG Vial IV.PUSH SCH (15:06)
--- NOTE | 2018-04-25 16:03 | IR ---
EXAM DATE: 04/25/2018 2:34 PM EST AGE/SEX: 57 years / Male INDICATIONS: Patient with history of a Malignant Neck Mass in need of Gastrostomy Tube placement for nutrition. CLINICAL DATA: This is the patient's initial encounter. Patient reports that signs and symptoms have been present for 1 day and indicates a pain score of 0/10. MEDICAL/SURGICAL HISTORY: . Malignant Neck Mass, Dysphagia, Failure to Thrive, Sepsis, Pneumoni a, Abscess . Neck surgery. COMPARISON: No prior exams available for comparison. FLUORO TIME (min): 2.1 IMAGE SERIES: 3 RADIATION DOSE: 9.8 mGy SEDATION TIME (min): 40 CONTRAST (cc): 20 Omnipaque (iohexol) 350 MEDICATION(S): 1 mg midazolam (Versed) IV 50 mcg fentanyl (Sublimaze) IV DEVICE(S): 18 Citizen [place] gastrostomy tube . . PROCEDURE: 1. Limited abdominal ultrasound. 2. Fluoroscopically guided gastrostomy tube placement. 3. Conscious sedation with continuous EKG and oximetry monitoring. The risks, benefits and alternatives to the procedure were explained and verbal and written consent w as obtained. The site was prepped in sterile fashion. Full sterile technique was used, including ca p, mask, sterile gloves and gown and a large sterile sheet. Hand hygiene and 2% chlorhexidine and/or betadine/alcohol prep was utilized per protocol for cutaneous antisepsis. The skin and subcutaneous tissues were infiltrated with local anesthetic solution. Sterile gel and sterile probe cover were u tilized for ultrasound guidance. Ultrasound was used to alejandro the position of the liver. The stomach was insufflated with room air. Th ree percutaneous fasteners were placed to secure the anterior gastric wall. A small incision was made between the fasteners. The stomach was accessed with an 18 gauge needle. A n 0.035 wire was advanced into the small bowel. The tract was dilated. The gastrostomy tube was int roduced through a peel-away sheath. The position was confirmed with an injection of contrast. Conscious sedation was performed with the prescribed dosages and duration as above in the presence of an independent trained radiology nurse to assist in the monitoring of the patient. EKG and oximetry remained stable throughout the procedure. The patient tolerated the procedure well and there were n o complications. The patient was sent to post anesthesia recovery in stable condition. CONCLUSION: 1. Uncomplicated gastrostomy tube placement as above. Electronically signed by: Daquan Rivas MD Board Certified Radiologist 04/25/2018 4:01 PM [facility]
[2018-04-25 16:30] LABS: ABG Base Excess 2.9 mmol/L (-2-2); ABG PCO2 54 mmHg (38-42); ABG PO2 76 mmHg (61-120)
--- NOTE | 2018-04-25 17:31 | P.PNPAL ---
Reason for Visit Reason for visit: a. To assist with evaluation and management of symptoms including: Dysphasia, weakness b. To assist medical decision maker(s) with: better understanding of current medical conditions; weighing benefits/burdens of medical treatment options; making medical treatment decisions. Subjective Subjective/Interval History: This is a 57-year-old male with a past medical history of tobaccoism, MRSA infections on the hands and right-sided neck mass who was initially seen at [facility] 10/27/2016 for the neck mass presents 04/22 with complaints of dysphasia. He has no insurance and had not been following with a primary care provider. He underwent ultrasound-guided needle biopsy of the right side of his neck mass in November 2016 showing a nondiagnostic biopsy with atypical cells, suspicious for squamous cell malignancy. The mass spontaneously ruptured in February 2017 and continued to drain until he was seen by Dr. Ambrocio at [facility] in [place] and underwent excision. Patient is uncertain what type of cancer he has but has an upcoming appointment with Dr. Ambrocio on May 11, 2018 with possible referral for chemo/radiation initiation. He has had multiple ED visits for this and was seen 04/10 for a similar complaint and underwent CT of the neck showing interval surgical excision of a large necrotic right neck mass 5 x 5.3 cm extending toward right posterior oropharynx with mass -effect on right tongue and deviation of oropharynx to the left without airway compromise. At that time he was seen by ENT, Dr. Hines, and was discharged on [facility] teens of a possible infiltrate on CT of the chest with plans to follow-up with Dr. Ambrocio. He presents severely cachectic with progressive dysphasia stating he was able to swallow liquids but no solids. Patient seen today for evaluation of symptom management of dysphagia and weakness and goals of care. Patient remains n.p.o., pending PEG tube placement by IR. He failed swallow evaluations consistently and barium swallow showed gross aspiration. This is likely secondary to his previous right neck mass dissection and remnant masses. He remains extremely cachectic and has lost nearly 70 pounds since the onset of his disease. He is weak but improving with rehydration. He is able to transfer from bed to chair with one assist. It is hoped that nutrition may assist him in regaining some of his strength and making him eligible for chemotherapy, however has too poor a performance status at this time. He is hopeful for some recovery and remains in FULL code at this time. . Family/Friend Interactions: No family is at bedside. His aunt Jody is his decision maker in [facility]. He does have a girlfriend but she is not present at this time. . Advance Directives Health Care Surrogate Name and Number: Aunt: Jody Estrada Objective Vital Signs: Vital Signs 04/24/18 20:00 04/24/18 23:48 04/25/18 00:36 Temperature 97.3 F L 97.8 F Pulse Rate 97 H 95 H 89 Respiratory Rate 18 18 Blood Pressure 109/63 99/59 L Pulse Oximetry 93 L 97 04/25/18 04:00 04/25/18 08:00 04/25/18 08:18 Temperature 97.8 F 97.7 F Pulse Rate 92 H 91 H 68 Respiratory Rate 18 18 18 Blood Pressure 94/55 L 96/56 L Pulse Oximetry 97 98 95 04/25/18 08:21 04/25/18 09:30 04/25/18 12:37 Temperature Pulse Rate 94 H Respiratory Rate 16 16 Blood Pressure Pulse Oximetry 04/25/18 13:19 04/25/18 14:28 04/25/18 14:30 Temperature 97.3 F L 97.5 F L Pulse Rate 87 56 L 62 Respiratory Rate 20 22 22 Blood Pressure 93/64 L 105/68 96/64 L Pulse Oximetry 94 L 96 04/25/18 15:02 04/25/18 15:24 04/25/18 15:36 Temperature 97.8 F Pulse Rate 60 85 88 Respiratory Rate 20 15 16 Blood Pressure 96/62 L 105/62 Pulse Oximetry 98 95 04/25/18 15:49 04/25/18 16:00 Temperature 97.8 F 97.8 F Pulse Rate 85 84 Respiratory Rate 15 15 Blood Pressure 105/62 104/67 Pulse Oximetry 98 Intake & Output 04/24/18 04/25/18 04/25/18 18:59 06:59 18:59 Intake Total 600 / 600 900 / 900 1200 / 1200 Output Total 250 / 250 Balance 600 / 600 650 / 650 1200 / 1200 Weight 79 lb 12.917 oz 79 lb 12.917 oz Intake: IV 600 / 600 900 / 900 1200 / 1200 D5W/1/2 NS Inj 1,000 ML @ 84 300 / 300 400 / 400 1000 / 1000 mls/hr IV.CONT .[id number] [facility] Rx# :[id number] Zosyn 4.5 GM Premix 4.5 gm In 100 / 100 300 / 300 100 / 100 100 ml @ 200 mls/hr IV.SIG Q6H MICHEAL Rx#:[id number] KCl 20 mEq Premix Inj 20 meq In 100 / 100 200 / 200 100 ml @ 50 mls/hr IV.SIG ONCE ONE Rx#:[id number] Vancomycin Inj 500 MG In NS Inj 100 / 100 100 / 100 100 ML @ 200 mls/hr IV.SIG Q18H [facility] Rx#:[id number] Oral 0 / 0 Output: Urine 250 / 250 Other: Date of Last Bowel Movement 04/24/18 04/24/18 Weight On Admission 79 lb 12.917 oz Physical Exam: CONSTITUTIONAL/GENERAL: This is an extremely cachectic, ill-appearing, lethargic male sitting up in a chair in no acute distress. TUBES/LINES/DRAINS: PIV CARDIOVASCULAR: Regular rate and rhythm without murmurs, gallops, or rubs. No JVD. Peripheral pulses symmetric. RESPIRATORY/CHEST: Symmetric, unlabored respirations. Clear, diminished to auscultation. Breath sounds equal bilaterally. No wheezes, rales, or rhonchi. GASTROINTESTINAL: Abdomen soft, non-tender, nondistended. No hepato-splenomegaly , or palpable masses. No guarding. Bowel sounds present. GENITOURINARY: Without palpable bladder distension. MUSCULOSKELETAL: Extremities without clubbing, cyanosis, or edema. No joint tenderness or effusion noted. No calf tenderness. No mottling or clubbing. LYMPHATICS: Palpable mass in right submandibular area. NEUROLOGICAL: Awake, alert, oriented x4 moves all extremities, no focal deficits. PSYCHIATRIC: Calm, smiling, cooperative. . Diagnostic Tests Laboratory: Laboratory Results - last 72 hr 04/22/18 04/22/18 04/22/18 22:28 22:35 22:38 WBC RBC Hgb Hct MCV MCH MCHC RDW Plt Count MPV Prelim Diff (Auto) Neut % (Auto) Lymph % (Auto) Forest % (Auto) Eos % (Auto) Baso % (Auto) Neut # (Auto) Lymph # (Auto) Forest # (Auto) Eos # (Auto) Baso # (Auto) WBC Differential Diff Scan Differential Comment Platelet Estimate Platelet Morphology PT 11.8 H INR 1.2 APTT 21.8 L Puncture Site Patient Temperature O2 Saturation ABG pH ABG pCO2 ABG pO2 ABG HCO3 ABG O2 Content ABG Base Excess ABG Methemoglobin Bradford Test Hemoglobin Carboxyhemoglobin O2 Delivery Device Liter Flow Critical Value Sodium Potassium Chloride Carbon Dioxide Anion Gap BUN Creatinine Estimated GFR POC Glucose 108 Random Glucose Lactic Acid 2.8 H Calcium Magnesium Total Bilirubin AST ALT Alkaline Phosphatase Total Creatine Kinase Troponin I Total Protein Albumin Lipase Procalcitonin Urine Color Urine Clarity Urine pH Ur Specific [place] Urine Protein Urine Glucose (UA) Urine Ketones Urine Occult Blood Urine Nitrate Urine Bilirubin Urine Urobilinogen Ur Leukocyte Esterase Urine RBC Urine WBC Micro UA Comment Ur Microscopic Review Urine Culture Comments 04/22/18 04/22/18 04/22/18 22:38 22:38 22:38 WBC 15.6 H RBC 4.75 Hgb 13.8 Hct 42.1 MCV 88.6 MCH 29.1 MCHC 32.8 RDW 14.9 Plt Count 365 MPV 8.1 Prelim Diff (Auto) Slide review pending Neut % (Auto) 93.1 H Lymph % (Auto) 3.9 L Forest % (Auto) 2.8 Eos % (Auto) 0.1 Baso % (Auto) 0.1 Neut # (Auto) 14.5 H Lymph # (Auto) 0.6 L Forest # (Auto) 0.4 Eos # (Auto) 0.0 Baso # (Auto) 0.0 WBC Differential . Diff Scan Auto diff confirmed Differential Comment . Platelet Estimate Normal Platelet Morphology Normal PT INR APTT Puncture Site Patient Temperature O2 Saturation ABG pH ABG pCO2 ABG pO2 ABG HCO3 ABG O2 Content ABG Base Excess ABG Methemoglobin Bradford Test Hemoglobin Carboxyhemoglobin O2 Delivery Device Liter Flow Critical Value Sodium 139 Potassium 3.9 Chloride 100 Carbon Dioxide 27.5 Anion Gap 12 BUN 25 H Creatinine 0.83 Estimated GFR Greater than 89 POC Glucose Random Glucose 115 H Lactic Acid Calcium 8.5 Magnesium 2.1 Total Bilirubin 0.6 AST 24 ALT 14 Alkaline Phosphatase 79 Total Creatine Kinase 87 Troponin I Less than 0.02 L Total Protein 7.2 Albumin 2.7 L Lipase 70 L Procalcitonin Urine Color Urine Clarity Urine pH Ur Specific [place] Urine Protein Urine Glucose (UA) Urine Ketones Urine Occult Blood Urine Nitrate Urine Bilirubin Urine Urobilinogen Ur Leukocyte Esterase Urine RBC Urine WBC Micro UA Comment Ur Microscopic Review Urine Culture Comments 04/23/18 04/23/18 04/23/18 03:10 08:54 18:10 WBC RBC Hgb Hct MCV MCH MCHC RDW Plt Count MPV Prelim Diff (Auto) Neut % (Auto) Lymph % (Auto) Forest % (Auto) Eos % (Auto) Baso % (Auto) Neut # (Auto) Lymph # (Auto) Forest # (Auto) Eos # (Auto) Baso # (Auto) WBC Differential Diff Scan Differential Comment Platelet Estimate Platelet Morphology PT INR APTT Puncture Site Patient Temperature O2 Saturation ABG pH ABG pCO2 ABG pO2 ABG HCO3 ABG O2 Content ABG Base Excess ABG Methemoglobin Bradford Test Hemoglobin Carboxyhemoglobin O2 Delivery Device Liter Flow Critical Value Sodium Potassium Chloride Carbon Dioxide Anion Gap BUN Creatinine Estimated GFR POC Glucose 86 Random Glucose Lactic Acid 1.3 Calcium Magnesium Total Bilirubin AST ALT Alkaline Phosphatase Total Creatine Kinase Troponin I Total Protein Albumin Lipase Procalcitonin Urine Color Angela Urine Clarity Hazy H Urine pH 5.0 Ur Specific [place] Greater than 1.060 H Urine Protein 30 H Urine Glucose (UA) Negative Urine Ketones Trace H Urine Occult Blood Negative Urine Nitrate Negative Urine Bilirubin Negative Urine Urobilinogen Less than 2 Ur Leukocyte Esterase Negative Urine RBC 3 Urine WBC 2 Micro UA Comment Culture not ind Ur Microscopic Review Not Reportable Urine Culture Comments Culture not ind 04/24/18 04/24/18 04/24/18 04:52 04:52 04:52 WBC RBC Hgb Hct MCV MCH MCHC RDW Plt Count MPV Prelim Diff (Auto) Neut % (Auto) Lymph % (Auto) Forest % (Auto) Eos % (Auto) Baso % (Auto) Neut # (Auto) Lymph # (Auto) Forest # (Auto) Eos # (Auto) Baso # (Auto) WBC Differential Diff Scan Differential Comment Platelet Estimate Platelet Morphology PT 11.4 INR 1.1 APTT Puncture Site Patient Temperature O2 Saturation ABG pH ABG pCO2 ABG pO2 ABG HCO3 ABG O2 Content ABG Base Excess ABG Methemoglobin Bradford Test Hemoglobin Carboxyhemoglobin O2 Delivery Device Liter Flow Critical Value Sodium 137 Potassium 2.8 L* D Chloride 102 Carbon Dioxide 28.1 Anion Gap 7 BUN 15 Creatinine 0.66 Estimated GFR Greater than 89 POC Glucose Random Glucose 114 H Lactic Acid Calcium 8.3 L Magnesium 1.9 Total Bilirubin 0.4 AST 20 ALT 11 L Alkaline Phosphatase 72 Total Creatine Kinase Troponin I Total Protein 6.7 Albumin 2.3 L Lipase Procalcitonin 0.13 H Urine Color Urine Clarity Urine pH Ur Specific [place] Urine Protein Urine Glucose (UA) Urine Ketones Urine Occult Blood Urine Nitrate Urine Bilirubin Urine Urobilinogen Ur Leukocyte Esterase Urine RBC Urine WBC Micro UA Comment Ur Microscopic Review Urine Culture Comments 04/24/18 04/24/18 04/25/18 04:53 15:27 04:35 WBC 13.5 H RBC 4.54 Hgb 13.2 Hct 41.1 MCV 90.5 MCH 29.1 MCHC 32.2 RDW 14.8 Plt Count 325 MPV 7.6 Prelim Diff (Auto) Neut % (Auto) 92.7 H Lymph % (Auto) 3.2 L Forest % (Auto) 3.6 Eos % (Auto) 0.4 Baso % (Auto) 0.1 Neut # (Auto) 12.5 H Lymph # (Auto) 0.4 L [place] # (Auto) 0.5 Eos # (Auto) 0.1 Baso # (Auto) 0.0 WBC Differential . Diff Scan Differential Comment Auto diff final Platelet Estimate Platelet Morphology PT INR APTT Puncture Site Patient Temperature O2 Saturation ABG pH ABG pCO2 ABG pO2 ABG HCO3 ABG O2 Content ABG Base Excess ABG Methemoglobin Bradford Test Hemoglobin Carboxyhemoglobin O2 Delivery Device Liter Flow Critical Value Sodium 139 Potassium 3.3 L 3.4 L Chloride 104 Carbon Dioxide 28.6 Anion Gap 6 BUN 12 Creatinine 0.52 L Estimated GFR Greater than 89 POC Glucose Random Glucose 128 H Lactic Acid Calcium 7.7 L Magnesium Total Bilirubin AST ALT Alkaline Phosphatase Total Creatine Kinase Troponin I Total Protein Albumin Lipase Procalcitonin Urine Color Urine Clarity Urine pH Ur Specific [place] Urine Protein Urine Glucose (UA) Urine Ketones Urine Occult Blood Urine Nitrate Urine Bilirubin Urine Urobilinogen Ur Leukocyte Esterase Urine RBC Urine WBC Micro UA Comment Ur Microscopic Review Urine Culture Comments 04/25/18 16:22 WBC RBC Hgb Hct MCV MCH MCHC RDW Plt Count MPV Prelim Diff (Auto) Neut % (Auto) Lymph % (Auto) Forest % (Auto) Eos % (Auto) Baso % (Auto) Neut # (Auto) Lymph # (Auto) [place] # (Auto) Eos # (Auto) Baso # (Auto) WBC Differential Diff Scan Differential Comment Platelet Estimate Platelet Morphology PT INR APTT Puncture Site Left radial Patient Temperature 98.6 O2 Saturation 92 ABG pH 7.34 L ABG pCO2 54 H* ABG pO2 76 ABG HCO3 28 H ABG O2 Content 15.8 ABG Base Excess 2.9 H ABG Methemoglobin 1.3 Bradford Test Present Hemoglobin 12.1 Carboxyhemoglobin 0.7 O2 Delivery Device Nasal cannula Liter Flow 4.00 Critical Value Yes Sodium Potassium Chloride Carbon Dioxide Anion Gap BUN Creatinine Estimated GFR POC Glucose Random Glucose Lactic Acid Calcium Magnesium Total Bilirubin AST ALT Alkaline Phosphatase Total Creatine Kinase Troponin I Total Protein Albumin Lipase Procalcitonin Urine Color Urine Clarity Urine pH Ur Specific [place] Urine Protein Urine Glucose (UA) Urine Ketones Urine Occult Blood Urine Nitrate Urine Bilirubin Urine Urobilinogen Ur Leukocyte Esterase Urine RBC Urine WBC Micro UA Comment Ur Microscopic Review Urine Culture Comments Result Diagrams: 04/29/18 10:20 04/30/18 19:49 Microbiology: Microbiology 04/22/18 22:38 Aerobic Blood Culture - Preliminary Blood - Peripheral No growth in 3 days Anaerobic Blood Culture - Preliminary No growth in 3 days 04/22/18 22:38 Aerobic Blood Culture - Preliminary Blood - Peripheral No growth in 3 days Anaerobic Blood Culture - Preliminary No growth in 3 days Imaging: ITS Impressions Chest X-Ray 04/22/18 22:32 CONCLUSION: No acute cardiopulmonary disease. Abdomen/Pelvis CT 04/23/18 00:00 CONCLUSION: 1. Moderate amount of ascites. 2. Left para-aortic retroperitoneal lymphadenopathy which is nonspecific. PET/ CT scan may be helpful for further evaluation of this finding if clinically indicated. 3. Scattered ground-glass densities within the visualized lung bases. 4. High density material layering within the gallbladder consistent with sludge or vicarious excretion of contrast. Chest CTA 04/23/18 00:15 CONCLUSION: 1. Study is negative for pulmonary embolism. 2. Interval development of multiple opacities in the right lung, the largest measures 1.6 cm with irregular margins and the others measure less than 5 mm. This suggests a hematogenous process, malignant versus infectious.. 3. Nonconsolidative patchy areas of infiltrate in the lower lateral left lung stable in appearance. Videofluoroscopic Swallow 04/24/18 15:37 CONCLUSION: Familia aspiration with nectar-thick and puree-thick barium as well as extensive pooling within the paired valleculae and piriform sinuses with both substances. Gastrostomy Tube Placement 04/25/18 00:00 CONCLUSION: 1. Uncomplicated gastrostomy tube placement as above. Procedures: 04/25: PEG tube placement . 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 He was for 10 years but is now and has no children. 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 Legal: No advance directives completed. Ethical issues impacting care: None noted. Important Contacts: HCS/aunt: Jody Vazquez Significant other: Ruth Mobley . Prognosis: His prognosis appears poor. His neck mass was first noted October 2016 but he underwent no treatment until January 2018. He continues to smoke. He is extremely cachectic and has lost nearly half of his body weight since 2012. He had a neck resection done in January 2018. 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 CTA of the thorax shows multiple opacities the largest of which is 1.6 cm with irregular margins, malignant versus infectious. He is far too debilitated at this time to undergo chemotherapy or radiation. He is too weak to safely transfer of shower without assistance. He ambulates by holding onto furniture. PT evaluation recommended PT at rehab versus hospice. Patient's goals at this time remain aggressive. Pending further information from Dr. Ambrocio's office regarding neck resection and pathology. He is being evaluated by GI for PEG tube placement, but will likely involve IR if he is considered a candidate due to anatomical disruption secondary to his surgery. Barium swallow is pending. . Code Status: Full Code Plan: PLAN: Legal decision maker: At this time he is capacitated for decision-making, however has designated his aunt Jody Vazquez as his healthcare surrogate in the case of his incapacitation. Per [place] statutes, as he has no , children nor living siblings, both parents are , she would be the proxy decision- maker. Goals: Aggressive. CODE STATUS: full CODE SYMPTOMS: * Dysphasia: Multifactorial, likely related to his extreme weakness, cachexia being unable to eat and previous right neck mass surgery with residual submandibular and oropharyngeal masses. He failed the barium swallow and had PEG tube placed today by IR. Tube feeding per dietary. Plan is to attempt to improve his nutritional status to allow him to receive chemotherapy and/or radiation. Dr. Pereira is following. * Weakness: He is extremely weak and debilitated with muscle wasting secondary to his inability to eat. He is very cachectic. Physical therapy is evaluating and is recommending either PT at rehab versus hospice. No further recommendations at this time. Palliative care will continue to follow the patient during hospital course as condition evolves, to assist patient/decision-maker with understanding of their medical conditions, weighing benefits/burdens of treatment options, for clarification of goals of treatment. Additionally will assist with any symptoms of palliative concern. . Attestation Attestation: To help prompt me to consider important information that might be impacting today's encounter and assessment, information from prior notes written by myself or my colleagues may have been "brought forward" into today's note. My signature on this note, however, is an attestation that I personally performed the exam, history, and/or decision-making noted today, and, unless otherwise indicated, the interactions with patient, family, and staff as well as the review of records all occurred today. I also attest that the listed assessment and stated plan reflect my best clinical judgment today based on the combination of historical information, prior notes, and today's exam/ interactions. When time spent is documented, it refers only to time spent today by the signer, or if indicated, combined time spent today by collaborating physician/nurse practitioner. .
[2018-04-26] MEDS: Piperacil/Tazo 4.5 GM Premix 4.5 GM/100 ML BAG IV.SIG SCH ×4 (00:05→17:52)
[2018-04-26] MEDS: Morphine Inj 4 MG/ML Vial IV.PUSH PRN ×5 (01:34→20:49)
[2018-04-26] MEDS: Vancomycin Inj 500 MG in Sodium Chlor 0.9% Inj 100 ML IV.SIG SCH (03:50)
[2018-04-26] MEDS: Dextrose 5%/NaCl 0.45% Inj 1,000 ML IV.CONT SCH ×2 (04:50→14:13)
[2018-04-26 05:47] LABS: Glomerular Filtration Rate Greater Than 89 mL/min (>89)
[2018-04-26] MEDS: Senna/Docusate Sodium 8.6/50 MG Tablet PO SCH ×2 (08:58→20:50)
[2018-04-26] MEDS: Pantoprazole Inj 40 MG Vial IV.PUSH SCH (13:10)
[2018-04-26] MEDS ORDERED: Pharmacy Ordered Lab Info OTHER ONE (14:45)
--- NOTE | 2018-04-26 15:28 | P.PNIM ---
Subjective Interval history: 57-year-old male with a history of neck cancer, who presented with generalized weakness due to protracted poor nutrition from progressive dysphagia. Yesterday he received a PEG tube in interventional radiology. He is looking forward to regaining weight by adding calories to his diet via PEG tube. He is extremely emaciated and needs more weight to be able to proceed with chemotherapy in order to treat this cancer. Physical Exam Vital signs: Last Vital Signs Temp 97.6 F 04/26/18 12:00 Pulse 77 04/26/18 12:00 Resp 20 04/26/18 12:00 BP 102/64 04/26/18 12:00 Pulse Ox 91 L 04/26/18 12:00 Intake & Output 04/24/18 04/25/18 04/26/18 04/27/18 06:59 06:59 06:59 06:59 Intake Total 2850 / 2850 1500 / 1500 2625 / 2625 200 / 200 Output Total 1050 / 1050 250 / 250 500 / 500 Balance 1800 / 1800 1250 / 1250 2125 / 2125 200 / 200 Weight 36.2 kg 39.9 kg Narrative: PE: GENERAL: Emaciated man who is alert and oriented x3, in good spirits after receiving a PEG tube SKIN: Focused skin assessment warm and dry. HEENT: PERRLA, EOMI. No scleral icterus or conjunctival pallor. No lid lag or facial droop. Right neck surgical scar CARDIOVASCULAR: Regular rate and rhythm. No obvious murmurs to auscultation. No chest tenderness to palpation. RESPIRATORY: No obvious rhonchi or wheezing. Clear to auscultation. Breath sounds equal bilaterally. GASTROINTESTINAL: Abdomen soft, non-tender, nondistended. BS normal. PEG tube in place MUSCULOSKELETAL: Muscle wasting. No obvious deformities. NEUROLOGICAL: Awake, alert and oriented x4. No focal neurologic deficits. Moving both upper and lower extremities spontaneously. PSYCHIATRIC: Appropriate mood and affect. Insight and judgment normal. Results Labs CBC & Chem 7: 04/24/18 04:53 04/26/18 04:21 Labs: Microbiology 04/22/18 22:38 Blood - Peripheral Aerobic Blood Culture - Preliminary No growth in 4 days 04/22/18 22:38 Blood - Peripheral Anaerobic Blood Culture - Preliminary No growth in 4 days 04/22/18 22:38 Blood - Peripheral Aerobic Blood Culture - Preliminary No growth in 4 days 04/22/18 22:38 Blood - Peripheral Anaerobic Blood Culture - Preliminary No growth in 4 days Imaging Imaging: Impressions Gastrostomy Tube Placement 04/25/18 00:00 CONCLUSION: 1. Uncomplicated gastrostomy tube placement as above. Assessment and Plan (1) Pneumonia: Code(s): J18.9 - Pneumonia, unspecified organism Status: Acute (2) Dysphagia: Code(s): R13.10 - Dysphagia, unspecified Status: Acute (3) Dehydration: Code(s): E86.0 - Dehydration Status: Acute (4) FTT (failure to thrive) in adult: Code(s): R62.7 - Adult failure to thrive Status: Acute (5) Neck mass: Code(s): R22.1 - Localized swelling, mass and lump, neck Status: Acute Plan Neck mass hx of neck mass with surgical excision of large necrotic right neck mass CT of neck on 04/10/2018 showed soft tissue mass tending to posterior oropharynx base Patient underwent resection of mass with muscular graft He wants to regain weight and gain strength in order to proceed with chemotherapy Appreciate oncology consult Appreciate radiation oncology Appreciate palliative care Dysphagia Main cause of his emaciated state PEG tube was placed yesterday Begin PEG tube feeds today, incremental increases due to risk of refeeding syndrome Appreciate gastroenterology consult Appreciate interventional radiology PEG tube placement Appreciate dietary consult Aspiration pneumonia vs pneumonitis Patient remains afebrile Continue empiric coverage with vancomycin and Zosyn DVT prophylaxis SCDs Progress Note: Quality VTE Deep Vein Thrombosis/Pulmonary Embolism Present on Admission: No _ (1) Pneumonia Qualifiers: Aspiration pneumonia type: Laterality: unspecified laterality Lung location : unspecified part of lung Pneumonia type: due to unspecified organism Qualified Code(s): J18.9 - Pneumonia, unspecified organism (2) Dysphagia Qualifiers: Dysphagia type: unspecified Qualified Code(s): R13.10 - Dysphagia, unspecified
--- NOTE | 2018-04-26 19:05 | P.PNPAL ---
Reason for Visit Reason for visit: a. To assist with evaluation and management of symptoms including: Dysphasia, weakness b. To assist medical decision maker(s) with: better understanding of current medical conditions; weighing benefits/burdens of medical treatment options; making medical treatment decisions. Subjective Subjective/Interval History: This is a 57-year-old male with a past medical history of tobaccoism, MRSA infections on the hands and right-sided neck mass who was initially seen at [facility] 10/27/2016 for the neck mass presents 04/22 with complaints of dysphasia. He has no insurance and had not been following with a primary care provider. He underwent ultrasound-guided needle biopsy of the right side of his neck mass in November 2016 showing a nondiagnostic biopsy with atypical cells, suspicious for squamous cell malignancy. The mass spontaneously ruptured in February 2017 and continued to drain until he was seen by Dr. Ambrocio at [facility] in [place] and underwent excision. Patient is uncertain what type of cancer he has but has an upcoming appointment with Dr. Ambrocio on May 11, 2018 with possible referral for chemo/radiation initiation. He has had multiple ED visits for this and was seen 04/10 for a similar complaint and underwent CT of the neck showing interval surgical excision of a large necrotic right neck mass 5 x 5.3 cm extending toward right posterior oropharynx with mass -effect on right tongue and deviation of oropharynx to the left without airway compromise. At that time he was seen by ENT, Dr. Hines, and was discharged on [facility] teens of a possible infiltrate on CT of the chest with plans to follow-up with Dr. Ambrocio. He presents severely cachectic with progressive dysphasia stating he was able to swallow liquids but no solids. Patient seen today for evaluation of symptom management of dysphagia and weakness and goals of care. Patient received PEG tube 04/25 and is now completed the 24-hour waiting. Prior to starting tube feeding. Discussed with Dr. Pisano. Tube feeding will be initiated per dietary recommendations of vital 1.5 with target goal of 45 mL/ h. His dysphasia is severe, continuous, exacerbated by previous surgery of a right neck mass, unrelieved. His weakness is likely secondary to his severe malnutrition from inability to swallow. He is feeling better once rehydrated and is awaiting tube feeding initiation. He is able to stand with assistance and transfer to the bed but shows significant muscle wasting in all extremities and will likely need extended rehab. . Family/Friend Interactions: Spoke with patient's aunt Jody and provided clinical update. She is grateful for the update and asks that her good wishes and priors be related to her nephew. Patient was happy to receive is not good wishes and expresses his wish that she call him at her convenience. . Advance Directives Health Care Surrogate Name and Number: Aunt: Jody Estrada Objective Vital Signs: Vital Signs 04/25/18 20:00 04/25/18 21:25 04/26/18 00:00 Temperature 97.8 F 97.6 F Pulse Rate 87 85 Respiratory Rate 18 18 19 Blood Pressure 92/54 L 100/62 Pulse Oximetry 98 97 04/26/18 04:00 04/26/18 08:00 04/26/18 08:57 Temperature 97.2 F L 98.0 F Pulse Rate 87 84 Respiratory Rate 16 18 18 Blood Pressure 117/72 90/58 L Pulse Oximetry 99 99 04/26/18 12:00 04/26/18 16:00 04/26/18 18:14 Temperature 97.6 F 98.0 F Pulse Rate 77 77 Respiratory Rate 20 20 16 Blood Pressure 102/64 116/69 Pulse Oximetry 91 L 96 Intake & Output 04/25/18 04/26/18 04/26/18 18:59 06:59 18:59 Intake Total 1300 / 1300 1325 / 1325 1540 / 1540 Output Total 400 / 400 100 / 100 Balance 900 / 900 1225 / 1225 1540 / 1540 Weight 79 lb 12.917 oz 87 lb 15.431 oz Intake: IV 1300 / 1300 1200 / 1200 1300 / 1300 D5W/1/2 NS Inj 1,000 ML @ 84 1000 / 1000 1000 / 1000 1000 / 1000 mls/hr IV.CONT .[id number] MICHEAL Rx# :[id number] Zosyn 4.5 GM Premix 4.5 gm In 200 / 200 100 / 100 300 / 300 100 ml @ 200 mls/hr IV.SIG Q6H MICHEAL Rx#:[id number] Vancomycin Inj 500 MG In NS Inj 100 / 100 100 / 100 100 ML @ 200 mls/hr IV.SIG Q18H MICHEAL Rx#:[id number] Oral 125 / 125 240 / 240 Output: Urine 400 / 400 100 / 100 Other: # Voids 2 Date of Last Bowel Movement 04/24/18 04/24/18 04/23/18 Weight On Admission 79 lb 12.917 oz Physical Exam: CONSTITUTIONAL/GENERAL: This is an extremely cachectic, ill-appearing, lethargic male sitting up in a chair in no acute distress. TUBES/LINES/DRAINS: PIV CARDIOVASCULAR: Regular rate and rhythm without murmurs, gallops, or rubs. No JVD. Peripheral pulses symmetric. RESPIRATORY/CHEST: Symmetric, unlabored respirations. Clear, diminished to auscultation. Breath sounds equal bilaterally. No wheezes, rales, or rhonchi. GASTROINTESTINAL: Abdomen soft, non-tender, nondistended. No hepato-splenomegaly , or palpable masses. No guarding. Bowel sounds present. GENITOURINARY: Without palpable bladder distension. MUSCULOSKELETAL: Extremities without clubbing, cyanosis, or edema. No joint tenderness or effusion noted. No calf tenderness. No mottling or clubbing. LYMPHATICS: Palpable mass in right submandibular area. NEUROLOGICAL: Awake, alert, oriented x4 moves all extremities, no focal deficits. PSYCHIATRIC: Calm, smiling, cooperative. . Diagnostic Tests Laboratory: Laboratory Results - last 72 hr 04/24/18 04/24/18 04/24/18 04:52 04:52 04:52 WBC RBC Hgb Hct MCV MCH MCHC RDW Plt Count MPV Neut % (Auto) Lymph % (Auto) Kenton % (Auto) Eos % (Auto) Baso % (Auto) Neut # (Auto) Lymph # (Auto) Kenton # (Auto) Eos # (Auto) Baso # (Auto) WBC Differential Differential Comment PT 11.4 INR 1.1 Puncture Site Patient Temperature O2 Saturation ABG pH ABG pCO2 ABG pO2 ABG HCO3 ABG O2 Content ABG Base Excess ABG Methemoglobin Bradford Test Hemoglobin Carboxyhemoglobin O2 Delivery Device Liter Flow Critical Value Sodium 137 Potassium 2.8 L* D Chloride 102 Carbon Dioxide 28.1 Anion Gap 7 BUN 15 Creatinine 0.66 Estimated GFR Greater than 89 Random Glucose 114 H Calcium 8.3 L Magnesium 1.9 Total Bilirubin 0.4 AST 20 ALT 11 L Alkaline Phosphatase 72 Total Protein 6.7 Albumin 2.3 L Procalcitonin 0.13 H Vancomycin Trough 04/24/18 04/24/1804/25/18 04:53 15:27 04:35 WBC 13.5 H RBC 4.54 Hgb 13.2 Hct 41.1 MCV 90.5 MCH 29.1 MCHC 32.2 RDW 14.8 Plt Count 325 MPV 7.6 Neut % (Auto) 92.7 H Lymph % (Auto) 3.2 L Kenton % (Auto) 3.6 Eos % (Auto) 0.4 Baso % (Auto) 0.1 Neut # (Auto) 12.5 H Lymph # (Auto) 0.4 L Kenton # (Auto) 0.5 Eos # (Auto) 0.1 Baso # (Auto) 0.0 WBC Differential . Differential Comment Auto diff final PT INR Puncture Site Patient Temperature O2 Saturation ABG pH ABG pCO2 ABG pO2 ABG HCO3 ABG O2 Content ABG Base Excess ABG Methemoglobin Bradford Test Hemoglobin Carboxyhemoglobin O2 Delivery Device Liter Flow Critical Value Sodium 139 Potassium 3.3 L 3.4 L Chloride 104 Carbon Dioxide 28.6 Anion Gap 6 BUN 12 Creatinine 0.52 L Estimated GFR Greater than 89 Random Glucose 128 H Calcium 7.7 L Magnesium Total Bilirubin AST ALT Alkaline Phosphatase Total Protein Albumin Procalcitonin Vancomycin Trough 04/25/18 04/26/18 04/26/18 16:22 04:21 14:45 WBC RBC Hgb Hct MCV MCH MCHC RDW Plt Count MPV Neut % (Auto) Lymph % (Auto) Kenton % (Auto) Eos % (Auto) Baso % (Auto) Neut # (Auto) Lymph # (Auto) Kenton # (Auto) Eos # (Auto) Baso # (Auto) WBC Differential Differential Comment PT INR Puncture Site Left radial Patient Temperature 98.6 O2 Saturation 92 ABG pH 7.34 L ABG pCO2 54 H* ABG pO2 76 ABG HCO3 28 H ABG O2 Content 15.8 ABG Base Excess 2.9 H ABG Methemoglobin 1.3 Bradford Test Present Hemoglobin 12.1 Carboxyhemoglobin 0.7 O2 Delivery Device Nasal cannula Liter Flow 4.00 Critical Value Yes Sodium Potassium Chloride Carbon Dioxide Anion Gap BUN Creatinine 0.53 L Estimated GFR Greater than 89 Random Glucose Calcium Magnesium Total Bilirubin AST ALT Alkaline Phosphatase Total Protein Albumin Procalcitonin Vancomycin Trough 7.1 Result Diagrams: 04/29/18 10:20 04/30/18 19:49 Microbiology: Microbiology 04/22/18 22:38 Aerobic Blood Culture - Preliminary Blood - Peripheral No growth in 4 days Anaerobic Blood Culture - Preliminary No growth in 4 days 04/22/18 22:38 Aerobic Blood Culture - Preliminary Blood - Peripheral No growth in 4 days Anaerobic Blood Culture - Preliminary No growth in 4 days Imaging: ITS Impressions Chest X-Ray 04/22/18 22:32 CONCLUSION: No acute cardiopulmonary disease. Abdomen/Pelvis CT 04/23/18 00:00 CONCLUSION: 1. Moderate amount of ascites. 2. Left para-aortic retroperitoneal lymphadenopathy which is nonspecific. PET/ CT scan may be helpful for further evaluation of this finding if clinically indicated. 3. Scattered ground-glass densities within the visualized lung bases. 4. High density material layering within the gallbladder consistent with sludge or vicarious excretion of contrast. Chest CTA 04/23/18 00:15 CONCLUSION: 1. Study is negative for pulmonary embolism. 2. Interval development of multiple opacities in the right lung, the largest measures 1.6 cm with irregular margins and the others measure less than 5 mm. This suggests a hematogenous process, malignant versus infectious.. 3. Nonconsolidative patchy areas of infiltrate in the lower lateral left lung stable in appearance. Videofluoroscopic Swallow 04/24/18 15:37 CONCLUSION: Familia aspiration with nectar-thick and puree-thick barium as well as extensive pooling within the paired valleculae and piriform sinuses with both substances. Gastrostomy Tube Placement 04/25/18 00:00 CONCLUSION: 1. Uncomplicated gastrostomy tube placement as above. Procedures: 04/25: PEG tube placement . 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 He was for 10 years but is now and has no children. He has lived with his current girlfriend for approximately 14 years Spiritual: Medicaid Analyst available. Legal: No advance directives completed. Ethical issues impacting care: None noted. Important Contacts: HCS/aunt: Jody Vazquez Significant other: Ruth Mobley . Prognosis: His prognosis appears poor. His neck mass was first noted October 2016 but he underwent no treatment until January 2018. He continues to smoke. He is extremely cachectic and has lost nearly half of his body weight since 2012. He had a neck resection done in January 2018. 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 CTA of the thorax shows multiple opacities the largest of which is 1.6 cm with irregular margins, malignant versus infectious. He is far too debilitated at this time to undergo chemotherapy or radiation. He is too weak to safely transfer of shower without assistance. He ambulates by holding onto furniture. PT evaluation recommended PT at rehab versus hospice. Patient's goals at this time remain aggressive. Pending further information from Dr. Ambrocio's office regarding neck resection and pathology. He is being evaluated by GI for PEG tube placement, but will likely involve IR if he is considered a candidate due to anatomical disruption secondary to his surgery. Barium swallow is pending. . Code Status: Full Code Plan: PLAN: Legal decision maker: At this time he is capacitated for decision-making, however has designated his aunt Jody Vazquez as his healthcare surrogate in the case of his incapacitation. Per [place] statutes, as he has no , children nor living siblings, both parents are , she would be the proxy decision- maker. Goals: Aggressive. CODE STATUS: full CODE SYMPTOMS: * Dysphasia: Multifactorial, likely related to his extreme weakness, cachexia being unable to eat and previous right neck mass surgery with residual submandibular and oropharyngeal masses. He failed the barium swallow and had PEG tube placed today by IR. Tube feeding per dietary. Plan is to attempt to improve his nutritional status to allow him to receive chemotherapy and/or radiation. Dr. Pereira is following. * Weakness: He is extremely weak and debilitated with muscle wasting secondary to his inability to eat. He is very cachectic. PEG tube has been placed and tube feeding will be initiated today. Physical therapy is evaluating and is recommending either PT at rehab versus hospice. No further recommendations at this time. Palliative care will continue to follow the patient during hospital course as condition evolves, to assist patient/decision-maker with understanding of their medical conditions, weighing benefits/burdens of treatment options, for clarification of goals of treatment. Additionally will assist with any symptoms of palliative concern. . Attestation Attestation: To help prompt me to consider important information that might be impacting today's encounter and assessment, information from prior notes written by myself or my colleagues may have been "brought forward" into today's note. My signature on this note, however, is an attestation that I personally performed the exam, history, and/or decision-making noted today, and, unless otherwise indicated, the interactions with patient, family, and staff as well as the review of records all occurred today. I also attest that the listed assessment and stated plan reflect my best clinical judgment today based on the combination of historical information, prior notes, and today's exam/ interactions. When time spent is documented, it refers only to time spent today by the signer, or if indicated, combined time spent today by collaborating physician/nurse practitioner. .
[2018-04-26] MEDS: Vancomycin Inj 750 MG in Sodium Chlor 0.9% Inj 250 ML IV.SIG SCH (19:10)
[2018-04-27] MEDS: Morphine Inj 4 MG/ML Vial IV.PUSH PRN ×7 (00:02→23:34)
[2018-04-27] MEDS: Piperacil/Tazo 4.5 GM Premix 4.5 GM/100 ML BAG IV.SIG SCH ×4 (00:02→17:01)
[2018-04-27] MEDS: Dextrose 5%/NaCl 0.45% Inj 1,000 ML IV.CONT SCH ×2 (04:48→12:24)
[2018-04-27 05:27] LABS: Hematocrit 40.3 % (39.0-51.0); Hemoglobin 13.5 gm/dL (13.0-17.0); Mean Corpuscular HGB Conc 33.4 % (32.0-36.0); Mean Corpuscular Hemoglobin 29.9 pg (27.0-34.0); Mean Corpuscular Volume 89.4 fL (80.0-100.0); Mean Platelet Volume 7.5 fL (7.0-11.0); Platelet Count 356 th/mm3 (150-450); Red Blood Count 4.51 mil/mm3 (4.50-5.90); Red Cell Distribution Width 15.5 % (11.6-17.2); White Blood Count 9.6 th/mm3 (4.0-11.0)
[2018-04-27] MEDS: Vancomycin Inj 750 MG in Sodium Chlor 0.9% Inj 250 ML IV.SIG SCH ×2 (06:15→17:46)
[2018-04-27] MEDS: Senna/Docusate Sodium 8.6/50 MG Tablet PO SCH ×2 (09:35→20:37)
--- NOTE | 2018-04-27 11:54 | P.PNIM ---
Subjective Interval history: Patient started tube feeding yesterday, tolerated trickle feeds well. He had some discomfort with post feed flushing for approximately 2040 mL bolus. This caused stomach pain and cramping which subsided with time. He had no episodes of nausea or vomiting, denies any current nausea, denies current pain. Physical Exam Vital signs: Last Vital Signs Temp 97.3 F L 04/27/18 08:00 Pulse 100 H 04/27/18 08:00 Resp 18 04/27/18 08:00 BP 139/80 04/27/18 08:00 Pulse Ox 96 04/27/18 08:00 Intake & Output 04/25/18 04/26/18 04/27/18 04/28/18 06:59 06:59 06:59 06:59 Intake Total 1500 / 1500 2625 / 2625 1997.5 / 1997.5 257.5 / 257.5 Output Total 250 / 250 500 / 500 300 / 300 Balance 1250 / 1250 2125 / 2125 1697.5 / 1697.5 257.5 / 257.5 Weight 36.2 kg 39.9 kg Narrative: PE: GENERAL: Emaciated man who is alert and oriented x3, in good spirits after receiving a PEG tube SKIN: Focused skin assessment warm and dry. HEENT: PERRLA, EOMI. No scleral icterus or conjunctival pallor. No lid lag or facial droop. Right neck surgical scar CARDIOVASCULAR: Regular rate and rhythm. No obvious murmurs to auscultation. No chest tenderness to palpation. RESPIRATORY: No obvious rhonchi or wheezing. Clear to auscultation. Breath sounds equal bilaterally. GASTROINTESTINAL: Abdomen soft, non-tender, nondistended. BS normal. PEG tube in place MUSCULOSKELETAL: Muscle wasting. No obvious deformities. NEUROLOGICAL: Awake, alert and oriented x4. No focal neurologic deficits. Moving both upper and lower extremities spontaneously. PSYCHIATRIC: Appropriate mood and affect. Insight and judgment normal. Results Labs CBC & Chem 7: 04/27/18 04:37 04/26/18 04:21 Labs: Microbiology 04/22/18 22:38 Blood - Peripheral Aerobic Blood Culture - Final No growth in 5 days 04/22/18 22:38 Blood - Peripheral Anaerobic Blood Culture - Final No growth in 5 days 04/22/18 22:38 Blood - Peripheral Aerobic Blood Culture - Final No growth in 5 days 04/22/18 22:38 Blood - Peripheral Anaerobic Blood Culture - Final No growth in 5 days Assessment and Plan (1) Pneumonia: Code(s): J18.9 - Pneumonia, unspecified organism Status: Acute (2) Dysphagia: Code(s): R13.10 - Dysphagia, unspecified Status: Acute (3) Dehydration: Code(s): E86.0 - Dehydration Status: Acute (4) FTT (failure to thrive) in adult: Code(s): R62.7 - Adult failure to thrive Status: Acute (5) Neck mass: Code(s): R22.1 - Localized swelling, mass and lump, neck Status: Acute Plan Neck mass hx of neck mass with surgical excision of large necrotic right neck mass CT of neck on 04/10/2018 showed soft tissue mass tending to posterior oropharynx base Patient underwent resection of mass with muscular graft He wants to regain weight and gain strength in order to proceed with chemotherapy Appreciate oncology consult Appreciate radiation oncology Appreciate palliative care 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 Main cause of his emaciated state PEG tube was placed 04/26/2018 Appreciate gastroenterology consult Appreciate interventional radiology PEG tube placement Appreciate dietary consult PEG tube feedings Patient is tolerating vital 1.5 at 20 mL an hour She had some discomfort with 40 mL bolus, this subsided with time Likely this is from hypoactive bowels that are being forced to move after quite some time We will continue to monitor for any bloating Patient denies any nausea vomiting We will plan to increase feeding tube rate to 30 mL an hour tomorrow Aspiration pneumonia vs pneumonitis Patient remains afebrile Continue empiric coverage with vancomycin and Zosyn DVT prophylaxis SCDs Progress Note: Quality VTE Deep Vein Thrombosis/Pulmonary Embolism Present on Admission: No _ (1) Pneumonia Qualifiers: Aspiration pneumonia type: Laterality: unspecified laterality Lung location : unspecified part of lung Pneumonia type: due to unspecified organism Qualified Code(s): J18.9 - Pneumonia, unspecified organism (2) Dysphagia Qualifiers: Dysphagia type: unspecified Qualified Code(s): R13.10 - Dysphagia, unspecified
[2018-04-27] MEDS: Pantoprazole Inj 40 MG Vial IV.PUSH SCH (13:22)
[2018-04-27] MEDS ORDERED: Pharmacy Ordered Lab Info OTHER ONE (17:45)
[2018-04-27 18:42] LABS: Anion Gap 5 meq/L (5-15); Blood Urea Nitrogen 8 mg/dL (7-18); Calcium 7.9 mg/dL (8.5-10.1); Carbon Dioxide 29.7 meq/L (21.0-32.0); Chloride 99 meq/L (98-107); Glomerular Filtration Rate Greater Than 89 mL/min (>89); Glucose,Random 114 mg/dL (74-106); Potassium 4.6 meq/L (3.5-5.1); Sodium 134 meq/L (136-145); Vancomycin,Trough 4.8 mcg/mL (5.0-10.0)
[2018-04-28] MEDS: Dextrose 5%/NaCl 0.45% Inj 1,000 ML IV.CONT SCH ×2 (00:24→15:56)
[2018-04-28] MEDS: Piperacil/Tazo 4.5 GM Premix 4.5 GM/100 ML BAG IV.SIG SCH ×5 (00:25→23:48)
[2018-04-28] MEDS: Vancomycin Inj 750 MG in Sodium Chlor 0.9% Inj 250 ML IV.SIG SCH ×2 (01:46→09:47)
[2018-04-28] MEDS: Morphine Inj 4 MG/ML Vial IV.PUSH PRN ×6 (05:13→20:48)
[2018-04-28 06:52] LABS: Glomerular Filtration Rate Greater Than 89 mL/min (>89)
[2018-04-28] MEDS: Senna/Docusate Sodium 8.6/50 MG Tablet PO SCH ×2 (08:19→20:48)
--- NOTE | 2018-04-28 10:36 | P.PNONC ---
Subjective Interval history: Patient sitting in bed, in no acute distress. He denies any nausea or abdominal pain. Denies shortness of breath. Status post PEG tube placement, currently with tube feed in place. He feels he is tolerating it well. Objective Vital Signs/Intake & Output: Vital Signs 04/27/18 12:00 04/27/18 13:22 04/27/18 16:00 Temperature 97.4 F L 97.1 F L Pulse Rate 97 H 99 H Respiratory Rate 16 18 16 Blood Pressure 112/71 103/60 Pulse Oximetry 96 95 04/27/18 16:24 04/27/18 19:22 04/27/18 20:00 Temperature 97.3 F L Pulse Rate 98 H Respiratory Rate 18 18 Blood Pressure 123/69 Pulse Oximetry 96 94 L 04/27/18 23:40 04/28/18 00:00 04/28/18 04:00 Temperature 97.6 F 97.3 F L Pulse Rate 95 H 93 H Respiratory Rate 22 16 16 Blood Pressure 120/74 125/76 Pulse Oximetry 97 96 04/28/18 08:20 Temperature Pulse Rate Respiratory Rate 18 Blood Pressure Pulse Oximetry Intake & Output 04/27/18 04/28/18 04/28/18 18:59 06:59 18:59 Intake Total 1059.0 / 1059.0 1891.5 / 1891.5 Output Total 340 / 340 400 / 400 Balance 719.0 / 719.0 1491.5 / 1491.5 Weight 40.1 kg Intake: IV 715.0 / 715.0 1616.5 / 1616.5 D5W/1/2 NS Inj 1,000 ML @ 84 1159 / 1159 mls/hr IV.CONT .[id number] MICHEAL Rx# :[id number] Zosyn 4.5 GM Premix 4.5 gm In 200 / 200 200 / 200 100 ml @ 200 mls/hr IV.SIG Q6H MICHEAL Rx#:[id number] Vancomycin Inj 750 MG In NS Inj 515.0 / 515.0 257.5 / 257.5 250 ML @ 257.5 mls/hr IV.SIG Q8H MICHEAL Rx#:[id number] Tube Feeding 284 / 284 245 / 245 Tube Irrigant 60 / 60 30 / 30 Output: Urine 340 / 340 400 / 400 Result Diagrams: 04/27/18 04:37 04/28/18 05:27 Laboratory Results: Laboratory Results - last 24 hr 04/27/18 04/27/18 04/27/18 11:26 17:00 17:44 Sodium 134 L Potassium 4.6 Chloride 99 Carbon Dioxide 29.7 Anion Gap 5 BUN 8 Creatinine 0.48 L Estimated GFR Greater than 89 POC Glucose 136 H 171 H Random Glucose 114 H Calcium 7.9 L Vancomycin Trough 4.8 L 04/27/18 04/28/18 04/28/18 23:31 05:22 05:27 Sodium Potassium Chloride Carbon Dioxide Anion Gap BUN Creatinine 0.42 L Estimated GFR Greater than 89 POC Glucose 125 H 119 H Random Glucose Calcium Vancomycin Trough Culture Results: Microbiology 04/22/18 22:38 Aerobic Blood Culture - Final Blood - Peripheral No growth in 5 days Anaerobic Blood Culture - Final No growth in 5 days 04/22/18 22:38 Aerobic Blood Culture - Final Blood - Peripheral No growth in 5 days Anaerobic Blood Culture - Final No growth in 5 days Medications: Active Medications Generic Name Dose Route Start Last Admin Trade Name Freq PRN Reason Stop Dose Admin Albuterol 1 ampul 04/23/18 02:10 04/25/18 15:34 Duoneb Neb (Prn) NEB 1 ampul Q4HR NEB PRN Administration SOB/WHEEZING Piperacillin/Tazobactam/Dextrose 4.5 gm in 100 mls @ 200 mls/hr 04/23/18 06: 00 04/28/18 05:45 Zosyn 4.5 Gm Premix IV.SIG Infused Q6H MICHEAL Infusion Dextrose/Sodium Chloride 1,000 mls @ 84 mls/hr 04/23/18 14:00 04/28/18 05:12 D5w/1/2 Ns Inj IV.CONT 84 mls/hr .[id number] MICHEAL Infusion Vancomycin HCl 750 mg/ Sodium 257.5 mls @ 257.5 mls/hr 04/28/18 02:00 09:47 Chloride IV.SIG 257.5 mls/hr Q8H MICHEAL Administration Morphine Sulfate 2 mg 04/24/18 12:54 04/28/18 08:18 Morphine Inj IV.PUSH 2 mg Q3H PRN Administration PAIN 6-10 Ondansetron HCl 4 mg 04/23/18 02:10 04/24/18 01:01 Zofran Inj IV.PUSH 4 mg Q6H PRN Administration NAUSEA OR VOMITING Pantoprazole Sodium 40 mg 04/24/18 14:00 04/27/18 13:22 Protonix Inj IV.PUSH 40 mg Q24H MICHEAL Administration Senna/Docusate Sodium 1 tab 04/23/18 09:00 04/28/18 08:19 Miracle-Colace PO Not Given BID MICHEAL Sodium Chloride 2 ml 04/23/18 09:00 04/27/18 20:37 Ns Flush IV.FLUSH 2 ml BID MICHEAL Administration Sodium Chloride 2 ml 04/23/18 02:10 04/28/18 08:19 Ns Flush IV.FLUSH 2 ml PRN PRN Administration FLUSH AFTER USING IV ACCESS Thiamine HCl 100 mg 04/27/18 09:00 04/28/18 08:19 Vitamin B1 G-TUBE 100 mg DAILY MICHEAL Administration Objective Remarks: GENERAL: Severely cachectic male patient, in no acute distress. SKIN: Warm and dry. HEAD: Normocephalic. EYES: No scleral icterus. No injection or drainage. NECK: Supple, trachea midline. Mass to right neck and posterior oropharynx. CARDIOVASCULAR: Regular rate and rhythm without murmurs. RESPIRATORY: Breath sounds equal bilaterally. No accessory muscle use. GASTROINTESTINAL: Abdomen sunken, non-tender, nondistended. EXTREMITIES: No cyanosis, or edema. AGUSTÍN stockings in place. MUSCULOSKELETAL: Decreased muscle tone. NEUROLOGICAL: No obvious focal deficit. Awake, alert, and oriented x3. PSYCHIATRIC: Appropriate mood and affect; insight and judgment normal. Assessment/Plan (1) Pneumonia Code(s): J18.9 - Pneumonia, unspecified organism Status: Acute (2) Dysphagia Code(s): R13.10 - Dysphagia, unspecified Status: Acute (3) Dehydration Code(s): E86.0 - Dehydration Status: Acute (4) FTT (failure to thrive) in adult Code(s): R62.7 - Adult failure to thrive Status: Acute (5) Neck mass Code(s): R22.1 - Localized swelling, mass and lump, neck Status: Acute - Plan Mr. Vásquez is a 57-year-old male patient with head and neck cancer. He presented to the hospital with dysphasia and weakness. He is severely cachectic. Currently being treated for pneumonia as well. Plan: 1. Poor nutritional status, status post PEG tube placement, currently receiving tube feeds. Tolerating well. 2. Radiation oncology is following. 3. Pneumonia, on vancomycin. Management per attending. 4. Continue supportive care. - Attending Statement The exam, history, and the medical decision-making described in the above note were completed with the assistance of the mid-level provider. I reviewed and agree with the findings presented. I attest that I had a [id number] encounter with the patient on the same day, and personally performed and documented my assessment and findings in the medical record. Resting in bed. Pain, called RN and patient is due for next dose of morphine. tolerating feeding tubes well. Radiation oncology team continuing to follow. (1) Pneumonia Qualifiers: Pneumonia type: due to unspecified organism Laterality: unspecified laterality Lung location: unspecified part of lung Qualified Code(s): J18.9 - Pneumonia, unspecified organism (2) Dysphagia Qualifiers: Dysphagia type: unspecified Qualified Code(s): R13.10 - Dysphagia, unspecified
--- NOTE | 2018-04-28 13:04 | P.PNIM ---
Subjective Interval history: Nursing denies any acute changes overnight. Patient himself has no new complaints. Physical Exam Vital signs: Vital Signs 04/27/18 13:22 04/27/18 16:00 04/27/18 16:24 Temperature 97.1 F L Pulse Rate 99 H Respiratory Rate 18 16 18 Blood Pressure 103/60 Pulse Oximetry 95 04/27/18 19:22 04/27/18 20:00 04/27/18 23:40 Temperature 97.3 F L Pulse Rate 98 H Respiratory Rate 18 22 Blood Pressure 123/69 Pulse Oximetry 96 94 L 04/28/18 00:00 04/28/18 04:00 04/28/18 08:20 Temperature 97.6 F 97.3 F L Pulse Rate 95 H 93 H Respiratory Rate 16 16 18 Blood Pressure 120/74 125/76 Pulse Oximetry 97 96 04/28/18 11:47 Temperature Pulse Rate Respiratory Rate 17 Blood Pressure Pulse Oximetry Intake & Output 04/27/18 04/28/18 04/28/18 18:59 06:59 18:59 Intake Total 1059.0 / 1059.0 1891.5 / 1891.5 357.5 / 357.5 Output Total 340 / 340 400 / 400 Balance 719.0 / 719.0 1491.5 / 1491.5 357.5 / 357.5 Weight 40.1 kg Intake: IV 715.0 / 715.0 1616.5 / 1616.5 357.5 / 357.5 D5W/1/2 NS Inj 1,000 ML @ 84 1159 / 1159 mls/hr IV.CONT .[id number] [facility] Rx# :[id number] Zosyn 4.5 GM Premix 4.5 gm In 200 / 200 200 / 200 100 / 100 100 ml @ 200 mls/hr IV.SIG Q6H [facility] Rx#:[id number] Vancomycin Inj 750 MG In NS Inj 515.0 / 515.0 257.5 / 257.5 257.5 / 257.5 250 ML @ 257.5 mls/hr IV.SIG Q8H [facility] Rx#:[id number] Tube Feeding 284 / 284 245 / 245 Tube Irrigant 60 / 60 30 / 30 Output: Urine 340 / 340 400 / 400 Narrative: Cachectic thin male, no acute distress Awake and alert Clear lungs bilaterally, unlabored breathing Heart sounds regular rate and rhythm G-tube in place, mild abdominal tenderness to palpation, benign Results - Labs CBC & Chem 7: 04/27/18 04:37 04/28/18 05:27 Laboratory Results - last 24 hr 04/27/18 04/27/18 04/27/18 17:00 17:44 23:31 Sodium 134 L Potassium 4.6 Chloride 99 Carbon Dioxide 29.7 Anion Gap 5 BUN 8 Creatinine 0.48 L Estimated GFR Greater than 89 POC Glucose 171 H 125 H Random Glucose 114 H Calcium 7.9 L Vancomycin Trough 4.8 L 04/28/18 04/28/18 04/28/18 05:22 05:27 11:44 Sodium Potassium Chloride Carbon Dioxide Anion Gap BUN Creatinine 0.42 L Estimated GFR Greater than 89 POC Glucose 119 H 127 H Random Glucose Calcium Vancomycin Trough Microbiology 04/22/18 22:38 Blood - Peripheral Aerobic Blood Culture - Final No growth in 5 days 04/22/18 22:38 Blood - Peripheral Anaerobic Blood Culture - Final No growth in 5 days 04/22/18 22:38 Blood - Peripheral Aerobic Blood Culture - Final No growth in 5 days 04/22/18 22:38 Blood - Peripheral Anaerobic Blood Culture - Final No growth in 5 days Assessment and Plan - Assessment (1) Pneumonia Code(s): J18.9 - Pneumonia, unspecified organism Status: Acute (2) Dysphagia Code(s): R13.10 - Dysphagia, unspecified Status: Acute (3) Dehydration Code(s): E86.0 - Dehydration Status: Acute (4) FTT (failure to thrive) in adult Code(s): R62.7 - Adult failure to thrive Status: Acute (5) Neck mass Code(s): R22.1 - Localized swelling, mass and lump, neck Status: Acute - Plan 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 Main cause of his emaciated state PEG tube was placed 04/26/2018 Appreciate gastroenterology consult Appreciate interventional radiology PEG tube placement Appreciate dietary consult PEG tube feedings Patient is tolerating vital 1.5 at 20 mL an hour She had some discomfort with 40 mL bolus, this subsided with time Likely this is from hypoactive bowels that are being forced to move after quite some time We will continue to monitor for any bloating Patient denies any nausea vomiting We will plan to increase feeding tube rate to 30 mL an hour today Aspiration pneumonia vs pneumonitis Patient remains afebrile We will stop vancomycin, continue Zosyn, pro-calcitonin is negative we will stop all antibiotics DVT prophylaxis SCDs (1) Pneumonia Qualifiers: Pneumonia type: due to unspecified organism Laterality: unspecified laterality Lung location: unspecified part of lung Qualified Code(s): J18.9 - Pneumonia, unspecified organism (2) Dysphagia Qualifiers: Dysphagia type: unspecified Qualified Code(s): R13.10 - Dysphagia, unspecified
[2018-04-28] MEDS: Pantoprazole Inj 40 MG Vial IV.PUSH SCH (13:07)
[2018-04-28] MEDS ORDERED: Pharmacy Ordered Lab Info OTHER ONE (17:45)
[2018-04-29] MEDS: Dextrose 5%/NaCl 0.45% Inj 1,000 ML IV.CONT SCH ×3 (01:05→13:56)
[2018-04-29] MEDS: Piperacil/Tazo 4.5 GM Premix 4.5 GM/100 ML BAG IV.SIG SCH ×4 (05:55→23:23)
[2018-04-29] MEDS: Senna/Docusate Sodium 8.6/50 MG Tablet PO SCH ×2 (08:41→20:12)
[2018-04-29] MEDS: Morphine Inj 4 MG/ML Vial IV.PUSH PRN ×3 (08:42→19:54)
[2018-04-29 09:30] LABS: ABG Base Excess 8.1 mmol/L (-2-2); ABG PCO2 68 mmHg (38-42); ABG PO2 58 mmHg (61-120)
--- NOTE | 2018-04-29 10:04 | XR ---
EXAM DATE: 04/29/2018 9:59 AM EST AGE/SEX: 57 years / Male INDICATIONS: Abdominal pain. CLINICAL DATA: This is the patient's initial encounter. Patient reports that signs and symptoms have been present for 1 day and indicates a pain score of Nonresponsive. MEDICAL/SURGICAL HISTORY: None. None. COMPARISON: [facility] – [place], CT ABDOMEN & PELVIS W/O CONTRAST, 04/23/2018. . FINDINGS: There appears to be a G-tube in place. There is oral contrast seen within the colon. Dilated bowel is not seen. There is hazy density seen throughout the abdomen with silhouetting of the hepatic and s plenic margins which could be seen with ascites. CONCLUSION: Nonspecific abdominal KUB. There is silhouetting of the hepatic and splenic margins which can be seen with ascites. Electronically signed by: Maikel Lan MD Board Certified Radiologist 04/29/2018 10:03 AM EST
--- NOTE | 2018-04-29 10:08 | XR ---
EXAM DATE: 04/29/2018 10:01 AM EST AGE/SEX: 57 years / Male INDICATIONS: Shortness of breath. CLINICAL DATA: This is the patient's initial encounter. Patient reports that signs and symptoms have been present for 1 day and indicates a pain score of Nonresponsive. MEDICAL/SURGICAL HISTORY: . Chronic obstructive pulmonary disease. Methicillin-resistant Staphy lococcus aureus. Enlarged right neck lymph node. ETOH use. . Left finger surgery. . COMPARISON: [facility] [place], CHEST 1V SINGLE AP, 04/22/2018. [facility] [place], CTA PULMONARY W CONTRAST W 3D, 04/23/2018 . [facility] [place], ABDOMEN 1V KUB, 04/29/2018. . FINDINGS: There is increased density at the bases bilaterally. There is silhouetting the hemidiaphragms. There are numerous small focal areas of increased density seen in the lower lungs bilaterally being more pr ominent on the right. This could be from aspirated barium. Surgical clips seen over the right supracl avicular and axillary region. The heart size is normal. CONCLUSION: New hazy density in the mid and lower lungs likely related to bilateral pleural effusions. Some degre e of consolidation or atelectasis at the lower lungs can also be considered. Numerous small foci of increased density seen in the lower lobes bilaterally. These could be from asp irated barium. Calcifications would take some time to develop. Electronically signed by: Maikel Lan MD Board Certified Radiologist 04/29/2018 10:07 AM EST
--- NOTE | 2018-04-29 10:12 | P.PNIM ---
Subjective Interval history: Nursing paged for a Halicat this morning due to the patient being in respiratory distress and hypoxia. Patient was saturating 79% on 4 L and with labored breathing per nursing. When I saw the patient he had minimal abdominal retractions but was quite awake and interactive. Otherwise he did not appear to be any distress secondary to pain. When I asked him if he had any new acute pains anywhere, denied, only reporting his chronic abdominal pain. No chest pain today. Blood pressure was 150s over 90s, pulse was riding in the low 100s and regular. Saturating greater than 90% now on nonrebreather Physical Exam Vital signs: Vital Signs 04/28/18 11:47 04/28/18 12:00 04/28/18 15:01 Temperature 97.8 F Pulse Rate 96 H Respiratory Rate 17 18 18 Blood Pressure 141/75 H Pulse Oximetry 94 L 04/28/18 16:00 04/28/18 18:00 04/28/18 20:00 Temperature 97.6 F 97.3 F L Pulse Rate 98 H 100 H Respiratory Rate 17 18 18 Blood Pressure 128/65 133/59 L Pulse Oximetry 96 96 04/28/18 22:33 04/29/18 00:00 04/29/18 04:00 Temperature 98.0 F 97.8 F Pulse Rate 101 H 100 H 100 H Respiratory Rate 18 18 Blood Pressure 124/75 128/79 Pulse Oximetry 95 98 04/29/18 09:05 04/29/18 09:08 04/29/18 09:09 Temperature 97.4 F L Pulse Rate 100 H 114 H Respiratory Rate 32 H 32 H Blood Pressure 157/92 H 163/101 H Pulse Oximetry 89 L 79 L 89 L 04/29/18 09:10 04/29/18 09:11 Temperature 97.1 F L Pulse Rate 112 H 105 H Respiratory Rate 25 H Blood Pressure 151/90 H Pulse Oximetry 90 L Intake & Output 04/28/18 04/29/18 04/29/18 18:59 06:59 18:59 Intake Total 1876.5 / 1876.5 1200 / 1200 Output Total 400 / 400 Balance 1876.5 / 1876.5 800 / 800 Weight 40.1 kg Intake: IV 1457.5 / 1457.5 1200 / 1200 D5W/1/2 NS Inj 1,000 ML @ 84 1000 / 1000 1000 / 1000 mls/hr IV.CONT .[id number] [facility] Rx# :[id number] Zosyn 4.5 GM Premix 4.5 gm In 200 / 200 200 / 200 100 ml @ 200 mls/hr IV.SIG Q6H [facility] Rx#:[id number] Vancomycin Inj 750 MG In NS Inj 257.5 / 257.5 250 ML @ 257.5 mls/hr IV.SIG Q8H [facility] Rx#:[id number] Oral 0 / 0 Tube Feeding 419 / 419 Output: Urine 400 / 400 Other: Date of Last Bowel Movement 04/23/18 04/25/18 Narrative: On exam patient has diffuse rhonchi all throughout both lung werner, no obvious wheezing, has a lot of upper airway transmitted noises as well, is on a nonrebreather at this time Mild abdominal retractions Heart sounds indicated regular rhythm and tachycardic rate Abdomen is minimally taut as yesterday, but nondistended, benign No lower extremity edema Patient is good color, awake, alert Results - Labs CBC & Chem 7: 04/29/18 10:20 04/29/18 10:20 Laboratory Results - last 24 hr 04/28/18 04/28/18 04/28/18 11:44 17:30 17:43 Puncture Site Patient Temperature O2 Saturation ABG pH ABG pCO2 ABG pO2 ABG HCO3 ABG O2 Content ABG Base Excess ABG Methemoglobin Bradford Test Hemoglobin Carboxyhemoglobin O2 Delivery Device Inspired O2 Critical Value POC Glucose 127 H 139 H Vancomycin Trough 20.0 H 04/29/18 04/29/18 04/29/18 00:06 06:32 09:05 Puncture Site Right radial Patient Temperature 98.6 O2 Saturation 87 L* ABG pH 7.32 L ABG pCO2 68 H* ABG pO2 58 L* ABG HCO3 34 H ABG O2 Content 16.6 ABG Base Excess 8.1 H ABG Methemoglobin 1.1 Bradford Test Present Hemoglobin 13.5 Carboxyhemoglobin 0.7 O2 Delivery Device Nrb Inspired O2 100 Critical Value Yes POC Glucose 130 H 120 H Vancomycin Trough 04/29/18 09:12 Puncture Site Patient Temperature O2 Saturation ABG pH ABG pCO2 ABG pO2 ABG HCO3 ABG O2 Content ABG Base Excess ABG Methemoglobin Bradford Test Hemoglobin Carboxyhemoglobin O2 Delivery Device Inspired O2 Critical Value POC Glucose 132 H Vancomycin Trough - Imaging Impressions Abdomen X-Ray 04/29/18 00:00 CONCLUSION: Nonspecific abdominal KUB. There is silhouetting of the hepatic and splenic margins which can be seen with ascites. Chest X-Ray 04/29/18 00:00 CONCLUSION: New hazy density in the mid and lower lungs likely related to bilateral pleural effusions. Some degree of consolidation or atelectasis at the lower lungs can also be considered. Numerous small foci of increased density seen in the lower lobes bilaterally. These could be from aspirated barium. Calcifications would take some time to develop. Assessment and Plan - Assessment (1) Pneumonia Code(s): J18.9 - Pneumonia, unspecified organism Status: Acute (2) Dysphagia Code(s): R13.10 - Dysphagia, unspecified Status: Acute (3) Dehydration Code(s): E86.0 - Dehydration Status: Acute (4) FTT (failure to thrive) in adult Code(s): R62.7 - Adult failure to thrive Status: Acute (5) Neck mass Code(s): R22.1 - Localized swelling, mass and lump, neck Status: Acute - Plan 57-year-old white male admitted with progressive worsening dysphagia and failure to thrive and possible pneumonia. 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 Main cause of his emaciated state PEG tube was placed 04/26/2018 Appreciate gastroenterology consult Appreciate interventional radiology PEG tube placement Appreciate dietary consult PEG tube feedings Patient is tolerating vital 1.5 at 20 mL an hour She had some discomfort with 40 mL bolus, this subsided with time Likely this is from hypoactive bowels that are being forced to move after quite some time We will continue to monitor for any bloating Patient denies any nausea vomiting We will plan to increase feeding tube rate to 30 mL an hour today Aspiration pneumonia vs pneumonitis Patient remains afebrile We will stop vancomycin, continue Zosyn, pro-calcitonin is negative we will stop all antibiotics DVT prophylaxis SCDs NEW PLAN 04/29: New-onset hypoxia We will check CTA. ABG shows worsening CO2 retention, will wean down O2 as needed. Will recheck ABG. -EKG which I independently reviewed shows no acute ST segment changes, cardiac erythema proximal, V2 leads appear to be consistently manipulated by artifact. -Patient also developed new onset tachyarrhythmia into the 190s. Case discussed with tree puller who will take over. We will give Lasix and Cardizem for now. (1) Pneumonia Qualifiers: Qualified Code(s): J18.9 - Pneumonia, unspecified organism (2) Dysphagia Qualifiers: Qualified Code(s): R13.10 - Dysphagia, unspecified
--- NOTE | 2018-04-29 10:52 | CT ---
EXAM DATE: 04/29/2018 10:47 AM EST AGE/SEX: 57 years / Male INDICATIONS: Hypoxia, Lower chest pain CLINICAL DATA: This is the patient's initial encounter. Patient reports that signs and symptoms have been present for 1 day and indicates a pain score of 7/10. MEDICAL/SURGICAL HISTORY: Sepsis. Neck Cancer, failure to thrive . Neck surgery RADIATION DOSE: 6.49 CTDI (mGy) COMPARISON: [facility], CTA PULMONARY W CONTRAST W 3D, 04/23/2018. . TECHNIQUE: Volumetric scanning was performed using a multi-row detector CT scanner during bolus infu ca of 65ML ml Omnipaque 350 (iohexol) nonionic water-soluble contrast as a single exam dose. The d elyse was post processed with a variety of visualization algorithms including full volume maximum inten sity projection and sliding thin slab reformation. Using automated exposure control and adjustment of the mA and/or kV according to patient size, radiation dose was kept as low as reasonably achievable to obtain optimal diagnostic quality images. DICOM format image data is available electronically for review and comparison. FINDINGS: Pulmonary Arteries: No filling defects are seen in the pulmonary arteries out to the subsegmental ve ssels. The left and right pulmonary arteries are normal in diameter. Lung: There are numerous focal areas of increased density seen throughout the posterior aspects of t he lungs bilaterally. This distribution suggests aspiration. The increased densities are likely from aspirated barium There is cupping areas of consolidation or atelectasis in these regions. Effusion: Moderate bilateral pleural effusions are seen being greater on the right. Mediastinum: No evidence of mediastinal or hilar adenopathy. Other: The axilla is unremarkable. There is a large amount of ascites. There is minimal free air see n in the peritoneal cavity. The patient had a recent G-tube placed. CONCLUSION: 1. Numerous high density foci in the dependent portion the lungs likely from aspirated barium. The a ccompanying atelectasis or consolidation in the lungs in these regions. 2. At least moderate bilateral pleural effusions being greater on the right. 3. New large amount of ascites. There is punctate free air seen. The patient does had a recent G-tub e placement. Electronically signed by: Maikel Lan MD Board Certified Radiologist 04/29/2018 10:51 AM EST
[2018-04-29 11:00] LABS: Baso % (Auto) 0.1 % (0.0-2.0); Eos % (Auto) 0.1 % (0.0-4.0); Hematocrit 38.6 % (39.0-51.0); Hemoglobin 13.6 gm/dL (13.0-17.0); Lymph # (Auto) 0.2 th/mm3 (1.0-4.8); Lymph % (Auto) 1.5 % (9.0-44.0); Mean Corpuscular HGB Conc 35.1 % (32.0-36.0); Mean Corpuscular Hemoglobin 31.3 pg (27.0-34.0); Mean Corpuscular Volume 89.3 fL (80.0-100.0); Mean Platelet Volume 6.9 fL (7.0-11.0); Mono # (Auto) 0.4 th/mm3 (0.0-0.9); Mono % (Auto) 2.6 % (0.0-8.0); Neut # (Auto) 14.2 th/mm3 (1.8-7.7); Neut % (Auto) 95.7 % (16.0-70.0); Platelet Count 318 th/mm3 (150-450); Red Blood Count 4.33 mil/mm3 (4.50-5.90); Red Cell Distribution Width 15.3 % (11.6-17.2); White Blood Count 14.9 th/mm3 (4.0-11.0)
[2018-04-29] MEDS ORDERED: Methylnaltrexone Inj 12 MG/0.6 ML Vial SQ ONE (11:00)
--- NOTE | 2018-04-29 11:46 | XR ---
EXAM DATE: 04/29/2018 11:28 AM EST AGE/SEX: 57 years / Male INDICATIONS: Post thoracentesis CLINICAL DATA: This is the patient's subsequent encounter. Patient reports that signs and symptoms h ave been present for 3 days and indicates a pain score of 0/10. MEDICAL/SURGICAL HISTORY: . Chronic obstructive pulmonary disease. Methicillin-resistant Staph ylococcus Enlarged right neck lymph node. ETOH use. . . Left finger surgery COMPARISON: [facility], CHEST 1V SINGLE AP, 04/29/2018. . FINDINGS: There is before meals density at the lungs bilaterally being worse on the left. A pneumothorax is not seen. There are numerous high density nodule seen in the medial lower lungs bilaterally likely from aspirated barium. Clips are seen in the right neck and axillary region. CONCLUSION: Persistent bilateral effusions which appear worse on the left. It is thought the patient is likely st atus post right thoracentesis. A pneumothorax is not seen. There continues to be a right pleural effu ca. Electronically signed by: Maikel Lan MD Board Certified Radiologist 04/29/2018 11:45 AM EST
[2018-04-29 12:58] LABS: Alanine Aminotransferase 9 U/L (12-78); Albumin 1.3 g/dL (3.4-5.0); Alkaline Phosphatase 90 U/L (45-117); Anion Gap 9 meq/L (5-15); Aspartate Aminotransferase 18 U/L (15-37); Blood Urea Nitrogen 7 mg/dL (7-18); Calcium 8.1 mg/dL (8.5-10.1); Carbon Dioxide 32.2 meq/L (21.0-32.0); Chloride 98 meq/L (98-107); Glomerular Filtration Rate Greater Than 89 mL/min (>89); Glucose,Random 124 mg/dL (74-106); Sodium 139 meq/L (136-145); Total Protein 6.1 g/dL (6.4-8.2)
[2018-04-29 13:03] LABS: Potassium 2.8 meq/L (3.5-5.1)
--- NOTE | 2018-04-29 13:16 | XR ---
EXAM DATE: 04/29/2018 1:12 PM EST AGE/SEX: 57 years / Male INDICATIONS: S/P right sided pigtail catheter chest tube placement. CLINICAL DATA: This is the patient's initial encounter. Patient reports that signs and symptoms have been present for 1 day and indicates a pain score of Nonresponsive. MEDICAL/SURGICAL HISTORY: . Chronic obstructive pulmonary disease. Methicillin-resistant Staphy lococcus Enlarged right neck lymph node. ETOH use. Left finger surgery. . COMPARISON: [facility] – [place], CHEST 1V SINGLE AP, 04/29/2018. . FINDINGS: There is a right-sided chest tube. The previous seen right pneumothorax has been successfully drained . There continues to be a left pleural effusion. There is high-density material seen in the medial lo wer lobes bilaterally consistent with aspirated barium. A pneumothorax is not seen. CONCLUSION: Good placement of a right chest tube with successful drainage of the right pleural effusion. Electronically signed by: Maikel Lan MD Board Certified Radiologist 04/29/2018 1:14 PM EST
[2018-04-29] MEDS: Pantoprazole Inj 40 MG Vial IV.PUSH SCH (13:55)
[2018-04-29] MEDS ORDERED: Potassium Chlor 20 mEq Premix 20 MEQ/100 ML PIGGYBACK IV.SIG PRN (14:30)
[2018-04-29] MEDS ORDERED: Sodium Phosphate Inj 30 MMOL in Sodium Chlor 0.9% Inj 250 ML IV.SIG PRN (14:30)
[2018-04-29] MEDS ORDERED: Potassium Phosphate Inj 30 MMOL in Sodium Chlor 0.9% Inj 250 ML IV.SIG PRN (14:30)
[2018-04-29] MEDS ORDERED: Potassium Chlor 40 mEq Premix 40 MEQ/100 ML PIGGYBACK IV.SIG PRN ×2 (14:30)
[2018-04-29] MEDS ORDERED: Magnesium Oxide 400 MG Tablet PO PRN (14:30)
[2018-04-29] MEDS ORDERED: Magnesium Sulfate Inj 2 GM in Sodium Chlor 0.9% Inj 96 ML IV.SIG PRN (14:30)
[2018-04-29] MEDS ORDERED: Magnesium Sulfate Inj 4 GM in Sodium Chlor 0.9% Inj 92 ML IV.SIG PRN (14:30)
[2018-04-29] MEDS ORDERED: Potassium Phosphate 500 MG Soluble Tablet PO PRN ×2 (14:30)
[2018-04-29] MEDS ORDERED: Potassium Chloride 25 MEQ Effervescent Tablet PO PRN (14:30)
[2018-04-29 14:31] LABS: Total Protein,Pleural Fluid 1.5 gm/dL
[2018-04-29 14:40] LABS: RBC,Pleural Fluid 45 /mm3 (0-0)
[2018-04-29 14:42] LABS: Lymphocytes,Pleural Fluid 2 %; Mesothelial,Pleural Fluid 3 %; Monocytes,Pleural Fluid 5 %; Neutrophils,Pleural Fluid 90 %
[2018-04-29] MEDS: Potassium Chlor 20 mEq Premix 20 MEQ/100 ML PIGGYBACK IV.SIG PRN ×4 (15:07→23:22)
--- NOTE | 2018-04-29 16:06 | P.CONCC ---
History of Present Illness Service: critical care medicine Consult date: 04/29/18 Requesting Physician: Bethel Mauricio Reason for Consult: Acute resp failure Primary Care Provider: UNKNOWN Chief Complaint: Shortness of breath History of Present Illness: 57-year-old male with a history significant for neck mass diagnosed in November 2016 biopsy of which showed malignancy. It spontaneously ruptured in February 2017 for which patient was seen by Dr. Ambrocio in [facility] , underwent excision following which he had multiple ED visits for this problem and on April 10 was seen in the ER underwent CT neck which showed interval surgical excision of large necrotic right neck mass 5 x 5.3 cm extending towards right posterior oropharynx with mass-effect on the right tongue and deviation of oropharynx in the left without airway compromise. He was seen by ENT Dr. Hines discharged with Z-Grayson with plans to follow-up with Dr. Ambrocio. He subsequently presented with severe cachexia and progressive dysphagia with inability to swallow solids however was able to swallow liquids. Patient had been admitted by hospitalist service. He subsequently failed swallow eval and underwent PEG tube placement on 04/25 following which he was started on tube feedings. He was noted to be extremely deconditioned with significant muscle wasting. Patient was also evaluated by Heme-onc and was being evaluated for radiation and chemotherapy. Patient developed worsening shortness of breath earlier today and a CTA pulmonary angiogram was done which was negative for PE however showed bilateral moderate pleural effusions which were not present on his previous CT chest done a few days ago. He was also noted to have some ascites. Patient was transferred to the ICU. He was extremely tachypneic using accessory muscles of respiration with O2 sat in the 70s on nonrebreather facemask. He was also noted to be tachycardic with heart rate in the 180s. I evaluated the patient on being notified of the consult. Patient was placed on BiPAP following arrival to the ICU with which his O2 sats improved to 100%. Following review of labs and imaging studies I proceeded with placing a right pigtail catheter with ultrasound guidance and drained about 1 L of clear pleural fluid almost immediately into the Pleur-evac. Patient had significant improvement in his respiratory distress. He denied any chest pain nausea or palpitations. He denied any fevers or chills. Review of systems was limited due to extreme respiratory distress requiring BiPAP. . Review of Systems All other systems reviewed negative except as stated in HPI [facility] - History History Provided By: Patient - Medical History Medical History: Medical History (Last Reviewed 04/26/18 @ 14:41 by Stacy Moore [employer], [employer]) Abscess Cancer - Surgical History Surgical History: Surgical History (Last Reviewed 04/25/18 @ 08:02 by Erika [employer]) H/O neck surgery - Tobacco History Second Hand Smoke Exposure: Yes Tobacco Use In Past 30 Days: Yes Smoking Status: Current every day smoker Tobacco Type: Cigarettes - Alcohol History How Often Do You Have a Drink Containing Alcohol: Monthly or less - Substance Use History Substance History: Past History - Immunization History Tetanus Immunization: Unsure Medications and Allergies Active Medications: Active Medications Acetaminophen (Tylenol) 650 mg PO Q4H PRN PRN Reason: Temp > 100.4 Al Hydroxide/Mg Hydroxide (Milk Of Magnneal Liq) 30 ml PO Q12H PRN PRN Reason: Mild Constipation Albuterol (Duoneb Neb (Prn)) 1 ampul NEB Q4HR NEB PRN PRN Reason: SOB/WHEEZING Last Admin: 04/29/18 09:10 Dose: 1 ampul Bisacodyl (Dulcolax Supp) 10 mg RECTAL DAILY PRN PRN Reason: SEVERE CONSITIPATION Piperacillin/Tazobactam/Dextrose (Zosyn 4.5 Gm Premix) 4.5 gm in 100 mls @ 200 mls/hr IV.SIG Q6H [facility] Last Infusion: 04/29/18 14:51 Dose: Infused Dextrose/Sodium Chloride (D5w/1/2 Ns Inj) 1,000 mls @ 84 mls/hr IV.CONT .[id number] [facility] Last Admin: 04/29/18 13:56 Dose: Not Given Magnesium Sulfate 4 gm/ Sodium (Chloride) 100 mls @ 50 mls/hr IV.SIG UNSCH PRN PRN Reason: For Magnesium 0.9 - 1.1 mg/dL Magnesium Sulfate 2 gm/ Sodium (Chloride) 100 mls @ 50 mls/hr IV.SIG UNSCH PRN PRN Reason: For Magnesium 1.2 - 1.6 mg/dL Potassium Chloride (Kcl 40 Meq Premix Inj) 40 meq in 100 mls @ 25 mls/hr IV.SIG Q2H PRN PRN Reason: For Potassium 2.8 - 3.2 mEq/L Potassium Chloride (Kcl 20 Meq Premix Inj) 20 meq in 100 mls @ 50 mls/hr IV.SIG Q2H PRN PRN Reason: For Potassium 3.3 - 3.5 mEq/L Potassium Chloride (Kcl 40 Meq Premix Inj) 40 meq in 100 mls @ 25 mls/hr IV.SIG UNSCH PRN PRN Reason: For Potassium 3.3 - 3.5 mEq/L Potassium Phosphate 30 mmol/ (Sodium Chloride) 260 mls @ 42 mls/hr IV.SIG UNSCH PRN PRN Reason: SEE LABEL COMMENTS Sodium Phosphate 30 mmol/ (Sodium Chloride) 260 mls @ 42 mls/hr IV.SIG UNSCH PRN PRN Reason: For Phosphorus < 2.5 mg/dL Potassium Chloride (Kcl 20 Meq Premix Inj) 20 meq in 100 mls @ 50 mls/hr IV.SIG Q2H PRN PRN Reason: For Potassium 2.8 - 3.2 mEq/L Last Admin: 04/29/18 15:07 Dose: 50 mls/hr Lactulose (Lactulose Liq) 30 ml PO DAILY PRN PRN Reason: SEVERE CONSITIPATION Magnesium Oxide (Mag-Ox) 800 mg PO UNSCH PRN PRN Reason: For Magnesium 1.2 - 1.6 mg/dL Morphine Sulfate (Morphine Inj) 2 mg IV.PUSH Q3H PRN PRN Reason: PAIN 6-10 Last Admin: 04/29/18 08:42 Dose: 2 mg Ondansetron HCl (Zofran Inj) 4 mg IV.PUSH Q6H PRN PRN Reason: NAUSEA OR VOMITING Last Admin: 04/24/18 01:01 Dose: 4 mg Pantoprazole Sodium (Protonix Inj) 40 mg IV.PUSH Q24H [facility] Last Admin: 04/29/18 13:55 Dose: 40 mg Potassium Bicarb/Potassium Chloride (K-Lyte Cl Eff) 50 meq PO UNSCH PRN PRN Reason: For Potassium 3.3 - 3.5 mEq/L Potassium Phosphate (K-Phos Original) 2,000 mg PO Q4H PRN PRN Reason: Phosphorus Less Than 2.5 mg/dL Potassium Phosphate (K-Phos Original) 2,000 mg PO UNSCH PRN PRN Reason: SEE LABEL COMMENTS Senna/Docusate Sodium (Miracle-Colace) 1 tab PO BID [facility] Last Admin: 04/29/18 08:41 Dose: 1 tab Sennosides (Senokot) 17.2 mg PO Q12H PRN PRN Reason: Moderate Constipation Sodium Chloride (Ns Flush) 2 ml IV.FLUSH BID [facility] Last Admin: 04/29/18 08:41 Dose: Not Given Sodium Chloride (Ns Flush) 2 ml IV.FLUSH PRN PRN PRN Reason: FLUSH AFTER USING IV ACCESS Last Admin: 04/28/18 11:55 Dose: 2 ml Thiamine HCl (Vitamin B1) 100 mg G-TUBE DAILY [facility] Last Admin: 04/29/18 08:41 Dose: 100 mg Allergies Allergy/AdvReac Type Severity Reaction Status Date / Time *MDRO Multi-Drug Resistant AdvReac Unknown Abdominal Uncoded 12/30/17 21:23 Organism Pain Home Medications Medication Instructions Recorded Confirmed Type No Known Home Medications 04/22/18 04/22/18 History Physical Exam Vital signs: Vital Signs 04/28/18 16:00 04/28/18 18:00 04/28/18 20:00 Temperature 97.6 F 97.3 F L Pulse Rate 98 H 100 H Respiratory Rate 17 18 18 Blood Pressure 128/65 133/59 L Pulse Oximetry 96 96 04/28/18 22:33 04/29/18 00:00 04/29/18 04:00 Temperature 98.0 F 97.8 F Pulse Rate 101 H 100 H 100 H Respiratory Rate 18 18 Blood Pressure 124/75 128/79 Pulse Oximetry 95 98 04/29/18 09:05 04/29/18 09:08 04/29/18 09:09 Temperature 97.4 F L Pulse Rate 100 H 114 H Respiratory Rate 32 H 32 H Blood Pressure 157/92 H 163/101 H Pulse Oximetry 89 L 79 L 89 L 04/29/18 09:10 04/29/18 09:11 04/29/18 09:23 Temperature 97.1 F L Pulse Rate 112 H 105 H Respiratory Rate 25 H Blood Pressure 151/90 H 159/89 H Pulse Oximetry 90 L 95 04/29/18 10:00 04/29/18 11:00 04/29/18 11:24 Temperature Pulse Rate 111 H 127 H 126 H Respiratory Rate 29 H 35 H 36 H Blood Pressure 140/86 Pulse Oximetry 99 96 93 L 04/29/18 11:30 04/29/18 12:00 04/29/18 13:00 Temperature Pulse Rate 115 H 117 H Respiratory Rate 25 H 16 Blood Pressure Pulse Oximetry 100 100 92 L 04/29/18 13:52 04/29/18 14:00 Temperature Pulse Rate 110 H 115 H Respiratory Rate 12 22 Blood Pressure 118/76 Pulse Oximetry 100 100 Intake & Output 04/28/18 04/29/18 04/29/18 18:59 06:59 18:59 Intake Total 1876.5 / 1876.5 1200 / 1200 100 / 100 Output Total 400 / 400 Balance 1876.5 / 1876.5 800 / 800 100 / 100 Weight 40.1 kg Intake: IV 1457.5 / 1457.5 1200 / 1200 100 / 100 D5W/1/2 NS Inj 1,000 ML @ 84 1000 / 1000 1000 / 1000 mls/hr IV.CONT .[id number] [facility] Rx# :[id number] Zosyn 4.5 GM Premix 4.5 gm In 200 / 200 200 / 200 100 / 100 100 ml @ 200 mls/hr IV.SIG Q6H [facility] Rx#:[id number] Vancomycin Inj 750 MG In NS Inj 257.5 / 257.5 250 ML @ 257.5 mls/hr IV.SIG Q8H [facility] Rx#:[id number] Oral 0 / 0 Tube Feeding 419 / 419 Output: Urine 400 / 400 Other: Date of Last Bowel Movement 04/23/18 04/25/18 Narrative: Severely cachectic male laying in bed on BiPAP with full facemask HEENT/Neuro: Pallor present, no icterus, tongue moist, JAKOB, Awake alert oriented 3, nonfocal grossly, moving all 4 extremities Neck: No JVD Chest/pulmonary: On BiPAP with full facemask, air entry decreased bilaterally at bases, scattered rhonchi and crackles. Cardiovascular: S1-S2 regular no gallop or murmur GI/abdomen: Soft, vague abdominal tenderness, PEG tube in place, bowel sounds present Extremities: Warm bilaterally, no edema Assessment and Plan - Assessment and Plan Plan: 57-year-old male with: Head and neck cancer Acute respiratory failure requiring BiPAP Bilateral pleural effusions Cancer cachexia Plan: Follow neuro status. Pain medication as needed. Continue BiPAP. Patient has head and neck cancer which is invading into posterior pharynx however no airway compromise on previous CAT scan. Received Lasix 40 mg IV earlier. CTA pulmonary angiogram negative for PE, bilateral pleural effusions with evidence of aspiration. Will order 2D echo to assess LV function Status post right pigtail catheter placement for drainage of pleural effusion with symptomatic relief. Will probably require left sided thoracentesis tomorrow. Follow-up pleural fluid studies including cultures though I do not suspect infection as fluid appears to be transudative. Continue tube feeds via PEG Heme on following and to decide regarding timing for chemotherapy/radiation. Continue Zosyn for empiric antibiotic coverage to cover for aspiration. Start Lovenox 30 mg subcutaneously daily for DVT prophylaxis, SCDs. Protonix for GI prophylaxis. Condition critical Palliative care following to assist with deciding goals of therapy. Patient remains full CODE STATUS. Time spent on critical care excluding procedures 50 minutes
--- NOTE | 2018-04-29 16:11 | P.PCN ---
Date of procedure: 04/29/18 Pre-op diagnosis: Acute respiratory failure, bilateral pleural effusion Post-op diagnosis: same Procedure: Procedure: Ultrasound-guided right sided pigtail catheter placement site: right pleural cavity Preop diagnosis: Pleural effusion Postop diagnosis: Same Informed consent: Obtained from family and documented on chart. Anesthesia used: 1% lidocaine for local infiltration anesthesia Procedure: After sterile prepping and draping using 1% lidocaine for local infiltration anesthesia, introducer Angiocath was used to enter right pleural cavity under ultrasound guidance between fourth and fifth intercostal space in mid axillary line. Pleural cavity was entered as evidenced by return of pleural fluid. A guidewire was passed through Angiocath without any resistance following which Angiocath was removed. 10 Telugu pigtail catheter was advanced over the guidewire into the right pleural cavity following which guidewire and stiffener were removed. Pigtail catheter was connected to Pleur-evac VAC with a connector. Pigtail catheter was sutured in place as well as secured with stayfix. Postprocedure chest x-ray was ordered and was pending at the time of this dictation. It will be reviewed when available. Patient tolerated procedure well with no immediate complications noted.
[2018-04-29] MEDS: Enoxaparin Inj 30 MG/0.3 ML Syringe SQ SCH (17:34)
[2018-04-30] MEDS: Morphine Inj 4 MG/ML Vial IV.PUSH PRN ×4 (01:15→23:00)
--- NOTE | 2018-04-30 02:08 | ECG ---
Date Performed: 04/29/2018 Time Performed: 09:48:50 PTAGE: 57 years EKG: SINUS TACHYCARDIA WITH OCCASIONAL VENTRICULAR PREMATURE COMPLEXES POSSIBLE LEFT ATRIAL ENLA RGEMENT INCOMPLETE RIGHT BUNDLE BRANCH BLOCK NONSPECIFIC ST & T-WAVE ABNORMALITY ABNORMAL RHYTHM ECG PREVIOUS TRACING : 04/22/2018 22.33 Compared to previous tracing, rate has increased DOCTOR: Conner Martinez Interpretating Date/Time 04/30/2018 02:06:59
[2018-04-30] MEDS: Piperacil/Tazo 4.5 GM Premix 4.5 GM/100 ML BAG IV.SIG SCH ×3 (05:12→18:03)
[2018-04-30] MEDS: Dextrose 5%/NaCl 0.45% Inj 1,000 ML IV.CONT SCH ×2 (09:29→14:59)
[2018-04-30] MEDS: Senna/Docusate Sodium 8.6/50 MG Tablet PO SCH ×2 (09:36→22:13)
[2018-04-30] MEDS: Enoxaparin Inj 30 MG/0.3 ML Syringe SQ SCH (09:36)
--- NOTE | 2018-04-30 09:50 | P.PNCC ---
Subjective Subjective Remarks/Hospital Course: 57-year-old male with a history significant for neck mass diagnosed in November 2016 biopsy of which showed malignancy. It spontaneously ruptured in February 2017 for which patient was seen by Dr. Ambrocio in [facility] [place] , underwent excision following which he had multiple ED visits for this problem and on April 10 was seen in the ER underwent CT neck which showed interval surgical excision of large necrotic right neck mass 5 x 5.3 cm extending towards right posterior oropharynx with mass-effect on the right tongue and deviation of oropharynx in the left without airway compromise. He was seen by ENT Dr. Hines discharged with Z-Grayson with plans to follow-up with Dr. Ambrocio. He subsequently presented with severe cachexia and progressive dysphagia with inability to swallow solids however was able to swallow liquids. Patient had been admitted by hospitalist service. He subsequently failed swallow eval and underwent PEG tube placement on 04/25 following which he was started on tube feedings. He was noted to be extremely deconditioned with significant muscle wasting. Patient was also evaluated by Heme-onc and was being evaluated for radiation and chemotherapy. Patient developed worsening shortness of breath earlier today and a CTA pulmonary angiogram was done which was negative for PE however showed bilateral moderate pleural effusions which were not present on his previous CT chest done a few days ago. He was also noted to have some ascites. Patient was transferred to the ICU. He was extremely tachypneic using accessory muscles of respiration with O2 sat in the 70s on nonrebreather facemask. He was also noted to be tachycardic with heart rate in the 180s. I evaluated the patient on being notified of the consult. Patient was placed on BiPAP following arrival to the ICU with which his O2 sats improved to 100%. Following review of labs and imaging studies I proceeded with placing a right pigtail catheter with ultrasound guidance and drained about 1 L of clear pleural fluid almost immediately into the Pleur-evac. Patient had significant improvement in his respiratory distress. He denied any chest pain nausea or palpitations. He denied any fevers or chills. Review of systems was limited due to extreme respiratory distress requiring BiPAP. 04/30: Patient is breathing comfortably this morning following drainage of right pleural effusion. Presently, he is on nasal cannula at 3 L and respiratory pattern is nonlabored. Oxygen saturation 100%. Chest tube can come out after minimal additional fluids drainage is documented. Objective Vital Signs / I&O: Vital Signs 04/29/18 10:00 04/29/18 11:00 04/29/18 11:24 Temperature Pulse Rate 111 H 127 H 126 H Respiratory Rate 29 H 35 H 36 H Blood Pressure 140/86 Pulse Oximetry 99 96 93 L 04/29/18 11:30 04/29/18 12:00 04/29/18 13:00 Temperature Pulse Rate 115 H 117 H Respiratory Rate 25 H 16 Blood Pressure Pulse Oximetry 100 100 92 L 04/29/18 13:52 04/29/18 14:00 04/29/18 15:00 Temperature Pulse Rate 110 H 115 H 114 H Respiratory Rate 12 22 27 H Blood Pressure 118/76 Pulse Oximetry 100 100 99 04/29/18 16:00 04/29/18 16:37 04/29/18 17:00 Temperature Pulse Rate 111 H 109 H 110 H Respiratory Rate 21 21 27 H Blood Pressure 108/74 Pulse Oximetry 100 100 100 04/29/18 17:47 04/29/18 18:00 04/29/18 19:00 Temperature Pulse Rate 105 H 102 H 106 H Respiratory Rate 18 14 14 Blood Pressure 102/68 Pulse Oximetry 100 100 100 04/29/18 20:00 04/29/18 20:06 04/29/18 20:18 Temperature 97.7 F Pulse Rate 106 H 105 H Respiratory Rate 16 14 Blood Pressure 107/70 Pulse Oximetry 100 100 100 04/29/18 21:00 04/29/18 22:00 04/29/18 23:00 Temperature Pulse Rate 103 H 108 H 104 H Respiratory Rate 13 22 21 Blood Pressure 115/77 118/87 127/86 Pulse Oximetry 100 99 100 04/30/18 00:00 04/30/18 00:01 04/30/18 01:00 Temperature 97.7 F Pulse Rate 113 H 112 H 110 H Respiratory Rate 27 H 28 H 29 H Blood Pressure 144/100 H 142/87 H 140/66 Pulse Oximetry 89 L 100 100 04/30/18 01:30 04/30/18 02:00 04/30/18 03:00 Temperature Pulse Rate 102 H 107 H Respiratory Rate 14 25 H 25 H Blood Pressure 104/64 109/64 Pulse Oximetry 100 100 04/30/18 04:00 04/30/18 05:00 04/30/18 06:00 Temperature 97.6 F Pulse Rate 105 H 106 H 106 H Respiratory Rate 20 34 H 33 H Blood Pressure 117/80 138/85 Pulse Oximetry 100 100 100 04/30/18 06:25 04/30/18 08:05 Temperature Pulse Rate 107 H Respiratory Rate 37 H Blood Pressure 135/83 Pulse Oximetry 100 100 Intake & Output 04/29/18 04/30/18 04/30/18 18:59 06:59 18:59 Intake Total 590 / 590 755 / 755 100 / 100 Output Total 2800 / 2800 850 / 850 Balance -2210 / -2210 -95 / -95 100 / 100 Weight 40 kg Intake: IV 300 / 300 400 / 400 100 / 100 Zosyn 4.5 GM Premix 4.5 gm In 200 / 200 100 / 100 100 / 100 100 ml @ 200 mls/hr IV.SIG Q6H [facility] Rx#:[id number] KCl 20 mEq Premix Inj 20 meq In 100 / 100 300 / 300 100 ml @ 50 mls/hr IV.SIG Q2H PRN Rx#:[id number] Oral 0 / 0 0 / 0 Tube Feeding 210 / 210 355 / 355 Tube Irrigant 80 / 80 Output: Urine 1800 / 1800 650 / 650 Pleural Fluid 1000 / 1000 Chest Tube Drainage 200 / 200 Right Pleural 200 / 200 Other: # Voids 5 Date of Last Bowel Movement 04/25/18 04/29/18 # Incontinent Bowel Movements 1 Result Diagrams: 04/29/18 10:20 04/30/18 05:14 Objective Remarks: Narrative: Severely cachectic male looking older than his stated age HEENT/Neuro: Airway widely patent, no icterus, tongue moist, JAKOB, Awake alert oriented 3, nonfocal grossly, moving all 4 extremities Neck: No JVD Chest/pulmonary: On nasal cannula air entry acceptable bilaterally, few rhonchi and crackles persist Cardiovascular: S1-S2 regular no gallop or murmur GI/abdomen: Soft, no abdominal tenderness, PEG tube in place, bowel sounds active Extremities: Warm bilaterally, no edema, well perfused Assessment and Plan - Assessment and Plan Plan: Emaciated 57-year-old male with: Head and neck cancer Chronic aspiration Acute respiratory failure requiring BiPAP Bilateral pleural effusions Cancer cachexia Protein calorie malnutrition Plan: Follow neuro status. Pain medication as needed. Continue BiPAP as needed. Patient has head and neck cancer which is invading into posterior pharynx however no airway compromise on previous CAT scan or physical exam CTA pulmonary angiogram negative for PE, bilateral pleural effusions. Parenchyma with evidence of aspiration. Status post right pigtail catheter placement for drainage of pleural effusion with symptomatic relief. May require left sided thoracentesis. Continue tube feeds via PEG Heme onc following and to decide regarding timing for chemotherapy/radiation. Continue Zosyn for empiric antibiotic coverage to cover for aspiration. Lovenox 30 mg subcutaneously daily for DVT prophylaxis, SCDs. Protonix for GI prophylaxis. Overall impression: Patient's breathing is very much improved and he now is comfortable on 3 L nasal cannula with 100% oxygen saturation. Palliative care following to assist with deciding goals of therapy. Patient remains full CODE STATUS.
--- NOTE | 2018-04-30 11:58 | ECG ---
Date Performed: 04/29/2018 Time Performed: 11:18:26 PTAGE: 57 years EKG: Atrial fibrillation with rapid ventricular response. Extensive ST-T changes are nonspecific Abnormal ECG PREVIOUS TRACING 04/29/18 9.48: Compared to previous tracing, Atrial fibrillaion has replaced Sinus rhythm with frequent APCs DOCTOR: Shun Vazquez Interpretating Date/Time 04/30/2018 11:58:06
[2018-04-30] MEDS: Pantoprazole Inj 40 MG Vial IV.PUSH SCH (14:59)
--- NOTE | 2018-04-30 16:01 | P.PCN ---
Date of procedure: 04/30/18 Procedure: Diagnosis: Hypoxemic respiratory failure, large left pleural effusion Procedure: Insertion left thoracostomy tube, 10 Pashto pigtail Narrative: Timeout performed and patient properly identified. The left chest was prepped and draped. By percussion the fluid level was easily identified through this gentleman is thin chest wall. The site was packed at the posterior axillary line overlying the seventh rib. This site was numbed as was the top of the seventh rib and intercostal muscle. A 3 mm skin incision was made and the pigtail catheter was loaded on a blunt stylette and passed through the skin incision up over the top of the seventh rib. The catheter was directed posteriorly and inferiorly. The stylette was removed and the tube was connected to a suction Pleur-evac device with the prompt drainage of 800 mL's of straw-colored fluid. Topical adhesive solution was applied to the skin and a standard StatLock device was used to attach the chest tube to the chest wall. No air leak was observed. The tube was left to -30 suction.
--- NOTE | 2018-05-01 06:31 | P.DS ---
Date of admission: 04/23/18 02:15 Primary care physician: UNKNOWN Attending physician on discharge: Jc Miles Brief History from admission: This is a 57-year-old male with PMH of Malignant Neck Mass who presents to the ER with complaints of dysphagia, progressive over the last several months. States he follows w/ Dr. Ambrocio at for right neck mass, s/p excision in the past, but he is unsure which type of cancer he has, notes upcoming appt w/ Dr. Ambrocio on May 11 w/ possible plans to start chemo/radiation. Recently seen in ER on 04/10/18 for similar complaints, CT Neck w/ interval surgical excision of large necrotic right neck mass, 5x5.3cm mass extending towards right posterior oropharynx w/ mass effect on right tongue and deviation of oropharynx to the left, no airway compromise, Dr. Hines w/ ENT consulted at that time and plan was for outpatient follow up w/ pt's Oncologist, Dr. Ambrocio , d/c'd on Z-pack for findings of possible infiltrate on CT Chest. Returns now w/ progressive dysphagia, states able to swallow liquids but no fluids. On exam , pt severely cachectic. BP 147/98, HR 101, O2 sat 95% on RA, Temp 96.1. WBC 15.6. INR 1.2. Chemistry unremarkable. Lactic Acid 2.8. Troponin negative. CXR with no acute findings. CTA Chest negative for PE, interval development of multiple opacities in the right lung suggests malignant versus infectious process, non-consolidative patchy infiltrates left lower lung. S/p Vanc/Zosyn in ER. 04/23 - 04/29: Patient presented with infiltrate on CAT scan of the chest which was treated as pneumonia with vancomycin and Zosyn. Further the CAT scan revealed multiple lesions in the right lung consistent with metastatic cancer. During these first few days he underwent aggressive hydration treatment of sepsis followed by institution of supplemental feedings. Because of his severe protein calorie malnutrition and quite low albumin he had a diffuse capillary leak with large bilateral pleural effusions. On April 29 he developed worsening respiratory distress and required transfer to the intensive care unit following which the notes reflect his ongoing care. Patient update on day of discharge: Patient developed worsening respiratory distress during the day. A second thoracentesis was done of the left chest tap and it dry. Despite the evacuation of both large pleural effusions his respiratory distress continued. Following discussions with his surrogate he was made DNR status and his aunt Jody requested that he be made comfort status with no escalation of care. He naturally at 2328 hrs. DS: Diagnosis - Discharge Diagnosis (1) Acute hypoxemic respiratory failure Status: Acute (2) Acute dehydration Status: Acute (3) Dysphagia Status: Acute (4) FTT (failure to thrive) in adult Status: Acute (5) PNA (pneumonia) Status: Acute (6) Sepsis Status: Acute (7) Protein-calorie malnutrition, severe Status: Acute DS: Summary Hospital Course: 57-year-old male with a history significant for neck mass diagnosed in November 2016 biopsy of which showed malignancy. It spontaneously ruptured in February 2017 for which patient was seen by Dr. Ambrocio in [facility] [place] , underwent excision following which he had multiple ED visits for this problem and on April 10 was seen in the ER underwent CT neck which showed interval surgical excision of large necrotic right neck mass 5 x 5.3 cm extending towards right posterior oropharynx with mass-effect on the right tongue and deviation of oropharynx in the left without airway compromise. He was seen by ENT Dr. Hines discharged with Z-[place] with plans to follow-up with Dr. Ambrocio. He subsequently presented with severe cachexia and progressive dysphagia with inability to swallow solids however was able to swallow liquids. Patient had been admitted by hospitalist service. He subsequently failed swallow eval and underwent PEG tube placement on 04/25 following which he was started on tube feedings. He was noted to be extremely deconditioned with significant muscle wasting. Patient was also evaluated by Heme-onc and was being evaluated for radiation and chemotherapy. Patient developed worsening shortness of breath earlier today and a CTA pulmonary angiogram was done which was negative for PE however showed bilateral moderate pleural effusions which were not present on his previous CT chest done a few days ago. He was also noted to have some ascites. Patient was transferred to the ICU. He was extremely tachypneic using accessory muscles of respiration with O2 sat in the 70s on nonrebreather facemask. He was also noted to be tachycardic with heart rate in the 180s. I evaluated the patient on being notified of the consult. Patient was placed on BiPAP following arrival to the ICU with which his O2 sats improved to 100%. Following review of labs and imaging studies I proceeded with placing a right pigtail catheter with ultrasound guidance and drained about 1 L of clear pleural fluid almost immediately into the Pleur-evac. Patient had significant improvement in his respiratory distress. He denied any chest pain nausea or palpitations. He denied any fevers or chills. Review of systems was limited due to extreme respiratory distress requiring BiPAP. 04/30: Patient is breathing comfortably this morning following drainage of right pleural effusion. Presently, he is on nasal cannula at 3 L and respiratory pattern is nonlabored. Oxygen saturation 100%. Chest tube can come out after minimal additional fluids drainage is documented. - Time Spent with Patient Total time spent providing and/or coordinating discharge services: Greater than 30 minutes - Quality: VTE Deep Vein Thrombosis/Pulmonary Embolism Present on Admission: No Exam Vital signs: Vital Signs 04/30/18 07:00 04/30/18 08:00 04/30/18 08:05 Temperature 97.9 F 97.9 F Pulse Rate 101 H 104 H Respiratory Rate 18 24 Blood Pressure 118/69 Pulse Oximetry 100 100 100 04/30/18 09:00 04/30/18 09:04 04/30/18 10:00 Temperature 98.1 F Pulse Rate 105 H 104 H 109 H Respiratory Rate 14 15 Blood Pressure 118/77 Pulse Oximetry 99 99 100 04/30/18 11:00 04/30/18 12:00 04/30/18 12:09 Temperature Pulse Rate 110 H 105 H Respiratory Rate Blood Pressure 135/86 Pulse Oximetry 99 100 100 04/30/18 12:30 04/30/18 12:44 04/30/18 13:00 Temperature Pulse Rate 129 H 131 H Respiratory Rate 36 H 31 H Blood Pressure 125/94 H 123/64 Pulse Oximetry 79 L 84 L 91 L 04/30/18 13:41 04/30/18 14:00 04/30/18 14:06 Temperature Pulse Rate 120 H Respiratory Rate 21 Blood Pressure Pulse Oximetry 98 93 L 94 L 04/30/18 15:00 04/30/18 15:38 04/30/18 15:46 Temperature Pulse Rate 118 H 114 H 115 H Respiratory Rate 30 H 33 H 38 H Blood Pressure 115/75 119/77 Pulse Oximetry 92 L 95 96 04/30/18 16:00 04/30/18 17:00 04/30/18 17:15 Temperature 98.1 F 98.0 F Pulse Rate 118 H 130 H 118 H Respiratory Rate 34 H 41 H 49 H Blood Pressure 96/73 L Pulse Oximetry 94 L 92 L 80 L 04/30/18 17:34 04/30/18 18:00 04/30/18 18:01 Temperature Pulse Rate 110 H Respiratory Rate 44 H 41 H Blood Pressure 85/56 L Pulse Oximetry 98 96 96 04/30/18 19:00 04/30/18 20:00 04/30/18 21:00 Temperature 97.8 F Pulse Rate 107 H 104 H 107 H Respiratory Rate 22 20 18 Blood Pressure 85/54 L 78/54 L 78/52 L Pulse Oximetry 94 L 95 93 L 04/30/18 22:00 04/30/18 23:00 Temperature Pulse Rate 101 H 100 H Respiratory Rate 18 24 Blood Pressure 80/52 L 75/50 L Pulse Oximetry 91 L 90 L Intake & Output 04/30/18 04/30/18 05/01/18 06:59 18:59 06:59 Intake Total 755 / 755 1611 / 1611 Output Total 850 / 850 1350 / 1350 Balance -95 / -95 261 / 261 Weight 40 kg Intake: IV 400 / 400 1300 / 1300 D5W/1/2 NS Inj 1,000 ML @ 84 1000 / 1000 mls/hr IV.CONT .[id number] [facility] Rx# :[id number] Zosyn 4.5 GM Premix 4.5 gm In 100 / 100 300 / 300 100 ml @ 200 mls/hr IV.SIG Q6H MICHEAL Rx#:[id number] KCl 20 mEq Premix Inj 20 meq In 300 / 300 100 ml @ 50 mls/hr IV.SIG Q2H PRN Rx#:[id number] Oral 0 / 0 0 / 0 Tube Feeding 355 / 355 311 / 311 Output: Urine 650 / 650 500 / 500 Chest Tube Drainage 200 / 200 850 / 850 Left Pleural 800 / 800 Right Pleural 200 / 200 50 / 50 Other: # Voids 5 6 Date of Last Bowel Movement 04/29/18 04/29/18 04/29/18 # Incontinent Bowel Movements 1 1 Narrative: . Results Procedures completed during hospitalization: Insertion right and left thoracostomy tubes. CAT scan of the chest Labs on day of discharge: Labs from last 24 hours 04/30/18 04/30/18 04/30/18 19:49 18:15 06:27 Potassium 4.3 D POC Glucose 125 H 181 H 04/30/18 05:14 Potassium 3.3 L POC Glucose Preliminary micro results at discharge 04/29/18 11:15 Body Fluid Culture - Preliminary Fluid - Pleural fluid No growth in 24 hours - Impressions ITS Impressions Abdomen/Pelvis CT 04/23/18 00:00 CONCLUSION: 1. Moderate amount of ascites. 2. Left para-aortic retroperitoneal lymphadenopathy which is nonspecific. PET/ CT scan may be helpful for further evaluation of this finding if clinically indicated. 3. Scattered ground-glass densities within the visualized lung bases. 4. High density material layering within the gallbladder consistent with sludge or vicarious excretion of contrast. Videofluoroscopic Swallow 04/24/18 15:37 CONCLUSION: Familia aspiration with nectar-thick and puree-thick barium as well as extensive pooling within the paired valleculae and piriform sinuses with both substances. Gastrostomy Tube Placement 04/25/18 00:00 CONCLUSION: 1. Uncomplicated gastrostomy tube placement as above. Abdomen X-Ray 04/29/18 00:00 CONCLUSION: Nonspecific abdominal KUB. There is silhouetting of the hepatic and splenic margins which can be seen with ascites. Chest CTA 04/29/18 00:00 CONCLUSION: 1. Numerous high density foci in the dependent portion the lungs likely from aspirated barium. The accompanying atelectasis or consolidation in the lungs in these regions. 2. At least moderate bilateral pleural effusions being greater on the right. 3. New large amount of ascites. There is punctate free air seen. The patient does had a recent G-tube placement. Chest X-Ray 04/29/18 12:48 CONCLUSION: Good placement of a right chest tube with successful drainage of the right pleural effusion. Discharge Plan - Discharge Disposition Patient Disposition: 20 - Discharge Order Discharge Orders: ED Use Only Admit Order (Routine); Ordered 04/23/18 Ordered By: Lissa Caicedo - Discharge Details Date/Time: 05/01/18 01:24 - Physicians Team Primary Care Provider: UNKNOWN, Attending Provider: Kevon Calhoun Other Providers: Rehan Kim MD ; Canelo Lay MD ; David Crouch MD ; Barak Figueroa MD ; Clayton Lee MD ; Bora Pereira MD ; Kevon Calhoun MD ; Arianna Garibay MD
== END 2018-05-01 01:24 | disposition expired ==
LOC: NEPE 22:21 → NEDA 04-23 02:15 → NEPFCDU 04-23 04:16 → N07 04-24 16:03 → N03 04-29 09:23
PROVIDERS: ADMIT Internal Medicine Critical Care Medicine; ATTEND Internal Medicine Critical Care Medicine
DX: J18.9 Pneumonia, unspecified organism; F17.210 Nicotine dependence, cigarettes, uncomplicated; E86.0 Dehydration; R64 Cachexia; R62.7 Adult failure to thrive; Z66 Do not resuscitate; Z51.5 Encounter for palliative care; J90 Pleural effusion, not elsewhere classified; A41.9 Sepsis, unspecified organism; E43 Unspecified severe protein-calorie malnutrition; R13.10 Dysphagia, unspecified; E87.6 Hypokalemia; C76.0 Malignant neoplasm of head, face and neck; C78.01 Secondary malignant neoplasm of right lung; Z68.1 Body mass index [BMI] 19.9 or less, adult; J96.01 Acute respiratory failure with hypoxia